=== PATIENT | male | born 1980 | race Caucasian/White ===

== ENCOUNTER 2019-03-18 12:25 | Emergency (ER) | payer MEDICAID ==
[~2019-03-18] VITALS: Ht 177.8 cm; Wt 95.5 kg
[~2019-03-18 12:25] MED LIST: ALBU8.5H8 IH; BENZ1TAB7 PO; CLON-371 PO; CLON-514 PO; FLUO20CA43 PO; GUAI120015 PO; HYDR-4383 PO; LISI-600 PO; OMEP40CA37 PO; ONDA8TAB9 PO; POLY17PO10 PO; PSEU-259 PO
[2019-03-18] MEDS ORDERED: LORazepam 2 mg/ml vial IM ONE (12:45)
--- NOTE | 2019-03-18 13:08 | NUR ---
PT IS ANXIOUS PACING BACK AND FORTH IN HIS ROOM, PT ALSO HAS TREMMORS IN HIS HANDS. ADMINSTERED 2MG IM ATIVAN, PT HAS BEEN COOPERATIVE WITH STAFF. PT DENIES ANY SI OR SELF HARM.
[2019-03-18 13:19] LABS: CLARITY,URINE CLEAR (Clear); COLOR,URINE STRAW (Yellow); GLUCOSE, URINE NEGATIVE (Neg); KETONES,URINE NEGATIVE (Neg); LEUKOCYTE ESTERASE ,URINE NEGATIVE (Neg); NITRITES, URINE NEGATIVE (Neg); OCCULT BLOOD,URINE NEGATIVE (Neg); PH,URINE 5.5 (4.8-8.0); PROTEIN,URINE NEGATIVE (Neg); UROBILINOGEN,URINE 0.2 E.U/dL (0.2-1.0)
[2019-03-18 13:23] LABS: UA COLLECTION TYPE CLN CATCH MIDSTREAM
[2019-03-18 13:24] LABS: URINE AMPHETAMINE SCREEN NEGATIVE (Neg); URINE BARBITUATE SCREEN NEGATIVE (Neg); URINE BENZODIAZEPINES SCREEN NEGATIVE (Neg); URINE CANNABINOID SCREEN NEGATIVE (Neg); URINE COCAINE SCREEN NEGATIVE (Neg); URINE METHADONE SCREEN NEGATIVE (Neg); URINE OPIATE SCREEN NEGATIVE (Neg); URINE PHENCYCLIDINE SCREEN NEGATIVE (Neg)
[2019-03-18 13:33] LABS: ALANINE AMINOTRANSFERASE 26 U/L (12-78); ALBUMIN 3.9 G/DL (3.4-5.0); ALBUMIN/GLOBULIN RATIO 1.3 (1.1-1.5); ALKALINE PHOSPHATASE 74 IU/L (46-116); ANION GAP 11 (8-16); ASPARTATE AMINO TRANSFERASE 21 U/L (10-37); BILIRUBIN,TOTAL 0.6 MG/DL (0.1-1.0); BLOOD UREA NITROGEN 8 MG/DL (7-18); BUN/CREATININE RATIO 9.5 (5.4-32.0); CALCIUM 8.8 MG/DL (8.5-10.1); CHLORIDE 93 MMOL/L (99-107); CREATININE 0.84 MG/DL (0.60-1.10); GLUCOSE 104 MG/DL (70-104); POTASSIUM 3.4 MMOL/L (3.5-5.1); SODIUM 125 MMOL/L (135-145); TOTAL CARBON DIOXIDE 20.6 MMOL/L (24-32); TOTAL PROTEIN 6.8 G/DL (6.4-8.2); eGFR > 90 ML/MIN
[2019-03-18 13:38] LABS: BASOPHILS % (AUTO) 0.1 % (0-1); EOSINOPHILS # (AUTO) 0.1 X10'3 (0-0.9); EOSINOPHILS % (AUTO) 0.6 % (0-6); HEMATOCRIT 34.8 % (42.0-52.0); HEMOGLOBIN 12.1 g/dl (14.0-17.9); LYMPHOCYTES # (AUTO) 1.3 X10'3 (1.1-4.8); LYMPHOCYTES % (AUTO) 11.4 % (21-51); MEAN CORPUSCULAR HEMOGLOBIN 31.9 PG (27.0-31.0); MEAN CORPUSCULAR HGB CONC 34.7 g/dL (33.0-36.5); MEAN PLATELET VOLUME 6.9 FL (7.4-10.4); MONOCYTES # (AUTO) 0.9 X10'3 (0-0.9); MONOCYTES % (AUTO) 7.6 % (2-12); NEUTROPHILS # (AUTO) 9.1 X10'3 (1.8-7.7); NEUTROPHILS % (AUTO) 80.3 % (42-75); PLATELET COUNT 301 X10'3 (140-440); RED BLOOD COUNT 3.78 X10'6 (4.70-6.10); WHITE BLOOD COUNT 11.3 X10'3 (4.5-11.0)
[2019-03-18 13:41] LABS: ETHANOL < 0.010 GM/DL (0.0-0.010)
[2019-03-18 13:42] LABS: ACETAMINOPHEN < 2.0 UG/ML (10-30)
[2019-03-18] MEDS ORDERED: sodium polystyrene sulfonate 15gm/60ml oral suspension PO ONE (15:30)
[2019-03-18] MEDS ORDERED: calcium gluconate inj. 1 GM in normal saline 100ml IV soln 100 ML IV ONE (15:30)
[2019-03-18] MEDS ORDERED: dextrose 50%-water 50ml dispensing syringe IV ONE (15:30)
[2019-03-18] MEDS ORDERED: insulin regular, human 10 units/0.1 ml syringe IV ONE (15:30)
[2019-03-18] MEDS ORDERED: furosemide 40mg/4ml inj IV ONE (15:30)
--- NOTE | 2019-03-18 19:35 | NUR ---
SPOKE WITH [facility], PT TO REMAIN ON 5150 HOLD IN ORDER TO SEEK PLACEMENT. PT IS RESTING COMFORTABLY IN BED 10, APPEARS IN NO DISTRESS.
--- NOTE | 2019-03-18 22:19 | NUR ---
The patient was moved to bed 21 in the ER overflow and he was very cooperative with the move and all nursing requests. Dr. Sutton was made aware of low NA of 125 and recommending giving the patient salty foods. He upper extremities had resting tremors. He stated that he has been staying at the [facility]. Earlier this date the [facility] Crisis staff were asked to evaluate the patient at [facility] at [facility] for psuedoseizures. He was at the [employer] [facility] [facility] [place] and appeared to be delusional and paranoid and presented as unable to care for himself in the community. The patient stated that he had been released from [facility] where he was there for court ordered treatment because he was not able to participate in legal procedings against him. He is on probation and recently had a probation violation and was in intermediate for the past 6 months. He stated that his anxiety was very high. When asked how his mood was he replied, "I'm in good spirits even though I'm dying" Stated he felt he was going to because of his anxiety. He stated that his appetite is good but he has had no food to eat. He denies A/V hallucinations. He denies thoughts to harm himself or others. He was able to correctly name the month, year, and city.
[2019-03-18] MEDS ORDERED: OLAN20TA3 PO (22:34)
[2019-03-18] MEDS ORDERED: HYDR-3686 PO (22:39)
[2019-03-18] MEDS ORDERED: BACDS PO (22:39)
--- NOTE | 2019-03-18 23:30 | NUR ---
The patient appears to be sleeping
[2019-03-19 01:29] LABS: ALBUMIN 3.4 G/DL (3.4-5.0); ANION GAP 9 (8-16); BLOOD UREA NITROGEN 9 MG/DL (7-18); BUN/CREATININE RATIO 10.6 (5.4-32.0); CALCIUM 8.8 MG/DL (8.5-10.1); CHLORIDE 107 MMOL/L (99-107); CREATININE 0.85 MG/DL (0.60-1.10); GLUCOSE 96 MG/DL (70-104); POTASSIUM 4.2 MMOL/L (3.5-5.1); SODIUM 141 MMOL/L (135-145); TOTAL CARBON DIOXIDE 24.8 MMOL/L (24-32); eGFR > 90 ML/MIN
[2019-03-19] MEDS ORDERED: hydrOXYzine 25 MG tablet PO PRN (01:55)
[2019-03-19] MEDS ORDERED: olanzapine 10mg tablet PO ONE (01:55)
--- NOTE | 2019-03-19 02:34 | NUR ---
RELIEVING PRIMARY RN FOR BREAK. PT ASLEEP, LYING ON HIS LEFT SIDE WITH BLANIKETS COVERING TO HIS SHOULDERS. RR 14 AND UNLABORED. SITTER AND RN WITHIN VIEW OF PT AAT.
--- NOTE | 2019-03-19 04:43 | NUR ---
The patient appears to be asleep
--- NOTE | 2019-03-19 06:56 | NUR ---
Recieved pt in bed sleeping w/o distress and with normal respirations.
[2019-03-19] MEDS ORDERED: pantoprazole 40mg Tablet.DR PO SCH (08:00)
[2019-03-19] MEDS: sulfamethoxazole/trimethoprim DS (800/160mg) tablet PO SCH ×2 (08:01→20:07)
--- NOTE | 2019-03-19 10:00 | NUR ---
Pt c/o anxiety and shaking. Appears to have intermitent hand shaking and states " I have alzheimers". Psychiatry will come and see client. Explained to Pt he will talk to a prescriber soon and encouraged him to walk with me when he felt anxious, which we did x2. Currently in bed resting.
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
[2019-03-19] MEDS ORDERED: LORazepam 1 MG tablet PO PRN (13:10)
--- NOTE | 2019-03-19 16:00 | NUR ---
Pt appears more relaxed after receiving ativan 1mg prn. Resting in bed.
[2019-03-19 18:08] VITALS: BP 128/86
--- NOTE | 2019-03-19 18:48 | NUR ---
Received report. Patient ate dinner and used bathroom. States that he has diarrhea. Patient requests imodium. Now laying in bed with no complaints.
[2019-03-19] MEDS ORDERED: lactobacillus rhamnosus 10,000 MMU CELLS/CAPSULE PO SCH (20:00)
--- NOTE | 2019-03-19 20:12 | NUR ---
Patient given night meds. States that he is comfortable in the bed. No further c/o diarrhea. Patient is on abx. May cause some loose stool.
[2019-03-19] MEDS ORDERED: olanzapine 10mg tablet PO SCH (21:00)
--- NOTE | 2019-03-19 21:50 | NUR ---
Patient sleeping. Awaiting DC to [place] [facility].
== END 2019-03-19 22:06 ==
LOC: ER 12:26
DX: F41.9 Anxiety disorder, unspecified (principal); F29 Unspecified psychosis not due to a substance or known physiological condition; F31.9 Bipolar disorder, unspecified; I10 Essential (primary) hypertension; J45.909 Unspecified asthma, uncomplicated; K21.9 Gastro-esophageal reflux disease without esophagitis; G89.29 Other chronic pain; Z86.14 Personal history of Methicillin resistant Staphylococcus aureus infection; Z98.890 Other specified postprocedural states; Z56.0 Unemployment, unspecified; Z59.0 Homelessness; Z60.2 Problems related to living alone; Z88.8 Allergy status to other drugs, medicaments and biological substances; Z79.899 Other long term (current) drug therapy
CPT/HCPCS: 36415; 71045; 80048; 80053; 80305; 80320; 80329; 81003; 84443; 84484; 85025; 93005; 96372; 99285; J2060; Q0177; J0610; J3490; J7030

== ENCOUNTER 2019-03-19 20:45 | Inpatient (IN) | payer MEDICAID ==
[~2019-03-19] VITALS: Ht 177.8 cm; Wt 94.6 kg
[~2019-03-19 20:45] MED LIST changes: -ALBU8.5H8 IH; +BACDS PO; -BENZ1TAB7 PO; -CLON-371 PO; -CLON-514 PO; -FLUO20CA43 PO; -GUAI120015 PO; +HYDR-3686 PO; -HYDR-4383 PO; -LISI-600 PO; +OLAN20TA3 PO; -ONDA8TAB9 PO; -POLY17PO10 PO; -PSEU-259 PO
[2019-03-19] MEDS ORDERED: olanzapine 10mg tablet PO SCH (21:00)
[2019-03-19] MEDS ORDERED: magnesium hydroxide 30ml (MOM) UD suspension PO PRN (21:35)
[2019-03-19] MEDS ORDERED: mag hydrox/Alum hydrox/simeth 30ml oral suspension PO PRN (21:35)
[2019-03-19] MEDS ORDERED: loperamide 2mg capsule PO PRN (21:35)
[2019-03-19 22:00] VITALS: BP 129/88
--- NOTE | 2019-03-19 22:00 | NUR ---
Admit Note: Pt. admitted from ER Overflow at 2200, able to ambulate to the unit accompanied by Sky, Press and [employer]. He was paced on a 5150 for grave disability r/t psychosis. Pt. is A&O X4, and presents as cooperative, fatigued, and anxious. He reports a mental health hx of severe anxiety with panic attacks, depression, Bipolar D/O, PTSD, and paranoid schizophrenia. He denies any S/I, H/I, or A/V/LOCKHART at this time, however does report on-going paranoid delusions that the [employer] has been trying to kill him because his family is part of the [facility]. Pt. reports severe anxiety attacks and bilateral upper extremity tremors r/t these delusions. He states, "My anxiety and tremors started when I left [facility] at the end of February (he had been there for 6-7 months), ever since I have been in [place]." Pt. has been staying at the [email or web address] [place], and was brought to the ER by [facility] for evaluation. His toxicology screen was negative, however he has a history of alcohol use. Pt. reports medical issues of htn, past head traumas, memory loss, asthma, MRSA, cellulitis, and GERD. He also reports chronic pain in bilateral upper arms and chest muscles r/t anxiety-related tremors. Recent electrocardiogram, chest x-ray, and troponin levels performed in the ER were WNL, and pt. reports pain is reduced with PRN Ativan. He also had a pseudoseizure/panic attack while in the ER, and it was found that his initial serum sodium level was 125. A basic metabolic panel was rechecked and sodium level was found to be 141. Per evaluation of Dr. Baird, polydipsia is likely the cause of the patient's hyponatremia, will endorse to AM shift and continue to monitor. Skin check completed by Sage Posada RN and Jose Alvarez RN. Pt. found to have a reddened/warm area on rt upper arm, and is currently being treated with ABTs. No open areas noted and V/S WNL. He also has several boil-like areas on left neck area, and blisters present on bilateral feet. Areas are not open and no drainage noted, will endorse to AM shift and continue to monitor. HS snack provided along with PRN Imodium per reports of recent diarrhea. Pt. resting comfortably at this time.
[2019-03-19] MEDS ORDERED: hydrOXYzine 25 MG tablet PO PRN (22:05)
[2019-03-19] MEDS: LORazepam 1 MG tablet PO PRN (22:17)
[2019-03-19] MEDS: traZODone 50mg tablet PO PRN (22:18)
[2019-03-19] MEDS: acetaminophen 325mg tablet PO PRN (23:25)
--- NOTE | 2019-03-20 00:49 | NUR ---
PT. HAS AN ALLERGY TO ALL NUTS
[2019-03-20] MEDS ORDERED: clonazePAM 0.5mg tablet PO ONE (07:15)
[2019-03-20] MEDS: sulfamethoxazole/trimethoprim DS (800/160mg) tablet PO SCH ×2 (07:39→20:12)
[2019-03-20] MEDS: lactobacillus rhamnosus 10,000 MMU CELLS/CAPSULE PO SCH ×2 (07:39→20:12)
[2019-03-20] MEDS: pantoprazole 40mg Tablet.DR PO SCH (07:39)
[2019-03-20 08:19] VITALS: BP 123/84
[2019-03-20 08:44] LABS: CHOL/HDL RATIO 2.1 (0.00-4.99); CHOLESTEROL 147 MG/DL (0-200); HDL CHOLESTEROL 71 MG/DL (35-60); LDL CHOLESTEROL 46 MG/DL (50-100); TRIGLYCERIDES 153 MG/DL (20-135)
[2019-03-20 08:49] LABS: HEMOGLOBIN A1C 4.9 % (4.5-6.2)
[2019-03-20] MEDS ORDERED: tuberculin, purif. prot. deriv. 5 units/0.1ml ID ONE (10:00)
[2019-03-20] MEDS: LORazepam 1 MG tablet PO PRN ×2 (14:11→21:50)
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
[2019-03-20] MEDS ORDERED: chlorproMAZINE 25mg tablet PO ONE (17:30)
[2019-03-20 20:00] VITALS: BP 144/90
[2019-03-20] MEDS: clonazePAM 0.5mg tablet PO SCH (20:12)
[2019-03-20] MEDS: chlorproMAZINE 25mg tablet PO SCH (20:13)
[2019-03-20] MEDS: acetaminophen 325mg tablet PO PRN (20:17)
[2019-03-20 21:50] VITALS: BP 120/60
[2019-03-20] MEDS: traZODone 50mg tablet PO PRN (21:50)
--- NOTE | 2019-03-21 03:40 | NUR ---
Nursing Progress Note: Legal hold: 5150 Client on involuntary status for GD Report received from nurse with use of SBAR: LENNOX Laws Why are they here: Pt. brought to ER by [facility] Crisis Unit for evaluation after decompensating at [facility] [employer] [facility] [place]. He reports a mental health hx of severe anxiety with panic attacks, depression, Bipolar D/O, PTSD, and paranoid schizophrenia. Pt. reports on-going paranoid delusions that the [employer] has been trying to kill him because his family is part of the [facility]. He also reports severe anxiety attacks r/t this. Pt. recently was in [facility], afterwards spent time in detention, and is currently homeless. He is currently being treated for possible cellulitis on rt. upper arm, and also reports chronic pain in bilateral upper arms and chest r/t anxiety-related bilateral upper extremity tremors. Recent electrocardiogram, chest x-ray, and troponin levels performed in the ER were WNL. Pt. also had a pseudoseizure/panic attack while in the ER, and it was found that his initial serum sodium level was 125, however when rechecked was WNL. Assessment What has happened this shift: Pt. up in Group Room at the beginning of the shift interacting appropriately with others. He presents as pleasant, cooperative, and is smiling and joking with this freelance copywriter; however he continues to report restlessness, anxiety, and exhibits on-going bilateral upper extremity tremors. Pt. cooperative with all medications, states, "The Chlorpromazine makes my brain work better so I can talk better. They wouldn't give it to me at [facility]. They gave me Depakote and I couldn't talk right." Pt. reports ongoing anxiety, however reports the Clonazepam and Ativan are helping. He also reports ongoing delusions regarding the [employer], states, "I have a love/hate relationship with the [employer]. They hate me." However, pt. reports that he does feel safe here on the unit. Pt. requests PRN Ativan at HS r/t chronic anxiety which causes him intermittent chest tightness/pain. He denies any radiation of pain to other areas, n/v, or diaphoresis, and V/S are WNL. Pt. is laying in bed smiling and joking with this freelance copywriter and does not appear to be in any distress, PRN Ativan administered and pt. reports effectiveness. Pt. resting comfortably, will continue to monitor. S/I, H/I: Denies A/VH: Denies Sleep: Reports he has been sleeping well, PRN Trazodone and Ativan requested at HS with effectiveness ADL's: Independent, requires occasional re-direction from staff Group attendance: Reports he attended groups today and enjoyed them Were meds taken: No Any med S/E: Pt. continues to have bilateral upper extremity tremors, psychomotor restlessness, and chronic anxiety Mental Status Exam Appearance: Neat, hair pulled back in a pony tail, and dressed appropriately in hospital attire. Eye contact: Good Behavior: Pleasant, cooperative, and is smiling and joking with this freelance copywriter; however he continues to report restlessness, anxiety, and exhibits on-going bilateral upper extremity tremors. Speech: WNL, slightly tremulous at times Mood: Pleasant Affect: Animated Thought process: Perseverative on paranoid delusions Thought Content: Ongoing paranoid delusions Cognition: A&O X4 Insight: Fair Judgment: Poor to fair Interventions PRN's used: Ativan, Trazodone, and Tylenol Therapeutic interventions: Provided active listening, maintained a safe and therapeutic environment, provided medication education, provided clear and simple instructions, attempted to reorient to reality, monitored for change in behavior and bilateral upper extremity tremors and need for intervention, and maintained Q 15 min safety checks. Restraints/seclusion/emergency medication: N/A Justification of Continued Inpatient Treatment: Pt. requires interruption of current crisis, a safe and supportive environment, and medication adjustments.
[2019-03-21] MEDS: clonazePAM 0.5mg tablet PO SCH ×2 (07:18→19:39)
[2019-03-21] MEDS: pantoprazole 40mg Tablet.DR PO SCH (07:18)
[2019-03-21 08:13] VITALS: BP 128/89
[2019-03-21] MEDS: sulfamethoxazole/trimethoprim DS (800/160mg) tablet PO SCH ×2 (08:26→19:40)
[2019-03-21] MEDS: chlorproMAZINE 25mg tablet PO SCH ×3 (08:26→20:16)
[2019-03-21] MEDS: lactobacillus rhamnosus 10,000 MMU CELLS/CAPSULE PO SCH ×2 (08:26→19:40)
[2019-03-21] MEDS: LORazepam 1 MG tablet PO PRN ×2 (08:41→17:13)
[2019-03-21] MEDS: acetaminophen 325mg tablet PO PRN (11:53)
--- NOTE | 2019-03-21 12:20 | NUR ---
Nursing Progress Note: Legal hold: 5150 Client on involuntary status for GD Report received from nurse with use of SBAR: LENNOX Laws Why are they here: Pt. brought to ER by [facility] for evaluation after decompensating at [facility] [employer] [facility] [place]. He reports a mental health hx of severe anxiety with panic attacks, depression, Bipolar D/O, PTSD, and paranoid schizophrenia. Pt. reports on-going paranoid delusions that the [employer] has been trying to kill him because his family is part of the [facility]. He also reports severe anxiety attacks r/t this. Pt. recently was in [facility], afterwards spent time in half-way, and is currently homeless. He is currently being treated for possible cellulitis on rt. upper arm, and also reports chronic pain in bilateral upper arms and chest r/t anxiety-related bilateral upper extremity tremors. Recent electrocardiogram, chest x-ray, and troponin levels performed in the ER were WNL. Pt. also had a pseudoseizure/panic attack while in the ER, and it was found that his initial serum sodium level was 125, however when rechecked was WNL. Assessment What has happened this shift: Patient was up at change of shift in the group room. Before breakfast patient started with feeling very anxious. RN gave patient his Klonopin that was due at 0800 which was a little early but still within the window. RN checked on patient a little later and patient was anxious and his hands were trembling. RN gave patient an Ativan. Patient seemed to calm down soon after. Patient states he has " staring him in the face". Patient still believes the [employer] Gang is trying to kill him. Patient came to see RN again and asked for Tylenol for a LOCKHART. Patient sits in the Community Room and is social with other people or watches [employer]. S/I, H/I: Denies A/VH: Denies Sleep: ADL's: Independent Group attendance: Yes Were meds taken: No Any med S/E: Pt. continues to have bilateral upper extremity tremors, psychomotor restlessness, and chronic anxiety Mental Status Exam Appearance: Neat, hair pulled back in a pony tail, and dressed appropriately in hospital attire. Eye contact: Good Behavior: Pleasant, cooperative, and is smiling and joking with this teletypewriter operator; however he continues to report restlessness, anxiety, and exhibits on-going bilateral upper extremity tremors. Speech: Normal Mood: Pleasant Affect: Animated Thought process: Perseverative on paranoid delusions Thought Content: Ongoing paranoid delusions Cognition: A&O X4 Insight: Poor Judgment: Poor Interventions PRN's used: Ativan, Tylenol Therapeutic interventions: Provided active listening, maintained a safe and therapeutic environment, provided medication education, provided clear and simple instructions, attempted to reorient to reality, monitored for change in behavior and bilateral upper extremity tremors and need for intervention, and maintained Q 15 min safety checks. Restraints/seclusion/emergency medication: N/A Justification of Continued Inpatient Treatment: Pt. requires interruption of current crisis, a safe and supportive environment, and medication adjustments.
[2019-03-21] MEDS: OLANZapine 2.5MG tablet PO PRN ×2 (13:11→20:16)
[2019-03-21 19:00] VITALS: BP 126/85
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
[2019-03-22] MEDS: LORazepam 1 MG tablet PO PRN ×3 (07:03→19:14)
[2019-03-22] MEDS: chlorproMAZINE 25mg tablet PO SCH ×3 (07:46→20:12)
[2019-03-22] MEDS: sulfamethoxazole/trimethoprim DS (800/160mg) tablet PO SCH ×2 (07:46→19:56)
[2019-03-22] MEDS: lactobacillus rhamnosus 10,000 MMU CELLS/CAPSULE PO SCH ×2 (07:46→19:56)
[2019-03-22] MEDS: clonazePAM 0.5mg tablet PO SCH ×2 (07:46→19:56)
[2019-03-22] MEDS: pantoprazole 40mg Tablet.DR PO SCH (07:46)
[2019-03-22 08:32] VITALS: BP 116/66
[2019-03-22] MEDS: OLANZapine 2.5MG tablet PO PRN (13:34)
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
[2019-03-22 19:00] VITALS: BP 135/87
[2019-03-22] MEDS: traZODone 50mg tablet PO PRN (20:12)
--- NOTE | 2019-03-23 02:57 | NUR ---
Nursing Progress Note: Legal hold: 5250 Client on involuntary status for GD Report received from nurse with use of SBAR: LENNOX Hogan Why are they here: Pt. brought to ER by [facility] for evaluation after decompensating at [facility]. He reports a mental health hx of severe anxiety with panic attacks, depression, Bipolar D/O, PTSD, and paranoid schizophrenia. Pt. reports on-going paranoid delusions that the [employer]ai has been trying to kill him because his family is part of the [facility]. He also reports severe anxiety attacks r/t this. Pt. recently was in [facility], afterwards spent time in long term, and is currently homeless.He is currently being treated for possible cellulitis on rt. upper arm, and also reports chronic pain in bilateral upper arms and chest r/t anxiety-related bilateral upper extremity tremors. Recent electrocardiogram, chest x-ray, and troponin levels performed in the ER were WNL. Pt. also had a pseudoseizure/panic attack while in the ER, and it was found that his initial serum sodium level was 125, however when rechecked was WNL. Assessment What has happened this shift: First contact with patient was in the community room. the patient had visible tremors in his upper extremities, When asked he claim he had an xiety level of 6/10. When asked if he felt safe he said that he did. Then he went on to comment about the insurance policy and how the [employer] desai wanted to kill him to claim the policy. He was anxious to get his nighttime medication including his trazodone. He hovered around the med room door until he meds were ready to be administered. He spent the remainder of the night in the community room and then went to bed soon after. when asked he said his anxiety was a 3/10. Pt denies S/I and H/I S/I, H/I: Denies A/VH: Denies Sleep: 8.25 hours ADL's: Independent, requires occasional re-direction from staff Group attendance: Attended group with Fabrice, he reports learning to focus on now, letting go of the past, and not worrying about the future. Were meds taken: Yes Any med S/E: bilateral upper extremity tremors, psychomotor restlessness Mental Status Exam Appearance: Neat, hair pulled back in a pony tail, and dressed appropriately in hospital attire. Eye contact: Good Behavior: Pleasant, cooperative; however he continues to report anxiety, and exhibits on-going bilateral upper extremity tremors. Speech: WNL, slightly tremulous and pressured when describing on-going delusions Mood: Pleasant Affect: congruent with mood Thought process: Perseverative on paranoid delusions Thought Content: Ongoing paranoid delusions and phobias Cognition: A&O X4 Insight: poor to fair Judgment: Poor to fair Interventions PRN's used: Trazodone. Therapeutic interventions: Provided active listening, maintained a safe and therapeutic environment, provided clear and simple instructions, attempted to reorient to reality, monitored for change in behavior and bilateral upper extremity tremors and need for intervention, and maintained Q 15 min safety checks. Restraints/seclusion/emergency medication: N/A Justification of Continued Inpatient Treatment: Pt. continues to have psychotic s/s and anxiety and requires a safe and supportive environment, and medication adjustments.
[2019-03-23] MEDS: LORazepam 1 MG tablet PO PRN ×3 (07:05→22:58)
[2019-03-23] MEDS: pantoprazole 40mg Tablet.DR PO SCH (07:05)
[2019-03-23] MEDS: chlorproMAZINE 25mg tablet PO SCH ×3 (07:06→20:42)
[2019-03-23] MEDS: clonazePAM 0.5mg tablet PO SCH ×2 (07:57→19:18)
[2019-03-23] MEDS: lactobacillus rhamnosus 10,000 MMU CELLS/CAPSULE PO SCH ×2 (07:57→20:42)
[2019-03-23] MEDS: sulfamethoxazole/trimethoprim DS (800/160mg) tablet PO SCH ×2 (07:57→20:44)
[2019-03-23 08:00] VITALS: BP 115/81
[2019-03-23] MEDS: acetaminophen 325mg tablet PO PRN (08:40)
--- NOTE | 2019-03-23 17:23 | NUR ---
Nursing Progress Note Legal hold: 5150 Client on involuntary status for GD Report received from nurse Samira HIGH, with use of SBAR Why are they here: He reports a MH hx of severe anxiety with panic attacks, depression, Bipolar D/O, PTSD, and paranoid schizophrenia. Pt. reports on-going paranoid delusions that the [employer] has been trying to kill him because his family is part of the [facility]. He also reports severe anxiety attacks r/t this. Pt. recently was in [place], afterwards spent time in care home, and is currently homeless.He is currently being treated for possible cellulitis on rt. upper arm, and also reports chronic pain in bilateral upper arms and chest r/t anxiety-related bilateral upper extremity tremors. Assessment What has happened this shift: At start of shift pt requested Ativan stating his chest and feet hurt. Pain 3/10 due to his anxiety. He has been up all shift interacting w/others and watching TV in the main dayroom. S/I, H/I: Denies A/VH: Denies Sleep: None this shift ADL's: Independent, requires occasional re-direction from staff Group attendance: Attended both groups Were meds taken: Yes Any med S/E: N/A Mental Status Exam Appearance: Neat, hair pulled back in a pony tail, and dressed appropriately in hospital attire. Eye contact: Good Behavior: Pleasant, cooperative; continues to report anxiety, bilateral upper extremity tremors. Speech: pressured Mood: Calm Affect: congruent with mood Thought process: Perseverated on current cx of health or "pain" Thought Content: Ongoing paranoid delusions and phobias Cognition: A&O X4 Insight: poor to fair Judgment: Poor to fair Interventions PRN's used: Ativan X 2 Therapeutic interventions: Provided therapeutic communication and active listening, maintained a safe and therapeutic environment, medication education, monitoring and administration, monitored for change in behavior and bilateral upper extremity tremors and need for intervention, and maintained Q 15 min safety checks. Restraints/seclusion/emergency medication: N/A Justification of Continued Inpatient Treatment: Pt. continues to have psychotic s/s and anxiety and requires a safe and supportive environment, and medication adjustments.
[2019-03-23 19:21] VITALS: BP 128/91
[2019-03-23] MEDS: traZODone 50mg tablet PO PRN (20:42)
--- NOTE | 2019-03-23 23:27 | NUR ---
Nursing Progress Note: Legal hold: 5250 Client on involuntary status for GD Report received from nurse with use of SBAR: LENNOX Laws Why are they here: Pt. brought to ER by [facility] for evaluation after decompensating at [facility] [place]. He reports a mental health hx of severe anxiety with panic attacks, depression, Bipolar D/O, PTSD, and paranoid schizophrenia. Pt. reports on-going paranoid delusions that the [employer] has been trying to kill him because his family is part of the [facility]. He also reports severe anxiety attacks r/t this. Pt. recently was in [facility], afterwards spent time in snf, and is currently homeless.He is currently being treated for possible cellulitis on rt. upper arm, and also reports chronic pain in bilateral upper arms and chest r/t anxiety-related bilateral upper extremity tremors. Recent electrocardiogram, chest x-ray, and troponin levels performed in the ER were WNL. Pt. also had a pseudoseizure/panic attack while in the ER, and it was found that his initial serum sodium level was 125, however when rechecked was WNL. Assessment What has happened this shift: Pt watched TV in group room majority of shift. During 1:1, pt stated "the meds are helping" and that he is "feeling better but still anxious." Pt stated his feet do not hurt, and RN evaluated all sores that were documented at time of admission to be healing well. Pt did not mention any delusions that have been ongoing during previous shifts. Pt having trouble falling asleep and did not turn in until after 2300. S/I, H/I: Denies A/VH: Denies Sleep: See Sleep Hour Charting ADL's: Independent, requires occasional re-direction from staff Group attendance: Y - HS Snack Were meds taken: Y Any med S/E: Pt. continues to have some bilateral upper extremity tremors, psychomotor restlessness, and chronic anxiety. Mental Status Exam Appearance: Neat, hair pulled back in a pony tail, and dressed appropriately in hospital green scrubs and nonskid socks Eye contact: Direct Behavior: Cooperative, watching TV in group room Speech: WNL Mood: "I feel okay" Affect: Constricted Thought process: Linear, no mention of delusions even with probing Thought Content: what meds he is taking this evening, ongoing anxiety Cognition: A&O X4 Insight: Poor Judgment: Poor to Fair Interventions PRN's used: Ativan, Trazodone Therapeutic interventions: Provided active listening, maintained a safe and therapeutic environment, provided clear and simple instructions, monitored for change in behavior and bilateral upper extremity tremors and need for intervention, and maintained Q15 min safety checks. Restraints/seclusion/emergency medication: N/A Justification of Continued Inpatient Treatment: Pt. continues to have psychotic s/s and anxiety and requires a safe and supportive environment, and medication adjustments.
[2019-03-24] MEDS: pantoprazole 40mg Tablet.DR PO SCH (07:06)
[2019-03-24] MEDS: chlorproMAZINE 25mg tablet PO SCH ×3 (07:07→20:38)
[2019-03-24 07:57] VITALS: BP 125/89
[2019-03-24] MEDS: sulfamethoxazole/trimethoprim DS (800/160mg) tablet PO SCH ×2 (08:40→20:36)
[2019-03-24] MEDS: lactobacillus rhamnosus 10,000 MMU CELLS/CAPSULE PO SCH ×2 (08:40→20:36)
[2019-03-24] MEDS: clonazePAM 0.5mg tablet PO SCH ×2 (08:40→20:36)
[2019-03-24] MEDS: LORazepam 1 MG tablet PO PRN (12:48)
--- NOTE | 2019-03-24 13:48 | NUR ---
100% PO Intake, eating well. Documented having moderate liquid stools, is taking immodium and lactobacillus. No nutrition problem at this time. Recommend: 1. Continue regular diet 2. Continue anti diarrheal as needed 3. Weekly wts Addendum: 03/24/19 at [address] Amended: Links added.
--- NOTE | 2019-03-24 16:26 | NUR ---
Nursing Progress Note Legal hold: 5250 hearing for 14 days Client on involuntary status for GD Report received from nurse, Vanessa HIGH, with use of SBAR Why are they here: He reports a MH hx of severe anxiety with panic attacks, depression, Bipolar D/O, PTSD, and paranoid schizophrenia. Pt. reports on-going paranoid delusions that the [employer] has been trying to kill him because his family is part of the [facility]. He also reports severe anxiety attacks r/t this. Pt. recently was in [place], [place] [facility], and is currently homeless.He is currently being treated for possible cellulitis on rt. upper arm, and also reports chronic pain in bilateral upper arms and chest r/t anxiety-related bilateral upper extremity tremors. Assessment What has happened this shift: Pt up in the main community room at start of shift. Pt had his 5250 hearing today he agreed to stay so did not contest the hearing. Pt went to groups and engaged w/peers. Pt later seen watching TV in the community room with his peers and occasionally laughing. Pt continues to hear voices telling him he is going to be killed by the "[employer] gang." Pt presents in the afternoon w/oral dystonia. S/I, H/I: Denies A/VH: Reports hearing voices Sleep: None this shift ADL's: Independent, requires occasional re-direction from staff Group attendance: Yes, both groups Were Meds taken: Yes Any med S/E: N/A Mental Status Exam Appearance: Neat, hair pulled back in a pony tail, and dressed appropriately in hospital attire. Eye contact: Good Behavior: Pleasant, cooperative; continues to report anxiety, oral dystonia, bilateral upper extremity tremors. Speech: pressured Mood: Calm Affect: congruent with mood Thought process: Perseverated on current cx of health or "pain" Thought Content: Ongoing paranoid delusions and phobias Cognition: A&O X4 Insight: poor to fair Judgment: Poor to fair Interventions PRN's used: Ativan X 2 Therapeutic interventions: Provided therapeutic communication and active listening, maintained a safe and therapeutic environment, medication education, monitoring and administration, monitored for change in behavior and bilateral upper extremity tremors and need for intervention, and maintained Q 15 min safety checks. Restraints/seclusion/emergency medication: N/A Justification of Continued Inpatient Treatment: Pt. continues to have psychotic s/s and anxiety and requires a safe and supportive environment, and medication adjustments.
[2019-03-24] MEDS: OLANZapine 2.5MG tablet PO PRN (18:50)
[2019-03-24 20:15] VITALS: BP 134/89
[2019-03-24] MEDS: traZODone 50mg tablet PO PRN (21:52)
--- NOTE | 2019-03-25 02:23 | NUR ---
Nursing Progress Note: Legal hold: 5250 Client on involuntary status for GD Report received from nurse with use of SBAR: LENNOX Laws Why are they here: Pt. brought to ER by [facility] for evaluation after decompensating at [facility] [place]. He reports a mental health hx of severe anxiety with panic attacks, depression, Bipolar D/O, PTSD, and paranoid schizophrenia. Pt. reports on-going paranoid delusions that the [employer] has been trying to kill him because his family is part of the [facility]. He also reports severe anxiety attacks r/t this. Pt. recently was in [place] [facility], afterwards spent time in [facility], and is currently homeless.He is currently being treated for possible cellulitis on rt. upper arm, and also reports chronic pain in bilateral upper arms and chest r/t anxiety-related bilateral upper extremity tremors. Recent electrocardiogram, chest x-ray, and troponin levels performed in the ER were WNL. Pt. also had a pseudoseizure/panic attack while in the ER, and it was found that his initial serum sodium level was 125, however when rechecked was WNL. Assessment What has happened this shift: Pt watched TV in group room majority of shift. During 1:1, pt stated "he is doing okay, feeling better". He continued, "I agreed with everything they said in court." Pt seems grateful for the help he is receiving, stating the "the medications help me." Pt did not mention any delusions that have been ongoing during previous shifts. S/I, H/I: Denies A/VH: Denies Sleep: See Sleep Hour Charting ADL's: Independent, requires occasional re-direction from staff Group attendance: Y - HS Snack Were meds taken: Y Any med S/E: Pt. continues to have some bilateral upper extremity tremors, psychomotor restlessness, and chronic anxiety. Mental Status Exam Appearance: Neat, hair pulled back in a pony tail, and dressed appropriately in hospital green scrubs and nonskid socks Eye contact: Direct Behavior: Cooperative, watching TV in group room Speech: WNL Mood: "I feel better" Affect: Blunted Thought process: Linear, no mention of delusions even with probing Thought Content: hoping to get better sleep Cognition: A&O X4 Insight: Poor Judgment: Poor to Fair Interventions PRN's used: Trazodone Therapeutic interventions: Provided active listening, maintained a safe and therapeutic environment, provided clear and simple instructions, monitored for change in behavior and bilateral upper extremity tremors and need for intervention, and maintained Q15 min safety checks. Restraints/seclusion/emergency medication: N/A Justification of Continued Inpatient Treatment: Pt. continues to have anxiety and requires a safe and supportive environment, and medication adjustments.
[2019-03-25 07:30] VITALS: BP 122/91
[2019-03-25] MEDS: lactobacillus rhamnosus 10,000 MMU CELLS/CAPSULE PO SCH ×2 (08:02→20:33)
[2019-03-25] MEDS: sulfamethoxazole/trimethoprim DS (800/160mg) tablet PO SCH ×2 (08:02→20:33)
[2019-03-25] MEDS: clonazePAM 0.5mg tablet PO SCH ×2 (08:02→20:33)
[2019-03-25] MEDS: chlorproMAZINE 25mg tablet PO SCH ×3 (08:02→20:34)
[2019-03-25] MEDS: pantoprazole 40mg Tablet.DR PO SCH (08:02)
[2019-03-25] MEDS: LORazepam 1 MG tablet PO PRN ×2 (10:50→18:02)
--- NOTE | 2019-03-25 15:47 | NUR ---
1:1 DISCHARGE PLANNING Pt met with [facility] staff, Rogers, who interviewed pt and agreed to allow pt to enter [facility]. Pt will receive case management services to assist him in gaining SSI, his identification and other items to assist him recovering successfully. Rogers has requested pt be referred to [facility] in addition to [facility]. This will assist pt in finding housing and gaining successful recovery. Roxanna Ruiz, DAGMAR
[2019-03-25] MEDS: OLANZapine 2.5MG tablet PO PRN (16:48)
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
[2019-03-25] MEDS: acetaminophen 325mg tablet PO PRN (19:02)
[2019-03-25 20:27] VITALS: BP 125/85
[2019-03-25] MEDS: traZODone 50mg tablet PO PRN (20:34)
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
[2019-03-26 07:42] VITALS: BP 94/58
[2019-03-26] MEDS: clonazePAM 0.5mg tablet PO SCH ×2 (08:01→20:50)
[2019-03-26] MEDS: sulfamethoxazole/trimethoprim DS (800/160mg) tablet PO SCH ×2 (08:01→20:50)
[2019-03-26] MEDS: lactobacillus rhamnosus 10,000 MMU CELLS/CAPSULE PO SCH ×2 (08:01→20:50)
[2019-03-26] MEDS: pantoprazole 40mg Tablet.DR PO SCH (08:01)
[2019-03-26] MEDS: chlorproMAZINE 25mg tablet PO SCH ×3 (08:02→20:51)
[2019-03-26] MEDS: LORazepam 1 MG tablet PO PRN ×2 (09:09→17:06)
[2019-03-26] MEDS: acetaminophen 325mg tablet PO PRN (09:12)
[2019-03-26 10:28] VITALS: BP 100/73
--- NOTE | 2019-03-26 17:46 | NUR ---
Nursing Progress Note: Legal hold: 5250 Client on involuntary status for GD Report received from nurse with use of SBAR: LENNOX Cabral Why are they here: Pt. brought to ER by [facility] for evaluation after decompensating at [facility] [place]. He reports a mental health hx of severe anxiety with panic attacks, depression, Bipolar D/O, PTSD, and paranoid schizophrenia. Pt. reports on-going paranoid delusions that the [employer] has been trying to kill him because his family is part of the [facility]. He also reports severe anxiety attacks r/t this. Pt. recently was in [facility], afterwards spent time in long-term, and is currently homeless.He is currently being treated for possible cellulitis on rt. upper arm, and also reports chronic pain in bilateral upper arms and chest r/t anxiety-related bilateral upper extremity tremors. Recent electrocardiogram, chest x-ray, and troponin levels performed in the ER were WNL. Pt. also had a pseudoseizure/panic attack while in the ER, and it was found that his initial serum sodium level was 125, however when rechecked was WNL. Assessment What has happened this shift: Pt. asleep at change of shift. Pt. ate meals in day room and took medications. Pt. requested ativan in AM for increased anxiety over fears of [employer] gang retaliation as well as future unknowns. Pt. cooperative. Pt. continues to have mouth tremors but minimal tremors in hands. Pt. to start on Cogentin this evening. Pt. given second dose of ativan 1mg this afternoon for resurging anxiety. Pt. showered and shaved and participated in groups. S/I, H/I: Denies A/VH: Denies Sleep: Reports good sleep. ADL's: Independent Group attendance: Yes Were meds taken: Yes Any med S/E: Pt. continues to have minimal bilateral upper extremity tremors and some psychomotor restlessness. Pt. to start cogentin tonight. Mental Status Exam Appearance: Neat, and dressed appropriately in hospital attire. Eye contact: Good Behavior: Pleasant and cooperative, however he continues to report some anxiety, and exhibits minimal on-going bilateral upper extremity tremors. Speech: WNL Mood: Pleasant, however guarded Affect: Blunted Thought process: Perseverative on paranoid delusions Thought Content: Ongoing paranoid delusions leading to anxiety and phobias Cognition: A&O X4 Insight: Fair Judgment: Fair Interventions PRN's used: Trazodone and Tylenol Therapeutic interventions: Provided active listening, maintained a safe and therapeutic environment, provided medication education, provided clear and simple instructions, attempted to reorient to reality, monitored for change in behavior and bilateral upper extremity tremors and need for intervention, and maintained Q 15 min safety checks. Restraints/seclusion/emergency medication: N/A Justification of Continued Inpatient Treatment: Pt. continues to require a safe and supportive environment and would be at high risk if discharged r/t on-going anxiety and delusions.
--- NOTE | 2019-03-26 17:48 | NUR ---
DISCHARGE PLANNING: Meet w/ pt to explain and have pt sign [facility] paper work. Then faxed [facility] paperwork. BRENDA AlmonteW
[2019-03-26] MEDS: OLANZapine 2.5MG tablet PO PRN (18:53)
[2019-03-26 20:48] VITALS: BP 131/91
[2019-03-26] MEDS: benztropine 1mg tablet PO SCH (20:50)
[2019-03-26] MEDS: traZODone 50mg tablet PO PRN (20:51)
--- NOTE | 2019-03-27 00:30 | NUR ---
Nursing Progress Note: Legal hold: 5250 Client on involuntary status for GD Report received from nurse with use of SBAR: Jae RN Why are they here: Pt. brought to ER by [facility] for evaluation after decompensating at [facility] [place]. He reports a mental health hx of severe anxiety with panic attacks, depression, Bipolar D/O, PTSD, and paranoid schizophrenia. Pt. reports on-going paranoid delusions that the [employer] has been trying to kill him because his family is part of the [facility]. He also reports severe anxiety attacks r/t this. Pt. recently was in [facility], afterwards spent time in half-way, and is currently homeless.He is currently being treated for possible cellulitis on rt. upper arm, and also reports chronic pain in bilateral upper arms and chest r/t anxiety-related bilateral upper extremity tremors. Recent electrocardiogram, chest x-ray, and troponin levels performed in the ER were WNL. Pt. also had a pseudoseizure/panic attack while in the ER, and it was found that his initial serum sodium level was 125, however when rechecked was WNL. Assessment What has happened this shift: Pt. up in the Group Room at the beginning of the shift, watching TV and interacting appropriately with others. He requests PRN Zyprexa for ongoing anxiety and some agitation, states, "I feel it in the pit of my stomach," administered with effectiveness. Pt. continues to present as pleasant, cooperative, slightly anxious, and guarded . 1:1 completed, and he continues to deny S/I or depression, however reports on-going anxiety r/t delusions. Pt. admits he experienced a nightmare last night about the [employer] gang, and awoke with increased Anxiety requiring an Ativan. This grant writer encouraged pt. to notify staff if he experiences subsequent nightmares tonight, he voiced understanding, will monitor. Pt's bilateral upper extremity tremors and jaw tremors continue to improve, however continue to exaggerate when he is actively discussing his on-going delusions. PRN Trazodone requested at HS, administered with effectiveness. S/I, H/I: Denies A/VH: Denies Sleep: Reports he has been sleeping well, and requests PRN Trazodone. However, pt. did admit that he experienced a nightmare last night about the [employer] gang, and awoke with increased Anxiety needing an Ativan. Will monitor tonight. ADL's: Independent Group attendance: Reports he continues to attend all groups, and reported that group today was about substance abuse. Pt. 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 continues to have minimal bilateral upper extremity tremors and jaw tremors. Mental Status Exam Appearance: Neat, and dressed appropriately in hospital attire. Eye contact: Good Behavior: Pleasant and cooperative, however he continues to report some anxiety, and exhibits minimal on-going bilateral upper extremity and jaw tremors. Speech: WNL Mood: Pleasant, however remains guarded Affect: Animated Thought process: Perseverative on paranoid delusions and intrusive thoughts causing episodic anxiety Thought Content: Ongoing paranoid delusions leading to anxiety and phobias Cognition: A&O X4 Insight: Fair Judgment: Fair Interventions PRN's used: Trazodone and Zyprexa Therapeutic interventions: Provided active listening, maintained a safe and therapeutic environment, provided medication education, provided clear and simple instructions, attempted to reorient to reality, monitored for change in behavior and bilateral upper extremity tremors and need for intervention, and maintained Q 15 min safety checks. Restraints/seclusion/emergency medication: N/A Justification of Continued Inpatient Treatment: Pt. continues to require a safe and supportive environment and medication adjustments. He would be at high risk if discharged r/t continued intrusive thoughts and episodic anxiety per Dr. Brumfield' note.
[2019-03-27 08:00] VITALS: BP 108/52
[2019-03-27] MEDS: chlorproMAZINE 25mg tablet PO SCH ×3 (08:02→20:39)
[2019-03-27] MEDS: clonazePAM 0.5mg tablet PO SCH ×2 (08:02→19:33)
[2019-03-27] MEDS: benztropine 1mg tablet PO SCH ×2 (08:03→19:34)
[2019-03-27] MEDS: lactobacillus rhamnosus 10,000 MMU CELLS/CAPSULE PO SCH ×2 (08:03→19:33)
[2019-03-27] MEDS: sulfamethoxazole/trimethoprim DS (800/160mg) tablet PO SCH (08:03)
[2019-03-27] MEDS: pantoprazole 40mg Tablet.DR PO SCH (08:03)
[2019-03-27] MEDS: LORazepam 1 MG tablet PO PRN ×3 (08:55→22:13)
[2019-03-27] MEDS: acetaminophen 325mg tablet PO PRN (08:55)
--- NOTE | 2019-03-27 15:59 | NUR ---
Nursing Progress Note: Legal hold: 5250 Client on involuntary status for GD Report received from nurse with use of SBAR: LENNOX Cabral Why are they here: Pt. brought to ER by [facility] for evaluation after decompensating at [facility] [place]. He reports a mental health hx of severe anxiety with panic attacks, depression, Bipolar D/O, PTSD, and paranoid schizophrenia. Pt. reports on-going paranoid delusions that the [employer] has been trying to kill him because his family is part of the [facility]. He also reports severe anxiety attacks r/t this. Pt. recently was in [facility], afterwards spent time in custodial, and is currently homeless.He is currently being treated for possible cellulitis on rt. upper arm, and also reports chronic pain in bilateral upper arms and chest r/t anxiety-related bilateral upper extremity tremors. Recent electrocardiogram, chest x-ray, and troponin levels performed in the ER were WNL. Pt. also had a pseudoseizure/panic attack while in the ER, and it was found that his initial serum sodium level was 125, however when rechecked was WNL. Assessment What has happened this shift: Pt. sleeping at the beginning of the shift, was up for breakfast and immediately returned to his room and was found lying in bed. 1:1 completed which reveled anxiety rated 7/10 and pain of 3/10. Medicated with Ativan and tylenol with adequate relief. He did not speak of the [employer] bike gain, just stated he was anxious. During Flash meeting, it was stated that he had written a note saying if he didnt speak about his delusions, he would get more help. Pt. continues to present as pleasant, cooperative, slightly anxious, and guarded . This chart writer encouraged pt. to notify staff if he experiences ongoing anxiety, he voiced understanding, will monitor. Pt's bilateral upper extremity tremors and jaw tremors continue to improve. Attended group. Interacting with other clients in the community room, animated and laughing. In afternoon, patient presented with tremors and asking for ativan, states anxiety is r/t continuing thoughts of the [employer] gang. S/I, H/I: Denies A/VH: Denies Sleep: 6.75 ADL's: Independent Group attendance: Reports he continues to attend all groups Were meds taken: yes Any med S/E: Pt. continues to have minimal bilateral upper extremity tremors and jaw tremors. Mental Status Exam Appearance: Neat, and dressed appropriately in hospital attire. Eye contact: Good Behavior: Pleasant and cooperative, however he continues to report some anxiety, and exhibits minimal on-going bilateral upper extremity and jaw tremors. Speech: WNL Mood: Pleasant, however remains guarded Affect: Animated Thought process: Perseverative on paranoid delusions and intrusive thoughts causing episodic anxiety Thought Content: Ongoing paranoid delusions leading to anxiety and phobias Cognition: A&O X4 Insight: Fair Judgment: Fair Interventions PRN's used: Ativan Therapeutic interventions: Provided active listening, maintained a safe and therapeutic environment, provided medication education, provided clear and simple instructions, attempted to reorient to reality, monitored for change in behavior and bilateral upper extremity tremors and need for intervention, and maintained Q 15 min safety checks. Restraints/seclusion/emergency medication: N/A Justification of Continued Inpatient Treatment: Pt. continues to require a safe and supportive environment and medication adjustments. He would be at high risk if discharged r/t continued intrusive thoughts and episodic anxiety per Dr. Brumfield' note.
[2019-03-27 19:00] VITALS: BP 128/75
[2019-03-27] MEDS: ibuprofen tablet 400 MG TABLET PO PRN (19:33)
[2019-03-27] MEDS: propranolol 10mg tablet PO SCH (20:38)
[2019-03-27] MEDS: traZODone 50mg tablet PO PRN (20:39)
[2019-03-27] MEDS: OLANZapine 2.5MG tablet PO PRN (20:41)
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
[2019-03-28] MEDS: ibuprofen tablet 400 MG TABLET PO PRN (04:52)
[2019-03-28] MEDS: chlorproMAZINE 25mg tablet PO SCH ×3 (07:40→20:08)
[2019-03-28] MEDS: lactobacillus rhamnosus 10,000 MMU CELLS/CAPSULE PO SCH ×2 (07:40→20:06)
[2019-03-28] MEDS: clonazePAM 0.5mg tablet PO SCH (07:40)
[2019-03-28] MEDS: pantoprazole 40mg Tablet.DR PO SCH (07:40)
[2019-03-28] MEDS: benztropine 1mg tablet PO SCH ×2 (07:40→20:06)
[2019-03-28] MEDS: propranolol 10mg tablet PO SCH ×3 (07:41→20:06)
[2019-03-28 08:00] VITALS: BP 116/80
[2019-03-28 12:29] VITALS: BP 116/77
[2019-03-28] MEDS: LORazepam 1 MG tablet PO PRN ×2 (12:51→20:13)
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
[2019-03-28 19:00] VITALS: BP 130/76
[2019-03-28] MEDS: traZODone 50mg tablet PO PRN (20:09)
[2019-03-29] MEDS: ibuprofen tablet 400 MG TABLET PO PRN (02:20)
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
[2019-03-29 07:37] VITALS: BP 112/83
[2019-03-29] MEDS: benztropine 1mg tablet PO SCH ×2 (08:07→20:46)
[2019-03-29] MEDS: propranolol 10mg tablet PO SCH ×3 (08:07→20:46)
[2019-03-29] MEDS: lactobacillus rhamnosus 10,000 MMU CELLS/CAPSULE PO SCH ×2 (08:07→20:45)
[2019-03-29] MEDS: chlorproMAZINE 25mg tablet PO SCH ×3 (08:07→20:46)
[2019-03-29] MEDS: pantoprazole 40mg Tablet.DR PO SCH (08:07)
[2019-03-29] MEDS: LORazepam 1 MG tablet PO PRN ×3 (08:22→20:52)
[2019-03-29 12:22] VITALS: BP 102/80
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
[2019-03-29 19:00] VITALS: BP 121/76
[2019-03-29] MEDS: traZODone 50mg tablet PO PRN (20:46)
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
[2019-03-30] MEDS: ibuprofen tablet 400 MG TABLET PO PRN (04:23)
[2019-03-30 07:49] VITALS: BP 123/82
[2019-03-30 07:50] VITALS: BP 123/82
[2019-03-30] MEDS: lactobacillus rhamnosus 10,000 MMU CELLS/CAPSULE PO SCH ×2 (08:04→20:21)
[2019-03-30] MEDS: chlorproMAZINE 25mg tablet PO SCH ×3 (08:05→20:20)
[2019-03-30] MEDS: propranolol 10mg tablet PO SCH ×3 (08:05→20:21)
[2019-03-30] MEDS: pantoprazole 40mg Tablet.DR PO SCH (08:05)
[2019-03-30] MEDS: benztropine 1mg tablet PO SCH ×2 (08:05→20:21)
[2019-03-30] MEDS: LORazepam 1 MG tablet PO PRN ×3 (08:18→22:23)
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
[2019-03-30 12:50] VITALS: BP 108/73
[2019-03-30 19:16] VITALS: BP 128/78
[2019-03-30] MEDS: traZODone 50mg tablet PO PRN (20:21)
--- NOTE | 2019-03-31 01:47 | NUR ---
Nursing Progress Note: Legal hold: 5250 Client on involuntary status for GD Report received from nurse with use of SBAR: GAYATRI Zheng Why are they here: Pt. brought to ER by [facility] Crisis Unit for evaluation after decompensating at [facility] [place]. He reports a mental health hx of severe anxiety with panic attacks, depression, Bipolar D/O, PTSD, and paranoid schizophrenia. Pt. reports on-going paranoid delusions that the [employer] has been trying to kill him because his family is part of the [facility]. He also reports severe anxiety attacks r/t this. Pt. recently was in [facility], afterwards spent time in chcf, and is currently homeless.He is currently being treated for possible cellulitis on rt. upper arm, and also reports chronic pain in bilateral upper arms and chest r/t anxiety-related bilateral upper extremity tremors. Recent electrocardiogram, chest x-ray, and troponin levels performed in the ER were WNL. Pt. also had a pseudoseizure/panic attack while in the ER, and it was found that his initial serum sodium level was 125, however when rechecked was WNL. Assessment What has happened this shift: The patient was in the group room at shift change. He agreed to 1:1 at bedside. He reports that he had a pretty good day, "I didn't bring up the Mario today at all. Not that I'm not still believing it, but it's less intrusive." The patient reports that anxiety is his biggest problem now. He spent the evening in the group room watching TV. He made no delusional statements tonight. He said his stomach didn't feel good today, but has resolved. When asked what his triggers are, he replied that he knows marijuana is his trigger. He vows to stay away from it. The patient has slight resting tremors that are observed while he watches TV. He stayed up until 2230, so he could have Ativan before going to bed. S/I, H/I: Denies. A/VH: Denies. Sleep: Reports good sleep last night. ADL's: Independent Group attendance: Yes Were meds taken: yes Any med S/E: None reported or observed. Mental Status Exam Appearance: Neat, clean, dressed in green scrubs. Eye contact: Good Behavior: Pleasant, cooperative. Speech: Clear. Mood: Anxious Affect: Restricted. Thought process: Linear. Thought Content: Preoccupied with his aching Downs tooth. Cognition: A&O X4 Insight: Poor Judgment: Fair Interventions PRN's used: Ativan given with HS meds, Anbesol for tooth pain Therapeutic interventions: 1:1 assessment, active listening, establishment of rapport, symptom identification and management, medication administration/monitoring/education, encouragement to attend groups, Q 15 min safety checks. Restraints/seclusion/emergency medication: N/A Justification of Continued Inpatient Treatment: Pt requires further medication adjustment for intrusive thoughts and episodes of severe anxiety. He is homeless. He would be at high risk for readmission if discharged at this time.
[2019-03-31 08:00] VITALS: BP 119/80
[2019-03-31] MEDS: benztropine 1mg tablet PO SCH ×2 (08:09→20:18)
[2019-03-31] MEDS: propranolol 10mg tablet PO SCH ×3 (08:09→20:18)
[2019-03-31] MEDS: lactobacillus rhamnosus 10,000 MMU CELLS/CAPSULE PO SCH ×2 (08:09→20:18)
[2019-03-31] MEDS: LORazepam 1 MG tablet PO PRN ×3 (08:09→23:03)
[2019-03-31] MEDS: chlorproMAZINE 25mg tablet PO SCH ×3 (08:10→20:18)
[2019-03-31] MEDS: pantoprazole 40mg Tablet.DR PO SCH (08:10)
--- NOTE | 2019-03-31 12:18 | NUR ---
100% PO Intake, eating well. [facility] 03/30, No nutrition problem at this time. Recommend: 1. Continue regular diet 2. Weekly wts Addendum: 03/31/19 at [address] Amended: Links added.
[2019-03-31 13:00] VITALS: BP 122/85
[2019-03-31] MEDS: OLANZapine 2.5MG tablet PO PRN (13:24)
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
[2019-03-31 20:00] VITALS: BP 114/78
[2019-03-31] MEDS: traZODone 50mg tablet PO PRN (20:19)
[2019-03-31] MEDS: ibuprofen tablet 400 MG TABLET PO PRN (23:03)
--- NOTE | 2019-04-01 00:23 | NUR ---
Nursing Progress Note: Legal hold: 5250 Client on involuntary status for GD Report received from nurse with use of SBAR: GAYATRI Zheng Why are they here: Pt. brought to ER by [facility] Unit for evaluation after decompensating at [facility]. He reports a mental health hx of severe anxiety with panic attacks, depression, Bipolar D/O, PTSD, and paranoid schizophrenia. Pt. reports on-going paranoid delusions that the [employer] has been trying to kill him because his family is part of the [facility]. He also reports severe anxiety attacks r/t this. Pt. recently was in [facility], afterwards spent time in detention, and is currently homeless.He is currently being treated for possible cellulitis on rt. upper arm, and also reports chronic pain in bilateral upper arms and chest r/t anxiety-related bilateral upper extremity tremors. Recent electrocardiogram, chest x-ray, and troponin levels performed in the ER were WNL. Pt. also had a pseudoseizure/panic attack while in the ER, and it was found that his initial serum sodium level was 125, however when rechecked was WNL. Assessment What has happened this shift: The patient was seen in his room at bedside for 1:1. He reports decent sleep last night, then he went to groups. The patient thought he was doing a good thing by sharing his story, but he was too graphic for some people that left them upset and triggered. The patient spent the evening in his room laying on his bed awake or sleeping. He came out for snacks, then went back to bed. He was having anxiety, so stayed up late to be able to receive Ativan. He also requested Motrin for his body pain. The patient stayed up until around 2300, then went to sleep. S/I, H/I: Denies. A/VH: Denies. Sleep: Reports good sleep last night. ADL's: Independent Group attendance: Yes Were meds taken: yes Any med S/E: None reported or observed. Mental Status Exam Appearance: Neat, clean, dressed in green scrubs. Eye contact: Good Behavior: Pleasant, cooperative. Speech: Clear. Mood: "Anxious" Affect: Restricted. Thought process: Linear. Thought Content: Preoccupied with thinking the Mario an have a contract out for his .. Cognition: A&O X4 Insight: Poor Judgment: Fair Interventions PRN's used: Ativan, Motrin. Therapeutic interventions: 1:1 assessment, active listening, establishment of rapport, symptom identification and management, medication administration/monitoring/education, encouragement to attend groups, Q 15 min safety checks. Restraints/seclusion/emergency medication: N/A Justification of Continued Inpatient Treatment: Pt requires further medication adjustment for intrusive thoughts and episodes of severe anxiety. He is homeless. He would be at high risk for readmission if discharged at this time.
[2019-04-01 07:28] VITALS: BP 124/83
[2019-04-01] MEDS: lactobacillus rhamnosus 10,000 MMU CELLS/CAPSULE PO SCH ×2 (09:07→20:31)
[2019-04-01] MEDS: chlorproMAZINE 25mg tablet PO SCH ×3 (09:07→20:31)
[2019-04-01] MEDS: pantoprazole 40mg Tablet.DR PO SCH (09:07)
[2019-04-01] MEDS: benztropine 1mg tablet PO SCH ×2 (09:07→20:31)
[2019-04-01] MEDS: propranolol 10mg tablet PO SCH ×3 (09:08→20:31)
[2019-04-01] MEDS: LORazepam 1 MG tablet PO PRN ×2 (09:08→18:41)
[2019-04-01] MEDS: ibuprofen tablet 400 MG TABLET PO PRN ×2 (14:09→20:30)
--- NOTE | 2019-04-01 16:50 | NUR ---
Nursing Progress Note: Legal hold: 5250 Client on involuntary status for GD Report received from Marianna HIGH with use of SBAR Why are they here: Pt. brought to ER by [facility] Crisis Unit for evaluation after decompensating at [facility] [place]. He reports a mental health hx of severe anxiety with panic attacks, depression, Bipolar D/O, PTSD, and paranoid schizophrenia. Pt. reports on-going paranoid delusions that the [employer] has been trying to kill him because his family is part of the [facility]. He also reports severe anxiety attacks r/t this. Pt. recently was in [place], afterwards spent time in [facility], and is currently homeless. Pt also had a pseudoseizure/panic attack while in the ER, and it was found that his initial serum sodium level was 125, however when rechecked was WNL. Assessment What has happened this shift: Received pt in bed sleeping w/o distress after shift report. Pt denied depression, SI/HI/AH/VH this morning, rated anxiety at 6/10 and requested prn Ativan 1 mg with AM meds with good effect. Is pleasant and cooperative in conversation. Appears anxious with pressured speech at times and restricted affect. Asked about a discharge plan and he stated he needs to stay and needs help. Pt attended the afternoon group, but rested in bed during AM group. Able to be around and engage with others at meals. Pt continues to endorse his experiences with the [employer] and gets sick to my stomach whenever he talks about the traumas related to these experiences. Pt requested prn Motrin for back ache and feet pain. Dr Brumfield increased pt's Thorazine at HS. S/I, H/I: Pt denies A/VH: Pt denies Sleep: Slept 6.75 hours per noc shift report ADL's: Independent Group attendance: Yes Were meds taken: yes Any med S/E: None reported or observed. Mental Status Exam Appearance: Clean, appropriate, wears hair pulled back in ponytail Eye contact: Good Behavior: Pleasant, cooperative Speech: clear, loud Mood: Anxious Affect: blunted Thought process: linear, perseverative Thought Content: ruminating on past traumatic experiences vs fixed delusions Cognition: A&O X4 Insight: Fair Judgment: Fair Interventions PRN's used: Ativan 1 mg at 0909, Motrin 400 mg at 1409 Therapeutic interventions: 1:1 assessment, active listening, symptom identification and management, medication administration/monitoring/education, encouragement to attend groups, Q 15 min safety checks. Restraints/seclusion/emergency medication: N/A Justification of Continued Inpatient Treatment: Pt requires further medication adjustment for intrusive thoughts of past traumas vs fixed delusions and episodes of severe anxiety. He is homeless. He would be at high risk for readmission if discharged at this time.
[2019-04-01 20:18] VITALS: BP 123/78
[2019-04-01] MEDS: traZODone 50mg tablet PO PRN (20:32)
--- NOTE | 2019-04-01 22:54 | NUR ---
Nursing Progress Note: Legal hold: 5250 Client on involuntary status for GD Report received from Marce HIGH with use of SBAR Why are they here: Pt. brought to ER by [facility] for evaluation after decompensating at [facility] [place]. He reports a mental health hx of severe anxiety with panic attacks, depression, Bipolar D/O, PTSD, and paranoid schizophrenia. Pt. reports on-going paranoid delusions that the [employer] has been trying to kill him because his family is part of the [facility]. He also reports severe anxiety attacks r/t this. Pt. recently was in [facility], afterwards spent time in long-term, and is currently homeless. Pt also had a pseudoseizure/panic attack while in the ER, and it was found that his initial serum sodium level was 125, however when rechecked was WNL. Assessment What has happened this shift: Pt was in his room talking w/his roommate at change of shift. 1:1 assessment completed at bedtime. Pt was reporting anxiety at change of shift. Prn given w/good effect. Pt denies s/i, denies h/i. pt states he is having a lot of anxiety because "I dont have a place to live and I need to get social security back." Pt states he is hopeful to go to the [facility] because he knows the area well and can get a lot taken care of at [facility] [employer] [facility]. However he is feeling very anxious about a possible move to the [facility] pt c/o of 3/10 back and foot pain. PRN motrin provided. pt reports sleep and appetite are good. S/I, H/I: Pt denies A/VH: Pt denies Sleep: Sleeps well ADL's: Independent Group attendance: Yes Were meds taken: yes Any med S/E: None reported or observed. Mental Status Exam Appearance: adequately groomed and dressed Eye contact: Good Behavior: Pleasant, cooperative Speech: clear, loud Mood: Anxious Affect: blunted Thought process: linear, perseverative Thought Content: pt is talking about his stay at [place]. Cognition: A&O X4 Insight: Fair Judgment: Fair Interventions PRN's used: Ativan Motrin Therapeutic interventions: 1:1 assessment, active listening, symptom identification and management, medication administration/monitoring/education, encouragement to attend groups, Q 15 min safety checks. Restraints/seclusion/emergency medication: N/A Justification of Continued Inpatient Treatment: Pt requires further medication adjustment for intrusive thoughts of past traumas vs fixed delusions and episodes of severe anxiety. He is homeless. He would be at high risk for readmission if discharged at this time.
[2019-04-02 06:59] VITALS: BP 109/74
[2019-04-02] MEDS: pantoprazole 40mg Tablet.DR PO SCH (07:46)
[2019-04-02] MEDS: lactobacillus rhamnosus 10,000 MMU CELLS/CAPSULE PO SCH ×2 (07:46→20:05)
[2019-04-02] MEDS: propranolol 10mg tablet PO SCH ×3 (07:46→20:05)
[2019-04-02] MEDS: chlorproMAZINE 25mg tablet PO SCH ×3 (07:47→20:06)
[2019-04-02] MEDS: LORazepam 1 MG tablet PO PRN ×2 (07:47→20:22)
[2019-04-02] MEDS: benztropine 1mg tablet PO SCH ×2 (07:47→20:05)
--- NOTE | 2019-04-02 15:32 | NUR ---
Nursing Progress Note: Legal hold: 5250 Client on involuntary status for GD Report received from Marianna HIGH with use of SBAR Why are they here: Pt. brought to ER by [facility] Crisis Unit for evaluation after decompensating at [facility] [place]. He reports a mental health hx of severe anxiety with panic attacks, depression, Bipolar D/O, PTSD, and paranoid schizophrenia. Pt. reports on-going paranoid delusions that the [employer] has been trying to kill him because his family is part of the [facility]. He also reports severe anxiety attacks r/t this. Pt. recently was in [place], afterwards [place], and is currently homeless. Pt also had a pseudoseizure/panic attack while in the ER, and it was found that his initial serum sodium level was 125, however when rechecked was WNL. Assessment What has happened this shift: Pt was sleeping at change of shift. 1:1 assessment completed at bedside. Patient stated anxiety at 3/10 and requested Ativan in addition to Clonazepam. From previous experience with patient, anxiety escalates quickly, so PRN was given. Pt denies SI, denies HI. Pt states he is having a lot of anxiety r/t his discharge. "I am afraid it won't work out and I will be homeless again". When asked why he feels it might not work out, he states "what if they don't accept me?". Assured that he will not be discharged without accepted placement. Also, reported increased anxiety following group. Pt. states he wrote a letter to his mom () which should have made him happy, but instead made him feel sad because she at age 43. Pt reports good appetite and is sleeping well. S/I, H/I: Pt denies A/VH: Pt denies Sleep: 6.75 ADL's: Independent Group attendance: Yes Were meds taken: yes Any med S/E: None reported or observed. Mental Status Exam Appearance: adequately groomed and dressed Eye contact: Good Behavior: Pleasant, cooperative Speech: clear, soft Mood: Anxious Affect: blunted Thought process: linear, perseverative Thought Content: discharge and remaining safe Cognition: A&O X4 Insight: Fair Judgment: Fair Interventions PRN's used: Ativan Therapeutic interventions: 1:1 assessment, active listening, symptom identification and management, medication administration/monitoring/education, encouragement to attend groups, Q 15 min safety checks. Restraints/seclusion/emergency medication: N/A Justification of Continued Inpatient Treatment: Pt requires further medication adjustment for intrusive thoughts of past traumas vs fixed delusions and episodes of severe anxiety. He is homeless. He would be at high risk for readmission if discharged at this time.
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
[2019-04-02 20:15] VITALS: BP 138/85
[2019-04-02] MEDS: traZODone 50mg tablet PO PRN (20:22)
--- NOTE | 2019-04-02 21:44 | NUR ---
Nursing Progress Note: Legal hold: 5250 Client on involuntary status for GD Report received from Jae HIGH with use of SBAR Why are they here: Pt. brought to ER by [facility] Crisis Unit for evaluation after decompensating at [facility] [place]. He reports a mental health hx of severe anxiety with panic attacks, depression, Bipolar D/O, PTSD, and paranoid schizophrenia. Pt. reports on-going paranoid delusions that the [employer] has been trying to kill him because his family is part of the [facility]. He also reports severe anxiety attacks r/t this. Pt. recently was in [place], afterwards spent time in [place], and is currently homeless. Pt also had a pseudoseizure/panic attack while in the ER, and it was found that his initial serum sodium level was 125, however when rechecked was WNL. Assessment What has happened this shift: Pt was in his room at change of shift. 1:1 assessment completed at bedside. Pt reports a good day, denies s/i, denies h/i. Reports that he continues to have anxiety over where he will be accepted for placement, "but Im trying not to worry." Pt requested prn ativan for anxiety w/evening meds. Pt states he is in a "good mood" otherwise. Pt reports sleeping well and appetite is good. Pt states "I always go to groups." Pt continues to have resting tremors in his jaw. S/I, H/I: Pt denies A/VH: Pt denies Sleep: pt reports sleeping good ADL's: Independent Group attendance: Yes Were meds taken: yes Any med S/E: None reported or observed. Mental Status Exam Appearance: adequately groomed and dressed Eye contact: Good Behavior: Pleasant, cooperative Speech: clear, soft Mood: Anxious Affect: blunted Thought process: linear, perseverative Thought Content: discharge and remaining safe Cognition: A&O X4 Insight: Fair Judgment: Fair Interventions PRN's used: Ativan Therapeutic interventions: 1:1 assessment, active listening, symptom identification and management, medication administration/monitoring/education, encouragement to attend groups, Q 15 min safety checks. Restraints/seclusion/emergency medication: N/A Justification of Continued Inpatient Treatment: Pt requires further medication adjustment for intrusive thoughts of past traumas vs fixed delusions and episodes of severe anxiety. He is homeless. He would be at high risk for readmission if discharged at this time. Addendum: 04/02/19 at 2237 by Vidhya Burns RN Pt reporting difficulty sleeping, agitation, and having pain, pt given prn zyprexa and motrin.
[2019-04-02] MEDS: OLANZapine 2.5MG tablet PO PRN (22:34)
[2019-04-02] MEDS: ibuprofen tablet 400 MG TABLET PO PRN (22:35)
[2019-04-03] MEDS: chlorproMAZINE 25mg tablet PO SCH ×3 (07:35→20:06)
[2019-04-03] MEDS: propranolol 10mg tablet PO SCH ×3 (07:35→20:06)
[2019-04-03] MEDS: benztropine 1mg tablet PO SCH ×2 (07:36→20:06)
[2019-04-03] MEDS: lactobacillus rhamnosus 10,000 MMU CELLS/CAPSULE PO SCH ×2 (07:36→20:06)
[2019-04-03] MEDS: pantoprazole 40mg Tablet.DR PO SCH (07:36)
[2019-04-03] MEDS: LORazepam 1 MG tablet PO PRN ×2 (07:39→20:06)
[2019-04-03 08:06] VITALS: BP 139/100
--- NOTE | 2019-04-03 17:30 | NUR ---
Nursing Progress Note: Legal hold: 5250 Client on involuntary status for GD Report received from Marianna HIGH with use of SBAR Why are they here: Pt. brought to ER by [facility] Unit for evaluation after decompensating at [facility] [place]. He reports a mental health hx of severe anxiety with panic attacks, depression, Bipolar D/O, PTSD, and paranoid schizophrenia. Pt. reports on-going paranoid delusions that the [employer] has been trying to kill him because his family is part of the [facility]. He also reports severe anxiety attacks r/t this. Pt. recently was in [place], afterwards spent time in skilled nursing, and is currently homeless. Pt also had a pseudoseizure/panic attack while in the ER, and it was found that his initial serum sodium level was 125, however when rechecked was WNL. Assessment What has happened this shift: Pt. sleeping at begnining of shift. Pt. reports feeling lethargic today, pt. ate breakfast and took medications but then returned to bed to sleep and did not go to morning group. Pt. did go to afternoon group. Pt. reports he did not sleep well last night. Pt. requested PRN anxyiolitc this AM. RN asked pt. why he was feeling anxious and pt. replied, "I need it for my baseline". Pt. given Ativan 1mg po. Pt asked for PRN anxyiolitic in afternoon, RN gave pt. schedule propanolol instead with good effect. Pt. continues to report that morning are when he feels sick with anxiety and afternoon and evenin ghe becomes much more relaxed. S/I, H/I: Pt denies A/VH: Pt denies Sleep: pt reports that he did not sleep well last night. ADL's: Independent Group attendance: Yes Were meds taken: yes Any med S/E: None reported or observed. Mental Status Exam Appearance: adequately groomed and dressed Eye contact: Good Behavior: Pleasant, cooperative Speech: clear, soft Mood: Anxious in AM, more relaxed in afternoon. Affect: blunted Thought process: linear, perseverative Thought Content: discharge and remaining safe Cognition: A&O X4 Insight: Fair Judgment: Fair Interventions PRN's used: Ativan Therapeutic interventions: 1:1 assessment, active listening, symptom identification and management, medication administration/monitoring/education, encouragement to attend groups, Q 15 min safety checks. Restraints/seclusion/emergency medication: N/A Justification of Continued Inpatient Treatment: Pt requires further medication adjustment for intrusive thoughts of past traumas vs fixed delusions and episodes of severe anxiety. He is homeless. He would be at high risk for readmission if discharged at this time.
[2019-04-03 20:00] VITALS: BP 126/81
[2019-04-03] MEDS: OLANZapine 2.5MG tablet PO PRN (20:05)
[2019-04-03] MEDS: traZODone 50mg tablet PO PRN (20:06)
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
[2019-04-04] MEDS: lactobacillus rhamnosus 10,000 MMU CELLS/CAPSULE PO SCH ×2 (07:35→21:05)
[2019-04-04] MEDS: propranolol 10mg tablet PO SCH ×3 (07:35→21:05)
[2019-04-04] MEDS: benztropine 1mg tablet PO SCH ×2 (07:36→21:06)
[2019-04-04] MEDS: pantoprazole 40mg Tablet.DR PO SCH (07:36)
[2019-04-04] MEDS: chlorproMAZINE 25mg tablet PO SCH ×3 (07:36→21:06)
[2019-04-04 07:47] VITALS: BP 110/76
[2019-04-04] MEDS: LORazepam 1 MG tablet PO PRN (07:50)
[2019-04-04] MEDS: ibuprofen tablet 400 MG TABLET PO PRN (11:05)
[2019-04-04] MEDS: OLANZapine 2.5MG tablet PO PRN (11:05)
--- NOTE | 2019-04-04 17:30 | NUR ---
Nursing Progress Note: Legal hold: 5250 Client on involuntary status for GD Report received from Catrachita HIGH with use of SBAR Why are they here: Pt. brought to ER by [facility] Crisis Unit for evaluation after decompensating at [facility] [facility] [place]. He reports a mental health hx of severe anxiety with panic attacks, depression, Bipolar D/O, PTSD, and paranoid schizophrenia. Pt. reports on-going paranoid delusions that the [employer] has been trying to kill him because his family is part of the [facility]. He also reports severe anxiety attacks r/t this. Pt. recently was in [facility], afterwards spent time in senior care, and is currently homeless. Pt also had a pseudoseizure/panic attack while in the ER, and it was found that his initial serum sodium level was 125, however when rechecked was WNL. Assessment What has happened this shift: Pt. requested Ativan this AM stating that it helps him manage being "sick with anxiety". Pt. in bed most of the morning and did not attend group. Pt. appears more lethargic. Pt. informed he was being discharged to the [place] today and pt. reported extreme anxiety, becoming hyperverbal stating, "If I'm discharged I will end up on the street and then the [employer] will find me and kill me". Pt. then became relaxed. Pt. did not attend any groups today. S/I, H/I: Pt denies A/VH: Pt denies Sleep: pt reports he slept well ADL's: Independent Group attendance: Yes Were meds taken: yes Any med S/E: None reported or observed. Mental Status Exam Appearance: adequately groomed and dressed Eye contact: Good Behavior: withdrawn Speech: clear, soft Mood: Anxious and agitated Affect: blunted Thought process: linear, perseverative Thought Content: discharge and remaining safe Cognition: A&O X4 Insight: Fair Judgment: Fair Interventions PRN's used: Ativan, Zyprexa, and Motrin Therapeutic interventions: 1:1 assessment, active listening, symptom identification and management, medication administration/monitoring/education, encouragement to attend groups, Q 15 min safety checks. Restraints/seclusion/emergency medication: N/A Justification of Continued Inpatient Treatment: Pt requires further medication adjustment for intrusive thoughts of past traumas vs fixed delusions and episodes of severe anxiety. He is homeless. He would be at high risk for readmission if discharged at this time.
[2019-04-04 19:00] VITALS: BP 122/87
[2019-04-04] MEDS: LORazepam 0.5 MG tablet PO PRN (21:07)
[2019-04-04] MEDS: traZODone 50mg tablet PO PRN (21:07)
--- NOTE | 2019-04-05 03:39 | NUR ---
Nursing Progress Note: Legal hold: 5250 Client on involuntary status for GD Report received from Veto HIGH with use of SBAR Why are they here: Pt. brought to ER by [facility] Crisis Unit for evaluation after decompensating at [facility] [employer] [facility] [place]. He reports a mental health hx of severe anxiety with panic attacks, depression, Bipolar D/O, PTSD, and paranoid schizophrenia. Pt. reports on-going paranoid delusions that the [employer] has been trying to kill him because his family is part of the [facility]. He also reports severe anxiety attacks r/t this. Pt. recently was in [place], afterwards spent time in prison, and is currently homeless. Pt also had a pseudoseizure/panic attack while in the ER, and it was found that his initial serum sodium level was 125, however when rechecked was WNL. Assessment What has happened this shift: Pt stays in community room until bed watching TV. Pt makes good eye contact and is cooperative with assessment. He states "they tried to kick me out today and I got so stressed out, but I think I might be able to stay until Sunday." Pt is medication compliant and requests prn Ativan and trazodone for bedtime. When asked if he is feeling suicidal he responds, "I have never been suicidal, and I have never hallucinated before." S/I, H/I: Pt denies A/VH: Pt denies Sleep: pt reports that he did not sleep well last night. 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 Were meds taken: yes Any med S/E: none reported, none observed Mental Status Exam Appearance: adequately groomed and dressed Eye contact: Good Behavior: Pleasant, cooperative Speech: clear, soft Mood: Anxious Affect: constricted Thought process: linear, perseverative Thought Content: pt does not want to discharge Cognition: A&O X4 Insight: Fair Judgment: Fair Interventions PRN's used: Ativan, trazodone Therapeutic interventions: 1:1 assessment, active listening, symptom identification and management, medication administration/monitoring/education, encouragement to attend groups, Q 15 min safety checks. Restraints/seclusion/emergency medication: N/A Justification of Continued Inpatient Treatment: Pt requires further medication adjustment for intrusive thoughts of past traumas vs fixed delusions and episodes of severe anxiety. He is homeless. He would be at high risk for readmission if discharged at this time.
[2019-04-05] MEDS: benztropine 1mg tablet PO SCH ×2 (07:44→20:02)
[2019-04-05] MEDS: propranolol 10mg tablet PO SCH ×3 (07:44→20:02)
[2019-04-05] MEDS: chlorproMAZINE 25mg tablet PO SCH ×3 (07:44→20:02)
[2019-04-05] MEDS: pantoprazole 40mg Tablet.DR PO SCH (07:45)
[2019-04-05] MEDS: lactobacillus rhamnosus 10,000 MMU CELLS/CAPSULE PO SCH ×2 (07:45→20:02)
[2019-04-05 07:46] VITALS: BP 112/85
[2019-04-05] MEDS: LORazepam 0.5 MG tablet PO PRN ×2 (08:41→19:33)
--- NOTE | 2019-04-05 17:34 | NUR ---
Nursing Progress Note: Legal hold: Voluntary Client on involuntary status for GD Report received from Catrachita HIGH with use of SBAR Why are they here: Pt. brought to ER by [facility] for evaluation after decompensating at [facility] [place]. He reports a mental health hx of severe anxiety with panic attacks, depression, Bipolar D/O, PTSD, and paranoid schizophrenia. Pt. reports on-going paranoid delusions that the [employer] has been trying to kill him because his family is part of the [facility]. He also reports severe anxiety attacks r/t this. Pt. recently was in [place], afterwards spent time in snf, and is currently homeless. Pt also had a pseudoseizure/panic attack while in the ER, and it was found that his initial serum sodium level was 125, however when rechecked was WNL. Assessment What has happened this shift: Pt. asleep at start of shift. Pt. signed in voluntary. Pt. reports feeling anxious this AM and requests ativan, pt. understands that Ativan decreased from 1mg to 0.5 mg po. Pt. denies SI/HI, A/V H. Pt. reports continuing anxiety regarding discharge and fear of being homeless on the street without any money. Pt. is social with peers. Pt. took medications and ate meals in the community room. S/I, H/I: Pt denies A/VH: Pt denies Sleep: pt reports that he did not sleep well last night. ADL's: Independent Group attendance: Morning group only. Were meds taken: yes Any med S/E: none reported, none observed Mental Status Exam Appearance: adequately groomed and dressed Eye contact: Good Behavior: Cooperative, pt. seen socializing with peers. Speech: clear, soft Mood: Anxious Affect: constricted Thought process: linear, perseverates on being discharged homeless. Thought Content: pt does not want to be discharged Cognition: A&O X4 Insight: Fair Judgment: Fair Interventions PRN's used: Ativan Therapeutic interventions: 1:1 assessment, active listening, symptom identification and management, medication administration/monitoring/education, encouragement to attend groups, Q 15 min safety checks. Restraints/seclusion/emergency medication: N/A Justification of Continued Inpatient Treatment: Pt requires further medication adjustment for intrusive thoughts of past traumas vs fixed delusions and episodes of severe anxiety. He is homeless. He would be at high risk for readmission if discharged at this time.
[2019-04-05 19:00] VITALS: BP 131/83
[2019-04-05] MEDS: traZODone 50mg tablet PO PRN (20:03)
--- NOTE | 2019-04-05 21:13 | NUR ---
DISCHARGE PLANNING: Yesterday this senior underwriter confirmed w/ [facility] staff that a bed will not be available for pt until Sunday04/09/19. Checked pt status w/ [facility] to D/C pt there. Spoke w/ Moises and pt is not able to D/C to the mission. Informed Director-Kristin and she said pt can remain until next Sun. and bed's available at [facility]. Pt is participating in all aspects of Tx and continues to benefit and improve. Update NICKY Hawkins, he requested I phone pt's community service patrol officer. Phoned and confirmed probation does not have resources to help w/ housing for pt. Updated NICKY Mendiola and pt. (late entry) Keila Grant, ACSW
[2019-04-05] MEDS: ibuprofen tablet 400 MG TABLET PO PRN (21:17)
[2019-04-06] MEDS: pantoprazole 40mg Tablet.DR PO SCH (07:56)
[2019-04-06] MEDS: chlorproMAZINE 25mg tablet PO SCH ×3 (07:56→21:35)
[2019-04-06] MEDS: propranolol 10mg tablet PO SCH ×3 (07:56→21:30)
[2019-04-06] MEDS: benztropine 1mg tablet PO SCH ×2 (07:56→21:30)
[2019-04-06] MEDS: lactobacillus rhamnosus 10,000 MMU CELLS/CAPSULE PO SCH ×2 (07:56→21:29)
[2019-04-06 08:00] VITALS: BP 105/79
[2019-04-06] MEDS: LORazepam 0.5 MG tablet PO PRN ×2 (08:03→16:35)
[2019-04-06] MEDS: busPIRone 5mg tablet PO SCH ×2 (12:23→21:30)
[2019-04-06] MEDS: ibuprofen tablet 400 MG TABLET PO PRN (12:33)
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
[2019-04-06 19:00] VITALS: BP 124/83
[2019-04-06] MEDS: traZODone 50mg tablet PO PRN (22:08)
--- NOTE | 2019-04-07 04:06 | NUR ---
Nursing Progress Note: Legal hold: 5250 Client on involuntary status for GD Report received from LENNOX Laws with use of SBAR Why are they here: Pt. brought to ER by [facility] for evaluation after decompensating at [facility] [place]. He reports a mental health hx of severe anxiety with panic attacks, depression, Bipolar D/O, PTSD, and paranoid schizophrenia. Pt. reports on-going paranoid delusions that the [employer] has been trying to kill him because his family is part of the [facility]. He also reports severe anxiety attacks r/t this. Pt. recently was in [place], afterwards spent time in long-term, and is currently homeless. Pt also had a pseudoseizure/panic attack while in the ER, and it was found that his initial serum sodium level was 125, however when rechecked was WNL. Assessment What happened this shift. Pt in group room watching TV until med pass. 1:1 in room pt denied SI. Pt said he has a lot of anxiety. When asked why he is anxious he said he has had a lot of trauma. He became agitated and said he does not like to talk about it because then it is in his mind and makes him anxious. Reassured he does not have to talk about it. Pt said the Risperdal is working for him and made his stomach ache go away. Pt cooperative with care took all meds. S/I, H/I: Pt denies A/VH: Pt denies Sleep: sleeping at this time ADL's: Independent Group attendance: NA Were meds taken: yes Any med S/E: none reported, none observed Mental Status Exam Appearance: adequately groomed and dressed Eye contact: Good Behavior: Pleasant, cooperative Speech: clear, soft Mood: Anxious Affect: constricted Thought process: linear, perseverative Thought Content: Pt talked about Discharge to [facility] as a good thing. Cognition: A&O X4 Insight: Fair Judgment: Fair Interventions PRN's used: Therapeutic interventions: 1:1 assessment, active listening, symptom identification and management, medication administration/monitoring/education, Q 15 min safety checks. Restraints/seclusion/emergency medication: N/A Justification of Continued Inpatient Treatment: Pt requires further medication adjustment for intrusive thoughts of past traumas vs fixed delusions and episodes of severe anxiety. He is homeless. He would be at high risk for readmission if discharged at this time.
[2019-04-07 07:30] VITALS: BP 108/75
[2019-04-07] MEDS: propranolol 10mg tablet PO SCH ×3 (08:04→20:49)
[2019-04-07] MEDS: pantoprazole 40mg Tablet.DR PO SCH (08:04)
[2019-04-07] MEDS: LORazepam 0.5 MG tablet PO PRN ×3 (08:04→20:58)
[2019-04-07] MEDS: busPIRone 5mg tablet PO SCH ×3 (08:05→20:51)
[2019-04-07] MEDS: lactobacillus rhamnosus 10,000 MMU CELLS/CAPSULE PO SCH ×2 (08:05→20:51)
[2019-04-07] MEDS: benztropine 1mg tablet PO SCH ×2 (08:05→20:51)
[2019-04-07] MEDS: chlorproMAZINE 25mg tablet PO SCH ×3 (08:05→20:57)
--- NOTE | 2019-04-07 11:13 | NUR ---
100% PO Intake, eating well. [facility] 04/05. No nutrition problem at this time. Recommend: 1. Continue regular diet 2. Weekly wts Addendum: 04/07/19 at [address] Amended: Links added.
[2019-04-07] MEDS: ibuprofen tablet 400 MG TABLET PO PRN (16:18)
--- NOTE | 2019-04-07 18:28 | NUR ---
Legal hold: Voluntary. Client on involuntary status for GD Report received from Kalie Joseph RN with use of SBAR Why are they here: Pt. brought to ER by [facility] Crisis Unit for evaluation after decompensating at [facility] [facility] [place]. He reports a mental health hx of severe anxiety with panic attacks, depression, Bipolar D/O, PTSD, and paranoid schizophrenia. Pt. reports on-going paranoid delusions that the [employer] has been trying to kill him because his family is part of the [facility]. He also reports severe anxiety attacks r/t this. Pt. recently was in [place], afterwards spent time in shelter, and is currently homeless. Pt also had a pseudoseizure/panic attack while in the ER, and it was found that his initial serum sodium level was 125, however when rechecked was WNL. Assessment What happened this shift. Pt. sleeping at start of shift. Pt. took medications and breakfast in day room, pt. requested ativan with AM meds for increased anxiety. 1:1 done at bedside. Pt. reports he continues to be anxious about the [employer] gang and discharge. Pt. denies SI/HI, A/V H. Pt. went to groups. Pt. given 2nd Ativan in afternoon. Pt. social with peers. S/I, H/I: Pt denies A/VH: Pt denies Sleep: 7.75 hours ADL's: Independent Group attendance: Y Were meds taken: Y Any med S/E: none reported, none observed Mental Status Exam Appearance: adequately groomed and dressed Eye contact: Good Behavior: cooperative, social Speech: clear, soft Mood: Anxious Affect: constricted Thought process: linear, perseverative Thought Content: Transferring to [facility]. Cognition: A&O X4 Insight: Fair Judgment: Fair Interventions PRN's used: Ativan, Motrin Therapeutic interventions: 1:1 assessment, active listening, symptom identification and management, medication administration/monitoring/education, Q 15 min safety checks. Restraints/seclusion/emergency medication: N/A Justification of Continued Inpatient Treatment: Pt requires further medication adjustment for intrusive thoughts of past traumas vs fixed delusions and episodes of severe anxiety. He is homeless. He would be at high risk for readmission if discharged at this time.
[2019-04-07] MEDS: traZODone 50mg tablet PO PRN (20:52)
[2019-04-07 20:59] VITALS: BP 128/81
--- NOTE | 2019-04-08 02:25 | NUR ---
Nursing Progress Note: Legal hold: 5250 Client on involuntary status for GD Report received from LENNOX Laws with use of SBAR Why are they here: Pt. brought to ER by [facility] Crisis Unit for evaluation after decompensating at [facility] [employer] [facility] [place]. He reports a mental health hx of severe anxiety with panic attacks, depression, Bipolar D/O, PTSD, and paranoid schizophrenia. Pt. reports on-going paranoid delusions that the [employer] has been trying to kill him because his family is part of the [facility]. He also reports severe anxiety attacks r/t this. Pt. recently was in [facility], afterwards spent time in long-term, and is currently homeless. Pt also had a pseudoseizure/panic attack while in the ER, and it was found that his initial serum sodium level was 125, however when rechecked was WNL. Assessment What happened this shift. Pt in Rec room watching TV with a group of male pts, actively engaged in talking about content of program. Pt verbalized that Buspar is working well for him. " The groups her are helping with anxiety in my head Buspar is helping the anxiety in my stomach. Discussed with pt that Dose is increased to start in am. Pt was aware Dr. Brumfield planned to increase dose. Pt cooperative with care took all meds. S/I, H/I: Pt denies A/VH: Pt denies Sleep: sleeping at this time ADL's: Independent Group attendance: NA Were meds taken: yes Any med S/E: none reported, none observed Mental Status Exam Appearance: adequately groomed and dressed Eye contact: Good Behavior: Pleasant, cooperative Speech: clear, soft Mood: Calm Affect: constricted Thought process: linear, perseverative Thought Content: Medication adjustment Cognition: A&O X4 Insight: Fair Judgment: Fair Interventions PRN's used: Trazodone, Ativan Therapeutic interventions: 1:1 assessment, active listening, symptom identification and management, medication administration/monitoring/education, Q 15 min safety checks. Restraints/seclusion/emergency medication: N/A Justification of Continued Inpatient Treatment: Pt requires further medication adjustment for intrusive thoughts of past traumas vs fixed delusions and episodes of severe anxiety. He is homeless. He would be at high risk for readmission if discharged at this time.
[2019-04-08 07:52] VITALS: BP 115/78
[2019-04-08] MEDS: lactobacillus rhamnosus 10,000 MMU CELLS/CAPSULE PO SCH ×2 (07:54→20:30)
[2019-04-08] MEDS: chlorproMAZINE 25mg tablet PO SCH ×3 (07:54→20:28)
[2019-04-08] MEDS: benztropine 1mg tablet PO SCH ×2 (07:55→20:29)
[2019-04-08] MEDS: pantoprazole 40mg Tablet.DR PO SCH (07:55)
[2019-04-08] MEDS: propranolol 10mg tablet PO SCH ×3 (07:56→20:29)
[2019-04-08] MEDS: busPIRone 5mg tablet PO SCH ×3 (08:01→20:29)
[2019-04-08] MEDS: LORazepam 0.5 MG tablet PO PRN ×2 (08:01→18:40)
--- NOTE | 2019-04-08 14:28 | NUR ---
Art Therapy Group (Continued) Patient was able to fully participate in the group, completing both his drawing and writing. He was responsive to the exercise and able to focus on some constructive and alternative ways of thinking. He characterized his Stress as "emotional overload, depressed, anxiety and sadness. He was 'triggered at one point by another pt. who was intrusive and talking at him.... he became upset and tense, yet, with prompting was able to self-regulate and return to focus on the activity. He ID his alternative and balanced thought as "Content, which would be happy, good feelings, knowledge, emeli and being a steadfast believer." He noted that "Living was the mcintyre to balance... live in the now, the present and the future". Patient was responsive and interactive with his peers in session. Nikki Johnson MA, EXPLOSIVE OPERATOR [employer]NADE #[id number] [facility] Art Therapist Addendum: 04/08/19 at 1432 by Nikki Johnson SS Amended: Links added.
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
--- NOTE | 2019-04-08 18:41 | NUR ---
Pt was in his room at change of shift, alerted by [employer] that pts bp is elevated. Pt reports feeling anxious, pts nurse is unavailable, prn ativan given.
[2019-04-08] MEDS: ibuprofen tablet 400 MG TABLET PO PRN (19:51)
[2019-04-08 20:22] VITALS: BP 124/97
[2019-04-08] MEDS: traZODone 50mg tablet PO PRN (20:28)
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
[2019-04-09 07:11] VITALS: BP 116/77
[2019-04-09] MEDS: benztropine 1mg tablet PO SCH (07:47)
[2019-04-09] MEDS: chlorproMAZINE 25mg tablet PO SCH ×2 (07:47→12:41)
[2019-04-09] MEDS: pantoprazole 40mg Tablet.DR PO SCH (07:48)
[2019-04-09] MEDS: lactobacillus rhamnosus 10,000 MMU CELLS/CAPSULE PO SCH (07:48)
[2019-04-09] MEDS: busPIRone 5mg tablet PO SCH ×2 (07:48→12:41)
[2019-04-09] MEDS: propranolol 10mg tablet PO SCH ×2 (07:48→12:42)
[2019-04-09] MEDS: LORazepam 0.5 MG tablet PO PRN ×2 (08:34→15:15)
[2019-04-09] MEDS ORDERED: BENZ1TAB7 PO (12:13)
[2019-04-09] MEDS ORDERED: CHLO25TA22 PO (12:13)
[2019-04-09] MEDS ORDERED: PANT40TA4 PO (12:13)
[2019-04-09] MEDS ORDERED: HYDR-3686 PO (12:13)
[2019-04-09] MEDS ORDERED: TRAZ-219 PO (12:13)
[2019-04-09] MEDS ORDERED: BUSP10TA10 PO (12:13)
[2019-04-09] MEDS ORDERED: CHLO50TA24 PO (12:13)
[2019-04-09] MEDS ORDERED: PROP10TA10 PO (12:13)
[2019-04-09] MEDS ORDERED: ATI0.5T PO (12:13)
--- NOTE | 2019-04-09 16:05 | NUR ---
Pt. discharged to [facility] via [facility] transport car with valuables. Pt. presents as cooperative but anxious with a flat affect. Pt. denies SI/HI, A/V H. Pt. is in no acute distress. Pt. discharged with all belongings.
== END 2019-04-09 16:05 | disposition short-term general hospital (02) | DRG 750 ==
LOC: ADULT MH 20:45
PROVIDERS: ADMIT Psychiatry & Neurology Psychiatry; ATTEND Psychiatry & Neurology Psychiatry
DX: F25.1 Schizoaffective disorder, depressive type (principal); Z59.0 Homelessness; F12.10 Cannabis abuse, uncomplicated; F15.11 Other stimulant abuse, in remission; G25.0 Essential tremor; F17.210 Nicotine dependence, cigarettes, uncomplicated; F32.9 Major depressive disorder, single episode, unspecified; F41.0 Panic disorder [episodic paroxysmal anxiety]; M54.9 Dorsalgia, unspecified; M79.671 Pain in right foot; M79.672 Pain in left foot; F41.1 Generalized anxiety disorder; K21.9 Gastro-esophageal reflux disease without esophagitis; L03.113 Cellulitis of right upper limb; M19.079 Primary osteoarthritis, unspecified ankle and foot; Z72.89 Other problems related to lifestyle; Z80.0 Family history of malignant neoplasm of digestive organs; Z91.19 Patient's noncompliance with other medical treatment and regimen; Z83.3 Family history of diabetes mellitus; Z88.8 Allergy status to other drugs, medicaments and biological substances; Z71.6 Tobacco abuse counseling
CPT/HCPCS: 36415; 80061; 83036; 87070; Q0161; Q0177

== ENCOUNTER 2019-05-18 09:45 | Emergency (ER) | payer MEDICAID ==
[~2019-05-18] VITALS: Ht 177.8 cm; Wt 99.0 kg
[~2019-05-18 09:45] MED LIST changes: +ATI0.5T PO; -BACDS PO; +BENZ1TAB7 PO; +BUSP10TA10 PO; +CHLO25TA22 PO; +CHLO50TA24 PO; -OLAN20TA3 PO; -OMEP40CA37 PO; +PANT40TA4 PO; +PROP10TA10 PO; +TRAZ-219 PO
--- NOTE | 2019-05-18 10:05 | NUR ---
AMBULATORY TO ER #5 WITH C/O GENERALIZED BODY ACHES, PAIN IN RIGHT LEG, AND FEELING DEHYDRATED. PATIENT WAS HERE IN THE ER YESTERDAY FOR SIMILAR SYMPTOMS. HX METH AND ETOH ABUSE. STATES HE "THINKS HE HAD A STROKE AND WANTS A CAT SCAN". PROVIDER AT THE BEDSIDE, ASSESSING PATIENT FOR NEUROLOGICAL DEFICITS. ALL EXTREMS MOVE WELL.
[2019-05-18 10:44] LABS: BASOPHILS # (AUTO) 0.1 X10'3 (0-0.2); BASOPHILS % (AUTO) 0.5 % (0-1); EOSINOPHILS # (AUTO) 0.1 X10'3 (0-0.9); EOSINOPHILS % (AUTO) 0.8 % (0-6); HEMATOCRIT 44.5 % (42.0-52.0); HEMOGLOBIN 15.2 g/dl (14.0-17.9); LYMPHOCYTES # (AUTO) 2.2 X10'3 (1.1-4.8); LYMPHOCYTES % (AUTO) 14.1 % (21-51); MEAN CORPUSCULAR HEMOGLOBIN 30.7 PG (27.0-31.0); MEAN CORPUSCULAR HGB CONC 34.1 g/dL (33.0-36.5); MEAN CORPUSCULAR VOLUME 90.1 FL (78-98); MEAN PLATELET VOLUME 7.1 FL (7.4-10.4); MONOCYTES # (AUTO) 1.4 X10'3 (0-0.9); MONOCYTES % (AUTO) 8.9 % (2-12); NEUTROPHILS # (AUTO) 11.6 X10'3 (1.8-7.7); NEUTROPHILS % (AUTO) 75.7 % (42-75); PLATELET COUNT 369 X10'3 (140-440); RED BLOOD COUNT 4.95 X10'6 (4.70-6.10); RED CELL DISTRIBUTION WIDTH 13.1 % (11.5-14.5); WHITE BLOOD COUNT 15.3 X10'3 (4.5-11.0)
[2019-05-18 10:45] LABS: URINE AMPHETAMINE SCREEN POSITIVE (Neg); URINE BARBITUATE SCREEN NEGATIVE (Neg); URINE BENZODIAZEPINES SCREEN NEGATIVE (Neg); URINE CANNABINOID SCREEN POSITIVE (Neg); URINE COCAINE SCREEN NEGATIVE (Neg); URINE METHADONE SCREEN NEGATIVE (Neg); URINE OPIATE SCREEN NEGATIVE (Neg); URINE PHENCYCLIDINE SCREEN NEGATIVE (Neg)
[2019-05-18 10:54] LABS: ALANINE AMINOTRANSFERASE 38 U/L (12-78); ALBUMIN 4.2 G/DL (3.4-5.0); ALBUMIN/GLOBULIN RATIO 1.1 (1.1-1.5); ALKALINE PHOSPHATASE 102 IU/L (46-116); ANION GAP 16 (8-16); ASPARTATE AMINO TRANSFERASE 17 U/L (10-37); BILIRUBIN,TOTAL 0.6 MG/DL (0.1-1.0); BLOOD UREA NITROGEN 12 MG/DL (7-18); CALCIUM 8.8 MG/DL (8.5-10.1); CHLORIDE 100 MMOL/L (99-107); GLUCOSE 110 MG/DL (70-104); POTASSIUM 3.7 MMOL/L (3.5-5.1); SODIUM 136 MMOL/L (135-145); TOTAL CARBON DIOXIDE 20.3 MMOL/L (24-32); eGFR > 90 ML/MIN
[2019-05-18] MEDS ORDERED: normal saline 1000ML IV soln IVB ONE (11:10)
[2019-05-18 11:32] LABS: CLARITY,URINE CLEAR (Clear); COLOR,URINE YELLOW (Yellow); GLUCOSE, URINE NEGATIVE (Neg); KETONES,URINE 15 mg/dl (Neg); LEUKOCYTE ESTERASE ,URINE NEGATIVE (Neg); NITRITES, URINE NEGATIVE (Neg); OCCULT BLOOD,URINE NEGATIVE (Neg); PH,URINE 5.5 (4.8-8.0); PROTEIN,URINE NEGATIVE (Neg); UROBILINOGEN,URINE 0.2 E.U/dL (0.2-1.0)
[2019-05-18 11:33] LABS: UA COLLECTION TYPE URINAL
[2019-05-18 12:02] VITALS: BP 147/87
== END 2019-05-18 12:10 | disposition home or self-care (01) ==
LOC: ER 09:46
DX: F31.89 Other bipolar disorder (principal); R53.1 Weakness; F41.9 Anxiety disorder, unspecified; F15.20 Other stimulant dependence, uncomplicated; F11.20 Opioid dependence, uncomplicated; F12.20 Cannabis dependence, uncomplicated; I10 Essential (primary) hypertension; J45.909 Unspecified asthma, uncomplicated; K21.9 Gastro-esophageal reflux disease without esophagitis; G89.29 Other chronic pain; Z86.14 Personal history of Methicillin resistant Staphylococcus aureus infection; Z98.890 Other specified postprocedural states; Z88.6 Allergy status to analgesic agent; Z88.8 Allergy status to other drugs, medicaments and biological substances; Z79.899 Other long term (current) drug therapy; Z56.0 Unemployment, unspecified; Z59.0 Homelessness; Z60.2 Problems related to living alone; Z71.51 Drug abuse counseling and surveillance of drug abuser; N28.9 Disorder of kidney and ureter, unspecified
CPT/HCPCS: 36415; 71046; 80053; 80305; 81003; 85025; 99284; J7030

== ENCOUNTER 2019-05-19 15:46 | Emergency (ER) | payer MEDICAID ==
[~2019-05-19] VITALS: Ht 177.8 cm; Wt 99.0 kg
[2019-05-19 16:12] VITALS: BP 128/85
[2019-05-19] MEDS ORDERED: LORazepam 1 MG tablet PO ONE (17:05)
== END 2019-05-19 17:58 | disposition home or self-care (01) ==
LOC: ER 15:47
DX: F41.9 Anxiety disorder, unspecified (principal); F15.10 Other stimulant abuse, uncomplicated; F31.9 Bipolar disorder, unspecified; I10 Essential (primary) hypertension; J45.909 Unspecified asthma, uncomplicated; K21.9 Gastro-esophageal reflux disease without esophagitis; G89.29 Other chronic pain; Z86.14 Personal history of Methicillin resistant Staphylococcus aureus infection; F12.90 Cannabis use, unspecified, uncomplicated; F11.90 Opioid use, unspecified, uncomplicated; Z98.890 Other specified postprocedural states; Z88.6 Allergy status to analgesic agent; Z88.8 Allergy status to other drugs, medicaments and biological substances; Z79.899 Other long term (current) drug therapy; Z56.0 Unemployment, unspecified; Z59.0 Homelessness; Z60.2 Problems related to living alone
CPT/HCPCS: 93005; 99284

== ENCOUNTER 2019-05-21 12:40 | Emergency (ER) | payer MEDICAID ==
[~2019-05-21] VITALS: Ht 177.8 cm; Wt 100.0 kg
[2019-05-21 13:11] VITALS: BP 141/102
[2019-05-21] MEDS ORDERED: normal saline 1000ML IV soln IVB ONE (14:35)
[2019-05-21 15:05] LABS: ALBUMIN 3.8 G/DL (3.4-5.0); ANION GAP 9 (8-16); BILIRUBIN,TOTAL 0.8 MG/DL (0.1-1.0); BLOOD UREA NITROGEN 5 MG/DL (7-18); BUN/CREATININE RATIO 6.8 (5.4-32.0); CALCIUM 8.8 MG/DL (8.5-10.1); CHLORIDE 97 MMOL/L (99-107); CREATININE 0.74 MG/DL (0.60-1.10); GLUCOSE 105 MG/DL (70-104); POTASSIUM 3.2 MMOL/L (3.5-5.1); SODIUM 131 MMOL/L (135-145); TOTAL CARBON DIOXIDE 25.5 MMOL/L (24-32); TOTAL PROTEIN 7.2 G/DL (6.4-8.2); eGFR > 90 ML/MIN
[2019-05-21 15:06] LABS: ALANINE AMINOTRANSFERASE 53 U/L (12-78); ALBUMIN/GLOBULIN RATIO 1.1 (1.1-1.5); ALKALINE PHOSPHATASE 97 IU/L (46-116); ASPARTATE AMINO TRANSFERASE 28 U/L (10-37); BASOPHILS % (AUTO) 0.2 % (0-1); EOSINOPHILS # (AUTO) 0.1 X10'3 (0-0.9); EOSINOPHILS % (AUTO) 0.6 % (0-6); HEMATOCRIT 39.7 % (42.0-52.0); HEMOGLOBIN 13.5 g/dl (14.0-17.9); LYMPHOCYTES # (AUTO) 1.7 X10'3 (1.1-4.8); LYMPHOCYTES % (AUTO) 16.1 % (21-51); MEAN CORPUSCULAR HEMOGLOBIN 30.9 PG (27.0-31.0); MEAN CORPUSCULAR HGB CONC 33.9 g/dL (33.0-36.5); MEAN CORPUSCULAR VOLUME 91.1 FL (78-98); MEAN PLATELET VOLUME 7.1 FL (7.4-10.4); MONOCYTES # (AUTO) 0.8 X10'3 (0-0.9); MONOCYTES % (AUTO) 7.3 % (2-12); NEUTROPHILS % (AUTO) 75.8 % (42-75); PLATELET COUNT 287 X10'3 (140-440); RED BLOOD COUNT 4.36 X10'6 (4.70-6.10); RED CELL DISTRIBUTION WIDTH 13.2 % (11.5-14.5); WHITE BLOOD COUNT 10.6 X10'3 (4.5-11.0)
[2019-05-21 15:41] LABS: CLARITY,URINE CLEAR (Clear); COLOR,URINE STRAW (Yellow); GLUCOSE, URINE NEGATIVE (Neg); KETONES,URINE NEGATIVE (Neg); LEUKOCYTE ESTERASE ,URINE NEGATIVE (Neg); NITRITES, URINE NEGATIVE (Neg); OCCULT BLOOD,URINE NEGATIVE (Neg); PH,URINE 5.5 (4.8-8.0); PROTEIN,URINE NEGATIVE (Neg); UROBILINOGEN,URINE 0.2 E.U/dL (0.2-1.0)
[2019-05-21 15:53] LABS: UA COLLECTION TYPE NON-SPECIFIED
== END 2019-05-21 15:57 | disposition home or self-care (01) ==
LOC: ER 12:40
DX: E86.0 Dehydration (principal); F15.10 Other stimulant abuse, uncomplicated; I10 Essential (primary) hypertension; J45.909 Unspecified asthma, uncomplicated; K21.9 Gastro-esophageal reflux disease without esophagitis; G89.29 Other chronic pain; F17.210 Nicotine dependence, cigarettes, uncomplicated; F12.90 Cannabis use, unspecified, uncomplicated; F11.90 Opioid use, unspecified, uncomplicated; Z59.0 Homelessness; Z56.0 Unemployment, unspecified; Z88.6 Allergy status to analgesic agent; Z88.8 Allergy status to other drugs, medicaments and biological substances
CPT/HCPCS: 36415; 80053; 81003; 84145; 85025; 99283; J7030

== ENCOUNTER 2019-05-22 19:57 | Emergency (ER) | payer MEDICAID ==
[~2019-05-22] VITALS: Ht 177.8 cm; Wt 80.3 kg
[2019-05-22 20:07] VITALS: BP 142/82
== END 2019-05-22 22:18 | disposition home or self-care (01) ==
LOC: ER 19:57
DX: F10.920 Alcohol use, unspecified with intoxication, uncomplicated (principal); I10 Essential (primary) hypertension; J45.909 Unspecified asthma, uncomplicated; K21.9 Gastro-esophageal reflux disease without esophagitis; G89.29 Other chronic pain; F41.9 Anxiety disorder, unspecified; F31.9 Bipolar disorder, unspecified; F12.90 Cannabis use, unspecified, uncomplicated; F15.90 Other stimulant use, unspecified, uncomplicated; F11.90 Opioid use, unspecified, uncomplicated; Z60.2 Problems related to living alone; Z98.890 Other specified postprocedural states; Z88.8 Allergy status to other drugs, medicaments and biological substances; Z88.6 Allergy status to analgesic agent; Z79.899 Other long term (current) drug therapy; Z86.14 Personal history of Methicillin resistant Staphylococcus aureus infection; Z59.0 Homelessness; Z56.0 Unemployment, unspecified; Y90.9 Presence of alcohol in blood, level not specified
CPT/HCPCS: 82948; 99283

== ENCOUNTER 2019-05-22 23:37 | Emergency (ER) | payer MEDICAID ==
[~2019-05-22] VITALS: Ht 182.9 cm; Wt 100.0 kg
== END 2019-05-23 00:49 | disposition left against medical advice (07) ==
LOC: ER 23:38
DX: N23 Unspecified renal colic (principal); Z53.21 Procedure and treatment not carried out due to patient leaving prior to being seen by health care provider; Z79.899 Other long term (current) drug therapy

== ENCOUNTER 2019-09-26 12:02 | Emergency (ER) | payer MEDICAID ==
[~2019-09-26] VITALS: Ht 177.8 cm; Wt 100.0 kg
[2019-09-26] MEDS ORDERED: normal saline 1000ML IV soln IVB ONE (12:10)
[2019-09-26] MEDS ORDERED: LORazepam 2 mg/ml vial IV ONE (12:10)
[2019-09-26 12:20] LABS: BASOPHILS # (AUTO) 0.1 X10'3 (0-0.2); BASOPHILS % (AUTO) 0.4 % (0-1); EOSINOPHILS % (AUTO) 0.3 % (0-6); HEMATOCRIT 38.7 % (42.0-52.0); HEMOGLOBIN 13.5 g/dl (14.0-17.9); LYMPHOCYTES # (AUTO) 2.1 X10'3 (1.1-4.8); LYMPHOCYTES % (AUTO) 13.4 % (21-51); MEAN CORPUSCULAR HEMOGLOBIN 30.7 PG (27.0-31.0); MEAN CORPUSCULAR HGB CONC 34.9 g/dL (33.0-36.5); MEAN CORPUSCULAR VOLUME 87.9 FL (78-98); MEAN PLATELET VOLUME 6.9 FL (7.4-10.4); MONOCYTES # (AUTO) 1.5 X10'3 (0-0.9); MONOCYTES % (AUTO) 9.4 % (2-12); NEUTROPHILS # (AUTO) 11.8 X10'3 (1.8-7.7); NEUTROPHILS % (AUTO) 76.5 % (42-75); PLATELET COUNT 363 X10'3 (140-440); RED CELL DISTRIBUTION WIDTH 13.3 % (11.5-14.5); WHITE BLOOD COUNT 15.5 X10'3 (4.5-11.0)
[2019-09-26 12:31] LABS: CLARITY,URINE CLEAR (Clear); COLOR,URINE STRAW (Yellow); GLUCOSE, URINE NEGATIVE (Neg); KETONES,URINE NEGATIVE (Neg); LEUKOCYTE ESTERASE ,URINE NEGATIVE (Neg); NITRITES, URINE NEGATIVE (Neg); OCCULT BLOOD,URINE NEGATIVE (Neg); PROTEIN,URINE NEGATIVE (Neg); UROBILINOGEN,URINE 0.2 E.U/dL (0.2-1.0)
[2019-09-26 12:36] LABS: UA COLLECTION TYPE URINAL
[2019-09-26 12:48] LABS: URINE AMPHETAMINE SCREEN NEGATIVE (Neg); URINE BARBITUATE SCREEN NEGATIVE (Neg); URINE BENZODIAZEPINES SCREEN NEGATIVE (Neg); URINE CANNABINOID SCREEN POSITIVE (Neg); URINE COCAINE SCREEN NEGATIVE (Neg); URINE METHADONE SCREEN NEGATIVE (Neg); URINE OPIATE SCREEN NEGATIVE (Neg); URINE PHENCYCLIDINE SCREEN NEGATIVE (Neg)
[2019-09-26 12:49] LABS: ALANINE AMINOTRANSFERASE 77 U/L (12-78); ALBUMIN 3.7 G/DL (3.4-5.0); ALKALINE PHOSPHATASE 159 IU/L (46-116); ANION GAP 18 (8-16); ASPARTATE AMINO TRANSFERASE 39 U/L (10-37); BILIRUBIN,TOTAL 0.8 MG/DL (0.1-1.0); BLOOD UREA NITROGEN 6 MG/DL (7-18); BUN/CREATININE RATIO 7.1 (5.4-32.0); CALCIUM 8.4 MG/DL (8.5-10.1); CHLORIDE 95 MMOL/L (99-107); CKMB RELATIVE INDEX 1.4 RATIO (0-2.5); CREATINE KINASE 157 U/L (39-308); CREATININE 0.84 MG/DL (0.60-1.10); ETHANOL 0.076 GM/DL (0.0-0.010); GLUCOSE 115 MG/DL (70-104); LIPASE 243 U/L (73-393); SODIUM 132 MMOL/L (135-145); TOTAL PROTEIN 7.5 G/DL (6.4-8.2); eGFR > 90 ML/MIN
[2019-09-26 12:56] LABS: POTASSIUM 2.9 MMOL/L (3.5-5.1)
[2019-09-26] MEDS ORDERED: potassium Cl 20 mEq SR tablet PO ONE (13:10)
[2019-09-26] MEDS: magnesium 2GM in 50ml NS 50 ML IV SCH ×2 (13:32→14:29)
[2019-09-26] MEDS: potassium CL 10mEq/100ml bag 100 ML IV SCH ×2 (13:34→14:35)
[2019-09-26] MEDS ORDERED: phenobarbital inj 260 MG in normal saline 100ml IV soln 99 ML IV ONE (13:35)
[2019-09-26] MEDS ORDERED: thiamine 100mg tablet PO ONE (13:35)
--- NOTE | 2019-09-26 14:15 | NUR ---
PER PHARMACIST. RATE OF PHENOBARBITAL IS 1200ML/HR
[2019-09-26] MEDS ORDERED: POTA20TA19 PO (14:22)
--- NOTE | 2019-09-26 14:40 | NUR ---
PHARMACIST IN ROOM DOING MEDICATION RECONCILIATION
[2019-09-26] MEDS ORDERED: BUSP10TA4 PO (14:48)
[2019-09-26] MEDS ORDERED: DOCU-267 PO (14:48)
[2019-09-26] MEDS ORDERED: SUCR1TAB PO (14:48)
[2019-09-26] MEDS ORDERED: OMEP-50 PO (14:48)
[2019-09-26] MEDS ORDERED: LORA-268 PO (14:48)
[2019-09-26] MEDS ORDERED: MAGN500T2 PO (14:48)
[2019-09-26] MEDS ORDERED: GABA-530 PO (14:48)
[2019-09-26] MEDS ORDERED: CHLO25TA22 PO ×2 (14:50→14:55)
[2019-09-26] MEDS ORDERED: BENZ1TAB7 PO (14:50)
[2019-09-26] MEDS ORDERED: PROP10TA10 PO (14:55)
[2019-09-26] MEDS ORDERED: HYDR-3686 PO (14:55)
[2019-09-26] MEDS ORDERED: phenobarbital inj 130 MG in normal saline 100ml IV soln 99 ML IV PRN (14:55)
[2019-09-26] MEDS ORDERED: PANT-47 PO (14:55)
[2019-09-26] MEDS ORDERED: TRAZ-219 PO (14:55)
--- NOTE | 2019-09-26 15:43 | NUR ---
CALLED PHARMACY SO THEY WILL MAKE UP ANOTHER 130 MG OF IV PHENOBARBITAL. CHECKED WITH DR ARIAS AND WANTS PATIENT TO HAVE ANOTHER DOSE OF PHENOBARBITAL
--- NOTE | 2019-09-26 16:28 | NUR ---
ASKE CHIKIS TABOR TO CALL THE [facility] TO SEE IF PATIENT CAN GO BACK
--- NOTE | 2019-09-26 16:29 | NUR ---
DR Gonzalez WANTS THE PATIENT TO RECEIVE 2 DOSES OF PHENOBARB IV
--- NOTE | 2019-09-26 16:33 | NUR ---
Spoke to Ryan at [facility] [place], who states that pt is able to come back to their facility.
[2019-09-26 17:02] VITALS: BP 160/98
== END 2019-09-26 17:05 | disposition home or self-care (01) ==
LOC: ER 12:02
DX: F10.230 Alcohol dependence with withdrawal, uncomplicated (principal); F12.90 Cannabis use, unspecified, uncomplicated; F25.9 Schizoaffective disorder, unspecified; I10 Essential (primary) hypertension; E87.6 Hypokalemia; F41.0 Panic disorder [episodic paroxysmal anxiety]; J45.909 Unspecified asthma, uncomplicated; K21.9 Gastro-esophageal reflux disease without esophagitis; G89.29 Other chronic pain; F31.9 Bipolar disorder, unspecified; F15.90 Other stimulant use, unspecified, uncomplicated; F11.90 Opioid use, unspecified, uncomplicated; Z56.0 Unemployment, unspecified; Z59.0 Homelessness; Z98.890 Other specified postprocedural states; Z88.6 Allergy status to analgesic agent; Z88.8 Allergy status to other drugs, medicaments and biological substances; Z79.899 Other long term (current) drug therapy; Y90.9 Presence of alcohol in blood, level not specified
CPT/HCPCS: 36415; 80053; 80305; 80320; 81003; 82550; 82553; 83690; 84443; 84484; 85025; 93005; 96365; 96366; 96367; 96368; 96375; 96376; 99284; J2060; J2560; J3475; J3480; J7030

== ENCOUNTER 2019-11-03 11:55 | Emergency (ER) | payer MEDICAID ==
[~2019-11-03] VITALS: Ht 177.8 cm; Wt 99.0 kg
[~2019-11-03 11:55] MED LIST changes: -ATI0.5T PO; -BUSP10TA10 PO; +BUSP10TA4 PO; -CHLO50TA24 PO; +DOCU-267 PO; +GABA-530 PO; +LORA-268 PO; +MAGN500T2 PO; +OMEP-50 PO; +PANT-47 PO; -PANT40TA4 PO; +SUCR1TAB PO
[2019-11-03] MEDS ORDERED: hydrOXYzine 25 MG tablet PO ONE (14:20)
[2019-11-03 14:46] LABS: HEMOGLOBIN 14.1 g/dl (14.0-17.9); MEAN CORPUSCULAR VOLUME 91.1 FL (78-98); MEAN PLATELET VOLUME 6.9 FL (7.4-10.4)
[2019-11-03 14:48] LABS: HEMATOCRIT 41.6 % (42.0-52.0); MEAN CORPUSCULAR HEMOGLOBIN 30.9 PG (27.0-31.0); MEAN CORPUSCULAR HGB CONC 33.9 g/dL (33.0-36.5); PLATELET COUNT 429 X10'3 (140-440); RED BLOOD COUNT 4.57 X10'6 (4.70-6.10); RED CELL DISTRIBUTION WIDTH 14.1 % (11.5-14.5); WHITE BLOOD COUNT 11.2 X10'3 (4.5-11.0)
[2019-11-03 14:49] LABS: CLARITY,URINE CLEAR (Clear); COLOR,URINE STRAW (Yellow); GLUCOSE, URINE NEGATIVE (Neg); KETONES,URINE NEGATIVE (Neg); LEUKOCYTE ESTERASE ,URINE NEGATIVE (Neg); NITRITES, URINE NEGATIVE (Neg); OCCULT BLOOD,URINE NEGATIVE (Neg); PH,URINE 5.5 (4.8-8.0); PROTEIN,URINE NEGATIVE (Neg); UA COLLECTION TYPE CLN CATCH MIDSTREAM; UROBILINOGEN,URINE 0.2 E.U/dL (0.2-1.0)
[2019-11-03 14:55] LABS: ALANINE AMINOTRANSFERASE 52 U/L (12-78); ALBUMIN 4.1 G/DL (3.4-5.0); ALKALINE PHOSPHATASE 135 IU/L (46-116); ANION GAP 14 (8-16); ASPARTATE AMINO TRANSFERASE 38 U/L (10-37); BILIRUBIN,TOTAL 0.2 MG/DL (0.1-1.0); BLOOD UREA NITROGEN 11 MG/DL (7-18); BUN/CREATININE RATIO 11.6 (5.4-32.0); CHLORIDE 100 MMOL/L (99-107); CREATININE 0.95 MG/DL (0.60-1.10); GLUCOSE 152 MG/DL (70-104); POTASSIUM 3.2 MMOL/L (3.5-5.1); SODIUM 137 MMOL/L (135-145); TOTAL CARBON DIOXIDE 23.3 MMOL/L (24-32); TOTAL PROTEIN 8.1 G/DL (6.4-8.2); eGFR 89 ML/MIN
[2019-11-03 15:03] LABS: URINE AMPHETAMINE SCREEN NEGATIVE (Neg); URINE BARBITUATE SCREEN NEGATIVE (Neg); URINE BENZODIAZEPINES SCREEN NEGATIVE (Neg); URINE CANNABINOID SCREEN POSITIVE (Neg); URINE COCAINE SCREEN NEGATIVE (Neg); URINE METHADONE SCREEN NEGATIVE (Neg); URINE OPIATE SCREEN NEGATIVE (Neg); URINE PHENCYCLIDINE SCREEN NEGATIVE (Neg)
[2019-11-03 15:05] LABS: ETHANOL 0.255 GM/DL (0.0-0.010)
[2019-11-03 15:31] LABS: EOSINOPHILS % (MANUAL) 0 % (0-6); TOTAL CELLS COUNTED 100
[2019-11-03 15:33] LABS: MONOCYTES % (MANUAL) 7 % (2-12)
[2019-11-03 15:35] LABS: PLATELET ESTIMATE NORMAL
--- NOTE | 2019-11-03 15:45 | NUR ---
FAXED PACKET [facility]
--- NOTE | 2019-11-03 16:30 | NUR ---
Pt is resting on the gurney. Pt is awaiting evaluation from [facility].
[2019-11-03] MEDS ORDERED: docusate sod 100mg capsule PO PRN (18:20)
[2019-11-03] MEDS: chlorproMAZINE 25mg tablet PO SCH (20:54)
[2019-11-03] MEDS: traZODone 50mg tablet PO SCH (20:54)
[2019-11-03] MEDS: propranolol 10mg tablet PO SCH (20:54)
[2019-11-03] MEDS: benztropine 1mg tablet PO SCH (20:54)
[2019-11-03] MEDS: gabapentin 100mg capsule PO SCH (20:54)
[2019-11-03] MEDS: busPIRone 5mg tablet PO SCH (20:55)
--- NOTE | 2019-11-03 21:07 | NUR ---
Pt's evening meds given, awaiting carafate dose from pharmacy.
[2019-11-03] MEDS: sucralfate 1 gm tablet PO SCH (21:23)
--- NOTE | 2019-11-03 21:31 | NUR ---
Pt's water pitcher refreshed. Pt is calm and cooperative. Pt's bedtime medications have all been taken and pt is resting comfortably on the bed.
--- NOTE | 2019-11-03 23:36 | NUR ---
The patient is sleeping on his left side. RR even and unlabored. No s/s of distress.
--- NOTE | 2019-11-04 02:13 | NUR ---
The patient is sleeping on his left side. RR even and unlabored. No s/s of distress.
--- NOTE | 2019-11-04 04:57 | NUR ---
The patient continues to sleep.
--- NOTE | 2019-11-04 07:00 | NUR ---
Received report from night RN. Received Pt in bed sleeping w/o distress.
--- NOTE | 2019-11-04 07:23 | NUR ---
patient is laying on left side sleeping. Does not appear to be in distress.
[2019-11-04] MEDS: pantoprazole 40mg Tablet.DR PO SCH (08:15)
[2019-11-04] MEDS: propranolol 10mg tablet PO SCH ×3 (08:15→20:00)
[2019-11-04] MEDS: busPIRone 5mg tablet PO SCH ×2 (08:15→20:00)
[2019-11-04] MEDS: gabapentin 100mg capsule PO SCH ×3 (08:15→20:01)
[2019-11-04] MEDS: chlorproMAZINE 25mg tablet PO SCH ×2 (08:15→20:01)
[2019-11-04] MEDS: benztropine 1mg tablet PO SCH ×2 (08:15→20:01)
[2019-11-04] MEDS: hydrOXYzine 25 MG tablet PO SCH ×3 (08:15→16:28)
[2019-11-04] MEDS: magnesium oxide 400mg tablet PO SCH (08:16)
[2019-11-04] MEDS: sucralfate 1 gm tablet PO SCH ×4 (08:35→20:01)
--- NOTE | 2019-11-04 10:22 | NUR ---
Pt awoke and ate breakfast well. Pt took AM meds w/o issue and was cooperative and talkative with this RN. He continues to endorse SI and returned to resting. [facility] clinician met with him and placed him on a 6460 hold for DTS.
--- NOTE | 2019-11-04 13:48 | NUR ---
PT MEDICATED WITH GABAPENTIN AND PROPRANALOL PER ORDERS, PT STATES HE USUALLY HAS ONLY TAKES SUCRALFATE IN THE MORNING AND OCCASSIONALLY AT DINNER PT STATES HE MICHEL NOT NEED SUCRALFATE AT THIS TIME.
--- NOTE | 2019-11-04 13:54 | NUR ---
PT IS RESTING ON LEFT SIDE, RESPIRATIONS SPONTANEOUS, EVEN AND UNLABORED, NO S/S OF DISTRESS, DISCOMFORT OR AGITATION. PT IN LINE OF SITE OF THE NURSES STATION.
--- NOTE | 2019-11-04 18:57 | NUR ---
One to one with the patient to assess severity of depressive symptoms and self harm risk. THe patient was cooperative with the assessment. He ate 100% of his evening meal. He is reporting high anxiety and continued suicidal thinking. He was seen by [facility] and placed on a 5150 and is awaiting placement.
[2019-11-04] MEDS: traZODone 50mg tablet PO SCH (20:01)
--- NOTE | 2019-11-04 20:06 | NUR ---
The patient took his evening medications. He is sitting up and having a snack.
--- NOTE | 2019-11-04 20:07 | NUR ---
[facility] is considering accepting the patient when a bed is available
--- NOTE | 2019-11-04 21:31 | NUR ---
Pt. currently sleeping on R side in ED room 7 rhanover. No needs at this time.
--- NOTE | 2019-11-04 22:31 | NUR ---
Pt is sleeping comfortably on his left side with visibly respirations with rise and fall of chest. Pt does not show signs of pain or distress or this time. Pt is in line of sight of nursing station and has aide posted at entrance to room.
--- NOTE | 2019-11-05 01:07 | NUR ---
Pt is sleeping soundly on his right side. His up and down respirations are visible. Pt does not show signs of pain or discomfort at this time. Pt is in line of sight of the nursing station and an aide is posted at the entrance to his room.
[2019-11-05 04:50] VITALS: BP 118/79
--- NOTE | 2019-11-05 06:34 | NUR ---
Assumed care of pt. Pt resting in no apparent distress. Respirations are even and unlabored. Aide is posted at door for line of sight.
[2019-11-05] MEDS: hydrOXYzine 25 MG tablet PO SCH ×2 (07:42)
[2019-11-05] MEDS: magnesium oxide 400mg tablet PO SCH (07:42)
[2019-11-05] MEDS: gabapentin 100mg capsule PO SCH (07:42)
[2019-11-05] MEDS: sucralfate 1 gm tablet PO SCH (07:42)
[2019-11-05] MEDS: pantoprazole 40mg Tablet.DR PO SCH (07:42)
[2019-11-05] MEDS: chlorproMAZINE 25mg tablet PO SCH (07:43)
[2019-11-05] MEDS: propranolol 10mg tablet PO SCH (07:44)
[2019-11-05] MEDS: busPIRone 5mg tablet PO SCH (07:44)
[2019-11-05] MEDS: benztropine 1mg tablet PO SCH (07:44)
--- NOTE | 2019-11-05 07:47 | NUR ---
primary nurse is on break. pt. received morning meds and took them all and was in no distress. pt. is using the bathroom, escorted by tech.
--- NOTE | 2019-11-05 08:29 | NUR ---
Pt is complaining of congestion and yellow-green sputum. Consulted Dr Zapata and a chest xray was ordered.
--- NOTE | 2019-11-05 09:54 | NUR ---
blacktop spreader from [facility] here to admit pt upstairs
[2019-11-08] MEDS ORDERED: AMO250C PO (10:00)
== END 2019-11-05 10:19 | disposition home or self-care (01) ==
LOC: ER 11:55
DX: F31.9 Bipolar disorder, unspecified (principal); F10.920 Alcohol use, unspecified with intoxication, uncomplicated; I10 Essential (primary) hypertension; J45.909 Unspecified asthma, uncomplicated; K21.9 Gastro-esophageal reflux disease without esophagitis; G89.29 Other chronic pain; F41.9 Anxiety disorder, unspecified; F12.90 Cannabis use, unspecified, uncomplicated; F15.90 Other stimulant use, unspecified, uncomplicated; F11.90 Opioid use, unspecified, uncomplicated; Z86.14 Personal history of Methicillin resistant Staphylococcus aureus infection; Z98.890 Other specified postprocedural states; Z60.2 Problems related to living alone; Z59.0 Homelessness; Z56.0 Unemployment, unspecified; Z88.8 Allergy status to other drugs, medicaments and biological substances; Z88.6 Allergy status to analgesic agent; Z79.899 Other long term (current) drug therapy; Y90.0 Blood alcohol level of less than 20 mg/100 ml
CPT/HCPCS: 71045; 80053; 80305; 80320; 81003; 84443; 85025; 99285; Z7610; Q0161

== ENCOUNTER 2020-04-01 23:55 | Emergency (ER) | payer MEDICAID, OTHER ==
[~2020-04-01] VITALS: Ht 177.8 cm; Wt 85.0 kg
[~2020-04-01 23:55] MED LIST changes: +AMO250C PO; -LORA-268 PO; -TRAZ-219 PO; +TRAZ-256 PO
[2020-04-02] MEDS ORDERED: phenobarbital inj 260 MG in normal saline 100ml IV soln 100 ML IV ONE (00:10)
[2020-04-02] MEDS ORDERED: magnesium 2GM in 50ml NS 50 ML IV ONE (00:10)
[2020-04-02] MEDS ORDERED: normal saline 1000ML IV soln IVB ONE (00:10)
[2020-04-02] MEDS ORDERED: thiamine inj. 100 MG in normal saline 100ml IV soln 99 ML IV ONE (00:10)
[2020-04-02 00:43] LABS: BASOPHILS % (AUTO) 0.5 % (0-1); EOSINOPHILS # (AUTO) 0.1 X10'3 (0-0.9); EOSINOPHILS % (AUTO) 1.3 % (0-6); HEMOGLOBIN 13.8 g/dl (14.0-17.9); LYMPHOCYTES % (AUTO) 42.2 % (21-51); MEAN CORPUSCULAR HEMOGLOBIN 30.8 PG (27.0-31.0); MEAN CORPUSCULAR HGB CONC 34.6 g/dL (33.0-36.5); MEAN CORPUSCULAR VOLUME 89.2 FL (78-98); MEAN PLATELET VOLUME 6.8 FL (7.4-10.4); MONOCYTES # (AUTO) 0.8 X10'3 (0-0.9); MONOCYTES % (AUTO) 11.6 % (2-12); NEUTROPHILS # (AUTO) 3.1 X10'3 (1.8-7.7); NEUTROPHILS % (AUTO) 44.4 % (42-75); PLATELET COUNT 334 X10'3 (140-440); RED BLOOD COUNT 4.48 X10'6 (4.70-6.10); RED CELL DISTRIBUTION WIDTH 12.9 % (11.5-14.5); WHITE BLOOD COUNT 7.1 X10'3 (4.5-11.0)
[2020-04-02 00:59] LABS: ALANINE AMINOTRANSFERASE 43 U/L (12-78); ALBUMIN 3.5 G/DL (3.4-5.0); ALBUMIN/GLOBULIN RATIO 1.1 (1.1-1.5); ALKALINE PHOSPHATASE 130 IU/L (46-116); ANION GAP 6 (8-16); ASPARTATE AMINO TRANSFERASE 27 U/L (10-37); BILIRUBIN,TOTAL 0.2 MG/DL (0.1-1.0); BLOOD UREA NITROGEN 6 MG/DL (7-18); BUN/CREATININE RATIO 6.8 (5.4-32.0); CALCIUM 7.8 MG/DL (8.5-10.1); CHLORIDE 110 MMOL/L (99-107); CREATININE 0.88 MG/DL (0.60-1.10); GLUCOSE 99 MG/DL (70-104); MAGNESIUM 2.4 MG/DL (1.5-2.4); SODIUM 147 MMOL/L (135-145); TOTAL CARBON DIOXIDE 30.7 MMOL/L (24-32); TOTAL PROTEIN 6.7 G/DL (6.4-8.2); eGFR > 90 ML/MIN
[2020-04-02 10:31] VITALS: BP 143/97
== END 2020-04-02 10:36 | disposition home or self-care (01) ==
LOC: ER 23:55
DX: F10.129 Alcohol abuse with intoxication, unspecified (principal); I10 Essential (primary) hypertension; J45.909 Unspecified asthma, uncomplicated; K21.9 Gastro-esophageal reflux disease without esophagitis; G89.29 Other chronic pain; F41.9 Anxiety disorder, unspecified; F31.9 Bipolar disorder, unspecified; F12.90 Cannabis use, unspecified, uncomplicated; F15.90 Other stimulant use, unspecified, uncomplicated; F11.90 Opioid use, unspecified, uncomplicated; Z86.14 Personal history of Methicillin resistant Staphylococcus aureus infection; Z98.890 Other specified postprocedural states; Z60.2 Problems related to living alone; Z59.0 Homelessness; Z56.0 Unemployment, unspecified; Z88.8 Allergy status to other drugs, medicaments and biological substances; Z88.6 Allergy status to analgesic agent; Z79.899 Other long term (current) drug therapy; Y90.9 Presence of alcohol in blood, level not specified
CPT/HCPCS: 36415; 70450; 80053; 80320; 83735; 85025; 93005; 96365; 96366; 96368; 99285; J2560; J3411; J3475; J7030

== ENCOUNTER 2020-04-02 15:10 | Emergency (ER) | payer SELFPAY ==
[~2020-04-02] VITALS: Ht 172.7 cm; Wt 85.0 kg
--- NOTE | 2020-04-02 17:20 | NUR ---
Pt had episode of urinary incontinence. Linen changed and Pt care provided. Pt still extremely intoxicated. Respirations even and non labored, no obvious s/sx of distress.
--- NOTE | 2020-04-02 17:42 | NUR ---
Pt beginning to become more awake AEB Pt lifting head off gurney and attempting to sit up. Will continue to monitor Pt.
--- NOTE | 2020-04-02 18:17 | NUR ---
Pt is awake and alert, sitting up in bed. Aware he is in the hospital and requesting something to eat. Pt could not provide details of the events prior to arriving at the hospital. Will provide food and continue to monitor.
[2020-04-02] MEDS ORDERED: normal saline 1000ML IV soln IVB ONE (20:35)
[2020-04-02] MEDS ORDERED: ondansetron/PF 4mg/2ml inj IV ONE (20:35)
[2020-04-02 21:14] LABS: BASOPHILS % (AUTO) 0.4 % (0-1); EOSINOPHILS # (AUTO) 0.1 X10'3 (0-0.9); EOSINOPHILS % (AUTO) 0.6 % (0-6); HEMATOCRIT 44.1 % (42.0-52.0); LYMPHOCYTES # (AUTO) 3.6 X10'3 (1.1-4.8); LYMPHOCYTES % (AUTO) 39.2 % (21-51); MEAN CORPUSCULAR HEMOGLOBIN 30.3 PG (27.0-31.0); MEAN CORPUSCULAR HGB CONC 33.9 g/dL (33.0-36.5); MEAN CORPUSCULAR VOLUME 89.2 FL (78-98); MEAN PLATELET VOLUME 6.6 FL (7.4-10.4); MONOCYTES # (AUTO) 0.7 X10'3 (0-0.9); MONOCYTES % (AUTO) 7.1 % (2-12); NEUTROPHILS # (AUTO) 4.9 X10'3 (1.8-7.7); NEUTROPHILS % (AUTO) 52.7 % (42-75); PLATELET COUNT 420 X10'3 (140-440); RED BLOOD COUNT 4.94 X10'6 (4.70-6.10); RED CELL DISTRIBUTION WIDTH 12.9 % (11.5-14.5); WHITE BLOOD COUNT 9.3 X10'3 (4.5-11.0)
[2020-04-02 21:25] LABS: ALANINE AMINOTRANSFERASE 44 U/L (12-78); ALBUMIN 3.7 G/DL (3.4-5.0); ALKALINE PHOSPHATASE 133 IU/L (46-116); ANION GAP 7 (8-16); ASPARTATE AMINO TRANSFERASE 31 U/L (10-37); BILIRUBIN,TOTAL 0.2 MG/DL (0.1-1.0); BLOOD UREA NITROGEN 6 MG/DL (7-18); BUN/CREATININE RATIO 6.2 (5.4-32.0); CALCIUM 8.1 MG/DL (8.5-10.1); CHLORIDE 111 MMOL/L (99-107); CREATININE 0.97 MG/DL (0.60-1.10); GLUCOSE 109 MG/DL (70-104); LIPASE 419 U/L (73-393); POTASSIUM 3.6 MMOL/L (3.5-5.1); SODIUM 150 MMOL/L (135-145); TOTAL CARBON DIOXIDE 32.2 MMOL/L (24-32); TOTAL PROTEIN 7.3 G/DL (6.4-8.2); eGFR 86 ML/MIN
[2020-04-02 23:50] VITALS: BP 120/81
== END 2020-04-02 23:52 | disposition home or self-care (01) ==
LOC: ER 15:11
DX: F10.129 Alcohol abuse with intoxication, unspecified (principal); R11.2 Nausea with vomiting, unspecified; R41.82 Altered mental status, unspecified; I10 Essential (primary) hypertension; J45.909 Unspecified asthma, uncomplicated; K21.9 Gastro-esophageal reflux disease without esophagitis; G89.29 Other chronic pain; F41.9 Anxiety disorder, unspecified; F31.9 Bipolar disorder, unspecified; F12.90 Cannabis use, unspecified, uncomplicated; F15.90 Other stimulant use, unspecified, uncomplicated; F11.90 Opioid use, unspecified, uncomplicated; Z86.14 Personal history of Methicillin resistant Staphylococcus aureus infection; Z98.890 Other specified postprocedural states; Z59.0 Homelessness; Z56.0 Unemployment, unspecified; Z88.8 Allergy status to other drugs, medicaments and biological substances; Z88.6 Allergy status to analgesic agent; Z79.899 Other long term (current) drug therapy; Y90.0 Blood alcohol level of less than 20 mg/100 ml
CPT/HCPCS: 36415; 80053; 80320; 83690; 85025; 93005; 96361; 96374; 99285; J2405; J7030

== ENCOUNTER 2020-04-09 10:26 | Emergency (ER) | payer MEDICAID, OTHER ==
[~2020-04-09] VITALS: Ht 177.8 cm; Wt 95.5 kg
[2020-04-09 10:59] LABS: CLARITY,URINE CLEAR (Clear); COLOR,URINE STRAW (Yellow); GLUCOSE, URINE NEGATIVE (Neg); KETONES,URINE NEGATIVE (Neg); LEUKOCYTE ESTERASE ,URINE NEGATIVE (Neg); NITRITES, URINE NEGATIVE (Neg); OCCULT BLOOD,URINE TRACE-INTACT (Neg); PROTEIN,URINE NEGATIVE (Neg); UROBILINOGEN,URINE 0.2 E.U/dL (0.2-1.0)
[2020-04-09 11:03] LABS: UA COLLECTION TYPE VOIDED
[2020-04-09 11:07] LABS: BACTERIA,URINE NONE SEEN /HPF (Neg); MUCUS STRANDS NONE SEEN /LPF (Neg); RBC,URINE 0-2 /HPF (0-2); SQUAMOUS EPITHELIAL CELL,UR NONE SEEN /LPF (FEW); WBC,URINE NONE SEEN /HPF (0-4)
[2020-04-09 11:10] LABS: URINE AMPHETAMINE SCREEN POSITIVE (Neg); URINE BARBITUATE SCREEN NEGATIVE (Neg); URINE BENZODIAZEPINES SCREEN POSITIVE (Neg); URINE CANNABINOID SCREEN NEGATIVE (Neg); URINE COCAINE SCREEN NEGATIVE (Neg); URINE METHADONE SCREEN NEGATIVE (Neg); URINE OPIATE SCREEN NEGATIVE (Neg); URINE PHENCYCLIDINE SCREEN NEGATIVE (Neg)
[2020-04-09 12:10] LABS: BASOPHILS % (AUTO) 0.2 % (0-1); EOSINOPHILS # (AUTO) 0.1 X10'3 (0-0.9); HEMATOCRIT 39.6 % (42.0-52.0); HEMOGLOBIN 13.3 g/dl (14.0-17.9); LYMPHOCYTES # (AUTO) 1.9 X10'3 (1.1-4.8); LYMPHOCYTES % (AUTO) 16.7 % (21-51); MEAN CORPUSCULAR HEMOGLOBIN 30.5 PG (27.0-31.0); MEAN CORPUSCULAR HGB CONC 33.7 g/dL (33.0-36.5); MEAN CORPUSCULAR VOLUME 90.7 FL (78-98); MEAN PLATELET VOLUME 6.6 FL (7.4-10.4); MONOCYTES # (AUTO) 0.9 X10'3 (0-0.9); MONOCYTES % (AUTO) 8.2 % (2-12); NEUTROPHILS # (AUTO) 8.3 X10'3 (1.8-7.7); NEUTROPHILS % (AUTO) 73.9 % (42-75); PLATELET COUNT 294 X10'3 (140-440); RED BLOOD COUNT 4.37 X10'6 (4.70-6.10); RED CELL DISTRIBUTION WIDTH 13.4 % (11.5-14.5); WHITE BLOOD COUNT 11.2 X10'3 (4.5-11.0)
[2020-04-09 12:18] LABS: ALANINE AMINOTRANSFERASE 110 U/L (12-78); ALBUMIN 3.9 G/DL (3.4-5.0); ALKALINE PHOSPHATASE 151 IU/L (46-116); ANION GAP 11 (8-16); ASPARTATE AMINO TRANSFERASE 91 U/L (10-37); BILIRUBIN,TOTAL 0.5 MG/DL (0.1-1.0); BLOOD UREA NITROGEN 12 MG/DL (7-18); BUN/CREATININE RATIO 14.1 (5.4-32.0); CALCIUM 9.1 MG/DL (8.5-10.1); CHLORIDE 101 MMOL/L (99-107); CREATININE 0.85 MG/DL (0.60-1.10); GLUCOSE 86 MG/DL (70-104); POTASSIUM 3.7 MMOL/L (3.5-5.1); SODIUM 135 MMOL/L (135-145); TOTAL CARBON DIOXIDE 22.8 MMOL/L (24-32); eGFR > 90 ML/MIN
[2020-04-09] MEDS ORDERED: chlordiazePOXIDE 25mg capsule PO ONE (12:50)
[2020-04-09] MEDS ORDERED: gabapentin 300mg capsule PO ONE (12:50)
[2020-04-09] MEDS ORDERED: GABA300C PO (12:53)
[2020-04-09 13:30] VITALS: BP 160/97
--- NOTE | 2020-04-09 13:34 | NUR ---
PT DID NOT WANT TO BE DISCHARGED, BUT DOES NOT WANT THE HELP THAT WE ARE PROVIDING TO PT. PT WAS EVALUATED BY MD AND WAS MEDICALLY CLEARED TO BE DISCHARGED
[2020-04-09] MEDS ORDERED: BUSP10TA3 PO (20:38)
[2020-04-09] MEDS ORDERED: CEPH500C5 PO (20:38)
== END 2020-04-09 13:45 | disposition home or self-care (01) ==
LOC: ER 10:27
DX: F15.10 Other stimulant abuse, uncomplicated (principal); F10.10 Alcohol abuse, uncomplicated; F25.9 Schizoaffective disorder, unspecified; J45.909 Unspecified asthma, uncomplicated; K21.9 Gastro-esophageal reflux disease without esophagitis; I12.9 Hypertensive chronic kidney disease with stage 1 through stage 4 chronic kidney disease, or unspecified chronic kidney disease; N18.9 Chronic kidney disease, unspecified; G89.29 Other chronic pain; F41.9 Anxiety disorder, unspecified; F31.9 Bipolar disorder, unspecified; F29 Unspecified psychosis not due to a substance or known physiological condition; F12.90 Cannabis use, unspecified, uncomplicated; F15.90 Other stimulant use, unspecified, uncomplicated; F11.90 Opioid use, unspecified, uncomplicated; F19.90 Other psychoactive substance use, unspecified, uncomplicated; Z98.890 Other specified postprocedural states; Z60.2 Problems related to living alone; Z59.0 Homelessness; Z56.0 Unemployment, unspecified; Z88.8 Allergy status to other drugs, medicaments and biological substances; Z79.2 Long term (current) use of antibiotics; Z79.899 Other long term (current) drug therapy; Y90.0 Blood alcohol level of less than 20 mg/100 ml
CPT/HCPCS: 36415; 80053; 80305; 80320; 81001; 85025; 99283

== ENCOUNTER 2020-04-09 18:50 | Emergency (ER) | payer MEDICAID, OTHER ==
[~2020-04-09] VITALS: Ht 177.8 cm; Wt 95.0 kg
[~2020-04-09 18:50] MED LIST changes: +GABA300C PO
--- NOTE | 2020-04-09 19:01 | NUR ---
CALLED TO FRONT TO SPEAK WITH [facility] CRISIS STAFF REGARDING PT. HC STAFF STATES PT DOESN'T MEET CRITERIA FOR A HOLD BUT THEY ARE CONCERNED ABOUT HIS FEET. STAFF STATES THEY ARE INFECTED AND SWOLLEN. I DID NOT VISULAIZE PTS FEET AT THIS TIME. ADVISED THEM TO REGISTER THE PATIENT AND WE WOULD TRIAGE AND SEE HIM. PT DOES HAVE PSYCH HISTORY AND THEY ARE TRYING TO GET HIM PLACED IN IN RESIDENTIAL CRISIS UNIT BUT HAVE TO WAIT UNTIL SUNDAY.
[2020-04-09] MEDS ORDERED: LORazepam 1 MG tablet PO ONE (19:35)
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
[2020-04-09] MEDS ORDERED: bacitracin 15gm ointment TP ONE (19:55)
[2020-04-09] MEDS ORDERED: busPIRone 5mg tablet PO STA (19:57)
[2020-04-09] MEDS ORDERED: hydrOXYzine 10 MG tablet PO STA (19:57)
[2020-04-09] MEDS ORDERED: cephalexin 250mg capsule PO ONE (20:00)
[2020-04-09] MEDS ORDERED: CEPH500C5 PO (20:38)
[2020-04-09] MEDS ORDERED: BUSP10TA3 PO (20:38)
--- NOTE | 2020-04-09 21:41 | NUR ---
pt dc'd. NICKY Heredia dc'd pt. pt is not suicidal and was cleared by mental health earlier today. he does not qualify for 5150. pt given a sandwhich and he states he will go to the pharmacy.
[2020-04-09 21:42] VITALS: BP 137/93
== END 2020-04-09 21:44 | disposition home or self-care (01) ==
LOC: ER 18:51
DX: T25.422A Corrosion of unspecified degree of left foot, initial encounter (principal); T25.421A Corrosion of unspecified degree of right foot, initial encounter; F15.90 Other stimulant use, unspecified, uncomplicated; J45.909 Unspecified asthma, uncomplicated; K21.9 Gastro-esophageal reflux disease without esophagitis; I12.9 Hypertensive chronic kidney disease with stage 1 through stage 4 chronic kidney disease, or unspecified chronic kidney disease; N18.9 Chronic kidney disease, unspecified; G89.29 Other chronic pain; F41.9 Anxiety disorder, unspecified; F31.9 Bipolar disorder, unspecified; F20.9 Schizophrenia, unspecified; F29 Unspecified psychosis not due to a substance or known physiological condition; F12.90 Cannabis use, unspecified, uncomplicated; F11.90 Opioid use, unspecified, uncomplicated; F19.90 Other psychoactive substance use, unspecified, uncomplicated; Z98.890 Other specified postprocedural states; Z60.2 Problems related to living alone; Z59.0 Homelessness; Z56.0 Unemployment, unspecified; Z88.5 Allergy status to narcotic agent; Z88.8 Allergy status to other drugs, medicaments and biological substances; Z79.2 Long term (current) use of antibiotics; Z79.899 Other long term (current) drug therapy; T65.91XA Toxic effect of unspecified substance, accidental (unintentional), initial encounter; Y93.89 Activity, other specified; Y92.89 Other specified places as the place of occurrence of the external cause; Y99.0 Civilian activity done for income or pay
CPT/HCPCS: 16020; 93005; 99284

== ENCOUNTER 2021-01-21 08:56 | Emergency (ER) | payer MEDICAID, OTHER ==
[~2021-01-21] VITALS: Ht 172.7 cm; Wt 84.1 kg
[~2021-01-21 08:56] MED LIST changes: +BUSP10TA3 PO
[2021-01-21] MEDS ORDERED: hydrOXYzine 25 MG tablet PO ONE (09:25)
[2021-01-21 10:24] VITALS: BP 151/103
== END 2021-01-21 10:25 | disposition home or self-care (01) ==
LOC: ER 08:56
DX: F41.9 Anxiety disorder, unspecified (principal); M79.671 Pain in right foot; R07.89 Other chest pain; E86.0 Dehydration; I10 Essential (primary) hypertension; J45.909 Unspecified asthma, uncomplicated; K21.9 Gastro-esophageal reflux disease without esophagitis; G89.29 Other chronic pain; F31.9 Bipolar disorder, unspecified; F20.9 Schizophrenia, unspecified; F12.90 Cannabis use, unspecified, uncomplicated; F15.90 Other stimulant use, unspecified, uncomplicated; F11.90 Opioid use, unspecified, uncomplicated; F19.90 Other psychoactive substance use, unspecified, uncomplicated; Z86.14 Personal history of Methicillin resistant Staphylococcus aureus infection; Z98.890 Other specified postprocedural states; Z72.89 Other problems related to lifestyle; Z60.2 Problems related to living alone; Z59.0 Homelessness; Z56.0 Unemployment, unspecified; Z88.6 Allergy status to analgesic agent; Z88.8 Allergy status to other drugs, medicaments and biological substances; Z79.2 Long term (current) use of antibiotics; Z79.899 Other long term (current) drug therapy
CPT/HCPCS: 73630; 93005; 99283; Q0177

== ENCOUNTER 2021-02-13 05:49 | Emergency (ER) | payer MEDICAID ==
[~2021-02-13] VITALS: Ht 180.3 cm; Wt 81.0 kg
[2021-02-13] MEDS ORDERED: normal saline 1000ml 1,000 ML IV ONE ×2 (05:55→07:25)
[2021-02-13] MEDS ORDERED: ondansetron/PF 4mg/2ml inj IV ONE (06:25)
[2021-02-13 06:38] LABS: BASOPHILS % (AUTO) 0.3 % (0-1); EOSINOPHILS % (AUTO) 0.3 % (0-6); HEMATOCRIT 32.6 % (42.0-52.0); HEMOGLOBIN 10.3 g/dl (14.0-17.9); LYMPHOCYTES # (AUTO) 1.7 X10'3 (1.1-4.8); LYMPHOCYTES % (AUTO) 32.7 % (21-51); MEAN CORPUSCULAR HEMOGLOBIN 31.6 PG (27.0-31.0); MEAN CORPUSCULAR HGB CONC 31.5 g/dL (33.0-36.5); MEAN CORPUSCULAR VOLUME 100.4 FL (78-98); MEAN PLATELET VOLUME 7.3 FL (7.4-10.4); MONOCYTES # (AUTO) 0.5 X10'3 (0-0.9); MONOCYTES % (AUTO) 10.1 % (2-12); NEUTROPHILS # (AUTO) 2.9 X10'3 (1.8-7.7); NEUTROPHILS % (AUTO) 56.6 % (42-75); PLATELET COUNT 228 X10'3 (140-440); RED BLOOD COUNT 3.24 X10'6 (4.70-6.10); RED CELL DISTRIBUTION WIDTH 14.4 % (11.5-14.5); WHITE BLOOD COUNT 5.2 X10'3 (4.5-11.0)
[2021-02-13 06:49] LABS: ALANINE AMINOTRANSFERASE 16 U/L (12-78); ALBUMIN 2.3 G/DL (3.4-5.0); ALKALINE PHOSPHATASE 70 IU/L (46-116); ASPARTATE AMINO TRANSFERASE 14 U/L (10-37); BILIRUBIN,TOTAL 0.1 MG/DL (0.1-1.0); BLOOD UREA NITROGEN 5 MG/DL (7-18); BUN/CREATININE RATIO 12.8 (5.4-32.0); CHLORIDE 120 MMOL/L (99-107); CREATININE 0.39 MG/DL (0.60-1.10); ETHANOL 0.263 GM/DL (0.0-0.010); GLUCOSE 69 MG/DL (70-104); TOTAL CARBON DIOXIDE 19.8 MMOL/L (24-32); TOTAL PROTEIN 4.5 G/DL (6.4-8.2); eGFR > 90 ML/MIN
[2021-02-13 07:00] LABS: ANION GAP 15 (8-16)
[2021-02-13 07:12] LABS: SODIUM 155 MMOL/L (135-145)
[2021-02-13 07:13] LABS: CALCIUM 5.7 MG/DL (8.5-10.1); POTASSIUM 2.7 MMOL/L (3.5-5.1)
[2021-02-13] MEDS ORDERED: potassium Cl 10 mEq/100mL bag IV ONE ×2 (07:20→08:25)
[2021-02-13] MEDS ORDERED: potassium Cl 20 mEq SR tablet PO STA (07:21)
--- NOTE | 2021-02-13 08:00 | NUR ---
TO CT VIA WHEELCHAIR ACCOMPANIED BY RITU TOMAS AND OIL SPECULATOR
--- NOTE | 2021-02-13 10:30 | NUR ---
pt has voided 950cc
[2021-02-13] MEDS ORDERED: gabapentin 300mg capsule PO ONE (10:35)
[2021-02-13 10:40] VITALS: BP 138/95
[2021-02-13 10:52] LABS: ALANINE AMINOTRANSFERASE 25 U/L (12-78); ALBUMIN 3.8 G/DL (3.4-5.0); ALBUMIN/GLOBULIN RATIO 1.2 (1.1-1.5); ALKALINE PHOSPHATASE 118 IU/L (46-116); ANION GAP 14 (8-16); ASPARTATE AMINO TRANSFERASE 23 U/L (10-37); BILIRUBIN,TOTAL 0.3 MG/DL (0.1-1.0); BLOOD UREA NITROGEN 7 MG/DL (7-18); CALCIUM 8.1 MG/DL (8.5-10.1); CHLORIDE 109 MMOL/L (99-107); CREATININE 0.78 MG/DL (0.60-1.10); GLUCOSE 98 MG/DL (70-104); POTASSIUM 4.1 MMOL/L (3.5-5.1); SODIUM 150 MMOL/L (135-145); TOTAL CARBON DIOXIDE 27.4 MMOL/L (24-32); eGFR > 90 ML/MIN
== END 2021-02-13 17:33 | disposition home or self-care (01) ==
LOC: ER 05:49
DX: F10.129 Alcohol abuse with intoxication, unspecified (principal); R41.82 Altered mental status, unspecified; E87.0 Hyperosmolality and hypernatremia; E87.6 Hypokalemia; I10 Essential (primary) hypertension; J45.909 Unspecified asthma, uncomplicated; K21.9 Gastro-esophageal reflux disease without esophagitis; N19 Unspecified kidney failure; G89.29 Other chronic pain; F12.90 Cannabis use, unspecified, uncomplicated; F15.90 Other stimulant use, unspecified, uncomplicated; Z86.14 Personal history of Methicillin resistant Staphylococcus aureus infection; Z98.890 Other specified postprocedural states; Z56.0 Unemployment, unspecified; Z59.0 Homelessness; Z88.6 Allergy status to analgesic agent; Z88.8 Allergy status to other drugs, medicaments and biological substances; Z91.010 Allergy to peanuts; Z79.2 Long term (current) use of antibiotics; Z79.899 Other long term (current) drug therapy; Y90.8 Blood alcohol level of 240 mg/100 ml or more
CPT/HCPCS: 36415; 70450; 80053; 80320; 85025; 93005; 96361; 96365; 96375; 96376; 99285; J2405; J3480; J7030; 96374

== ENCOUNTER 2021-02-14 06:50 | Emergency (ER) | payer MEDICAID ==
[~2021-02-14] VITALS: Ht 175.3 cm; Wt 81.0 kg
[2021-02-14] MEDS ORDERED: LORazepam 1 MG tablet PO ONE ×2 (07:00→07:50)
[2021-02-14 07:09] VITALS: BP 131/93
[2021-02-14 07:40] LABS: BASOPHILS # (AUTO) 0.1 X10'3 (0-0.2); BASOPHILS % (AUTO) 0.5 % (0-1); EOSINOPHILS % (AUTO) 0.1 % (0-6); HEMATOCRIT 46.1 % (42.0-52.0); HEMOGLOBIN 15.3 g/dl (14.0-17.9); LYMPHOCYTES # (AUTO) 1.8 X10'3 (1.1-4.8); LYMPHOCYTES % (AUTO) 17.5 % (21-51); MEAN CORPUSCULAR HEMOGLOBIN 31.1 PG (27.0-31.0); MEAN CORPUSCULAR HGB CONC 33.3 g/dL (33.0-36.5); MEAN CORPUSCULAR VOLUME 93.5 FL (78-98); MEAN PLATELET VOLUME 7.2 FL (7.4-10.4); MONOCYTES # (AUTO) 0.8 X10'3 (0-0.9); MONOCYTES % (AUTO) 7.7 % (2-12); NEUTROPHILS # (AUTO) 7.6 X10'3 (1.8-7.7); NEUTROPHILS % (AUTO) 74.2 % (42-75); PLATELET COUNT 398 X10'3 (140-440); RED BLOOD COUNT 4.93 X10'6 (4.70-6.10); RED CELL DISTRIBUTION WIDTH 13.7 % (11.5-14.5); WHITE BLOOD COUNT 10.3 X10'3 (4.5-11.0)
--- NOTE | 2021-02-14 07:51 | NUR ---
Contacted Pharmacy regarding Ativan order, [facility]. Carmelo stated that he would place order again so that we could pull it.
[2021-02-14 07:54] LABS: ALANINE AMINOTRANSFERASE 31 U/L (12-78); ALBUMIN 4.3 G/DL (3.4-5.0); ALBUMIN/GLOBULIN RATIO 1.2 (1.1-1.5); ALKALINE PHOSPHATASE 135 IU/L (46-116); ANION GAP 14 (8-16); ASPARTATE AMINO TRANSFERASE 26 U/L (10-37); BILIRUBIN,TOTAL 0.5 MG/DL (0.1-1.0); BLOOD UREA NITROGEN 7 MG/DL (7-18); BUN/CREATININE RATIO 7.6 (5.4-32.0); CALCIUM 9.1 MG/DL (8.5-10.1); CHLORIDE 106 MMOL/L (99-107); CREATININE 0.92 MG/DL (0.60-1.10); ETHANOL 0.219 GM/DL (0.0-0.010); GLUCOSE 105 MG/DL (70-104); POTASSIUM 4.1 MMOL/L (3.5-5.1); SODIUM 148 MMOL/L (135-145); TOTAL PROTEIN 7.8 G/DL (6.4-8.2); eGFR > 90 ML/MIN
--- NOTE | 2021-02-14 08:15 | NUR ---
pt given a sandwich and milk. eating well.
== END 2021-02-14 09:23 | disposition home or self-care (01) ==
LOC: ER 06:50
DX: F10.129 Alcohol abuse with intoxication, unspecified (principal); I10 Essential (primary) hypertension; J45.909 Unspecified asthma, uncomplicated; K21.9 Gastro-esophageal reflux disease without esophagitis; N19 Unspecified kidney failure; G89.29 Other chronic pain; F17.200 Nicotine dependence, unspecified, uncomplicated; F12.90 Cannabis use, unspecified, uncomplicated; F15.90 Other stimulant use, unspecified, uncomplicated; F11.90 Opioid use, unspecified, uncomplicated; Z86.14 Personal history of Methicillin resistant Staphylococcus aureus infection; Z98.890 Other specified postprocedural states; Z86.73 Personal history of transient ischemic attack (TIA), and cerebral infarction without residual deficits; Z87.81 Personal history of (healed) traumatic fracture; Z56.0 Unemployment, unspecified; Z59.0 Homelessness; Z88.6 Allergy status to analgesic agent; Z88.8 Allergy status to other drugs, medicaments and biological substances; Z79.2 Long term (current) use of antibiotics; Z79.899 Other long term (current) drug therapy; Y90.7 Blood alcohol level of 200-239 mg/100 ml
CPT/HCPCS: 36415; 80053; 80320; 85025; 99284

== ENCOUNTER 2021-02-15 12:54 | Emergency (ER) | payer MEDICAID ==
[~2021-02-15] VITALS: Ht 177.8 cm; Wt 81.8 kg
[2021-02-15 14:02] VITALS: BP 115/71
== END 2021-02-15 14:12 | disposition home or self-care (01) ==
LOC: ER 12:54
DX: R42 Dizziness and giddiness (principal); F10.129 Alcohol abuse with intoxication, unspecified; I10 Essential (primary) hypertension; J45.909 Unspecified asthma, uncomplicated; K21.9 Gastro-esophageal reflux disease without esophagitis; G89.29 Other chronic pain; E11.9 Type 2 diabetes mellitus without complications; N19 Unspecified kidney failure; Z79.2 Long term (current) use of antibiotics; Z79.899 Other long term (current) drug therapy; Z88.6 Allergy status to analgesic agent; Z88.8 Allergy status to other drugs, medicaments and biological substances; Z59.0 Homelessness; Z76.5 Malingerer [conscious simulation]; Z91.010 Allergy to peanuts; Z56.0 Unemployment, unspecified; Z87.81 Personal history of (healed) traumatic fracture; Z86.14 Personal history of Methicillin resistant Staphylococcus aureus infection; Z86.73 Personal history of transient ischemic attack (TIA), and cerebral infarction without residual deficits; Y90.9 Presence of alcohol in blood, level not specified
CPT/HCPCS: 99283

== ENCOUNTER 2021-03-09 03:45 | Emergency (ER) | payer MEDICAID ==
[~2021-03-09] VITALS: Ht 177.8 cm; Wt 180.0 kg
--- NOTE | 2021-03-09 05:03 | NUR ---
PT PRESENTS D/T ACUTE ALCOHOL INTOXICATION AND RIGHT SIDED BODY PAIN. PT NOTES DRINKING [employer].
[2021-03-09 05:52] VITALS: BP 141/96
== END 2021-03-09 05:55 | disposition home or self-care (01) ==
LOC: ER 03:46
DX: F10.129 Alcohol abuse with intoxication, unspecified (principal); I10 Essential (primary) hypertension; J45.909 Unspecified asthma, uncomplicated; K21.9 Gastro-esophageal reflux disease without esophagitis; G89.29 Other chronic pain; F41.9 Anxiety disorder, unspecified; F31.9 Bipolar disorder, unspecified; F20.9 Schizophrenia, unspecified; F12.90 Cannabis use, unspecified, uncomplicated; F15.90 Other stimulant use, unspecified, uncomplicated; F11.90 Opioid use, unspecified, uncomplicated; Z86.73 Personal history of transient ischemic attack (TIA), and cerebral infarction without residual deficits; Z98.890 Other specified postprocedural states; Z60.2 Problems related to living alone; Z59.0 Homelessness; Z56.0 Unemployment, unspecified; Z88.8 Allergy status to other drugs, medicaments and biological substances; Z79.899 Other long term (current) drug therapy; Y90.9 Presence of alcohol in blood, level not specified
CPT/HCPCS: 99281

== ENCOUNTER 2021-03-10 17:28 | Emergency (ER) | payer MEDICAID | END 2021-03-10 17:59 | disposition left against medical advice (07) | LOC: ER 17:29 | DX: Z00.8 Encounter for other general examination (principal); Z53.21 Procedure and treatment not carried out due to patient leaving prior to being seen by health care provider ==

== ENCOUNTER 2021-03-11 01:37 | Emergency (ER) | payer MEDICAID ==
[~2021-03-11] VITALS: Ht 177.8 cm; Wt 81.8 kg
[2021-03-11 02:20] VITALS: BP 140/68
== END 2021-03-11 04:06 | disposition left against medical advice (07) ==
LOC: ER 01:37
DX: Z00.8 Encounter for other general examination (principal); Z53.21 Procedure and treatment not carried out due to patient leaving prior to being seen by health care provider

== ENCOUNTER 2021-03-14 08:13 | Emergency (ER) | payer MEDICAID ==
[~2021-03-14] VITALS: Ht 177.8 cm; Wt 81.8 kg
[2021-03-14 08:22] VITALS: BP 131/101
== END 2021-03-14 09:09 | disposition left against medical advice (07) ==
LOC: ER 08:13
DX: M79.673 Pain in unspecified foot (principal); Z53.21 Procedure and treatment not carried out due to patient leaving prior to being seen by health care provider

== ENCOUNTER 2021-03-18 09:43 | Emergency (ER) | payer MEDICAID ==
[~2021-03-18] VITALS: Ht 177.8 cm; Wt 81.8 kg
[2021-03-18] MEDS ORDERED: ibuprofen tablet 400 MG TABLET PO ONE (12:30)
[2021-03-18] MEDS ORDERED: sulfamethoxazole/trimethoprim DS (800/160mg) tablet PO ONE (12:30)
[2021-03-18] MEDS ORDERED: IBUP-1984 PO (12:34)
[2021-03-18] MEDS ORDERED: SULF1TAB45 PO (12:34)
[2021-03-18 13:25] VITALS: BP 148/94
== END 2021-03-18 13:20 | disposition home or self-care (01) ==
LOC: ER 09:43
DX: L03.119 Cellulitis of unspecified part of limb (principal); I10 Essential (primary) hypertension; J45.909 Unspecified asthma, uncomplicated; K21.9 Gastro-esophageal reflux disease without esophagitis; G89.29 Other chronic pain; F41.9 Anxiety disorder, unspecified; F31.9 Bipolar disorder, unspecified; F32.9 Major depressive disorder, single episode, unspecified; F20.9 Schizophrenia, unspecified; F12.90 Cannabis use, unspecified, uncomplicated; F15.90 Other stimulant use, unspecified, uncomplicated; F11.90 Opioid use, unspecified, uncomplicated; F19.90 Other psychoactive substance use, unspecified, uncomplicated; Z86.73 Personal history of transient ischemic attack (TIA), and cerebral infarction without residual deficits; Z86.14 Personal history of Methicillin resistant Staphylococcus aureus infection; Z98.890 Other specified postprocedural states; Z72.89 Other problems related to lifestyle; Z60.2 Problems related to living alone; Z56.0 Unemployment, unspecified; Z59.0 Homelessness; Z88.6 Allergy status to analgesic agent; Z88.8 Allergy status to other drugs, medicaments and biological substances; Z79.2 Long term (current) use of antibiotics; Z79.899 Other long term (current) drug therapy
CPT/HCPCS: 99283

== ENCOUNTER 2021-03-22 03:32 | Emergency (ER) | payer MEDICAID ==
[~2021-03-22] VITALS: Ht 177.8 cm; Wt 81.8 kg
[~2021-03-22 03:32] MED LIST changes: +IBUP-1984 PO; +SULF1TAB45 PO
[2021-03-22 03:47] VITALS: BP 130/86
== END 2021-03-22 04:26 | disposition home or self-care (01) ==
LOC: ER 03:33
DX: F41.9 Anxiety disorder, unspecified (principal); F10.129 Alcohol abuse with intoxication, unspecified; I10 Essential (primary) hypertension; J45.909 Unspecified asthma, uncomplicated; K21.9 Gastro-esophageal reflux disease without esophagitis; F31.9 Bipolar disorder, unspecified; G89.29 Other chronic pain; F17.200 Nicotine dependence, unspecified, uncomplicated; F20.9 Schizophrenia, unspecified; F15.90 Other stimulant use, unspecified, uncomplicated; Z86.14 Personal history of Methicillin resistant Staphylococcus aureus infection; Z98.890 Other specified postprocedural states; Z86.73 Personal history of transient ischemic attack (TIA), and cerebral infarction without residual deficits; Z60.2 Problems related to living alone; Z59.0 Homelessness; Z56.0 Unemployment, unspecified; Z88.8 Allergy status to other drugs, medicaments and biological substances; Z88.6 Allergy status to analgesic agent; Z79.899 Other long term (current) drug therapy; Y90.9 Presence of alcohol in blood, level not specified
CPT/HCPCS: 99281

== ENCOUNTER 2021-06-27 19:28 | Emergency (ER) | payer MEDICAID ==
[~2021-06-27 19:28] MED LIST changes: +DOCU-262 PO; -DOCU-267 PO; -IBUP-1984 PO; -SULF1TAB45 PO
== END 2021-06-27 21:17 | disposition left against medical advice (07) ==
LOC: ER 19:29
DX: F41.9 Anxiety disorder, unspecified (principal); Z53.21 Procedure and treatment not carried out due to patient leaving prior to being seen by health care provider

== ENCOUNTER 2021-07-10 13:10 | Emergency (ER) | payer MEDICAID, OTHER ==
[~2021-07-10] VITALS: Ht 177.8 cm; Wt 86.0 kg
[2021-07-10 14:48] VITALS: BP 154/94
== END 2021-07-10 14:59 | disposition home or self-care (01) ==
LOC: ER 13:11
DX: T40.411A Poisoning by fentanyl or fentanyl analogs, accidental (unintentional), initial encounter (principal); I10 Essential (primary) hypertension; J45.909 Unspecified asthma, uncomplicated; K21.9 Gastro-esophageal reflux disease without esophagitis; G89.29 Other chronic pain; F15.90 Other stimulant use, unspecified, uncomplicated; Z87.81 Personal history of (healed) traumatic fracture; Z86.14 Personal history of Methicillin resistant Staphylococcus aureus infection; Z86.73 Personal history of transient ischemic attack (TIA), and cerebral infarction without residual deficits; Z56.0 Unemployment, unspecified; Z59.0 Homelessness; Z72.89 Other problems related to lifestyle; Z88.8 Allergy status to other drugs, medicaments and biological substances; Z88.6 Allergy status to analgesic agent; Y92.89 Other specified places as the place of occurrence of the external cause
CPT/HCPCS: 99283

== ENCOUNTER 2021-07-14 14:19 | Emergency (ER) | payer MEDICAID, OTHER ==
[~2021-07-14] VITALS: Ht 177.8 cm; Wt 81.8 kg
[2021-07-14 16:44] LABS: BASOPHILS % (AUTO) 0.5 % (0-1); EOSINOPHILS # (AUTO) 0.1 X10'3 (0-0.9); EOSINOPHILS % (AUTO) 1.6 % (0-6); HEMATOCRIT 42.5 % (42.0-52.0); HEMOGLOBIN 14.3 g/dl (14.0-17.9); LYMPHOCYTES # (AUTO) 1.4 X10'3 (1.1-4.8); LYMPHOCYTES % (AUTO) 25.8 % (21-51); MEAN CORPUSCULAR HEMOGLOBIN 31.5 PG (27.0-31.0); MEAN CORPUSCULAR HGB CONC 33.6 g/dL (33.0-36.5); MEAN CORPUSCULAR VOLUME 93.5 FL (78-98); MEAN PLATELET VOLUME 6.2 FL (7.4-10.4); MONOCYTES # (AUTO) 0.5 X10'3 (0-0.9); MONOCYTES % (AUTO) 8.7 % (2-12); NEUTROPHILS # (AUTO) 3.5 X10'3 (1.8-7.7); NEUTROPHILS % (AUTO) 63.4 % (42-75); PLATELET COUNT 325 X10'3 (140-440); RED BLOOD COUNT 4.55 X10'6 (4.70-6.10); RED CELL DISTRIBUTION WIDTH 15.3 % (11.5-14.5); WHITE BLOOD COUNT 5.5 X10'3 (4.5-11.0)
[2021-07-14 16:46] LABS: CLARITY,URINE CLEAR (Clear); COLOR,URINE YELLOW (Yellow); GLUCOSE, URINE NEGATIVE (Neg); KETONES,URINE NEGATIVE (Neg); LEUKOCYTE ESTERASE ,URINE NEGATIVE (Neg); NITRITES, URINE NEGATIVE (Neg); OCCULT BLOOD,URINE NEGATIVE (Neg); PROTEIN,URINE NEGATIVE (Neg)
[2021-07-14 16:49] LABS: UA COLLECTION TYPE URINAL
[2021-07-14 16:56] LABS: URINE AMPHETAMINE SCREEN NEGATIVE (Neg); URINE BARBITUATE SCREEN NEGATIVE (Neg); URINE BENZODIAZEPINES SCREEN POSITIVE (Neg); URINE CANNABINOID SCREEN POSITIVE (Neg); URINE COCAINE SCREEN NEGATIVE (Neg); URINE METHADONE SCREEN NEGATIVE (Neg); URINE OPIATE SCREEN NEGATIVE (Neg); URINE PHENCYCLIDINE SCREEN NEGATIVE (Neg)
[2021-07-14 16:59] LABS: ALANINE AMINOTRANSFERASE 87 U/L (12-78); ALBUMIN 3.4 G/DL (3.4-5.0); ALBUMIN/GLOBULIN RATIO 0.9 (1.1-1.5); ALKALINE PHOSPHATASE 189 IU/L (46-116); ANION GAP 9 (8-16); ASPARTATE AMINO TRANSFERASE 108 U/L (10-37); BILIRUBIN,TOTAL 0.2 MG/DL (0.1-1.0); BLOOD UREA NITROGEN 7 MG/DL (7-18); BUN/CREATININE RATIO 9.3 (5.4-32.0); CALCIUM 8.2 MG/DL (8.5-10.1); CHLORIDE 107 MMOL/L (99-107); CREATININE 0.75 MG/DL (0.60-1.10); GLUCOSE 98 MG/DL (70-104); SODIUM 143 MMOL/L (135-145); TOTAL CARBON DIOXIDE 26.9 MMOL/L (24-32); TOTAL PROTEIN 7.2 G/DL (6.4-8.2); eGFR > 90 ML/MIN
[2021-07-14 17:02] LABS: ETHANOL 0.028 GM/DL (0.0-0.010)
--- NOTE | 2021-07-14 18:30 | NUR ---
ASSUMED CARE OF PT/ PT RESTING W/EYES CLOSED. APPEARS TO SHOW NO S/S OF ACUTE DISTRESS. BED LOCKED AND LOW. PT IN LINE OF SIGHT.
--- NOTE | 2021-07-14 19:30 | NUR ---
PT RESTING W/ BLANKET OVER HEAD. HAS NO COMPLAINTS AT THIS TIME.
--- NOTE | 2021-07-14 20:30 | NUR ---
PT IN LINE OF SIGHT, PT RESTING W/O COMPLAINTS
--- NOTE | 2021-07-14 21:30 | NUR ---
PT IN BED, SUPINE W/ BLANKET OVER FACE. PT SHOWS NO S/S OF DISTRESS.
--- NOTE | 2021-07-14 22:30 | NUR ---
PT RESTING. NO S/S OF DISTRESS
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
--- NOTE | 2021-07-15 00:30 | NUR ---
LIGHTS OFF, PT RESTING W/O COMPLAINTS.
--- NOTE | 2021-07-15 03:06 | NUR ---
pt resting in bed w/ blanket. res even and unlabored
--- NOTE | 2021-07-15 04:22 | NUR ---
PT SHOWS NO S/S OF DISTRESS, RESTING W/O COMPLAINT
--- NOTE | 2021-07-15 05:56 | NUR ---
PT RESTING W/O COMPLAINTS. RESPIRATIONS EVEN AND UNLABORED
--- NOTE | 2021-07-15 06:54 | NUR ---
patient moved to bed 20.
--- NOTE | 2021-07-15 07:45 | NUR ---
called pharmacy regarding med rec,patient last taken rx meds was a year ago per pharmacy, will notify .
--- NOTE | 2021-07-15 08:19 | NUR ---
Per PTW, Psychiatrist will be in the hospital around 1200 today.
--- NOTE | 2021-07-15 08:19 | NUR ---
Dr. Garcia aware med rec not done,called PTW to request a psychiatry consult for med rec.
--- NOTE | 2021-07-15 08:23 | NUR ---
Dr. Garcia aware med rec not done,called PTW to request a psychiatry consult for med rec.
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
--- NOTE | 2021-07-15 11:00 | NUR ---
patient up in the bathroom with steady gait.
--- NOTE | 2021-07-15 11:28 | NUR ---
patient on supine,awake.
--- NOTE | 2021-07-15 11:49 | NUR ---
JOSEPH from [facility] at bedside.
--- NOTE | 2021-07-15 12:47 | NUR ---
patient eating lunch.
[2021-07-15 12:55] VITALS: BP 154/97
--- NOTE | 2021-07-15 14:47 | NUR ---
patient moved to bed 12.
--- NOTE | 2021-07-15 15:14 | NUR ---
Called behavioral health again to remind them about med shira Wahl RN said she will remind the doc about it.
[2021-07-15] MEDS ORDERED: OLAN10TA3 PO (16:05)
[2021-07-15] MEDS ORDERED: LOPE2CAP PO (16:28)
== END 2021-07-15 16:36 | disposition home or self-care (01) ==
LOC: ER 14:20
DX: R44.8 Other symptoms and signs involving general sensations and perceptions (principal); Z20.822 Contact with and (suspected) exposure to COVID-19; R46.0 Very low level of personal hygiene; I10 Essential (primary) hypertension; J45.909 Unspecified asthma, uncomplicated; K21.9 Gastro-esophageal reflux disease without esophagitis; G89.29 Other chronic pain; F15.90 Other stimulant use, unspecified, uncomplicated; F41.9 Anxiety disorder, unspecified; F31.9 Bipolar disorder, unspecified; Z87.81 Personal history of (healed) traumatic fracture; Z86.14 Personal history of Methicillin resistant Staphylococcus aureus infection; Z72.89 Other problems related to lifestyle; Z56.0 Unemployment, unspecified; Z59.0 Homelessness; Z86.73 Personal history of transient ischemic attack (TIA), and cerebral infarction without residual deficits
CPT/HCPCS: 36415; 80053; 80305; 80320; 81003; 84443; 85025; 87635; 99284; C9803; 99283

== ENCOUNTER 2021-07-21 15:32 | Emergency (ER) | payer SELFPAY ==
[~2021-07-21] VITALS: Ht 177.8 cm; Wt 81.8 kg
[~2021-07-21 15:32] MED LIST changes: +LOPE2CAP PO; +OLAN10TA3 PO
[2021-07-21 15:33] VITALS: BP 137/99
[2021-07-21] MEDS ORDERED: ondansetron 4mg rapidly disintigrating tab PO ONE (16:10)
[2021-07-21] MEDS ORDERED: olanzapine 10mg tablet PO SCH (16:45)
[2021-07-21] MEDS ORDERED: loperamide 2mg capsule PO ONE (16:50)
== END 2021-07-21 17:10 | disposition home or self-care (01) ==
LOC: ER 15:32
DX: Z02.89 Encounter for other administrative examinations (principal); R19.7 Diarrhea, unspecified; R11.0 Nausea; I10 Essential (primary) hypertension; J45.909 Unspecified asthma, uncomplicated; K21.9 Gastro-esophageal reflux disease without esophagitis; G89.29 Other chronic pain; F41.9 Anxiety disorder, unspecified; F31.9 Bipolar disorder, unspecified; F20.9 Schizophrenia, unspecified; F17.200 Nicotine dependence, unspecified, uncomplicated; F15.90 Other stimulant use, unspecified, uncomplicated; Z72.89 Other problems related to lifestyle; Z86.73 Personal history of transient ischemic attack (TIA), and cerebral infarction without residual deficits; Z86.14 Personal history of Methicillin resistant Staphylococcus aureus infection; Z98.890 Other specified postprocedural states; Z60.2 Problems related to living alone; Z56.0 Unemployment, unspecified; Z59.0 Homelessness; Z88.6 Allergy status to analgesic agent; Z88.8 Allergy status to other drugs, medicaments and biological substances; Z79.2 Long term (current) use of antibiotics; Z79.899 Other long term (current) drug therapy
CPT/HCPCS: 99284

== ENCOUNTER 2021-07-25 13:28 | Emergency (ER) | payer MEDICAID ==
[~2021-07-25] VITALS: Ht 177.8 cm; Wt 85.4 kg
[2021-07-25 14:15] VITALS: BP 120/85
[2021-07-25 15:03] LABS: BASOPHILS % (AUTO) 0.5 % (0-1); EOSINOPHILS # (AUTO) 0.1 X10'3 (0-0.9); EOSINOPHILS % (AUTO) 1.3 % (0-6); HEMATOCRIT 41.8 % (42.0-52.0); HEMOGLOBIN 14.2 g/dl (14.0-17.9); LYMPHOCYTES # (AUTO) 1.9 X10'3 (1.1-4.8); MEAN CORPUSCULAR HEMOGLOBIN 31.5 PG (27.0-31.0); MEAN CORPUSCULAR VOLUME 92.8 FL (78-98); MEAN PLATELET VOLUME 6.1 FL (7.4-10.4); MONOCYTES # (AUTO) 0.5 X10'3 (0-0.9); MONOCYTES % (AUTO) 7.7 % (2-12); NEUTROPHILS # (AUTO) 3.5 X10'3 (1.8-7.7); NEUTROPHILS % (AUTO) 58.5 % (42-75); PLATELET COUNT 280 X10'3 (140-440); RED BLOOD COUNT 4.51 X10'6 (4.70-6.10); WHITE BLOOD COUNT 5.9 X10'3 (4.5-11.0)
[2021-07-25 15:12] LABS: URINE AMPHETAMINE SCREEN POSITIVE (Neg); URINE BARBITUATE SCREEN NEGATIVE (Neg); URINE BENZODIAZEPINES SCREEN POSITIVE (Neg); URINE CANNABINOID SCREEN POSITIVE (Neg); URINE COCAINE SCREEN NEGATIVE (Neg); URINE METHADONE SCREEN NEGATIVE (Neg); URINE OPIATE SCREEN NEGATIVE (Neg); URINE PHENCYCLIDINE SCREEN NEGATIVE (Neg)
[2021-07-25 15:12] LABS: ALANINE AMINOTRANSFERASE 67 U/L (12-78); ALBUMIN 3.6 G/DL (3.4-5.0); ALKALINE PHOSPHATASE 155 IU/L (46-116); ANION GAP 13 (8-16); ASPARTATE AMINO TRANSFERASE 58 U/L (10-37); BILIRUBIN,TOTAL 0.3 MG/DL (0.1-1.0); BLOOD UREA NITROGEN 8 MG/DL (7-18); BUN/CREATININE RATIO 10.8 (5.4-32.0); CALCIUM 8.2 MG/DL (8.5-10.1); CHLORIDE 104 MMOL/L (99-107); CREATININE 0.74 MG/DL (0.60-1.10); ETHANOL 0.182 GM/DL (0.0-0.010); GLUCOSE 96 MG/DL (70-104); POTASSIUM 3.2 MMOL/L (3.5-5.1); SODIUM 142 MMOL/L (135-145); TOTAL CARBON DIOXIDE 24.8 MMOL/L (24-32); TOTAL PROTEIN 7.3 G/DL (6.4-8.2); eGFR > 90 ML/MIN
== END 2021-07-25 20:18 | disposition home or self-care (01) ==
LOC: ER 13:29
DX: F19.10 Other psychoactive substance abuse, uncomplicated (principal); F25.9 Schizoaffective disorder, unspecified; F31.9 Bipolar disorder, unspecified; F41.9 Anxiety disorder, unspecified; I10 Essential (primary) hypertension; J45.909 Unspecified asthma, uncomplicated; K21.9 Gastro-esophageal reflux disease without esophagitis; G89.29 Other chronic pain; F12.90 Cannabis use, unspecified, uncomplicated; F15.90 Other stimulant use, unspecified, uncomplicated; N19 Unspecified kidney failure; F29 Unspecified psychosis not due to a substance or known physiological condition; Z56.0 Unemployment, unspecified; Z87.81 Personal history of (healed) traumatic fracture; Z86.73 Personal history of transient ischemic attack (TIA), and cerebral infarction without residual deficits; Z86.14 Personal history of Methicillin resistant Staphylococcus aureus infection; Z59.0 Homelessness; Z72.89 Other problems related to lifestyle; Z88.8 Allergy status to other drugs, medicaments and biological substances; Z88.6 Allergy status to analgesic agent; Z79.2 Long term (current) use of antibiotics
CPT/HCPCS: 36415; 80053; 80305; 80320; 85025; 99283; 99284

== ENCOUNTER 2021-07-27 22:45 | Emergency (ER) | payer MEDICAID ==
[~2021-07-27] VITALS: Ht 177.8 cm; Wt 90.0 kg
[2021-07-27 23:02] VITALS: BP 135/91
--- NOTE | 2021-07-27 23:55 | NUR ---
PT REFUSING D/C, UNWILLING TO PUT SHOES AND SOCKS BACK ON, SECURITY CALLED TO BEDSIDE, RE-ASSURES PT HE IS MEDICALLY CLEARED AND NEEDS SLEEP. PT REPORTS HE WOULD LIKE TO SLEEP AT HOSPITAL, ESCORTED OUT BY SECURITY, INFORMED HE WILL NEED TO FOLLOW UP WITH [facility].
== END 2021-07-27 23:59 | disposition home or self-care (01) ==
LOC: ER 22:46
DX: Z02.89 Encounter for other administrative examinations (principal); F15.90 Other stimulant use, unspecified, uncomplicated; R07.89 Other chest pain; I10 Essential (primary) hypertension; K21.9 Gastro-esophageal reflux disease without esophagitis; G89.29 Other chronic pain; F41.9 Anxiety disorder, unspecified; F31.9 Bipolar disorder, unspecified; F20.9 Schizophrenia, unspecified; F12.90 Cannabis use, unspecified, uncomplicated; Z86.73 Personal history of transient ischemic attack (TIA), and cerebral infarction without residual deficits; Z86.14 Personal history of Methicillin resistant Staphylococcus aureus infection; Z98.890 Other specified postprocedural states; Z72.89 Other problems related to lifestyle; Z60.2 Problems related to living alone; Z56.0 Unemployment, unspecified; Z59.0 Homelessness; Z88.8 Allergy status to other drugs, medicaments and biological substances; Z88.6 Allergy status to analgesic agent; Z79.2 Long term (current) use of antibiotics; Z79.899 Other long term (current) drug therapy
CPT/HCPCS: 93005; 99284

== ENCOUNTER 2021-07-28 10:08 | Emergency (ER) | payer MEDICAID ==
[~2021-07-28] VITALS: Ht 177.8 cm; Wt 85.1 kg
[2021-07-28 10:14] VITALS: BP 160/120
== END 2021-07-28 10:58 | disposition home or self-care (01) ==
LOC: ER 10:09
DX: F25.9 Schizoaffective disorder, unspecified (principal); R50.9 Fever, unspecified; F29 Unspecified psychosis not due to a substance or known physiological condition; R07.2 Precordial pain; R00.0 Tachycardia, unspecified; F10.10 Alcohol abuse, uncomplicated; I10 Essential (primary) hypertension; J45.909 Unspecified asthma, uncomplicated; K21.9 Gastro-esophageal reflux disease without esophagitis; G89.29 Other chronic pain; F41.9 Anxiety disorder, unspecified; F31.9 Bipolar disorder, unspecified; F12.90 Cannabis use, unspecified, uncomplicated; F15.90 Other stimulant use, unspecified, uncomplicated; Z86.73 Personal history of transient ischemic attack (TIA), and cerebral infarction without residual deficits; Z86.14 Personal history of Methicillin resistant Staphylococcus aureus infection; Z98.890 Other specified postprocedural states; Z72.89 Other problems related to lifestyle; Z60.2 Problems related to living alone; Z56.0 Unemployment, unspecified; Z59.0 Homelessness; Z88.6 Allergy status to analgesic agent; Z88.8 Allergy status to other drugs, medicaments and biological substances; Z79.2 Long term (current) use of antibiotics; Z79.899 Other long term (current) drug therapy; Y90.9 Presence of alcohol in blood, level not specified
CPT/HCPCS: 93005; 99283

== ENCOUNTER 2021-07-31 06:22 | Emergency (ER) | payer MEDICAID ==
[~2021-07-31] VITALS: Ht 177.8 cm; Wt 84.3 kg
[2021-07-31 06:53] VITALS: BP 138/99
[2021-07-31] MEDS ORDERED: ALBU6.7H9 INH (13:28)
== END 2021-07-31 08:23 | disposition left against medical advice (07) ==
LOC: ER 06:23
DX: R19.7 Diarrhea, unspecified (principal); Z53.21 Procedure and treatment not carried out due to patient leaving prior to being seen by health care provider

== ENCOUNTER 2021-07-31 12:27 | Emergency (ER) | payer MEDICAID ==
[~2021-07-31] VITALS: Ht 177.8 cm; Wt 81.8 kg
[2021-07-31 13:10] VITALS: BP 144/102
[2021-07-31] MEDS ORDERED: ALBU6.7H9 INH (13:28)
== END 2021-07-31 15:15 | disposition home or self-care (01) ==
LOC: ER 12:28
DX: F25.0 Schizoaffective disorder, bipolar type (principal); R05 Cough; K92.0 Hematemesis; M79.673 Pain in unspecified foot; I10 Essential (primary) hypertension; J45.909 Unspecified asthma, uncomplicated; J21.9 Acute bronchiolitis, unspecified; G89.29 Other chronic pain; N19 Unspecified kidney failure; F12.90 Cannabis use, unspecified, uncomplicated; F15.90 Other stimulant use, unspecified, uncomplicated; Z87.81 Personal history of (healed) traumatic fracture; Z86.14 Personal history of Methicillin resistant Staphylococcus aureus infection; Z56.0 Unemployment, unspecified; Z59.0 Homelessness; Z88.6 Allergy status to analgesic agent; Z88.8 Allergy status to other drugs, medicaments and biological substances; Z79.2 Long term (current) use of antibiotics; Z79.899 Other long term (current) drug therapy
CPT/HCPCS: 71045; 99283

== ENCOUNTER 2021-08-04 15:32 | Emergency (ER) | payer MEDICAID ==
[~2021-08-04] VITALS: Ht 177.8 cm; Wt 78.0 kg
[~2021-08-04 15:32] MED LIST changes: +ALBU6.7H9 INH
[2021-08-04 15:42] VITALS: BP 132/93
== END 2021-08-04 16:35 | disposition left against medical advice (07) ==
LOC: ER 15:32
DX: R05 Cough (principal); Z53.21 Procedure and treatment not carried out due to patient leaving prior to being seen by health care provider

== ENCOUNTER 2021-08-10 05:57 | Emergency (ER) | payer MEDICAID, OTHER ==
[~2021-08-10] VITALS: Ht 177.8 cm; Wt 87.7 kg
[2021-08-10 07:10] LABS: UA COLLECTION TYPE CLN CATCH MIDSTREAM
[2021-08-10 07:11] LABS: CLARITY,URINE Clear (Clear); COLOR,URINE Yellow (Yellow); PH,URINE 6.5 (4.8-8.0); PROTEIN,URINE Negative (Neg)
[2021-08-10 07:12] LABS: GLUCOSE, URINE Negative (Neg); KETONES,URINE Negative (Neg); LEUKOCYTE ESTERASE ,URINE Negative (Neg); NITRITES, URINE Negative (Neg); OCCULT BLOOD,URINE Negative (Neg); UROBILINOGEN,URINE 0.2 E.U/dL (0.2-1.0)
[2021-08-10 07:56] LABS: ALANINE AMINOTRANSFERASE 51 U/L (12-78); ALBUMIN 3.5 G/DL (3.4-5.0); ALBUMIN/GLOBULIN RATIO 0.9 (1.1-1.5); ALKALINE PHOSPHATASE 143 IU/L (46-116); ANION GAP 9 (8-16); ASPARTATE AMINO TRANSFERASE 45 U/L (10-37); BILIRUBIN,TOTAL 0.4 MG/DL (0.1-1.0); BLOOD UREA NITROGEN 5 MG/DL (7-18); BUN/CREATININE RATIO 6.5 (5.4-32.0); CALCIUM 8.4 MG/DL (8.5-10.1); CHLORIDE 103 MMOL/L (99-107); CREATININE 0.77 MG/DL (0.60-1.10); GLUCOSE 95 MG/DL (70-104); POTASSIUM 4.2 MMOL/L (3.5-5.1); SODIUM 140 MMOL/L (135-145); TOTAL CARBON DIOXIDE 28.4 MMOL/L (24-32); TOTAL PROTEIN 7.4 G/DL (6.4-8.2); eGFR > 90 ML/MIN
[2021-08-10 08:16] LABS: BASOPHILS % (AUTO) 0.4 % (0-1); EOSINOPHILS # (AUTO) 0.1 X10'3 (0-0.9); EOSINOPHILS % (AUTO) 1.6 % (0-6); HEMATOCRIT 44.6 % (42.0-52.0); HEMOGLOBIN 15.6 g/dl (14.0-17.9); LYMPHOCYTES # (AUTO) 1.6 X10'3 (1.1-4.8); MEAN CORPUSCULAR HEMOGLOBIN 33.2 PG (27.0-31.0); MEAN CORPUSCULAR VOLUME 94.9 FL (78-98); MEAN PLATELET VOLUME 6.5 FL (7.4-10.4); MONOCYTES # (AUTO) 0.6 X10'3 (0-0.9); MONOCYTES % (AUTO) 10.4 % (2-12); NEUTROPHILS # (AUTO) 3.5 X10'3 (1.8-7.7); NEUTROPHILS % (AUTO) 59.6 % (42-75); PLATELET COUNT 404 X10'3 (140-440); RED CELL DISTRIBUTION WIDTH 16.5 % (11.5-14.5); WHITE BLOOD COUNT 5.8 X10'3 (4.5-11.0)
[2021-08-10 09:44] VITALS: BP 159/101
== END 2021-08-10 10:03 | disposition home or self-care (01) ==
LOC: ER 05:58
DX: F15.10 Other stimulant abuse, uncomplicated (principal); R10.84 Generalized abdominal pain; R05 Cough; I10 Essential (primary) hypertension; J45.909 Unspecified asthma, uncomplicated; K21.9 Gastro-esophageal reflux disease without esophagitis; G89.29 Other chronic pain; F41.9 Anxiety disorder, unspecified; F31.9 Bipolar disorder, unspecified; F20.9 Schizophrenia, unspecified; Z86.14 Personal history of Methicillin resistant Staphylococcus aureus infection; Z86.73 Personal history of transient ischemic attack (TIA), and cerebral infarction without residual deficits; Z72.89 Other problems related to lifestyle; Z98.890 Other specified postprocedural states; Z60.2 Problems related to living alone; Z56.0 Unemployment, unspecified; Z59.0 Homelessness; Z88.8 Allergy status to other drugs, medicaments and biological substances; Z88.6 Allergy status to analgesic agent; Z79.2 Long term (current) use of antibiotics; Z79.899 Other long term (current) drug therapy
CPT/HCPCS: 36415; 71045; 80053; 81003; 85025; 99284

== ENCOUNTER 2021-08-21 00:38 | Emergency (ER) | payer SELFPAY ==
[~2021-08-21] VITALS: Ht 177.8 cm; Wt 81.0 kg
[2021-08-21 01:43] LABS: ALANINE AMINOTRANSFERASE 64 U/L (12-78); ALBUMIN/GLOBULIN RATIO 0.9 (1.1-1.5); ALKALINE PHOSPHATASE 155 IU/L (46-116); ANION GAP 12 (8-16); ASPARTATE AMINO TRANSFERASE 59 U/L (10-37); BILIRUBIN,TOTAL 0.6 MG/DL (0.1-1.0); BLOOD UREA NITROGEN 6 MG/DL (7-18); BUN/CREATININE RATIO 6.9 (5.4-32.0); CALCIUM 8.8 MG/DL (8.5-10.1); CHLORIDE 99 MMOL/L (99-107); CREATININE 0.87 MG/DL (0.60-1.10); GLUCOSE 95 MG/DL (70-104); SODIUM 137 MMOL/L (135-145); TOTAL CARBON DIOXIDE 25.9 MMOL/L (24-32); TOTAL PROTEIN 8.7 G/DL (6.4-8.2); eGFR > 90 ML/MIN
[2021-08-21 02:14] LABS: BASOPHILS % (AUTO) 0.2 % (0-1); EOSINOPHILS # (AUTO) 0.1 X10'3 (0-0.9); EOSINOPHILS % (AUTO) 1.3 % (0-6); HEMATOCRIT 51.4 % (42.0-52.0); HEMOGLOBIN 17.9 g/dl (14.0-17.9); LYMPHOCYTES # (AUTO) 1.7 X10'3 (1.1-4.8); LYMPHOCYTES % (AUTO) 24.9 % (21-51); MEAN CORPUSCULAR HEMOGLOBIN 32.8 PG (27.0-31.0); MEAN CORPUSCULAR HGB CONC 34.8 g/dL (33.0-36.5); MEAN CORPUSCULAR VOLUME 94.2 FL (78-98); MEAN PLATELET VOLUME 6.7 FL (7.4-10.4); MONOCYTES # (AUTO) 0.9 X10'3 (0-0.9); MONOCYTES % (AUTO) 12.7 % (2-12); NEUTROPHILS # (AUTO) 4.1 X10'3 (1.8-7.7); NEUTROPHILS % (AUTO) 60.9 % (42-75); PLATELET COUNT 343 X10'3 (140-440); RED BLOOD COUNT 5.46 X10'6 (4.70-6.10); RED CELL DISTRIBUTION WIDTH 15.8 % (11.5-14.5); WHITE BLOOD COUNT 6.8 X10'3 (4.5-11.0)
[2021-08-21] MEDS ORDERED: ketorolac tromethamine 15mg/ml inj. IV ONE (02:25)
[2021-08-21 02:34] VITALS: BP 160/109
[2021-08-22] MEDS ORDERED: LORA-269 PO (16:55)
[2021-08-22] MEDS ORDERED: GABA300C PO (16:55)
[2021-08-22] MEDS ORDERED: MULT-1085 PO (16:55)
== END 2021-08-21 02:23 | disposition home or self-care (01) ==
LOC: ER 00:38
DX: R07.9 Chest pain, unspecified (principal); F15.10 Other stimulant abuse, uncomplicated; J45.909 Unspecified asthma, uncomplicated; I11.9 Hypertensive heart disease without heart failure; F31.9 Bipolar disorder, unspecified; F20.9 Schizophrenia, unspecified; Z87.448 Personal history of other diseases of urinary system; F12.10 Cannabis abuse, uncomplicated; Z88.5 Allergy status to narcotic agent; Z88.8 Allergy status to other drugs, medicaments and biological substances; Z79.899 Other long term (current) drug therapy
CPT/HCPCS: 36415; 71045; 80053; 83880; 84484; 85025; 93005; 96374; 99285; J1885

== ENCOUNTER 2021-08-22 15:58 | Emergency (ER) | payer OTHER ==
[~2021-08-22] VITALS: Ht 177.8 cm; Wt 86.8 kg
[2021-08-22 16:11] VITALS: BP 180/152
[2021-08-22] MEDS ORDERED: MULT-1085 PO (16:55)
[2021-08-22] MEDS ORDERED: LORazepam 1 MG tablet PO ONE (16:55)
[2021-08-22] MEDS ORDERED: GABA300C PO (16:55)
[2021-08-22] MEDS ORDERED: LORA-269 PO (16:55)
== END 2021-08-22 17:29 | disposition home or self-care (01) ==
LOC: ER 15:58
DX: F10.239 Alcohol dependence with withdrawal, unspecified (principal); F31.9 Bipolar disorder, unspecified; F20.9 Schizophrenia, unspecified; I11.9 Hypertensive heart disease without heart failure; J45.909 Unspecified asthma, uncomplicated; K21.9 Gastro-esophageal reflux disease without esophagitis; Z87.448 Personal history of other diseases of urinary system; F12.10 Cannabis abuse, uncomplicated; F15.10 Other stimulant abuse, uncomplicated; Z88.5 Allergy status to narcotic agent; Z88.8 Allergy status to other drugs, medicaments and biological substances
CPT/HCPCS: 99283

== ENCOUNTER 2021-08-23 10:09 | Emergency (ER) | payer MEDICAID, OTHER ==
[~2021-08-23] VITALS: Ht 177.8 cm; Wt 85.8 kg
[~2021-08-23 10:09] MED LIST changes: +LORA-269 PO; +MULT-1085 PO
[2021-08-23 10:25] VITALS: BP 144/106
== END 2021-08-23 10:33 | disposition home or self-care (01) ==
LOC: ER 10:09
DX: F10.20 Alcohol dependence, uncomplicated (principal); F15.90 Other stimulant use, unspecified, uncomplicated; F25.9 Schizoaffective disorder, unspecified; F20.9 Schizophrenia, unspecified; I10 Essential (primary) hypertension; J45.909 Unspecified asthma, uncomplicated; K21.9 Gastro-esophageal reflux disease without esophagitis; G89.29 Other chronic pain; F12.90 Cannabis use, unspecified, uncomplicated; Z56.0 Unemployment, unspecified; Z87.81 Personal history of (healed) traumatic fracture; Z86.73 Personal history of transient ischemic attack (TIA), and cerebral infarction without residual deficits; Z59.00 Homelessness unspecified; Z72.89 Other problems related to lifestyle; Z88.8 Allergy status to other drugs, medicaments and biological substances; Z88.6 Allergy status to analgesic agent; Z91.010 Allergy to peanuts; Z79.2 Long term (current) use of antibiotics; Z79.899 Other long term (current) drug therapy; Y90.9 Presence of alcohol in blood, level not specified
CPT/HCPCS: 99281

== ENCOUNTER 2021-08-25 20:17 | Emergency (ER) | payer MEDICAID ==
[~2021-08-25] VITALS: Ht 177.8 cm; Wt 81.8 kg
--- NOTE | 2021-08-25 20:37 | NUR ---
PT LOWERED SELF ONTO GROUND OF AMBULANCE BAY FROM CHAIR, DID NOT HIT HEAD. PT ASSISTED INTO WHEELCHAIR.
[2021-08-25] MEDS ORDERED: normal saline 1000ml 1,000 ML IV ONE (21:10)
[2021-08-26 02:25] VITALS: BP 130/85
== END 2021-08-26 02:40 | disposition home or self-care (01) ==
LOC: ER 20:18
DX: F10.129 Alcohol abuse with intoxication, unspecified (principal); Z20.822 Contact with and (suspected) exposure to COVID-19; J02.9 Acute pharyngitis, unspecified; I10 Essential (primary) hypertension; K21.9 Gastro-esophageal reflux disease without esophagitis; G89.29 Other chronic pain; F41.9 Anxiety disorder, unspecified; F31.9 Bipolar disorder, unspecified; F20.9 Schizophrenia, unspecified; J45.909 Unspecified asthma, uncomplicated; F12.90 Cannabis use, unspecified, uncomplicated; F15.90 Other stimulant use, unspecified, uncomplicated; Z86.73 Personal history of transient ischemic attack (TIA), and cerebral infarction without residual deficits; Z86.14 Personal history of Methicillin resistant Staphylococcus aureus infection; Z98.890 Other specified postprocedural states; Z72.89 Other problems related to lifestyle; Z60.2 Problems related to living alone; Z56.0 Unemployment, unspecified; Z59.00 Homelessness unspecified; Z88.8 Allergy status to other drugs, medicaments and biological substances; Z88.6 Allergy status to analgesic agent; Z79.2 Long term (current) use of antibiotics; Z79.899 Other long term (current) drug therapy; Y90.9 Presence of alcohol in blood, level not specified
CPT/HCPCS: 87635; 96360; 99283; C9803; J7030

== ENCOUNTER 2021-09-05 18:51 | Emergency (ER) | payer MEDICAID ==
[~2021-09-05] VITALS: Ht 177.8 cm; Wt 81.8 kg
[2021-09-05 21:45] VITALS: BP 134/90
[2021-09-05] MEDS ORDERED: ondansetron 4mg rapidly disintigrating tab PO ONE (21:50)
[2021-09-05] MEDS ORDERED: ONDA4TAB6 PO (21:51)
== END 2021-09-05 22:21 | disposition home or self-care (01) ==
LOC: ER 18:52
DX: B34.9 Viral infection, unspecified (principal); Z20.822 Contact with and (suspected) exposure to COVID-19; F15.90 Other stimulant use, unspecified, uncomplicated; I10 Essential (primary) hypertension; J45.909 Unspecified asthma, uncomplicated; K21.9 Gastro-esophageal reflux disease without esophagitis; G89.29 Other chronic pain; F12.90 Cannabis use, unspecified, uncomplicated; Z87.81 Personal history of (healed) traumatic fracture; Z86.73 Personal history of transient ischemic attack (TIA), and cerebral infarction without residual deficits; Z86.16 Personal history of COVID-19; Z56.0 Unemployment, unspecified; Z59.00 Homelessness unspecified; Z72.89 Other problems related to lifestyle; Z98.890 Other specified postprocedural states; Z88.5 Allergy status to narcotic agent; Z88.8 Allergy status to other drugs, medicaments and biological substances; Z79.899 Other long term (current) drug therapy
CPT/HCPCS: 36415; 99283; U0003; U0005

== ENCOUNTER 2021-09-05 23:24 | Emergency (ER) | payer MEDICAID ==
[~2021-09-05] VITALS: Ht 177.8 cm; Wt 81.8 kg
[~2021-09-05 23:24] MED LIST changes: +ONDA4TAB6 PO
[2021-09-05 23:31] VITALS: BP 132/88
[2021-09-05] MEDS ORDERED: LORazepam 1 MG tablet PO ONE (23:35)
[2021-09-05] MEDS ORDERED: ketorolac tromethamine 15mg/ml inj. IM ONE (23:35)
== END 2021-09-05 23:52 | disposition home or self-care (01) ==
LOC: ER 23:25
DX: F41.9 Anxiety disorder, unspecified (principal); R11.2 Nausea with vomiting, unspecified; M79.606 Pain in leg, unspecified; F12.90 Cannabis use, unspecified, uncomplicated; F15.90 Other stimulant use, unspecified, uncomplicated; I10 Essential (primary) hypertension; J45.909 Unspecified asthma, uncomplicated; G89.29 Other chronic pain; K21.9 Gastro-esophageal reflux disease without esophagitis; Z56.0 Unemployment, unspecified; Z59.00 Homelessness unspecified; Z86.14 Personal history of Methicillin resistant Staphylococcus aureus infection; Z98.890 Other specified postprocedural states; Z88.5 Allergy status to narcotic agent; Z88.8 Allergy status to other drugs, medicaments and biological substances; Z79.899 Other long term (current) drug therapy; Z79.2 Long term (current) use of antibiotics
CPT/HCPCS: 96372; 99283; J1885

== ENCOUNTER → 2021-09-08 | Emergency (ER) | payer MEDICAID ==
[~2021-09-08] VITALS: Ht 177.8 cm; Wt 81.8 kg
[2021-09-08 02:57] VITALS: BP 144/100
== END | disposition left against medical advice (07) ==
LOC: ER 02:52
DX: R12 Heartburn (principal); Z53.21 Procedure and treatment not carried out due to patient leaving prior to being seen by health care provider

== ENCOUNTER 2021-09-09 14:00 | Emergency (ER) | payer MEDICAID ==
[~2021-09-09] VITALS: Ht 177.8 cm; Wt 84.1 kg
[2021-09-09 14:24] VITALS: BP 166/111
== END 2021-09-09 14:30 | disposition home or self-care (01) ==
LOC: ER 14:01
DX: M79.672 Pain in left foot (principal); M79.671 Pain in right foot; I10 Essential (primary) hypertension; J45.909 Unspecified asthma, uncomplicated; K21.9 Gastro-esophageal reflux disease without esophagitis; G89.29 Other chronic pain; F41.9 Anxiety disorder, unspecified; F31.9 Bipolar disorder, unspecified; F20.9 Schizophrenia, unspecified; F12.90 Cannabis use, unspecified, uncomplicated; F15.90 Other stimulant use, unspecified, uncomplicated; Z86.14 Personal history of Methicillin resistant Staphylococcus aureus infection; Z86.73 Personal history of transient ischemic attack (TIA), and cerebral infarction without residual deficits; Z98.890 Other specified postprocedural states; Z72.89 Other problems related to lifestyle; Z60.2 Problems related to living alone; Z59.00 Homelessness unspecified; Z56.0 Unemployment, unspecified; Z88.8 Allergy status to other drugs, medicaments and biological substances; Z88.6 Allergy status to analgesic agent; Z79.2 Long term (current) use of antibiotics; Z79.899 Other long term (current) drug therapy
CPT/HCPCS: 99281

== ENCOUNTER 2021-09-11 18:34 | Emergency (ER) | payer MEDICAID ==
[~2021-09-11] VITALS: Ht 177.8 cm; Wt 82.0 kg
[2021-09-11 19:50] VITALS: BP 155/100
[2021-09-11] MEDS ORDERED: LORazepam 1 MG tablet PO ONE (20:35)
[2021-09-11 21:18] LABS: BASOPHILS # (AUTO) 0.2 X10'3 (0-0.2); EOSINOPHILS # (AUTO) 0.1 X10'3 (0-0.9); EOSINOPHILS % (AUTO) 1.1 % (0-6); HEMATOCRIT 43.4 % (42.0-52.0); HEMOGLOBIN 15.4 g/dl (14.0-17.9); LYMPHOCYTES # (AUTO) 1.2 X10'3 (1.1-4.8); LYMPHOCYTES % (AUTO) 12.8 % (21-51); MEAN CORPUSCULAR HEMOGLOBIN 33.9 PG (27.0-31.0); MEAN CORPUSCULAR HGB CONC 35.5 g/dL (33.0-36.5); MEAN CORPUSCULAR VOLUME 95.6 FL (78-98); MEAN PLATELET VOLUME 6.8 FL (7.4-10.4); MONOCYTES # (AUTO) 0.9 X10'3 (0-0.9); MONOCYTES % (AUTO) 9.8 % (2-12); NEUTROPHILS # (AUTO) 6.7 X10'3 (1.8-7.7); NEUTROPHILS % (AUTO) 74.3 % (42-75); PLATELET COUNT 351 X10'3 (140-440); RED BLOOD COUNT 4.54 X10'6 (4.70-6.10); RED CELL DISTRIBUTION WIDTH 14.1 % (11.5-14.5)
[2021-09-11 21:28] LABS: ALBUMIN 3.5 G/DL (3.4-5.0); ANION GAP 8 (8-16); BLOOD UREA NITROGEN 9 MG/DL (7-18); BUN/CREATININE RATIO 9.3 (5.4-32.0); CALCIUM 8.6 MG/DL (8.5-10.1); CHLORIDE 102 MMOL/L (99-107); CREATININE 0.97 MG/DL (0.60-1.10); GLUCOSE 109 MG/DL (70-104); POTASSIUM 3.5 MMOL/L (3.5-5.1); SODIUM 141 MMOL/L (135-145); TROPONIN I < 0.04 NG/ML (0.0-0.05); eGFR 86 ML/MIN
[2021-09-11] MEDS ORDERED: SUCR1TAB PO (21:35)
[2021-09-11] MEDS ORDERED: sucralfate 1 gm tablet PO ONE (22:15)
== END 2021-09-11 22:32 | disposition home or self-care (01) ==
LOC: ER 18:36
DX: K21.9 Gastro-esophageal reflux disease without esophagitis (principal); J45.909 Unspecified asthma, uncomplicated; F31.9 Bipolar disorder, unspecified; F20.9 Schizophrenia, unspecified; I11.9 Hypertensive heart disease without heart failure; Z88.5 Allergy status to narcotic agent; Z79.899 Other long term (current) drug therapy; Z88.8 Allergy status to other drugs, medicaments and biological substances
CPT/HCPCS: 36415; 71045; 80048; 84484; 85025; 93005; 99285

== ENCOUNTER 2021-10-28 13:46 | Emergency (ER) | payer MEDICAID ==
[~2021-10-28] VITALS: Ht 177.8 cm; Wt 91.0 kg
[2021-10-28] MEDS ORDERED: normal saline 1000ML IV soln IV ONE (14:05)
[2021-10-28 14:39] LABS: BASOPHILS # (AUTO) 0.1 X10'3 (0-0.2); BASOPHILS % (AUTO) 0.5 % (0-1); EOSINOPHILS # (AUTO) 0.1 X10'3 (0-0.9); EOSINOPHILS % (AUTO) 0.8 % (0-6); HEMOGLOBIN 15.5 g/dl (14.0-17.9); LYMPHOCYTES # (AUTO) 3.2 X10'3 (1.1-4.8); LYMPHOCYTES % (AUTO) 25.1 % (21-51); MEAN CORPUSCULAR HEMOGLOBIN 32.8 PG (27.0-31.0); MEAN CORPUSCULAR HGB CONC 34.4 g/dL (33.0-36.5); MEAN CORPUSCULAR VOLUME 95.5 FL (78-98); MONOCYTES % (AUTO) 7.9 % (2-12); NEUTROPHILS # (AUTO) 8.3 X10'3 (1.8-7.7); NEUTROPHILS % (AUTO) 65.7 % (42-75); PLATELET COUNT 418 X10'3 (140-440); RED BLOOD COUNT 4.71 X10'6 (4.70-6.10); RED CELL DISTRIBUTION WIDTH 12.8 % (11.5-14.5); WHITE BLOOD COUNT 12.6 X10'3 (4.5-11.0)
[2021-10-28 14:53] LABS: ALANINE AMINOTRANSFERASE 51 U/L (12-78); ALBUMIN 3.8 G/DL (3.4-5.0); ALKALINE PHOSPHATASE 112 IU/L (46-116); ANION GAP 15 (8-16); ASPARTATE AMINO TRANSFERASE 40 U/L (10-37); BLOOD UREA NITROGEN 15 MG/DL (7-18); CALCIUM 8.2 MG/DL (8.5-10.1); CHLORIDE 105 MMOL/L (99-107); GLUCOSE 77 MG/DL (70-104); POTASSIUM 3.3 MMOL/L (3.5-5.1); SODIUM 146 MMOL/L (135-145); TOTAL CARBON DIOXIDE 26.2 MMOL/L (24-32); TOTAL PROTEIN 7.7 G/DL (6.4-8.2); eGFR 83 ML/MIN
[2021-10-28 14:55] LABS: BILIRUBIN,TOTAL 0.3 MG/DL (0.1-1.0); ETHANOL 0.365 GM/DL (0.0-0.010)
--- NOTE | 2021-10-28 16:45 | NUR ---
Pt given a meal.
--- NOTE | 2021-10-28 17:45 | NUR ---
Given a pitcher of water and encouraged to eat and drink.
[2021-10-28 19:30] VITALS: BP 139/99
[2021-10-28 19:59] LABS: URINE AMPHETAMINE SCREEN NEGATIVE (Neg); URINE BARBITUATE SCREEN NEGATIVE (Neg); URINE BENZODIAZEPINES SCREEN NEGATIVE (Neg); URINE CANNABINOID SCREEN POSITIVE (Neg); URINE COCAINE SCREEN NEGATIVE (Neg); URINE METHADONE SCREEN NEGATIVE (Neg); URINE OPIATE SCREEN NEGATIVE (Neg); URINE PHENCYCLIDINE SCREEN NEGATIVE (Neg)
--- NOTE | 2021-10-28 20:15 | NUR ---
Pt drank 3L of water and ate a sandwich.
--- NOTE | 2021-10-28 20:45 | NUR ---
Pt given and understands d/c instructions. Called a taxi to transport pt to the [facility].
== END 2021-10-28 20:45 | disposition home or self-care (01) ==
LOC: ER 13:46
DX: F10.129 Alcohol abuse with intoxication, unspecified (principal); Z20.822 Contact with and (suspected) exposure to COVID-19; I10 Essential (primary) hypertension; J45.909 Unspecified asthma, uncomplicated; K21.9 Gastro-esophageal reflux disease without esophagitis; G89.29 Other chronic pain; F41.9 Anxiety disorder, unspecified; F31.9 Bipolar disorder, unspecified; F20.9 Schizophrenia, unspecified; F12.90 Cannabis use, unspecified, uncomplicated; F15.90 Other stimulant use, unspecified, uncomplicated; Z86.73 Personal history of transient ischemic attack (TIA), and cerebral infarction without residual deficits; Z86.14 Personal history of Methicillin resistant Staphylococcus aureus infection; Z98.890 Other specified postprocedural states; Z60.2 Problems related to living alone; Z56.0 Unemployment, unspecified; Z59.00 Homelessness unspecified; Z88.8 Allergy status to other drugs, medicaments and biological substances; Z88.6 Allergy status to analgesic agent; Z79.2 Long term (current) use of antibiotics; Z79.899 Other long term (current) drug therapy; Y90.0 Blood alcohol level of less than 20 mg/100 ml
CPT/HCPCS: 36415; 71045; 80053; 80305; 80320; 82948; 85025; 87502; 87503; 87635; 96360; 96361; 99284; C9803; J7030

== ENCOUNTER 2021-10-29 02:28 | Emergency (ER) | payer MEDICAID ==
[~2021-10-29] VITALS: Ht 175.3 cm; Wt 81.8 kg
[2021-10-29 02:42] VITALS: BP 140/95
[2021-10-29] MEDS ORDERED: ondansetron 4mg rapidly disintigrating tab PO ONE (03:00)
== END 2021-10-29 06:17 | disposition home or self-care (01) ==
LOC: ER 02:28
DX: F10.920 Alcohol use, unspecified with intoxication, uncomplicated (principal); I11.9 Hypertensive heart disease without heart failure; J45.909 Unspecified asthma, uncomplicated; K21.9 Gastro-esophageal reflux disease without esophagitis; F31.9 Bipolar disorder, unspecified; F20.9 Schizophrenia, unspecified; Z88.5 Allergy status to narcotic agent; Z88.8 Allergy status to other drugs, medicaments and biological substances; Z88.6 Allergy status to analgesic agent; Z91.010 Allergy to peanuts
CPT/HCPCS: 82948; 99284

== ENCOUNTER 2021-10-30 10:21 | Emergency (ER) | payer MEDICAID ==
[~2021-10-30] VITALS: Ht 182.9 cm; Wt 90.0 kg
[2021-10-30 11:40] LABS: ALBUMIN 3.9 G/DL (3.4-5.0); ANION GAP 14 (8-16); BLOOD UREA NITROGEN 6 MG/DL (7-18); BUN/CREATININE RATIO 8.1 (5.4-32.0); CALCIUM 8.9 MG/DL (8.5-10.1); CHLORIDE 104 MMOL/L (99-107); CREATININE 0.74 MG/DL (0.60-1.10); GLUCOSE 127 MG/DL (70-104); POTASSIUM 3.1 MMOL/L (3.5-5.1); SODIUM 146 MMOL/L (135-145); eGFR > 90 ML/MIN
[2021-10-30 14:00] VITALS: BP 136/66
== END 2021-10-30 14:30 | disposition home or self-care (01) ==
LOC: ER 10:22
DX: F10.129 Alcohol abuse with intoxication, unspecified (principal); I13.11 Hypertensive heart and chronic kidney disease without heart failure, with stage 5 chronic kidney disease, or end stage renal disease; N18.6 End stage renal disease; Z59.00 Homelessness unspecified; Z88.8 Allergy status to other drugs, medicaments and biological substances; Z88.6 Allergy status to analgesic agent
CPT/HCPCS: 36415; 70450; 80048; 80320; 99284

== ENCOUNTER 2021-11-10 00:54 | Emergency (ER) | payer MEDICAID ==
[~2021-11-10] VITALS: Ht 177.8 cm; Wt 86.4 kg
--- NOTE | 2021-11-10 01:44 | NUR ---
CAME BACK FROM BREAK. PT ROOMED IN BED 8. ASSUMED CARE OF PT. PT IN CT.
[2021-11-10 03:10] VITALS: BP 109/76
== END 2021-11-10 03:16 | disposition home or self-care (01) ==
LOC: ER 00:55
DX: F10.129 Alcohol abuse with intoxication, unspecified (principal); R41.0 Disorientation, unspecified; I10 Essential (primary) hypertension; J45.909 Unspecified asthma, uncomplicated; K21.9 Gastro-esophageal reflux disease without esophagitis; G89.29 Other chronic pain; F41.9 Anxiety disorder, unspecified; F31.9 Bipolar disorder, unspecified; F20.9 Schizophrenia, unspecified; F12.90 Cannabis use, unspecified, uncomplicated; F15.90 Other stimulant use, unspecified, uncomplicated; Z86.73 Personal history of transient ischemic attack (TIA), and cerebral infarction without residual deficits; Z86.14 Personal history of Methicillin resistant Staphylococcus aureus infection; Z98.890 Other specified postprocedural states; Z72.89 Other problems related to lifestyle; Z60.2 Problems related to living alone; Z56.0 Unemployment, unspecified; Z59.00 Homelessness unspecified; Z88.6 Allergy status to analgesic agent; Z88.8 Allergy status to other drugs, medicaments and biological substances; Z79.2 Long term (current) use of antibiotics; Z79.899 Other long term (current) drug therapy; Y90.0 Blood alcohol level of less than 20 mg/100 ml
CPT/HCPCS: 36415; 70450; 80320; 99284

== ENCOUNTER 2021-11-18 02:27 | Emergency (ER) | payer MEDICAID ==
[~2021-11-18] VITALS: Ht 177.8 cm; Wt 81.0 kg
[2021-11-18] MEDS ORDERED: dexamethasone sod phosphate 10mg/ml inj PO STA (03:08)
[2021-11-18] MEDS ORDERED: azithromycin 250mg tablet PO ONE (03:10)
[2021-11-18 03:37] VITALS: BP 135/90
[2021-11-18] MEDS ORDERED: AZIT-83 PO (04:06)
== END 2021-11-18 06:14 | disposition home or self-care (01) ==
LOC: ER 02:28
DX: J40 Bronchitis, not specified as acute or chronic (principal); Z20.822 Contact with and (suspected) exposure to COVID-19; I10 Essential (primary) hypertension; K21.9 Gastro-esophageal reflux disease without esophagitis; G89.29 Other chronic pain; F12.90 Cannabis use, unspecified, uncomplicated; F15.90 Other stimulant use, unspecified, uncomplicated; F17.210 Nicotine dependence, cigarettes, uncomplicated; Z87.81 Personal history of (healed) traumatic fracture; Z86.14 Personal history of Methicillin resistant Staphylococcus aureus infection; Z86.73 Personal history of transient ischemic attack (TIA), and cerebral infarction without residual deficits; Z56.0 Unemployment, unspecified; Z59.00 Homelessness unspecified; Z72.89 Other problems related to lifestyle; Z88.8 Allergy status to other drugs, medicaments and biological substances; Z88.6 Allergy status to analgesic agent; Z79.2 Long term (current) use of antibiotics; Z79.899 Other long term (current) drug therapy
CPT/HCPCS: 71045; 87635; 99284; C9803; 99283

== ENCOUNTER 2021-11-21 04:20 | Emergency (ER) | payer MEDICAID ==
[~2021-11-21] VITALS: Ht 177.8 cm; Wt 180.0 kg
[~2021-11-21 04:20] MED LIST changes: +AZIT-83 PO
[2021-11-21 04:47] VITALS: BP 113/69
== END 2021-11-21 07:57 | disposition left against medical advice (07) ==
LOC: ER 04:21
DX: F10.129 Alcohol abuse with intoxication, unspecified (principal); I10 Essential (primary) hypertension; J45.909 Unspecified asthma, uncomplicated; K21.9 Gastro-esophageal reflux disease without esophagitis; G89.29 Other chronic pain; F12.90 Cannabis use, unspecified, uncomplicated; F15.90 Other stimulant use, unspecified, uncomplicated; Z56.0 Unemployment, unspecified; Z87.81 Personal history of (healed) traumatic fracture; Z72.89 Other problems related to lifestyle; Z59.00 Homelessness unspecified; Z86.73 Personal history of transient ischemic attack (TIA), and cerebral infarction without residual deficits; Z88.8 Allergy status to other drugs, medicaments and biological substances; Z79.2 Long term (current) use of antibiotics; Z79.899 Other long term (current) drug therapy; Y90.9 Presence of alcohol in blood, level not specified
CPT/HCPCS: 99281

== ENCOUNTER 2021-11-23 16:53 | Emergency (ER) | payer MEDICAID ==
[~2021-11-23] VITALS: Ht 177.8 cm; Wt 81.8 kg
[2021-11-23 17:48] VITALS: BP 142/96
[2021-11-23] MEDS ORDERED: azithromycin 250mg tablet PO ONE (19:05)
[2021-11-23] MEDS ORDERED: ALBU18HF2 INH (19:10)
[2021-11-23] MEDS ORDERED: AZIT250T PO (19:10)
== END 2021-11-23 19:45 | disposition home or self-care (01) ==
LOC: ER 16:55
DX: J44.1 Chronic obstructive pulmonary disease with (acute) exacerbation (principal); J02.9 Acute pharyngitis, unspecified; R05.9 Cough, unspecified; I10 Essential (primary) hypertension; J45.909 Unspecified asthma, uncomplicated; K21.9 Gastro-esophageal reflux disease without esophagitis; G89.29 Other chronic pain; F41.9 Anxiety disorder, unspecified; F31.9 Bipolar disorder, unspecified; F20.9 Schizophrenia, unspecified; F12.90 Cannabis use, unspecified, uncomplicated; F15.90 Other stimulant use, unspecified, uncomplicated; Z86.73 Personal history of transient ischemic attack (TIA), and cerebral infarction without residual deficits; Z86.14 Personal history of Methicillin resistant Staphylococcus aureus infection; Z98.890 Other specified postprocedural states; Z72.89 Other problems related to lifestyle; Z60.2 Problems related to living alone; Z56.0 Unemployment, unspecified; Z59.00 Homelessness unspecified; Z88.8 Allergy status to other drugs, medicaments and biological substances; Z88.6 Allergy status to analgesic agent; Z79.2 Long term (current) use of antibiotics; Z79.899 Other long term (current) drug therapy
CPT/HCPCS: 99283

== ENCOUNTER 2021-11-27 04:26 | Emergency (ER) | payer MEDICAID ==
[~2021-11-27] VITALS: Ht 172.7 cm; Wt 86.4 kg
[~2021-11-27 04:26] MED LIST changes: +ALBU18HF2 INH; +AZIT250T PO
[2021-11-27 06:23] VITALS: BP 120/87
== END 2021-11-27 07:58 | disposition left against medical advice (07) ==
LOC: ER 04:26
DX: F10.129 Alcohol abuse with intoxication, unspecified (principal); Z53.21 Procedure and treatment not carried out due to patient leaving prior to being seen by health care provider; Y90.0 Blood alcohol level of less than 20 mg/100 ml

== ENCOUNTER 2021-12-05 20:41 | Emergency (ER) | payer MEDICAID ==
[~2021-12-05 20:41] MED LIST changes: -AZIT250T PO
== END 2021-12-05 21:56 | disposition left against medical advice (07) ==
LOC: ER 20:43
DX: Z53.21 Procedure and treatment not carried out due to patient leaving prior to being seen by health care provider (principal)

== ENCOUNTER 2021-12-06 01:46 | Emergency (ER) | payer MEDICAID ==
[~2021-12-06] VITALS: Ht 177.8 cm; Wt 87.2 kg
[2021-12-06 01:51] VITALS: BP 137/99
== END 2021-12-06 03:11 | disposition home or self-care (01) ==
LOC: ER 01:46
DX: Z00.00 Encounter for general adult medical examination without abnormal findings (principal); J00 Acute nasopharyngitis [common cold]; R19.7 Diarrhea, unspecified; R68.83 Chills (without fever); I10 Essential (primary) hypertension; K21.9 Gastro-esophageal reflux disease without esophagitis; F12.90 Cannabis use, unspecified, uncomplicated; F15.90 Other stimulant use, unspecified, uncomplicated; Z86.73 Personal history of transient ischemic attack (TIA), and cerebral infarction without residual deficits; Z59.00 Homelessness unspecified; Z56.0 Unemployment, unspecified; Z98.890 Other specified postprocedural states; Z88.6 Allergy status to analgesic agent; Z88.8 Allergy status to other drugs, medicaments and biological substances; Z79.899 Other long term (current) drug therapy
CPT/HCPCS: 99281

== ENCOUNTER 2021-12-15 07:53 | Emergency (ER) | payer MEDICAID ==
[~2021-12-15] VITALS: Ht 177.8 cm; Wt 81.8 kg
[~2021-12-15 07:53] MED LIST changes: -AZIT-83 PO; -OMEP-50 PO; +OMEP20CA16 PO
[2021-12-15 07:58] VITALS: BP 164/105
[2021-12-15] MEDS ORDERED: ondansetron 4mg rapidly disintigrating tab PO ONE (08:40)
== END 2021-12-15 09:54 | disposition left against medical advice (07) ==
LOC: ER 07:53
DX: R11.10 Vomiting, unspecified (principal); Z53.21 Procedure and treatment not carried out due to patient leaving prior to being seen by health care provider

== ENCOUNTER 2021-12-25 03:03 | Emergency (ER) | payer MEDICAID ==
[~2021-12-25] VITALS: Ht 177.8 cm; Wt 80.1 kg
[2021-12-25 03:50] VITALS: BP 144/110
[2021-12-25] MEDS ORDERED: chlordiazePOXIDE 25mg capsule PO ONE (05:05)
[2021-12-25] MEDS ORDERED: CHLO25CA10 PO (05:25)
[2021-12-26] MEDS ORDERED: AMOX-117 PO (12:02)
[2021-12-26] MEDS ORDERED: CHLO25CA10 PO (12:02)
== END 2021-12-25 06:46 | disposition left against medical advice (07) ==
LOC: ER 03:04
DX: F10.10 Alcohol abuse, uncomplicated (principal); I10 Essential (primary) hypertension; J45.909 Unspecified asthma, uncomplicated; K21.9 Gastro-esophageal reflux disease without esophagitis; F31.9 Bipolar disorder, unspecified; F20.9 Schizophrenia, unspecified; Z88.8 Allergy status to other drugs, medicaments and biological substances; Z91.010 Allergy to peanuts
CPT/HCPCS: 99283

== ENCOUNTER 2021-12-26 11:13 | Emergency (ER) | payer MEDICAID ==
[~2021-12-26] VITALS: Ht 177.8 cm; Wt 86.9 kg
[~2021-12-26 11:13] MED LIST changes: +CHLO25CA10 PO
[2021-12-26 11:57] VITALS: BP 139/89
[2021-12-26] MEDS ORDERED: CHLO25CA10 PO (12:02)
[2021-12-26] MEDS ORDERED: AMOX-117 PO (12:02)
== END 2021-12-26 13:24 | disposition home or self-care (01) ==
LOC: ER 11:14
DX: F10.10 Alcohol abuse, uncomplicated (principal); Z56.0 Unemployment, unspecified; I10 Essential (primary) hypertension; J45.909 Unspecified asthma, uncomplicated; F31.9 Bipolar disorder, unspecified; I11.9 Hypertensive heart disease without heart failure; F12.10 Cannabis abuse, uncomplicated; F15.10 Other stimulant abuse, uncomplicated; Z88.8 Allergy status to other drugs, medicaments and biological substances; Z79.899 Other long term (current) drug therapy; Z88.6 Allergy status to analgesic agent; Z91.010 Allergy to peanuts
CPT/HCPCS: 99281

== ENCOUNTER 2021-12-30 05:16 | Emergency (ER) | payer MEDICAID ==
[~2021-12-30] VITALS: Ht 177.8 cm; Wt 86.4 kg
[~2021-12-30 05:16] MED LIST changes: +AMOX-117 PO
[2021-12-30 05:20] VITALS: BP 151/96
[2021-12-30] MEDS ORDERED: HYDR-3965 PO (06:15)
== END 2021-12-30 06:20 | disposition home or self-care (01) ==
LOC: ER 05:17
DX: S60.221A Contusion of right hand, initial encounter (principal); M79.641 Pain in right hand; R20.0 Anesthesia of skin; I10 Essential (primary) hypertension; K21.9 Gastro-esophageal reflux disease without esophagitis; F41.9 Anxiety disorder, unspecified; F32.A Depression, unspecified; F20.9 Schizophrenia, unspecified; F12.90 Cannabis use, unspecified, uncomplicated; F15.90 Other stimulant use, unspecified, uncomplicated; Z86.73 Personal history of transient ischemic attack (TIA), and cerebral infarction without residual deficits; Z86.14 Personal history of Methicillin resistant Staphylococcus aureus infection; Z98.890 Other specified postprocedural states; Z72.89 Other problems related to lifestyle; Z59.00 Homelessness unspecified; Z56.0 Unemployment, unspecified; Z88.8 Allergy status to other drugs, medicaments and biological substances; Z88.6 Allergy status to analgesic agent; Z79.82 Long term (current) use of aspirin; Z79.899 Other long term (current) drug therapy; X58.XXXA Exposure to other specified factors, initial encounter; Y93.89 Activity, other specified; Y92.89 Other specified places as the place of occurrence of the external cause; Y99.8 Other external cause status
CPT/HCPCS: 29125; 73130; 99283

== ENCOUNTER 2022-01-14 21:41 | Emergency (ER) | payer MEDICAID ==
[~2022-01-14] VITALS: Ht 177.8 cm; Wt 84.1 kg
[~2022-01-14 21:41] MED LIST changes: -AMOX-117 PO; +HYDR-3965 PO
[2022-01-14] MEDS ORDERED: LORazepam 1 MG tablet PO ONE (23:30)
[2022-01-14 23:42] VITALS: BP 99/80
[2022-01-15] MEDS ORDERED: LORA-268 PO (15:34)
== END 2022-01-15 00:34 | disposition left against medical advice (07) ==
LOC: ER 21:42
DX: F41.9 Anxiety disorder, unspecified (principal); F10.239 Alcohol dependence with withdrawal, unspecified; R45.1 Restlessness and agitation; I10 Essential (primary) hypertension; J45.909 Unspecified asthma, uncomplicated; K21.9 Gastro-esophageal reflux disease without esophagitis; G89.29 Other chronic pain; F31.9 Bipolar disorder, unspecified; F20.9 Schizophrenia, unspecified; F12.90 Cannabis use, unspecified, uncomplicated; F15.90 Other stimulant use, unspecified, uncomplicated; Z86.73 Personal history of transient ischemic attack (TIA), and cerebral infarction without residual deficits; Z86.14 Personal history of Methicillin resistant Staphylococcus aureus infection; Z98.890 Other specified postprocedural states; Z72.89 Other problems related to lifestyle; Z60.2 Problems related to living alone; Z56.0 Unemployment, unspecified; Z59.00 Homelessness unspecified; Z88.8 Allergy status to other drugs, medicaments and biological substances; Z88.6 Allergy status to analgesic agent; Z79.2 Long term (current) use of antibiotics; Z79.899 Other long term (current) drug therapy; Y90.9 Presence of alcohol in blood, level not specified
CPT/HCPCS: 99283

== ENCOUNTER 2022-01-15 14:59 | Emergency (ER) | payer MEDICAID ==
[~2022-01-15] VITALS: Ht 177.8 cm; Wt 80.0 kg
[2022-01-15 15:14] VITALS: BP 149/111
[2022-01-15] MEDS ORDERED: LORA-268 PO (15:34)
== END 2022-01-15 15:58 | disposition home or self-care (01) ==
LOC: ER 14:59
DX: F10.10 Alcohol abuse, uncomplicated (principal); Z11.3 Encounter for screening for infections with a predominantly sexual mode of transmission; I11.9 Hypertensive heart disease without heart failure; J45.909 Unspecified asthma, uncomplicated; K21.9 Gastro-esophageal reflux disease without esophagitis; F31.9 Bipolar disorder, unspecified; F20.9 Schizophrenia, unspecified; Z87.81 Personal history of (healed) traumatic fracture; G89.29 Other chronic pain; F12.10 Cannabis abuse, uncomplicated; F15.10 Other stimulant abuse, uncomplicated; Z59.00 Homelessness unspecified; Z56.0 Unemployment, unspecified; Z91.010 Allergy to peanuts; Z88.8 Allergy status to other drugs, medicaments and biological substances; Z88.5 Allergy status to narcotic agent; Z88.6 Allergy status to analgesic agent; Z79.899 Other long term (current) drug therapy
CPT/HCPCS: 99283

== ENCOUNTER 2022-01-17 18:48 | Emergency (ER) | payer MEDICAID ==
[~2022-01-17] VITALS: Ht 177.8 cm; Wt 81.3 kg
[~2022-01-17 18:48] MED LIST changes: +LORA-268 PO
[2022-01-17 20:10] LABS: BASOPHILS # (AUTO) 0.1 X10'3 (0-0.2); BASOPHILS % (AUTO) 0.6 % (0-1); EOSINOPHILS # (AUTO) 0.1 X10'3 (0-0.9); HEMATOCRIT 39.7 % (42.0-52.0); HEMOGLOBIN 13.6 g/dl (14.0-17.9); LYMPHOCYTES # (AUTO) 1.4 X10'3 (1.1-4.8); LYMPHOCYTES % (AUTO) 14.6 % (21-51); MEAN CORPUSCULAR HEMOGLOBIN 32.8 PG (27.0-31.0); MEAN CORPUSCULAR HGB CONC 34.3 g/dL (33.0-36.5); MEAN CORPUSCULAR VOLUME 95.7 FL (78-98); MEAN PLATELET VOLUME 6.5 FL (7.4-10.4); MONOCYTES # (AUTO) 1.2 X10'3 (0-0.9); MONOCYTES % (AUTO) 11.7 % (2-12); NEUTROPHILS # (AUTO) 7.1 X10'3 (1.8-7.7); NEUTROPHILS % (AUTO) 72.1 % (42-75); PLATELET COUNT 267 X10'3 (140-440); RED BLOOD COUNT 4.15 X10'6 (4.70-6.10); RED CELL DISTRIBUTION WIDTH 13.9 % (11.5-14.5); WHITE BLOOD COUNT 9.8 X10'3 (4.5-11.0)
[2022-01-17 20:16] VITALS: BP 154/106
[2022-01-17 20:24] LABS: ALANINE AMINOTRANSFERASE 48 U/L (12-78); ALBUMIN 3.3 G/DL (3.4-5.0); ALBUMIN/GLOBULIN RATIO 0.9 (1.1-1.5); ALKALINE PHOSPHATASE 108 IU/L (46-116); ANION GAP 10 (8-16); ASPARTATE AMINO TRANSFERASE 36 U/L (10-37); BILIRUBIN,TOTAL 0.5 MG/DL (0.1-1.0); BLOOD UREA NITROGEN 18 MG/DL (7-18); BUN/CREATININE RATIO 23.1 (5.4-32.0); CALCIUM 8.4 MG/DL (8.5-10.1); CHLORIDE 102 MMOL/L (99-107); CREATININE 0.78 MG/DL (0.60-1.10); GLUCOSE 99 MG/DL (70-104); LIPASE 294 U/L (73-393); POTASSIUM 3.7 MMOL/L (3.5-5.1); SODIUM 137 MMOL/L (135-145); TOTAL CARBON DIOXIDE 24.8 MMOL/L (24-32); TOTAL PROTEIN 6.8 G/DL (6.4-8.2); eGFR > 90 ML/MIN
[2022-01-17] MEDS ORDERED: HYDROcodone/acetaminophen 10/325mg tab PO ONE (21:30)
[2022-01-17] MEDS ORDERED: loperamide 2mg capsule PO ONE (21:30)
== END 2022-01-17 22:03 | disposition home or self-care (01) ==
LOC: ER 18:49
DX: R19.7 Diarrhea, unspecified (principal); R10.84 Generalized abdominal pain; I10 Essential (primary) hypertension; J45.909 Unspecified asthma, uncomplicated; K21.9 Gastro-esophageal reflux disease without esophagitis; G89.29 Other chronic pain; Z87.81 Personal history of (healed) traumatic fracture; Z86.14 Personal history of Methicillin resistant Staphylococcus aureus infection; F12.90 Cannabis use, unspecified, uncomplicated; F15.90 Other stimulant use, unspecified, uncomplicated; Z56.0 Unemployment, unspecified; Z59.00 Homelessness unspecified; Z72.89 Other problems related to lifestyle; Z88.8 Allergy status to other drugs, medicaments and biological substances; Z79.899 Other long term (current) drug therapy; Z86.19 Personal history of other infectious and parasitic diseases
CPT/HCPCS: 36415; 80053; 83690; 85025; 99283; 99284

== ENCOUNTER 2022-01-22 14:41 | Emergency (ER) | payer MEDICAID ==
[~2022-01-22] VITALS: Ht 177.8 cm; Wt 81.8 kg
--- NOTE | 2022-01-22 18:24 | NUR ---
Pt states he was on Lisinopril, but hasn't been taking pills since Covid hit. BP 156/107
--- NOTE | 2022-01-22 19:17 | NUR ---
Pt given meal tray. Pt having no difficulty manipulating cutlery and individual seal packets.
[2022-01-22 19:53] VITALS: BP 161/101
[2022-01-22] MEDS ORDERED: ibuprofen tablet 400 MG TABLET PO ONE (19:55)
== END 2022-01-22 20:06 | disposition home or self-care (01) ==
LOC: ER 14:42
DX: S62.002A Unspecified fracture of navicular [scaphoid] bone of left wrist, initial encounter for closed fracture (principal); S60.222A Contusion of left hand, initial encounter; I10 Essential (primary) hypertension; J45.909 Unspecified asthma, uncomplicated; K21.9 Gastro-esophageal reflux disease without esophagitis; G89.29 Other chronic pain; N19 Unspecified kidney failure; F12.90 Cannabis use, unspecified, uncomplicated; F15.90 Other stimulant use, unspecified, uncomplicated; Z60.2 Problems related to living alone; Z86.14 Personal history of Methicillin resistant Staphylococcus aureus infection; Z86.73 Personal history of transient ischemic attack (TIA), and cerebral infarction without residual deficits; Z56.0 Unemployment, unspecified; Z59.00 Homelessness unspecified; Z72.89 Other problems related to lifestyle; Z88.8 Allergy status to other drugs, medicaments and biological substances; Z79.899 Other long term (current) drug therapy; Z79.2 Long term (current) use of antibiotics; W22.8XXA Striking against or struck by other objects, initial encounter; Y93.89 Activity, other specified; Y92.89 Other specified places as the place of occurrence of the external cause; Y99.8 Other external cause status
CPT/HCPCS: 73110; 73130; 99284

== ENCOUNTER 2022-01-24 16:22 | Emergency (ER) | payer MEDICAID ==
[~2022-01-24] VITALS: Ht 177.8 cm; Wt 85.0 kg
[2022-01-24 16:28] VITALS: BP 179/102
[2022-01-24] MEDS ORDERED: LORA-269 PO (16:35)
== END 2022-01-24 17:05 | disposition home or self-care (01) ==
LOC: ER 16:23
DX: F10.10 Alcohol abuse, uncomplicated (principal); I10 Essential (primary) hypertension; J45.909 Unspecified asthma, uncomplicated; K21.9 Gastro-esophageal reflux disease without esophagitis; G89.29 Other chronic pain; Z86.14 Personal history of Methicillin resistant Staphylococcus aureus infection; F12.90 Cannabis use, unspecified, uncomplicated; F15.90 Other stimulant use, unspecified, uncomplicated; Z56.0 Unemployment, unspecified; Z59.00 Homelessness unspecified; Z60.2 Problems related to living alone; Z72.89 Other problems related to lifestyle; Z86.73 Personal history of transient ischemic attack (TIA), and cerebral infarction without residual deficits; Z88.8 Allergy status to other drugs, medicaments and biological substances; Z88.6 Allergy status to analgesic agent; Z79.2 Long term (current) use of antibiotics; Z79.899 Other long term (current) drug therapy
CPT/HCPCS: 99283

== ENCOUNTER 2022-01-27 10:42 | Emergency (ER) | payer MEDICAID ==
[~2022-01-27] VITALS: Ht 177.8 cm; Wt 81.0 kg
[2022-01-27 10:58] VITALS: BP 167/107
[2022-01-27] MEDS ORDERED: PERM60CR19 TOP (11:33)
== END 2022-01-27 11:38 | disposition home or self-care (01) ==
LOC: ER 10:44
DX: B86 Scabies (principal); I10 Essential (primary) hypertension; J45.909 Unspecified asthma, uncomplicated; K21.9 Gastro-esophageal reflux disease without esophagitis; G89.29 Other chronic pain; F12.90 Cannabis use, unspecified, uncomplicated; F15.90 Other stimulant use, unspecified, uncomplicated; N19 Unspecified kidney failure; Z87.81 Personal history of (healed) traumatic fracture; Z86.14 Personal history of Methicillin resistant Staphylococcus aureus infection; Z86.73 Personal history of transient ischemic attack (TIA), and cerebral infarction without residual deficits; Z56.0 Unemployment, unspecified; Z59.00 Homelessness unspecified; Z72.89 Other problems related to lifestyle; Z60.2 Problems related to living alone; Z88.6 Allergy status to analgesic agent; Z88.8 Allergy status to other drugs, medicaments and biological substances; Z79.2 Long term (current) use of antibiotics; Z79.899 Other long term (current) drug therapy
CPT/HCPCS: 99283

== ENCOUNTER 2022-01-29 08:02 | Emergency (ER) | payer MEDICAID ==
[~2022-01-29] VITALS: Ht 177.8 cm; Wt 84.1 kg
[~2022-01-29 08:02] MED LIST changes: +PERM60CR19 TOP
[2022-01-29 08:17] VITALS: BP 147/111
[2022-01-29] MEDS ORDERED: PERM60CR19 TOP (08:51)
--- NOTE | 2022-01-29 08:55 | NUR ---
Patient walked in through ambulance bay doors and attempted to come into the nurses station. Patient was yelling at the nurses station that he needs ativan because he drinks. Cupola Liner, Brandon, told patient to leave ER and wait for the nurse out in the ambulance bay. Patient continued to shout out about needs and security was called to assist with escorting patient out of ER. Patient did end up walking out through ambulance bay doors, security out with patient. Educated patient regarding not coming into the ER with out an escort. Patient will wait in ambulance bay for discharge paperwork and prescription.
== END 2022-01-29 09:15 | disposition home or self-care (01) ==
LOC: ER 08:02
DX: B86 Scabies (principal); I11.9 Hypertensive heart disease without heart failure; F41.9 Anxiety disorder, unspecified; F32.9 Major depressive disorder, single episode, unspecified; F20.9 Schizophrenia, unspecified; K21.9 Gastro-esophageal reflux disease without esophagitis; F12.10 Cannabis abuse, uncomplicated; F15.10 Other stimulant abuse, uncomplicated; Z59.00 Homelessness unspecified; Z56.0 Unemployment, unspecified; Z87.81 Personal history of (healed) traumatic fracture; Z91.010 Allergy to peanuts; Z88.5 Allergy status to narcotic agent; Z79.899 Other long term (current) drug therapy
CPT/HCPCS: 99283

== ENCOUNTER 2022-02-04 02:21 | Emergency (ER) | payer MEDICAID ==
[~2022-02-04 02:21] MED LIST changes: -HYDR-3965 PO
== END 2022-02-04 03:21 | disposition left against medical advice (07) ==
LOC: ER 02:22
DX: Z76.0 Encounter for issue of repeat prescription (principal); Z53.21 Procedure and treatment not carried out due to patient leaving prior to being seen by health care provider

== ENCOUNTER 2022-02-19 21:13 | Emergency (ER) | payer MEDICAID ==
[~2022-02-19] VITALS: Ht 182.9 cm; Wt 90.9 kg
[2022-02-19 22:10] LABS: BASOPHILS % (AUTO) 0.3 % (0-1); EOSINOPHILS # (AUTO) 0.2 X10'3 (0-0.9); EOSINOPHILS % (AUTO) 2.5 % (0-6); HEMATOCRIT 42.1 % (42.0-52.0); HEMOGLOBIN 14.2 g/dl (14.0-17.9); LYMPHOCYTES # (AUTO) 2.2 X10'3 (1.1-4.8); LYMPHOCYTES % (AUTO) 31.9 % (21-51); MEAN CORPUSCULAR HEMOGLOBIN 32.6 PG (27.0-31.0); MEAN CORPUSCULAR HGB CONC 33.7 g/dL (33.0-36.5); MEAN CORPUSCULAR VOLUME 96.8 FL (78-98); MEAN PLATELET VOLUME 6.7 FL (7.4-10.4); MONOCYTES # (AUTO) 0.7 X10'3 (0-0.9); MONOCYTES % (AUTO) 10.6 % (2-12); NEUTROPHILS # (AUTO) 3.7 X10'3 (1.8-7.7); NEUTROPHILS % (AUTO) 54.7 % (42-75); PLATELET COUNT 319 X10'3 (140-440); RED BLOOD COUNT 4.35 X10'6 (4.70-6.10); WHITE BLOOD COUNT 6.7 X10'3 (4.5-11.0)
[2022-02-19 22:23] LABS: ALANINE AMINOTRANSFERASE 27 U/L (12-78); ALBUMIN 3.3 G/DL (3.4-5.0); ALKALINE PHOSPHATASE 77 IU/L (46-116); ANION GAP 8 (8-16); ASPARTATE AMINO TRANSFERASE 22 U/L (10-37); BILIRUBIN,TOTAL 0.1 MG/DL (0.1-1.0); BLOOD UREA NITROGEN 9 MG/DL (7-18); BUN/CREATININE RATIO 11.5 (5.4-32.0); CALCIUM 8.2 MG/DL (8.5-10.1); CHLORIDE 110 MMOL/L (99-107); CREATININE 0.78 MG/DL (0.60-1.10); GLUCOSE 103 MG/DL (70-104); LIPASE 430 U/L (73-393); POTASSIUM 3.9 MMOL/L (3.5-5.1); SODIUM 141 MMOL/L (135-145); TOTAL CARBON DIOXIDE 22.8 MMOL/L (24-32); TOTAL PROTEIN 6.7 G/DL (6.4-8.2); eGFR > 90 ML/MIN
[2022-02-19 22:24] LABS: ETHANOL 0.345 GM/DL (0.0-0.010)
--- NOTE | 2022-02-19 23:08 | NUR ---
Patient is refusing blood pressures.
== END 2022-02-20 01:33 | disposition home or self-care (01) ==
LOC: ER 21:13
DX: F10.129 Alcohol abuse with intoxication, unspecified (principal); I10 Essential (primary) hypertension; J45.909 Unspecified asthma, uncomplicated; K21.9 Gastro-esophageal reflux disease without esophagitis; G89.29 Other chronic pain; F41.9 Anxiety disorder, unspecified; F31.9 Bipolar disorder, unspecified; F20.9 Schizophrenia, unspecified; F12.90 Cannabis use, unspecified, uncomplicated; F15.90 Other stimulant use, unspecified, uncomplicated; Z86.73 Personal history of transient ischemic attack (TIA), and cerebral infarction without residual deficits; Z86.14 Personal history of Methicillin resistant Staphylococcus aureus infection; Z98.890 Other specified postprocedural states; Z72.89 Other problems related to lifestyle; Z60.2 Problems related to living alone; Z56.0 Unemployment, unspecified; Z59.00 Homelessness unspecified; Z91.018 Allergy to other foods; Z88.8 Allergy status to other drugs, medicaments and biological substances; Z79.2 Long term (current) use of antibiotics; Z79.899 Other long term (current) drug therapy; Y90.0 Blood alcohol level of less than 20 mg/100 ml
CPT/HCPCS: 36415; 70450; 80053; 80320; 83690; 85025; 99284

== ENCOUNTER 2022-03-08 18:30 | Emergency (ER) | payer MEDICAID ==
[~2022-03-08] VITALS: Ht 177.8 cm; Wt 81.8 kg
[~2022-03-08 18:30] MED LIST changes: -PERM60CR19 TOP
--- NOTE | 2022-03-08 19:30 | NUR ---
Patient given food and water.
[2022-03-08 20:06] LABS: BASOPHILS % (AUTO) 0.4 % (0-1); EOSINOPHILS # (AUTO) 0.1 X10'3 (0-0.9); EOSINOPHILS % (AUTO) 1.6 % (0-6); HEMATOCRIT 40.5 % (42.0-52.0); HEMOGLOBIN 13.8 g/dl (14.0-17.9); LYMPHOCYTES % (AUTO) 32.6 % (21-51); MEAN CORPUSCULAR HEMOGLOBIN 32.5 PG (27.0-31.0); MEAN CORPUSCULAR VOLUME 95.8 FL (78-98); MEAN PLATELET VOLUME 6.3 FL (7.4-10.4); MONOCYTES # (AUTO) 0.8 X10'3 (0-0.9); MONOCYTES % (AUTO) 12.2 % (2-12); NEUTROPHILS # (AUTO) 3.3 X10'3 (1.8-7.7); NEUTROPHILS % (AUTO) 53.2 % (42-75); PLATELET COUNT 363 X10'3 (140-440); RED BLOOD COUNT 4.23 X10'6 (4.70-6.10); RED CELL DISTRIBUTION WIDTH 14.4 % (11.5-14.5); WHITE BLOOD COUNT 6.2 X10'3 (4.5-11.0)
[2022-03-08 20:18] LABS: ALANINE AMINOTRANSFERASE 35 U/L (12-78); ALBUMIN 3.3 G/DL (3.4-5.0); ALBUMIN/GLOBULIN RATIO 0.9 (1.1-1.5); ALKALINE PHOSPHATASE 117 IU/L (46-116); ANION GAP 16 (8-16); ASPARTATE AMINO TRANSFERASE 30 U/L (10-37); BILIRUBIN,TOTAL 0.3 MG/DL (0.1-1.0); BLOOD UREA NITROGEN 7 MG/DL (7-18); BUN/CREATININE RATIO 8.4 (5.4-32.0); CALCIUM 8.2 MG/DL (8.5-10.1); CHLORIDE 104 MMOL/L (99-107); CREATININE 0.83 MG/DL (0.60-1.10); ETHANOL 0.211 GM/DL (0.0-0.010); GLUCOSE 105 MG/DL (70-104); POTASSIUM 3.2 MMOL/L (3.5-5.1); SODIUM 143 MMOL/L (135-145); TOTAL PROTEIN 6.8 G/DL (6.4-8.2); eGFR > 90 ML/MIN
[2022-03-08 22:18] VITALS: BP 99/67
== END 2022-03-08 22:30 | disposition home or self-care (01) ==
LOC: ER 18:30
DX: F10.129 Alcohol abuse with intoxication, unspecified (principal); I10 Essential (primary) hypertension; J45.909 Unspecified asthma, uncomplicated; K21.9 Gastro-esophageal reflux disease without esophagitis; G89.29 Other chronic pain; F12.90 Cannabis use, unspecified, uncomplicated; F15.90 Other stimulant use, unspecified, uncomplicated; Z86.73 Personal history of transient ischemic attack (TIA), and cerebral infarction without residual deficits; Z86.14 Personal history of Methicillin resistant Staphylococcus aureus infection; Z56.0 Unemployment, unspecified; Z59.00 Homelessness unspecified; Z60.2 Problems related to living alone; Z72.89 Other problems related to lifestyle; Z79.2 Long term (current) use of antibiotics; Z79.899 Other long term (current) drug therapy; Z88.8 Allergy status to other drugs, medicaments and biological substances; Z91.010 Allergy to peanuts; Z88.6 Allergy status to analgesic agent; Y90.7 Blood alcohol level of 200-239 mg/100 ml
CPT/HCPCS: 36415; 80053; 80320; 83735; 85025; 99283

== ENCOUNTER 2022-03-18 13:28 | Emergency (ER) | payer MEDICAID ==
[~2022-03-18] VITALS: Ht 167.6 cm; Wt 81.8 kg
--- NOTE | 2022-03-18 14:10 | NUR ---
pt wheeled to er bed 8. pt continues to yell and is fidgeting all over bed and wheelchair. security guards present during transfer and prior.
[2022-03-18] MEDS ORDERED: LORazepam 2 mg/ml vial IM ONE ×2 (14:25→20:40)
[2022-03-18] MEDS ORDERED: LIDOcaine 1% W/epiNEPHrine 1:200,000 10ml vial IJ ONE (14:25)
--- NOTE | 2022-03-18 14:45 | NUR ---
pt placed on cardiac care nurse. pt then ripped all leads off. unable to obtain vital signs at this time d/t pt moving around on bed, kicking wall, and rolling side to side. provider aware. plan to sedate for lip lac.
[2022-03-18] MEDS ORDERED: ketamine 50 mg/ml 10ml vial IM ONE (15:05)
--- NOTE | 2022-03-18 16:00 | NUR ---
400mg IM ketamine given with dr. hutson present. will wait until pt is more asleep for lip repair. suture tray placed at bedside.
[2022-03-18] MEDS ORDERED: LIDOcaine 1% W/epiNEPHrine 1:100,000 20ml vial SQ ONE (16:05)
--- NOTE | 2022-03-18 16:20 | NUR ---
dr. hutson and antonio SAUNDERS at bedside for lip repair. RT at bedside, end tidal placed on pt. 18G EJ placed by dr. hutson for additional ketamine admin.
[2022-03-18] MEDS ORDERED: ketamine 10mg/ml 20ml inj vial IV ONE ×2 (16:30)
[2022-03-18] MEDS ORDERED: ketamine 50 mg/ml 10ml vial ONE (16:30)
--- NOTE | 2022-03-18 16:35 | NUR ---
procedure completed. pt remains 92% and above on RA. pt is restless in bed, protecting airway, able to deep breath and cough. will closely monitor until pt is back to baseline.
--- NOTE | 2022-03-18 16:50 | NUR ---
pt repeatedly repositioned in bed for comfort. pt continues to scoot down bed and squirm around bed.
[2022-03-18] MEDS ORDERED: CEPH-585 PO (18:54)
--- NOTE | 2022-03-18 19:18 | NUR ---
PT ON ARUN FLAILING ABOUT. AWAKE AND ALERT, CLEARLY PHYSICALLY INPAIRED RELATED TO INTOXICATION. AWAITING RE EVALUATION.
[2022-03-18] MEDS ORDERED: OLANZapine **IM** 10 mg inj. IM ONE (20:40)
--- NOTE | 2022-03-19 01:05 | NUR ---
PT RESTING QUIETLY , CHEST RISING AND FALLING. NO ACUTE DISTRESS
--- NOTE | 2022-03-19 01:16 | NUR ---
PT GIVEN ICE WATER
--- NOTE | 2022-03-19 05:12 | NUR ---
PT RESTING WITH EYES CLOSED. CHEST RISING AND FALLING. NO ACUTE DISTRESS
--- NOTE | 2022-03-19 05:51 | NUR ---
In bed resting comfy, no acute distress, Chest rising and falling.
[2022-03-19] MEDS ORDERED: diphenhydrAMINE 50 mg/ml inj ONE (05:56)
--- NOTE | 2022-03-19 06:25 | NUR ---
Pt resting, eyes closed.
[2022-03-19 06:50] VITALS: BP 153/117
[2022-03-19] MEDS ORDERED: CEPH250T PO (07:53)
== END 2022-03-19 08:10 | disposition home or self-care (01) ==
LOC: ER 13:28
DX: S01.511A Laceration without foreign body of lip, initial encounter (principal); F10.129 Alcohol abuse with intoxication, unspecified; I10 Essential (primary) hypertension; J45.909 Unspecified asthma, uncomplicated; K21.9 Gastro-esophageal reflux disease without esophagitis; G89.29 Other chronic pain; F41.9 Anxiety disorder, unspecified; F31.9 Bipolar disorder, unspecified; F32.A Depression, unspecified; F20.9 Schizophrenia, unspecified; F12.90 Cannabis use, unspecified, uncomplicated; F15.90 Other stimulant use, unspecified, uncomplicated; Z86.73 Personal history of transient ischemic attack (TIA), and cerebral infarction without residual deficits; Z86.14 Personal history of Methicillin resistant Staphylococcus aureus infection; Z98.890 Other specified postprocedural states; Z72.89 Other problems related to lifestyle; Z60.2 Problems related to living alone; Z56.0 Unemployment, unspecified; Z59.00 Homelessness unspecified; Z88.8 Allergy status to other drugs, medicaments and biological substances; Z88.6 Allergy status to analgesic agent; Z91.018 Allergy to other foods; Z79.2 Long term (current) use of antibiotics; Z79.899 Other long term (current) drug therapy; Y90.9 Presence of alcohol in blood, level not specified
CPT/HCPCS: 12011; 96372; 99285; J1200; J2060; J3490

== ENCOUNTER 2022-03-21 02:58 | Emergency (ER) | payer MEDICAID, OTHER ==
[~2022-03-21] VITALS: Ht 177.8 cm; Wt 81.8 kg
[~2022-03-21 02:58] MED LIST changes: +CEPH-585 PO; +CEPH250T PO
[2022-03-21 06:22] LABS: BASOPHILS % (AUTO) 0.4 % (0-1); EOSINOPHILS # (AUTO) 0.1 X10'3 (0-0.9); EOSINOPHILS % (AUTO) 1.9 % (0-6); HEMATOCRIT 40.9 % (42.0-52.0); HEMOGLOBIN 13.9 g/dl (14.0-17.9); LYMPHOCYTES # (AUTO) 1.4 X10'3 (1.1-4.8); LYMPHOCYTES % (AUTO) 18.4 % (21-51); MEAN CORPUSCULAR HEMOGLOBIN 32.8 PG (27.0-31.0); MEAN CORPUSCULAR VOLUME 96.3 FL (78-98); MEAN PLATELET VOLUME 6.9 FL (7.4-10.4); MONOCYTES # (AUTO) 0.8 X10'3 (0-0.9); MONOCYTES % (AUTO) 10.7 % (2-12); NEUTROPHILS # (AUTO) 5.3 X10'3 (1.8-7.7); NEUTROPHILS % (AUTO) 68.6 % (42-75); PLATELET COUNT 276 X10'3 (140-440); RED BLOOD COUNT 4.25 X10'6 (4.70-6.10); RED CELL DISTRIBUTION WIDTH 14.3 % (11.5-14.5); WHITE BLOOD COUNT 7.7 X10'3 (4.5-11.0)
[2022-03-21 06:36] LABS: ALANINE AMINOTRANSFERASE 35 U/L (12-78); ALBUMIN 3.3 G/DL (3.4-5.0); ALBUMIN/GLOBULIN RATIO 0.9 (1.1-1.5); ALKALINE PHOSPHATASE 116 IU/L (46-116); ANION GAP 10 (8-16); ASPARTATE AMINO TRANSFERASE 35 U/L (10-37); BILIRUBIN,TOTAL 0.2 MG/DL (0.1-1.0); BLOOD UREA NITROGEN 6 MG/DL (7-18); BUN/CREATININE RATIO 9.2 (5.4-32.0); CALCIUM 8.1 MG/DL (8.5-10.1); CHLORIDE 107 MMOL/L (99-107); CREATININE 0.65 MG/DL (0.60-1.10); GLUCOSE 88 MG/DL (70-104); POTASSIUM 3.5 MMOL/L (3.5-5.1); SODIUM 142 MMOL/L (135-145); TOTAL CARBON DIOXIDE 25.2 MMOL/L (24-32); eGFR > 90 ML/MIN
[2022-03-21 06:40] LABS: MAGNESIUM 1.8 MG/DL (1.5-2.4)
[2022-03-21 07:20] LABS: URINE AMPHETAMINE SCREEN NEGATIVE (Neg); URINE BARBITUATE SCREEN NEGATIVE (Neg); URINE BENZODIAZEPINES SCREEN NEGATIVE (Neg); URINE CANNABINOID SCREEN POSITIVE (Neg); URINE COCAINE SCREEN NEGATIVE (Neg); URINE METHADONE SCREEN NEGATIVE (Neg); URINE OPIATE SCREEN NEGATIVE (Neg); URINE PHENCYCLIDINE SCREEN NEGATIVE (Neg)
[2022-03-21] MEDS ORDERED: CLIN-97 PO (09:27)
[2022-03-21 09:42] VITALS: BP 164/106
== END 2022-03-21 09:47 | disposition home or self-care (01) ==
LOC: ER 06:28
DX: S01.511D Laceration without foreign body of lip, subsequent encounter (principal); I10 Essential (primary) hypertension; J45.909 Unspecified asthma, uncomplicated; K21.9 Gastro-esophageal reflux disease without esophagitis; G89.29 Other chronic pain; F41.9 Anxiety disorder, unspecified; F31.9 Bipolar disorder, unspecified; F17.200 Nicotine dependence, unspecified, uncomplicated; F12.90 Cannabis use, unspecified, uncomplicated; F20.9 Schizophrenia, unspecified; F15.90 Other stimulant use, unspecified, uncomplicated; Z86.73 Personal history of transient ischemic attack (TIA), and cerebral infarction without residual deficits; Z86.14 Personal history of Methicillin resistant Staphylococcus aureus infection; Z98.890 Other specified postprocedural states; Z60.2 Problems related to living alone; Z72.89 Other problems related to lifestyle; Z56.0 Unemployment, unspecified; Z59.00 Homelessness unspecified; Z91.018 Allergy to other foods; Z88.6 Allergy status to analgesic agent; Z88.8 Allergy status to other drugs, medicaments and biological substances; Z79.2 Long term (current) use of antibiotics; Z79.899 Other long term (current) drug therapy; X58.XXXD Exposure to other specified factors, subsequent encounter
CPT/HCPCS: 36415; 71045; 80053; 80305; 83735; 84484; 85025; 93005; 99285

== ENCOUNTER 2022-05-11 22:41 | Emergency (ER) | payer MEDICAID ==
[~2022-05-11] VITALS: Ht 172.7 cm; Wt 77.3 kg
[~2022-05-11 22:41] MED LIST changes: -CEPH250T PO; +CLIN-97 PO
[2022-05-11] MEDS ORDERED: normal saline 1000ML IV soln IVB ONE (22:50)
[2022-05-12] VITALS: BP 128/82
--- NOTE | 2022-05-12 00:37 | NUR ---
pt pulled iv out. pt states he wants to leave. md informed pt left [facility] @ [phone]
== END 2022-05-12 00:40 | disposition home or self-care (01) ==
LOC: ER 22:42
DX: F10.129 Alcohol abuse with intoxication, unspecified (principal); I10 Essential (primary) hypertension; J45.909 Unspecified asthma, uncomplicated; K21.9 Gastro-esophageal reflux disease without esophagitis; G89.29 Other chronic pain; F41.9 Anxiety disorder, unspecified; F31.9 Bipolar disorder, unspecified; F20.9 Schizophrenia, unspecified; F12.90 Cannabis use, unspecified, uncomplicated; F15.90 Other stimulant use, unspecified, uncomplicated; Z86.73 Personal history of transient ischemic attack (TIA), and cerebral infarction without residual deficits; Z86.14 Personal history of Methicillin resistant Staphylococcus aureus infection; Z98.890 Other specified postprocedural states; Z60.2 Problems related to living alone; Z56.0 Unemployment, unspecified; Z59.00 Homelessness unspecified; Z88.6 Allergy status to analgesic agent; Z88.8 Allergy status to other drugs, medicaments and biological substances; Z91.010 Allergy to peanuts; Z79.2 Long term (current) use of antibiotics; Z79.899 Other long term (current) drug therapy; Y90.9 Presence of alcohol in blood, level not specified
CPT/HCPCS: 70450; 96360; 96361; 99284; J7030

== ENCOUNTER 2022-05-12 07:31 | Emergency (ER) | payer MEDICAID ==
[~2022-05-12] VITALS: Ht 177.8 cm; Wt 81.8 kg
[2022-05-12] MEDS ORDERED: normal saline 1000ML IV soln IVB ONE (07:40)
[2022-05-12 09:05] LABS: CLARITY,URINE CLEAR (Clear); COLOR,URINE STRAW (Yellow); GLUCOSE, URINE NEGATIVE (Neg); KETONES,URINE NEGATIVE (Neg); LEUKOCYTE ESTERASE ,URINE NEGATIVE (Neg); NITRITES, URINE NEGATIVE (Neg); OCCULT BLOOD,URINE TRACE-INTACT (Neg); PH,URINE 5.5 (4.8-8.0); PROTEIN,URINE NEGATIVE (Neg); UA COLLECTION TYPE FOLEY CATH; UROBILINOGEN,URINE 0.2 E.U/dL (0.2-1.0)
[2022-05-12 09:13] LABS: BACTERIA,URINE NONE SEEN /HPF (Neg); MUCUS STRANDS NONE SEEN /LPF (Neg); RBC,URINE 0-2 /HPF (0-2); SQUAMOUS EPITHELIAL CELL,UR NONE SEEN /LPF (FEW); WBC,URINE NONE SEEN /HPF (0-4)
[2022-05-12 09:28] LABS: URINE AMPHETAMINE SCREEN NEGATIVE (Neg); URINE BARBITUATE SCREEN NEGATIVE (Neg); URINE BENZODIAZEPINES SCREEN NEGATIVE (Neg); URINE CANNABINOID SCREEN NEGATIVE (Neg); URINE COCAINE SCREEN NEGATIVE (Neg); URINE METHADONE SCREEN NEGATIVE (Neg); URINE OPIATE SCREEN NEGATIVE (Neg); URINE PHENCYCLIDINE SCREEN NEGATIVE (Neg)
[2022-05-12 09:37] LABS: BASOPHILS % (AUTO) 0.2 % (0-1); EOSINOPHILS % (AUTO) 0.1 % (0-6); HEMATOCRIT 39.6 % (42.0-52.0); HEMOGLOBIN 13.4 g/dl (14.0-17.9); LYMPHOCYTES # (AUTO) 1.5 X10'3 (1.1-4.8); MEAN CORPUSCULAR HEMOGLOBIN 31.6 PG (27.0-31.0); MEAN CORPUSCULAR HGB CONC 33.8 g/dL (33.0-36.5); MEAN CORPUSCULAR VOLUME 93.7 FL (78-98); MEAN PLATELET VOLUME 6.7 FL (7.4-10.4); MONOCYTES # (AUTO) 1.4 X10'3 (0-0.9); MONOCYTES % (AUTO) 7.7 % (2-12); NEUTROPHILS # (AUTO) 15.6 X10'3 (1.8-7.7); PLATELET COUNT 421 X10'3 (140-440); RED BLOOD COUNT 4.23 X10'6 (4.70-6.10); RED CELL DISTRIBUTION WIDTH 13.3 % (11.5-14.5); WHITE BLOOD COUNT 18.6 X10'3 (4.5-11.0)
[2022-05-12 09:49] LABS: ALANINE AMINOTRANSFERASE 63 U/L (12-78); ALBUMIN 3.7 G/DL (3.4-5.0); ALBUMIN/GLOBULIN RATIO 1.1 (1.1-1.5); ALKALINE PHOSPHATASE 120 IU/L (46-116); ANION GAP 19 (8-16); ASPARTATE AMINO TRANSFERASE 155 U/L (10-37); BILIRUBIN,TOTAL 0.7 MG/DL (0.1-1.0); BLOOD UREA NITROGEN 7 MG/DL (7-18); BUN/CREATININE RATIO 8.8 (5.4-32.0); CALCIUM 7.8 MG/DL (8.5-10.1); CHLORIDE 103 MMOL/L (99-107); ETHANOL 0.226 GM/DL (0.0-0.010); GLUCOSE 98 MG/DL (70-104); POTASSIUM 3.7 MMOL/L (3.5-5.1); SODIUM 140 MMOL/L (135-145); TOTAL CARBON DIOXIDE 17.9 MMOL/L (24-32); eGFR > 90 ML/MIN
[2022-05-12 10:37] VITALS: BP 139/85
[2022-05-12] MEDS ORDERED: haloperidol lactate 5mg/ml inj IM ONE (10:55)
--- NOTE | 2022-05-12 11:12 | NUR ---
asked pt about haldol allergy, pt denied and said he can have haldol and benadryl. After medication administration, pt is stating he is allergic to haldol but benadryl is okay. pt on cardiac monitor technician, and will cont to monitor pt vitals.
--- NOTE | 2022-05-12 11:25 | NUR ---
PT HAS STOPPED YELLING. CURRENTLY EATING A SANDWICH AND DRINKING WATER.
--- NOTE | 2022-05-12 12:06 | NUR ---
PT CAUGHT WALKING OUT OF ER. PT DEMANDING TO LEAVE. FOLY CATH REMOVED AND IV DC'D. PT ADVISED TO STAY BUT HE REFUSED. WENT TO NOTIFY MD AND PT LEFT THROUGH THE AMBULANCE BAY.
[2022-05-20] MEDS ORDERED: SULF1TAB49 PO (09:24)
== END 2022-05-12 12:30 | disposition left against medical advice (07) ==
LOC: ER 07:32
DX: F10.920 Alcohol use, unspecified with intoxication, uncomplicated (principal); I11.9 Hypertensive heart disease without heart failure; K21.9 Gastro-esophageal reflux disease without esophagitis; G89.29 Other chronic pain; J45.909 Unspecified asthma, uncomplicated; F31.9 Bipolar disorder, unspecified; Z87.81 Personal history of (healed) traumatic fracture; F20.9 Schizophrenia, unspecified; Z88.8 Allergy status to other drugs, medicaments and biological substances; Z88.6 Allergy status to analgesic agent; Z79.899 Other long term (current) drug therapy
CPT/HCPCS: 80053; 80305; 80320; 81001; 82948; 85025; 93005; 96372; 99284; J1630; J7030; 51702; 99285; A4314

== ENCOUNTER 2022-05-18 03:54 | Emergency (ER) | payer MEDICAID ==
[~2022-05-18] VITALS: Ht 177.8 cm; Wt 81.8 kg
[2022-05-18 04:00] VITALS: BP 122/79
[2022-05-18 04:54] LABS: BASOPHILS % (AUTO) 0.4 % (0-1); EOSINOPHILS # (AUTO) 0.1 X10'3 (0-0.9); HEMATOCRIT 36.9 % (42.0-52.0); HEMOGLOBIN 12.5 g/dl (14.0-17.9); LYMPHOCYTES # (AUTO) 1.3 X10'3 (1.1-4.8); MEAN CORPUSCULAR HEMOGLOBIN 31.1 PG (27.0-31.0); MEAN CORPUSCULAR HGB CONC 33.8 g/dL (33.0-36.5); MEAN PLATELET VOLUME 6.1 FL (7.4-10.4); MONOCYTES # (AUTO) 1.2 X10'3 (0-0.9); MONOCYTES % (AUTO) 9.9 % (2-12); NEUTROPHILS # (AUTO) 9.3 X10'3 (1.8-7.7); NEUTROPHILS % (AUTO) 77.7 % (42-75); PLATELET COUNT 358 X10'3 (140-440); RED BLOOD COUNT 4.01 X10'6 (4.70-6.10); RED CELL DISTRIBUTION WIDTH 13.4 % (11.5-14.5)
[2022-05-18 05:08] LABS: ALANINE AMINOTRANSFERASE 62 U/L (12-78); ALBUMIN 3.3 G/DL (3.4-5.0); ALBUMIN/GLOBULIN RATIO 0.8 (1.1-1.5); ALKALINE PHOSPHATASE 126 IU/L (46-116); ANION GAP 12 (8-16); ASPARTATE AMINO TRANSFERASE 39 U/L (10-37); BILIRUBIN,TOTAL 0.3 MG/DL (0.1-1.0); BLOOD UREA NITROGEN 5 MG/DL (7-18); BUN/CREATININE RATIO 6.1 (5.4-32.0); CALCIUM 8.5 MG/DL (8.5-10.1); CHLORIDE 102 MMOL/L (99-107); CREATININE 0.82 MG/DL (0.60-1.10); ETHANOL 0.152 GM/DL (0.0-0.010); GLUCOSE 109 MG/DL (70-104); POTASSIUM 3.7 MMOL/L (3.5-5.1); SODIUM 137 MMOL/L (135-145); TOTAL CARBON DIOXIDE 23.3 MMOL/L (24-32); TOTAL PROTEIN 7.4 G/DL (6.4-8.2); eGFR > 90 ML/MIN
[2022-05-18] MEDS: normal saline 1000ML IV soln IVB ONE (05:15)
[2022-05-20] MEDS ORDERED: SULF1TAB49 PO (09:24)
== END 2022-05-18 05:21 | disposition home or self-care (01) ==
LOC: ER 03:55
DX: F10.129 Alcohol abuse with intoxication, unspecified (principal); I10 Essential (primary) hypertension; J45.909 Unspecified asthma, uncomplicated; K21.9 Gastro-esophageal reflux disease without esophagitis; F31.9 Bipolar disorder, unspecified; E11.9 Type 2 diabetes mellitus without complications; F12.90 Cannabis use, unspecified, uncomplicated; F15.20 Other stimulant dependence, uncomplicated; Z88.5 Allergy status to narcotic agent; Z88.8 Allergy status to other drugs, medicaments and biological substances; Z91.018 Allergy to other foods; Z56.0 Unemployment, unspecified; Z59.00 Homelessness unspecified; Y90.0 Blood alcohol level of less than 20 mg/100 ml
CPT/HCPCS: 80053; 80320; 85025; 96360; 99284; J7030

== ENCOUNTER 2022-05-20 21:45 | Emergency (ER) | payer MEDICAID ==
[~2022-05-20] VITALS: Ht 177.8 cm; Wt 87.5 kg
[~2022-05-20 21:45] MED LIST changes: +SULF1TAB49 PO
[2022-05-20 22:46] VITALS: BP 133/93
== END 2022-05-21 05:45 | disposition left against medical advice (07) ==
LOC: ER 21:46
DX: Z48.00 Encounter for change or removal of nonsurgical wound dressing (principal); Z53.21 Procedure and treatment not carried out due to patient leaving prior to being seen by health care provider

== ENCOUNTER 2022-05-21 08:53 | Emergency (ER) | payer MEDICAID ==
[~2022-05-21] VITALS: Ht 175.3 cm; Wt 75.0 kg
[2022-05-21 08:55] VITALS: BP 136/82
== END 2022-05-21 09:05 ==
LOC: ER 08:53
DX: S80.212A Abrasion, left knee, initial encounter (principal); S80.211A Abrasion, right knee, initial encounter; H57.12 Ocular pain, left eye; Z02.89 Encounter for other administrative examinations; X58.XXXA Exposure to other specified factors, initial encounter; Y99.8 Other external cause status; Y93.89 Activity, other specified; Y92.89 Other specified places as the place of occurrence of the external cause
CPT/HCPCS: 99283

== ENCOUNTER 2022-05-22 17:56 | Emergency (ER) | payer MEDICAID ==
[~2022-05-22] VITALS: Ht 177.8 cm; Wt 81.0 kg
--- NOTE | 2022-05-22 20:29 | NUR ---
pt waiting on EMS gurney in [facility], brought to room 10
[2022-05-22] MEDS ORDERED: multivitamins, therapeutics tablet PO SCH (20:45)
[2022-05-22] MEDS ORDERED: multivitamins, therapeutics tablet PO ONE (20:45)
[2022-05-22] MEDS ORDERED: normal saline 1000ml 1,000 ML IV ONE (20:45)
--- NOTE | 2022-05-22 20:57 | NUR ---
ASSISTED PT WITH USING URINAL, 500ML OF DARK YELLOW URINE OUT
[2022-05-22 21:02] LABS: BASOPHILS % (AUTO) 0.3 % (0-1); EOSINOPHILS # (AUTO) 0.1 X10'3 (0-0.9); EOSINOPHILS % (AUTO) 1.1 % (0-6); HEMATOCRIT 34.8 % (42.0-52.0); HEMOGLOBIN 11.8 g/dl (14.0-17.9); LYMPHOCYTES # (AUTO) 1.5 X10'3 (1.1-4.8); LYMPHOCYTES % (AUTO) 20.2 % (21-51); MEAN CORPUSCULAR HEMOGLOBIN 31.3 PG (27.0-31.0); MEAN CORPUSCULAR VOLUME 92.1 FL (78-98); MONOCYTES # (AUTO) 0.7 X10'3 (0-0.9); MONOCYTES % (AUTO) 9.9 % (2-12); NEUTROPHILS # (AUTO) 5.1 X10'3 (1.8-7.7); NEUTROPHILS % (AUTO) 68.5 % (42-75); PLATELET COUNT 411 X10'3 (140-440); RED BLOOD COUNT 3.78 X10'6 (4.70-6.10); RED CELL DISTRIBUTION WIDTH 13.3 % (11.5-14.5); WHITE BLOOD COUNT 7.4 X10'3 (4.5-11.0)
[2022-05-22 21:12] LABS: ALANINE AMINOTRANSFERASE 48 U/L (12-78); ALBUMIN 2.6 G/DL (3.4-5.0); ALBUMIN/GLOBULIN RATIO 0.6 (1.1-1.5); ALKALINE PHOSPHATASE 142 IU/L (46-116); ANION GAP 11 (8-16); ASPARTATE AMINO TRANSFERASE 31 U/L (10-37); BILIRUBIN,TOTAL 0.2 MG/DL (0.1-1.0); BLOOD UREA NITROGEN 7 MG/DL (7-18); CALCIUM 7.8 MG/DL (8.5-10.1); CHLORIDE 106 MMOL/L (99-107); ETHANOL 0.257 GM/DL (0.0-0.010); GLUCOSE 111 MG/DL (70-104); POTASSIUM 3.6 MMOL/L (3.5-5.1); SODIUM 140 MMOL/L (135-145); TOTAL CARBON DIOXIDE 23.4 MMOL/L (24-32); TOTAL PROTEIN 6.9 G/DL (6.4-8.2); eGFR > 90 ML/MIN
[2022-05-22] MEDS ORDERED: bacitracin/polymyxin B 15 GM ointment TP SCH (22:39)
[2022-05-22 23:15] VITALS: BP 128/82
[2022-05-23] MEDS ORDERED: neomy sulf/bacitrac zn/polymixin b oint 14.2 gm tube TP SCH (08:00)
== END 2022-05-22 23:17 | disposition home or self-care (01) ==
LOC: ER 17:56
DX: S09.90XA Unspecified injury of head, initial encounter (principal); F10.129 Alcohol abuse with intoxication, unspecified; I10 Essential (primary) hypertension; K21.9 Gastro-esophageal reflux disease without esophagitis; F31.9 Bipolar disorder, unspecified; E11.9 Type 2 diabetes mellitus without complications; Z91.018 Allergy to other foods; Z88.5 Allergy status to narcotic agent; Z56.0 Unemployment, unspecified; Z59.00 Homelessness unspecified; Y90.9 Presence of alcohol in blood, level not specified; X58.XXXA Exposure to other specified factors, initial encounter; Y93.89 Activity, other specified; Y92.89 Other specified places as the place of occurrence of the external cause; Y99.8 Other external cause status
CPT/HCPCS: 70450; 80053; 80320; 85025; 96360; 99284; J7030

== ENCOUNTER 2022-05-24 01:55 | Emergency (ER) | payer MEDICAID ==
[2022-05-24 02:39] VITALS: BP 127/80
== END 2022-05-24 07:21 | disposition left against medical advice (07) ==
LOC: ER 01:56
DX: M79.643 Pain in unspecified hand (principal); Z53.21 Procedure and treatment not carried out due to patient leaving prior to being seen by health care provider

== ENCOUNTER 2022-05-27 06:50 | Emergency (ER) | payer MEDICAID ==
[~2022-05-27] VITALS: Ht 177.8 cm; Wt 81.8 kg
[2022-05-27 07:07] VITALS: BP 150/105
[2022-05-27] MEDS ORDERED: DOXY-1 PO (09:13)
== END 2022-05-27 09:29 | disposition home or self-care (01) ==
LOC: ER 06:50
DX: Z48.01 Encounter for change or removal of surgical wound dressing (principal); I10 Essential (primary) hypertension; K21.9 Gastro-esophageal reflux disease without esophagitis; J45.909 Unspecified asthma, uncomplicated; F31.9 Bipolar disorder, unspecified; E11.9 Type 2 diabetes mellitus without complications; F12.90 Cannabis use, unspecified, uncomplicated; F15.20 Other stimulant dependence, uncomplicated; Z88.8 Allergy status to other drugs, medicaments and biological substances; Z88.5 Allergy status to narcotic agent; Z91.018 Allergy to other foods; Z56.0 Unemployment, unspecified; Z59.00 Homelessness unspecified
CPT/HCPCS: 99283

== ENCOUNTER 2022-05-27 23:11 | Emergency (ER) | payer MEDICAID ==
[~2022-05-27] VITALS: Ht 177.8 cm; Wt 81.8 kg
[~2022-05-27 23:11] MED LIST changes: +DOXY-1 PO
[2022-05-27 23:58] VITALS: BP 120/90
== END 2022-05-28 01:31 | disposition left against medical advice (07) ==
LOC: ER 23:12
DX: K92.1 Melena (principal); Z53.21 Procedure and treatment not carried out due to patient leaving prior to being seen by health care provider

== ENCOUNTER 2022-05-28 14:26 | Emergency (ER) | payer MEDICAID ==
[~2022-05-28] VITALS: Ht 177.8 cm; Wt 79.0 kg
[2022-05-28 14:39] VITALS: BP 136/93
== END 2022-05-28 14:53 | disposition left against medical advice (07) ==
LOC: ER 14:26
DX: F10.239 Alcohol dependence with withdrawal, unspecified (principal); Y90.9 Presence of alcohol in blood, level not specified; Z53.21 Procedure and treatment not carried out due to patient leaving prior to being seen by health care provider

== ENCOUNTER 2022-05-29 02:38 | Emergency (ER) | payer MEDICAID ==
[~2022-05-29 02:38] MED LIST changes: -SULF1TAB49 PO
== END 2022-05-29 09:04 | disposition left against medical advice (07) ==
LOC: ER 02:39
DX: K92.1 Melena (principal); Z53.21 Procedure and treatment not carried out due to patient leaving prior to being seen by health care provider

== ENCOUNTER 2022-05-29 10:07 | Emergency (ER) | payer MEDICAID ==
[~2022-05-29] VITALS: Ht 172.7 cm; Wt 79.0 kg
[2022-05-29 10:09] VITALS: BP 127/88
== END 2022-05-29 10:22 | disposition left against medical advice (07) ==
LOC: ER 10:08
DX: Z00.8 Encounter for other general examination (principal); F10.129 Alcohol abuse with intoxication, unspecified; I10 Essential (primary) hypertension; J45.909 Unspecified asthma, uncomplicated; K21.9 Gastro-esophageal reflux disease without esophagitis; F31.9 Bipolar disorder, unspecified; E11.9 Type 2 diabetes mellitus without complications; F12.90 Cannabis use, unspecified, uncomplicated; F15.20 Other stimulant dependence, uncomplicated; Z88.8 Allergy status to other drugs, medicaments and biological substances; Z88.5 Allergy status to narcotic agent; Z91.018 Allergy to other foods; Z59.00 Homelessness unspecified; Z56.0 Unemployment, unspecified; Y90.9 Presence of alcohol in blood, level not specified
CPT/HCPCS: 99283

== ENCOUNTER 2022-05-29 11:22 | Emergency (ER) | payer MEDICAID | END 2022-05-29 12:48 | disposition left against medical advice (07) | LOC: ER 11:23 | DX: Z00.8 Encounter for other general examination (principal); I10 Essential (primary) hypertension; J45.909 Unspecified asthma, uncomplicated; K21.9 Gastro-esophageal reflux disease without esophagitis; F31.9 Bipolar disorder, unspecified; E11.9 Type 2 diabetes mellitus without complications; F12.90 Cannabis use, unspecified, uncomplicated; F15.20 Other stimulant dependence, uncomplicated; Z88.8 Allergy status to other drugs, medicaments and biological substances; Z88.5 Allergy status to narcotic agent; Z91.018 Allergy to other foods; Z59.00 Homelessness unspecified; Z56.0 Unemployment, unspecified | CPT/HCPCS: 99283 ==

== ENCOUNTER 2022-05-30 13:48 | Emergency (ER) | payer MEDICAID ==
[~2022-05-30] VITALS: Ht 177.8 cm; Wt 81.7 kg
[2022-05-30 14:01] VITALS: BP 137/96
[2022-05-30] MEDS ORDERED: acetaminophen 325mg tablet PO ONE (15:30)
[2022-05-30] MEDS ORDERED: bacitracin 15gm ointment TP ONE (15:30)
--- NOTE | 2022-05-30 15:38 | NUR ---
po med given topical applied dressing applied
== END 2022-05-30 16:01 | disposition home or self-care (01) ==
LOC: ER 13:48
DX: S60.512D Abrasion of left hand, subsequent encounter (principal); S60.511D Abrasion of right hand, subsequent encounter; Z48.00 Encounter for change or removal of nonsurgical wound dressing; I11.9 Hypertensive heart disease without heart failure; J45.909 Unspecified asthma, uncomplicated; G89.29 Other chronic pain; F31.9 Bipolar disorder, unspecified; F20.9 Schizophrenia, unspecified; K21.9 Gastro-esophageal reflux disease without esophagitis; M54.9 Dorsalgia, unspecified; F12.10 Cannabis abuse, uncomplicated; F15.10 Other stimulant abuse, uncomplicated; Z86.14 Personal history of Methicillin resistant Staphylococcus aureus infection; Z91.010 Allergy to peanuts; Z79.899 Other long term (current) drug therapy; X58.XXXD Exposure to other specified factors, subsequent encounter
CPT/HCPCS: 99283; A6258; A6449

== ENCOUNTER 2022-06-01 15:34 | Emergency (ER) | payer MEDICAID ==
[~2022-06-01] VITALS: Ht 177.8 cm; Wt 81.8 kg
[2022-06-01 15:59] VITALS: BP 101/66
== END 2022-06-01 17:48 | disposition home or self-care (01) ==
LOC: ER 15:35
DX: S80.212D Abrasion, left knee, subsequent encounter (principal); S80.211D Abrasion, right knee, subsequent encounter; S60.512D Abrasion of left hand, subsequent encounter; S60.511D Abrasion of right hand, subsequent encounter; F31.9 Bipolar disorder, unspecified; F20.9 Schizophrenia, unspecified; K21.9 Gastro-esophageal reflux disease without esophagitis; Z87.81 Personal history of (healed) traumatic fracture; F12.10 Cannabis abuse, uncomplicated; F15.10 Other stimulant abuse, uncomplicated; Z91.010 Allergy to peanuts; Z88.8 Allergy status to other drugs, medicaments and biological substances; Z79.899 Other long term (current) drug therapy; Z79.2 Long term (current) use of antibiotics; Z56.0 Unemployment, unspecified; Z59.00 Homelessness unspecified; X58.XXXD Exposure to other specified factors, subsequent encounter
CPT/HCPCS: 99284; A6222; A6223; A6446; A6449

== ENCOUNTER 2022-06-04 22:11 | Emergency (ER) | payer MEDICAID | END 2022-06-04 23:30 | disposition left against medical advice (07) | LOC: ER 22:12 | DX: Z00.8 Encounter for other general examination (principal); Z53.21 Procedure and treatment not carried out due to patient leaving prior to being seen by health care provider ==

== ENCOUNTER 2022-06-08 07:28 | Emergency (ER) | payer MEDICAID ==
[~2022-06-08] VITALS: Ht 177.8 cm; Wt 81.8 kg
[~2022-06-08 07:28] MED LIST changes: -DOXY-1 PO
[2022-06-08 07:44] VITALS: BP 139/87
== END 2022-06-08 09:33 | disposition home or self-care (01) ==
LOC: ER 07:29
DX: Z48.00 Encounter for change or removal of nonsurgical wound dressing (principal); I10 Essential (primary) hypertension; J45.909 Unspecified asthma, uncomplicated; K21.9 Gastro-esophageal reflux disease without esophagitis; F31.9 Bipolar disorder, unspecified; E11.9 Type 2 diabetes mellitus without complications; F12.90 Cannabis use, unspecified, uncomplicated; F15.20 Other stimulant dependence, uncomplicated; Z88.8 Allergy status to other drugs, medicaments and biological substances; Z88.5 Allergy status to narcotic agent; Z91.018 Allergy to other foods; Z59.00 Homelessness unspecified; Z56.0 Unemployment, unspecified
CPT/HCPCS: 99281

== ENCOUNTER 2022-06-10 04:23 | Emergency (ER) | payer MEDICAID ==
[~2022-06-10] VITALS: Ht 177.8 cm; Wt 81.8 kg
[2022-06-10 05:53] LABS: BASOPHILS % (AUTO) 0.6 % (0-1); EOSINOPHILS # (AUTO) 0.2 X10'3 (0-0.9); EOSINOPHILS % (AUTO) 3.3 % (0-6); HEMATOCRIT 37.1 % (42.0-52.0); HEMOGLOBIN 12.5 g/dl (14.0-17.9); LYMPHOCYTES # (AUTO) 1.9 X10'3 (1.1-4.8); LYMPHOCYTES % (AUTO) 26.4 % (21-51); MEAN CORPUSCULAR HEMOGLOBIN 32.5 PG (27.0-31.0); MEAN CORPUSCULAR HGB CONC 33.8 g/dL (33.0-36.5); MEAN CORPUSCULAR VOLUME 96.2 FL (78-98); MEAN PLATELET VOLUME 6.5 FL (7.4-10.4); MONOCYTES # (AUTO) 0.8 X10'3 (0-0.9); MONOCYTES % (AUTO) 10.8 % (2-12); NEUTROPHILS # (AUTO) 4.2 X10'3 (1.8-7.7); NEUTROPHILS % (AUTO) 58.9 % (42-75); PLATELET COUNT 371 X10'3 (140-440); RED BLOOD COUNT 3.86 X10'6 (4.70-6.10); RED CELL DISTRIBUTION WIDTH 14.8 % (11.5-14.5); WHITE BLOOD COUNT 7.1 X10'3 (4.5-11.0)
[2022-06-10 06:01] LABS: ALANINE AMINOTRANSFERASE 22 U/L (12-78); ALBUMIN/GLOBULIN RATIO 0.7 (1.1-1.5); ALKALINE PHOSPHATASE 120 IU/L (46-116); ANION GAP 3 (8-16); ASPARTATE AMINO TRANSFERASE 22 U/L (10-37); BILIRUBIN,TOTAL 0.2 MG/DL (0.1-1.0); BLOOD UREA NITROGEN 15 MG/DL (7-18); BUN/CREATININE RATIO 16.3 (5.4-32.0); CHLORIDE 106 MMOL/L (99-107); CREATININE 0.92 MG/DL (0.60-1.10); GLUCOSE 92 MG/DL (70-104); POTASSIUM 3.7 MMOL/L (3.5-5.1); SODIUM 137 MMOL/L (135-145); TOTAL CARBON DIOXIDE 27.6 MMOL/L (24-32); TOTAL PROTEIN 7.2 G/DL (6.4-8.2); eGFR > 90 ML/MIN
--- NOTE | 2022-06-10 06:35 | NUR ---
Recieved report from [facility]he[facility].
[2022-06-10] MEDS ORDERED: aspirin 81mg tab.chew PO ONE (07:20)
--- NOTE | 2022-06-10 09:34 | NUR ---
Pt resting, easily awaken, no acute distress noted,disposition pending.
[2022-06-10 10:23] VITALS: BP 122/88
== END 2022-06-10 10:26 | disposition home or self-care (01) ==
LOC: ER 04:24
DX: R07.89 Other chest pain (principal); R19.7 Diarrhea, unspecified; I10 Essential (primary) hypertension; J45.909 Unspecified asthma, uncomplicated; K21.9 Gastro-esophageal reflux disease without esophagitis; G89.29 Other chronic pain; F31.9 Bipolar disorder, unspecified; E11.9 Type 2 diabetes mellitus without complications; F12.90 Cannabis use, unspecified, uncomplicated; F15.20 Other stimulant dependence, uncomplicated; Z88.8 Allergy status to other drugs, medicaments and biological substances; Z88.5 Allergy status to narcotic agent; Z91.018 Allergy to other foods; Z59.00 Homelessness unspecified; Z56.0 Unemployment, unspecified
CPT/HCPCS: 36415; 71045; 80053; 83880; 84484; 85025; 93005; 99285

== ENCOUNTER 2022-06-16 00:50 | Emergency (ER) | payer MEDICAID ==
[~2022-06-16] VITALS: Ht 177.8 cm; Wt 82.0 kg
[2022-06-16 00:55] VITALS: BP 141/104
== END 2022-06-16 03:30 | disposition left against medical advice (07) ==
LOC: ER 00:51
DX: E87.79 Other fluid overload (principal); Z53.21 Procedure and treatment not carried out due to patient leaving prior to being seen by health care provider

== ENCOUNTER 2022-07-02 13:54 | Emergency (ER) | payer MEDICAID ==
[~2022-07-02] VITALS: Ht 177.8 cm; Wt 89.0 kg
[~2022-07-02 13:54] MED LIST changes: -CHLO25TA22 PO; +CHLO25TA68 PO
[2022-07-02 14:05] VITALS: BP 168/111
== END 2022-07-02 15:36 | disposition home or self-care (01) ==
LOC: ER 13:56
DX: S91.302A Unspecified open wound, left foot, initial encounter (principal); S91.301A Unspecified open wound, right foot, initial encounter; J45.909 Unspecified asthma, uncomplicated; K21.9 Gastro-esophageal reflux disease without esophagitis; I12.9 Hypertensive chronic kidney disease with stage 1 through stage 4 chronic kidney disease, or unspecified chronic kidney disease; E11.22 Type 2 diabetes mellitus with diabetic chronic kidney disease; N18.9 Chronic kidney disease, unspecified; F31.9 Bipolar disorder, unspecified; F12.90 Cannabis use, unspecified, uncomplicated; F15.20 Other stimulant dependence, uncomplicated; Z59.00 Homelessness unspecified; Z74.1 Need for assistance with personal care; Z91.010 Allergy to peanuts; Z88.5 Allergy status to narcotic agent; Z88.8 Allergy status to other drugs, medicaments and biological substances; Z88.6 Allergy status to analgesic agent; Z56.0 Unemployment, unspecified; X58.XXXA Exposure to other specified factors, initial encounter; Y93.89 Activity, other specified; Y92.89 Other specified places as the place of occurrence of the external cause; Y99.8 Other external cause status
CPT/HCPCS: 99281

== ENCOUNTER 2022-07-13 07:21 | Emergency (ER) | payer MEDICAID | END 2022-07-13 08:53 | disposition left against medical advice (07) | LOC: ER 07:21 | DX: R10.9 Unspecified abdominal pain (principal); R19.7 Diarrhea, unspecified; Z53.21 Procedure and treatment not carried out due to patient leaving prior to being seen by health care provider ==

== ENCOUNTER 2022-07-16 12:51 | Emergency (ER) | payer MEDICAID ==
[~2022-07-16] VITALS: Ht 177.8 cm; Wt 81.8 kg
[2022-07-16 12:55] VITALS: BP 97/64
== END 2022-07-16 14:27 | disposition left against medical advice (07) ==
LOC: ER 12:53
DX: M79.673 Pain in unspecified foot (principal); Z53.21 Procedure and treatment not carried out due to patient leaving prior to being seen by health care provider

== ENCOUNTER 2022-07-18 18:21 | Emergency (ER) | payer MEDICAID ==
[~2022-07-18] VITALS: Ht 177.8 cm; Wt 81.8 kg
[2022-07-18] MEDS ORDERED: normal saline 1000ML IV soln IVB ONE (21:45)
[2022-07-18 22:08] LABS: BASOPHILS # (AUTO) 0.1 X10'3 (0-0.2); BASOPHILS % (AUTO) 0.5 % (0-1); EOSINOPHILS # (AUTO) 0.2 X10'3 (0-0.9); EOSINOPHILS % (AUTO) 1.8 % (0-6); HEMATOCRIT 44.9 % (42.0-52.0); HEMOGLOBIN 15.5 g/dl (14.0-17.9); LYMPHOCYTES # (AUTO) 4.2 X10'3 (1.1-4.8); LYMPHOCYTES % (AUTO) 43.5 % (21-51); MEAN CORPUSCULAR HGB CONC 34.6 g/dL (33.0-36.5); MEAN CORPUSCULAR VOLUME 92.5 FL (78-98); MEAN PLATELET VOLUME 6.5 FL (7.4-10.4); MONOCYTES # (AUTO) 0.9 X10'3 (0-0.9); MONOCYTES % (AUTO) 9.8 % (2-12); NEUTROPHILS # (AUTO) 4.3 X10'3 (1.8-7.7); NEUTROPHILS % (AUTO) 44.4 % (42-75); PLATELET COUNT 413 X10'3 (140-440); RED BLOOD COUNT 4.85 X10'6 (4.70-6.10); RED CELL DISTRIBUTION WIDTH 14.1 % (11.5-14.5); WHITE BLOOD COUNT 9.6 X10'3 (4.5-11.0)
[2022-07-18 22:14] LABS: ALANINE AMINOTRANSFERASE 21 U/L (12-78); ALBUMIN 4.3 G/DL (3.4-5.0); ALKALINE PHOSPHATASE 99 IU/L (46-116); ANION GAP 15 (8-16); ASPARTATE AMINO TRANSFERASE 21 U/L (10-37); BILIRUBIN,TOTAL 0.2 MG/DL (0.1-1.0); BLOOD UREA NITROGEN 9 MG/DL (7-18); BUN/CREATININE RATIO 10.3 (5.4-32.0); CALCIUM 8.7 MG/DL (8.5-10.1); CHLORIDE 103 MMOL/L (99-107); CREATININE 0.87 MG/DL (0.60-1.10); ETHANOL 0.262 GM/DL (0.0-0.010); GLUCOSE 121 MG/DL (70-104); POTASSIUM 4.1 MMOL/L (3.5-5.1); SODIUM 141 MMOL/L (135-145); TOTAL CARBON DIOXIDE 23.5 MMOL/L (24-32); TOTAL PROTEIN 8.4 G/DL (6.4-8.2); eGFR > 90 ML/MIN
--- NOTE | 2022-07-18 22:25 | NUR ---
PT. STATED HE CAN NOT PEE AT THIS MOMENT.
[2022-07-19 04:12] VITALS: BP 130/80
== END 2022-07-19 04:16 | disposition home or self-care (01) ==
LOC: ER 18:22
DX: F10.920 Alcohol use, unspecified with intoxication, uncomplicated (principal); I11.9 Hypertensive heart disease without heart failure; J45.909 Unspecified asthma, uncomplicated; K21.9 Gastro-esophageal reflux disease without esophagitis; F31.9 Bipolar disorder, unspecified; F20.9 Schizophrenia, unspecified; Z87.81 Personal history of (healed) traumatic fracture; Z87.448 Personal history of other diseases of urinary system; Z86.14 Personal history of Methicillin resistant Staphylococcus aureus infection; F17.200 Nicotine dependence, unspecified, uncomplicated; F12.10 Cannabis abuse, uncomplicated; F15.10 Other stimulant abuse, uncomplicated; Z59.00 Homelessness unspecified; Z56.0 Unemployment, unspecified; Z91.010 Allergy to peanuts; Z88.8 Allergy status to other drugs, medicaments and biological substances; Z88.6 Allergy status to analgesic agent; Z79.899 Other long term (current) drug therapy; Z79.1 Long term (current) use of non-steroidal anti-inflammatories (NSAID); Z79.2 Long term (current) use of antibiotics
CPT/HCPCS: 36415; 80053; 80320; 85025; 96360; 99283; J7030; 96372

== ENCOUNTER 2023-03-28 00:02 | Emergency (ER) | payer MEDICAID ==
[~2023-03-28] VITALS: Ht 180.3 cm; Wt 102.3 kg
[~2023-03-28 00:02] MED LIST changes: +ALBU6.7H14 INH; -ALBU6.7H9 INH; -BENZ1TAB7 PO; +BENZ1TAB78 PO; -CEPH-585 PO
[2023-03-28] MEDS ORDERED: LORazepam 2 mg/ml vial IV ONE (01:15)
[2023-03-28] MEDS ORDERED: normal saline 1000ML IV soln IVB ONE ×2 (01:15→02:30)
[2023-03-28 01:51] LABS: BASOPHILS % (AUTO) 0.4 % (0-1); EOSINOPHILS # (AUTO) 0.1 X10'3 (0-0.9); EOSINOPHILS % (AUTO) 0.6 % (0-6); HEMATOCRIT 41.8 % (42.0-52.0); HEMOGLOBIN 14.4 g/dl (14.0-17.9); LYMPHOCYTES # (AUTO) 1.6 X10'3 (1.1-4.8); LYMPHOCYTES % (AUTO) 16.1 % (21-51); MEAN CORPUSCULAR HEMOGLOBIN 30.1 PG (27.0-31.0); MEAN CORPUSCULAR HGB CONC 34.4 g/dL (33.0-36.5); MEAN CORPUSCULAR VOLUME 87.6 FL (78-98); MEAN PLATELET VOLUME 6.4 FL (7.4-10.4); MONOCYTES # (AUTO) 0.9 X10'3 (0-0.9); MONOCYTES % (AUTO) 8.9 % (2-12); NEUTROPHILS # (AUTO) 7.3 X10'3 (1.8-7.7); PLATELET COUNT 357 X10'3 (140-440); RED BLOOD COUNT 4.78 X10'6 (4.70-6.10); RED CELL DISTRIBUTION WIDTH 13.9 % (11.5-14.5); WHITE BLOOD COUNT 9.8 X10'3 (4.5-11.0)
[2023-03-28 02:04] LABS: ALANINE AMINOTRANSFERASE 126 U/L (12-78); ALBUMIN 3.6 G/DL (3.4-5.0); ALBUMIN/GLOBULIN RATIO 1.1 (1.1-1.5); ALKALINE PHOSPHATASE 227 IU/L (46-116); ANION GAP 11 (8-16); ASPARTATE AMINO TRANSFERASE 118 U/L (10-37); BILIRUBIN,TOTAL 0.3 MG/DL (0.1-1.0); BLOOD UREA NITROGEN 5 MG/DL (7-18); BUN/CREATININE RATIO 5.9 (10.0-20.0); CHLORIDE 101 MMOL/L (99-107); CREATININE 0.85 MG/DL (0.60-1.10); ETHANOL 0.276 GM/DL (0.0-0.010); GLUCOSE 128 MG/DL (70-104); MAGNESIUM 2.4 MG/DL (1.5-2.4); POTASSIUM 3.2 MMOL/L (3.5-5.1); SODIUM 141 MMOL/L (135-145); TOTAL CARBON DIOXIDE 28.7 MMOL/L (24-32); eGFR > 90 ML/MIN
[2023-03-28 06:35] VITALS: BP 139/89
[2023-03-28 06:48] LABS: CLARITY,URINE CLEAR (Clear); COLOR,URINE YELLOW (Yellow); GLUCOSE, URINE NEGATIVE (Neg); KETONES,URINE NEGATIVE (Neg); LEUKOCYTE ESTERASE ,URINE NEGATIVE (Neg); NITRITES, URINE NEGATIVE (Neg); OCCULT BLOOD,URINE NEGATIVE (Neg); PROTEIN,URINE NEGATIVE (Neg); UROBILINOGEN,URINE 0.2 E.U/dL (0.2-1.0)
[2023-03-28 06:59] LABS: UA COLLECTION TYPE URINAL
[2023-03-28 07:01] LABS: URINE AMPHETAMINE SCREEN NEGATIVE (Neg); URINE BARBITUATE SCREEN NEGATIVE (Neg); URINE BENZODIAZEPINES SCREEN NEGATIVE (Neg); URINE CANNABINOID SCREEN POSITIVE (Neg); URINE COCAINE SCREEN NEGATIVE (Neg); URINE METHADONE SCREEN NEGATIVE (Neg); URINE OPIATE SCREEN NEGATIVE (Neg); URINE PHENCYCLIDINE SCREEN NEGATIVE (Neg)
== END 2023-03-28 06:36 | disposition home or self-care (01) ==
LOC: ER 00:03
DX: F10.129 Alcohol abuse with intoxication, unspecified (principal); I10 Essential (primary) hypertension; J45.909 Unspecified asthma, uncomplicated; K21.9 Gastro-esophageal reflux disease without esophagitis; G89.29 Other chronic pain; F41.9 Anxiety disorder, unspecified; F31.9 Bipolar disorder, unspecified; F12.90 Cannabis use, unspecified, uncomplicated; F15.90 Other stimulant use, unspecified, uncomplicated; Z60.2 Problems related to living alone; Z56.0 Unemployment, unspecified; Z59.00 Homelessness unspecified; Z98.890 Other specified postprocedural states; Z86.73 Personal history of transient ischemic attack (TIA), and cerebral infarction without residual deficits; Z91.018 Allergy to other foods; Z88.8 Allergy status to other drugs, medicaments and biological substances; Z79.899 Other long term (current) drug therapy; Y90.9 Presence of alcohol in blood, level not specified
CPT/HCPCS: 36415; 80053; 80305; 80320; 81003; 83735; 85025; 96360; 96361; 99284; J7030

== ENCOUNTER 2023-03-29 08:51 | Emergency (ER) | payer MEDICAID ==
[~2023-03-29] VITALS: Ht 177.8 cm; Wt 90.9 kg
[2023-03-29 09:37] VITALS: BP 136/99
== END 2023-03-29 10:06 | disposition home or self-care (01) ==
LOC: ER 08:51
DX: F41.9 Anxiety disorder, unspecified (principal); F10.10 Alcohol abuse, uncomplicated; F19.10 Other psychoactive substance abuse, uncomplicated; I10 Essential (primary) hypertension; J45.909 Unspecified asthma, uncomplicated; K21.9 Gastro-esophageal reflux disease without esophagitis; F31.9 Bipolar disorder, unspecified; E11.9 Type 2 diabetes mellitus without complications; F17.200 Nicotine dependence, unspecified, uncomplicated; F12.90 Cannabis use, unspecified, uncomplicated; F15.20 Other stimulant dependence, uncomplicated; Z88.5 Allergy status to narcotic agent; Z91.018 Allergy to other foods; Z88.8 Allergy status to other drugs, medicaments and biological substances; Z59.00 Homelessness unspecified; Z56.0 Unemployment, unspecified; Y90.9 Presence of alcohol in blood, level not specified
CPT/HCPCS: 99281

== ENCOUNTER 2023-03-31 14:40 | Emergency (ER) | payer MEDICAID ==
[~2023-03-31] VITALS: Ht 177.8 cm; Wt 90.0 kg
[2023-03-31 14:45] VITALS: BP 166/105
--- NOTE | 2023-03-31 15:12 | NUR ---
PT GIVEN SOCKS AND BODY WIPES PER REQUEST.
== END 2023-03-31 15:14 | disposition home or self-care (01) ==
LOC: ER 14:41
DX: S90.821A Blister (nonthermal), right foot, initial encounter (principal); S90.822A Blister (nonthermal), left foot, initial encounter; I10 Essential (primary) hypertension; J45.909 Unspecified asthma, uncomplicated; K21.9 Gastro-esophageal reflux disease without esophagitis; F31.9 Bipolar disorder, unspecified; E11.9 Type 2 diabetes mellitus without complications; F12.90 Cannabis use, unspecified, uncomplicated; F15.20 Other stimulant dependence, uncomplicated; Z91.010 Allergy to peanuts; Z88.8 Allergy status to other drugs, medicaments and biological substances; Z59.00 Homelessness unspecified; Z56.0 Unemployment, unspecified; X58.XXXA Exposure to other specified factors, initial encounter; Y93.89 Activity, other specified; Y92.89 Other specified places as the place of occurrence of the external cause; Y99.8 Other external cause status
CPT/HCPCS: 99281

== ENCOUNTER 2023-04-02 22:00 | Emergency (ER) | payer MEDICAID | END 2023-04-02 23:51 | disposition left against medical advice (07) | LOC: ER 22:01 | DX: F10.129 Alcohol abuse with intoxication, unspecified (principal); Z53.21 Procedure and treatment not carried out due to patient leaving prior to being seen by health care provider; Y90.9 Presence of alcohol in blood, level not specified ==

== ENCOUNTER 2023-04-13 09:39 | Emergency (ER) | payer MEDICAID ==
[~2023-04-13] VITALS: Ht 177.8 cm; Wt 95.0 kg
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
[2023-04-13 10:40] LABS: CLARITY,URINE SLIGHTLY CLOUDY (Clear); COLOR,URINE YELLOW (Yellow); GLUCOSE, URINE NEGATIVE (Neg); KETONES,URINE NEGATIVE (Neg); LEUKOCYTE ESTERASE ,URINE NEGATIVE (Neg); NITRITES, URINE NEGATIVE (Neg); OCCULT BLOOD,URINE NEGATIVE (Neg); PH,URINE 5.5 (4.8-8.0); PROTEIN,URINE NEGATIVE (Neg); UROBILINOGEN,URINE 0.2 E.U/dL (0.2-1.0)
[2023-04-13 10:44] VITALS: BP 130/78
[2023-04-13 10:45] LABS: UA COLLECTION TYPE CLN CATCH MIDSTREAM
[2023-04-13 10:50] LABS: HYALINE CASTS 0-3 /LPF (NEGATIVE); MUCUS STRANDS MANY /LPF (Neg); SQUAMOUS EPITHELIAL CELL,UR MODERATE /LPF (FEW)
[2023-04-13 10:53] LABS: BACTERIA,URINE FEW /HPF (Neg); RBC,URINE 0-2 /HPF (0-2); WBC,URINE 0-4 /HPF (0-4)
[2023-04-13 10:56] LABS: FINE GRANULAR CAST 0-3 /LPF (NEGATIVE)
[2023-04-13] MEDS ORDERED: diphenhydrAMINE 2%/zinc acetate cream TP SCH (10:56)
--- NOTE | 2023-04-13 12:58 | NUR ---
Pt states "Once you put that cream on my back my blood doesn't feel like it is on fire anymore."
== END 2023-04-13 12:59 | disposition home or self-care (01) ==
LOC: ER 09:40
DX: S20.462A Insect bite (nonvenomous) of left back wall of thorax, initial encounter (principal); I11.9 Hypertensive heart disease without heart failure; J45.909 Unspecified asthma, uncomplicated; K21.9 Gastro-esophageal reflux disease without esophagitis; F41.9 Anxiety disorder, unspecified; F20.9 Schizophrenia, unspecified; F15.10 Other stimulant abuse, uncomplicated; F12.10 Cannabis abuse, uncomplicated; Z59.00 Homelessness unspecified; Z56.0 Unemployment, unspecified; Z91.010 Allergy to peanuts; W57.XXXA Bitten or stung by nonvenomous insect and other nonvenomous arthropods, initial encounter; Y93.89 Activity, other specified; Y92.89 Other specified places as the place of occurrence of the external cause; Y99.8 Other external cause status
CPT/HCPCS: 81001; 99283

== ENCOUNTER 2023-04-25 18:43 | Emergency (ER) | payer MEDICAID ==
[~2023-04-25] VITALS: Ht 182.9 cm; Wt 100.0 kg
[2023-04-25 21:49] VITALS: BP 119/72
== END 2023-04-25 22:10 | disposition home or self-care (01) ==
LOC: ER 18:44
DX: F10.129 Alcohol abuse with intoxication, unspecified (principal); I11.9 Hypertensive heart disease without heart failure; G89.29 Other chronic pain; F31.9 Bipolar disorder, unspecified; F20.9 Schizophrenia, unspecified; F12.10 Cannabis abuse, uncomplicated; F15.10 Other stimulant abuse, uncomplicated; Z91.010 Allergy to peanuts; Z88.8 Allergy status to other drugs, medicaments and biological substances; Z79.899 Other long term (current) drug therapy; Z88.6 Allergy status to analgesic agent; Z79.1 Long term (current) use of non-steroidal anti-inflammatories (NSAID); Z79.2 Long term (current) use of antibiotics; Y90.9 Presence of alcohol in blood, level not specified
CPT/HCPCS: 99283

== ENCOUNTER 2023-04-27 18:56 | Emergency (ER) | payer MEDICAID | END 2023-04-27 19:56 | disposition left against medical advice (07) | LOC: ER 18:57 | DX: M54.9 Dorsalgia, unspecified (principal); Z53.21 Procedure and treatment not carried out due to patient leaving prior to being seen by health care provider ==

== ENCOUNTER 2023-04-29 10:02 | Emergency (ER) | payer MEDICAID ==
[~2023-04-29] VITALS: Ht 182.9 cm; Wt 220.0 kg
[2023-04-29] MEDS ORDERED: normal saline 1000ML IV soln IVB ONE (10:25)
[2023-04-29 12:54] VITALS: BP 129/104
== END 2023-04-29 13:38 | disposition home or self-care (01) ==
LOC: ER 10:03
DX: F10.129 Alcohol abuse with intoxication, unspecified (principal); Z91.010 Allergy to peanuts; Z88.8 Allergy status to other drugs, medicaments and biological substances; Y90.9 Presence of alcohol in blood, level not specified
CPT/HCPCS: 96360; 99284; J7030; 99283

== ENCOUNTER 2023-05-07 20:34 | Emergency (ER) | payer MEDICAID | END 2023-05-07 20:59 | disposition left against medical advice (07) | LOC: ER 20:34 | DX: K59.00 Constipation, unspecified (principal); Z53.21 Procedure and treatment not carried out due to patient leaving prior to being seen by health care provider ==

== ENCOUNTER 2023-05-11 12:08 | Emergency (ER) | payer MEDICAID ==
[~2023-05-11] VITALS: Ht 180.3 cm; Wt 93.0 kg
[2023-05-11 12:48] VITALS: BP 120/86
[2023-05-11] MEDS ORDERED: ketorolac trometh inj. 60 MG/2 ML VIAL IM ONE (12:55)
== END 2023-05-11 13:50 | disposition home or self-care (01) ==
LOC: ER 12:09
DX: G43.909 Migraine, unspecified, not intractable, without status migrainosus (principal); I10 Essential (primary) hypertension; J45.909 Unspecified asthma, uncomplicated; K21.9 Gastro-esophageal reflux disease without esophagitis; F31.9 Bipolar disorder, unspecified; E11.9 Type 2 diabetes mellitus without complications; F12.90 Cannabis use, unspecified, uncomplicated; F15.20 Other stimulant dependence, uncomplicated; Z91.018 Allergy to other foods; Z88.8 Allergy status to other drugs, medicaments and biological substances; Z59.00 Homelessness unspecified; Z56.0 Unemployment, unspecified
CPT/HCPCS: 96372; 99283; J1885

== ENCOUNTER 2023-05-22 05:13 | Emergency (ER) | payer MEDICAID ==
[~2023-05-22] VITALS: Ht 177.8 cm; Wt 93.2 kg
[2023-05-22 05:21] VITALS: BP 168/108
[2023-05-22] MEDS ORDERED: acetaminophen 325mg tablet PO ONE (06:55)
[2023-05-22] MEDS ORDERED: ketorolac trometh. 30mg/ml inj. IM ONE (06:55)
[2023-05-22] MEDS ORDERED: CEPH-585 PO (06:56)
== END 2023-05-22 07:33 | disposition home or self-care (01) ==
LOC: ER 05:14
DX: S90.822A Blister (nonthermal), left foot, initial encounter (principal); R51.9 Headache, unspecified; I11.0 Hypertensive heart disease with heart failure; J45.909 Unspecified asthma, uncomplicated; K21.9 Gastro-esophageal reflux disease without esophagitis; F31.9 Bipolar disorder, unspecified; F20.9 Schizophrenia, unspecified; F12.10 Cannabis abuse, uncomplicated; F15.10 Other stimulant abuse, uncomplicated; Z59.00 Homelessness unspecified; Z56.0 Unemployment, unspecified; F17.210 Nicotine dependence, cigarettes, uncomplicated; X58.XXXA Exposure to other specified factors, initial encounter; Y93.89 Activity, other specified; Y92.89 Other specified places as the place of occurrence of the external cause; Y99.8 Other external cause status
CPT/HCPCS: 96372; 99283; J1885

== ENCOUNTER 2023-05-29 10:44 | Emergency (ER) | payer MEDICAID ==
[~2023-05-29] VITALS: Ht 175.3 cm; Wt 91.9 kg
[~2023-05-29 10:44] MED LIST changes: +CEPH-585 PO
[2023-05-29 10:48] VITALS: BP 173/119
[2023-05-29] MEDS ORDERED: SULF1TAB49 PO (11:49)
[2023-05-29] MEDS ORDERED: sulfamethoxazole/trimethoprim DS (800/160mg) tablet PO ONE (11:55)
== END 2023-05-29 12:10 | disposition home or self-care (01) ==
LOC: ER 10:44
DX: L03.011 Cellulitis of right finger (principal); I10 Essential (primary) hypertension; J45.909 Unspecified asthma, uncomplicated; K21.9 Gastro-esophageal reflux disease without esophagitis; F31.9 Bipolar disorder, unspecified; E11.9 Type 2 diabetes mellitus without complications; F12.90 Cannabis use, unspecified, uncomplicated; F15.90 Other stimulant use, unspecified, uncomplicated; Z91.018 Allergy to other foods; Z88.5 Allergy status to narcotic agent; Z79.2 Long term (current) use of antibiotics; Z79.899 Other long term (current) drug therapy
CPT/HCPCS: 10060; 99283; A6449

== ENCOUNTER 2023-05-30 09:19 | Emergency (ER) | payer MEDICAID ==
[~2023-05-30] VITALS: Ht 177.8 cm; Wt 90.9 kg
[~2023-05-30 09:19] MED LIST changes: +SULF1TAB49 PO
[2023-05-30 09:25] VITALS: BP 117/83
== END 2023-05-30 11:27 | disposition left against medical advice (07) ==
LOC: ER 09:19
DX: F10.10 Alcohol abuse, uncomplicated (principal); Z53.21 Procedure and treatment not carried out due to patient leaving prior to being seen by health care provider
CPT/HCPCS: 99281

== ENCOUNTER 2023-06-05 22:05 | Emergency (ER) | payer MEDICAID ==
[~2023-06-05] VITALS: Ht 175.3 cm; Wt 88.6 kg
[2023-06-06 06:01] VITALS: BP 123/68; PULSE 76; RESP 16; TEMP 98.6; O2SAT 98
--- NOTE | 2023-06-06 06:05 | NUR ---
provided pt a sandwhich and snacks, drink prior to departure
== END 2023-06-06 06:06 | disposition home or self-care (01) ==
LOC: ER 22:05
DX: F10.129 Alcohol abuse with intoxication, unspecified (principal); R10.9 Unspecified abdominal pain; R47.81 Slurred speech; I10 Essential (primary) hypertension; J45.909 Unspecified asthma, uncomplicated; G89.29 Other chronic pain; F12.90 Cannabis use, unspecified, uncomplicated; F15.90 Other stimulant use, unspecified, uncomplicated; Z59.00 Homelessness unspecified; Z56.0 Unemployment, unspecified; Z72.89 Other problems related to lifestyle; Z87.81 Personal history of (healed) traumatic fracture; Z86.73 Personal history of transient ischemic attack (TIA), and cerebral infarction without residual deficits; Z79.2 Long term (current) use of antibiotics; Z79.899 Other long term (current) drug therapy; Z88.8 Allergy status to other drugs, medicaments and biological substances; Z91.018 Allergy to other foods; Y90.9 Presence of alcohol in blood, level not specified
CPT/HCPCS: 82948; 93005; 99285

== ENCOUNTER 2023-06-10 00:18 | Emergency (ER) | payer MEDICAID ==
[~2023-06-10 00:18] MED LIST changes: -SULF1TAB49 PO
== END 2023-06-10 00:49 | disposition left against medical advice (07) ==
LOC: ER 00:19
DX: T63.301A Toxic effect of unspecified spider venom, accidental (unintentional), initial encounter (principal); Z53.21 Procedure and treatment not carried out due to patient leaving prior to being seen by health care provider; X58.XXXA Exposure to other specified factors, initial encounter

== ENCOUNTER 2023-06-19 04:31 | Emergency (ER) | payer MEDICAID | END 2023-06-19 05:08 | disposition left against medical advice (07) | LOC: ER 04:32 | DX: R61 Generalized hyperhidrosis (principal); Z53.21 Procedure and treatment not carried out due to patient leaving prior to being seen by health care provider ==

== ENCOUNTER 2023-07-06 17:26 | Emergency (ER) | payer MEDICAID ==
--- NOTE | 2023-07-06 18:29 | NUR ---
per ems they brought patient to lobby for triage and patient immediately exited the building.
== END 2023-07-06 18:31 | disposition left against medical advice (07) ==
LOC: ER 17:26
DX: F10.129 Alcohol abuse with intoxication, unspecified (principal); Z53.21 Procedure and treatment not carried out due to patient leaving prior to being seen by health care provider

== ENCOUNTER 2023-07-07 20:35 | Emergency (ER) | payer MEDICAID ==
[~2023-07-07] VITALS: Ht 177.8 cm; Wt 90.9 kg
[2023-07-07 21:27] VITALS: BP 181/113; PULSE 80; RESP 18; TEMP 97; O2SAT 95
[2023-07-07 22:12] LABS: BILIRUBIN,URINE NEGATIVE (Neg); CLARITY,URINE SLIGHTLY CLOUDY (Clear); COLOR,URINE YELLOW (Yellow); GLUCOSE, URINE NEGATIVE (Neg); KETONES,URINE NEGATIVE (Neg); LEUKOCYTE ESTERASE ,URINE NEGATIVE (Neg); NITRITES, URINE NEGATIVE (Neg); OCCULT BLOOD,URINE NEGATIVE (Neg); PROTEIN,URINE 30 mg/dl (Neg)
[2023-07-07 22:22] LABS: UA COLLECTION TYPE CLN CATCH MIDSTREAM
[2023-07-07 22:24] LABS: BASOPHILS % (AUTO) 0.6 % (0-1); EOSINOPHILS # (AUTO) 0.1 X10'3 (0-0.9); EOSINOPHILS % (AUTO) 2.4 % (0-6); HEMATOCRIT 42.6 % (42.0-52.0); HEMOGLOBIN 14.7 g/dl (14.0-17.9); LYMPHOCYTES # (AUTO) 1.6 X10'3 (1.1-4.8); LYMPHOCYTES % (AUTO) 32.1 % (21-51); MEAN CORPUSCULAR HEMOGLOBIN 33.1 PG (27.0-31.0); MEAN CORPUSCULAR HGB CONC 34.5 g/dL (33.0-36.5); MEAN CORPUSCULAR VOLUME 95.9 FL (78-98); MEAN PLATELET VOLUME 6.5 FL (7.4-10.4); MONOCYTES # (AUTO) 0.6 X10'3 (0-0.9); NEUTROPHILS # (AUTO) 2.6 X10'3 (1.8-7.7); NEUTROPHILS % (AUTO) 51.9 % (42-75); PLATELET COUNT 316 X10'3 (140-440); RED BLOOD COUNT 4.44 X10'6 (4.70-6.10); RED CELL DISTRIBUTION WIDTH 13.7 % (11.5-14.5); WHITE BLOOD COUNT 4.9 X10'3 (4.5-11.0)
[2023-07-07 22:25] LABS: SQUAMOUS EPITHELIAL CELL,UR FEW /LPF (FEW)
[2023-07-07 22:29] LABS: RBC,URINE 0-2 /HPF (0-2); WBC,URINE 0-4 /HPF (0-4)
[2023-07-07 22:31] LABS: BACTERIA,URINE 1+ /HPF (Neg)
[2023-07-07 22:42] LABS: ALANINE AMINOTRANSFERASE 30 U/L (12-78); ALBUMIN 3.6 G/DL (3.4-5.0); ALKALINE PHOSPHATASE 101 IU/L (46-116); ANION GAP 10 (8-16); ASPARTATE AMINO TRANSFERASE 39 U/L (10-37); BILIRUBIN,TOTAL 0.3 MG/DL (0.1-1.0); BLOOD UREA NITROGEN 7 MG/DL (7-18); BUN/CREATININE RATIO 7.1 (10.0-20.0); CALCIUM 8.8 MG/DL (8.5-10.1); CHLORIDE 104 MMOL/L (99-107); CREATININE 0.99 MG/DL (0.60-1.10); GLUCOSE 109 MG/DL (70-104); LIPASE 227 U/L (73-393); POTASSIUM 3.6 MMOL/L (3.5-5.1); SODIUM 141 MMOL/L (135-145); TOTAL CARBON DIOXIDE 27.4 MMOL/L (24-32); TOTAL PROTEIN 7.3 G/DL (6.4-8.2); eCRCL 100 ML/MIN; eGFR 83 ML/MIN
== END 2023-07-08 02:44 | disposition left against medical advice (07) ==
LOC: ER 20:37
DX: R19.7 Diarrhea, unspecified (principal); Z53.21 Procedure and treatment not carried out due to patient leaving prior to being seen by health care provider
CPT/HCPCS: 36415; 80053; 81001; 83690; 85025; 99281

== ENCOUNTER 2023-07-08 14:13 | Emergency (ER) | payer MEDICAID ==
[~2023-07-08] VITALS: Ht 177.8 cm; Wt 90.2 kg
[2023-07-08 14:24] VITALS: TEMP 98.5
[2023-07-09] MEDS ORDERED: LIDOcaine Viscous 15ml cup MM ONE (00:35)
[2023-07-09] MEDS ORDERED: mag hydrox/Alum hydrox/simeth 30ml oral suspension PO ONE (00:35)
[2023-07-09 00:48] VITALS: BP 135/95; PULSE 95; RESP 18; O2SAT 98
== END 2023-07-09 00:50 | disposition home or self-care (01) ==
LOC: ER 14:14
DX: K29.00 Acute gastritis without bleeding (principal); I10 Essential (primary) hypertension; J45.909 Unspecified asthma, uncomplicated; K21.9 Gastro-esophageal reflux disease without esophagitis; G89.29 Other chronic pain; F12.90 Cannabis use, unspecified, uncomplicated; F15.90 Other stimulant use, unspecified, uncomplicated; F17.200 Nicotine dependence, unspecified, uncomplicated; Z56.0 Unemployment, unspecified; Z59.00 Homelessness unspecified; Z72.89 Other problems related to lifestyle; Z79.2 Long term (current) use of antibiotics; Z79.899 Other long term (current) drug therapy; Z91.018 Allergy to other foods; Z88.5 Allergy status to narcotic agent; Z88.8 Allergy status to other drugs, medicaments and biological substances
CPT/HCPCS: 99281; 99283

== ENCOUNTER 2023-07-17 16:02 | Emergency (ER) | payer MEDICAID ==
[~2023-07-17] VITALS: Ht 175.3 cm; Wt 86.0 kg
[2023-07-17 16:09] VITALS: BP 187/119; PULSE 121; RESP 18; TEMP 98.1; O2SAT 99
[2023-07-17] MEDS ORDERED: NAPR-56 PO (18:06)
== END 2023-07-17 18:13 | disposition home or self-care (01) ==
LOC: ER 16:03
DX: S93.402A Sprain of unspecified ligament of left ankle, initial encounter (principal); I10 Essential (primary) hypertension; J45.909 Unspecified asthma, uncomplicated; G89.29 Other chronic pain; F12.90 Cannabis use, unspecified, uncomplicated; F15.90 Other stimulant use, unspecified, uncomplicated; Z56.0 Unemployment, unspecified; Z59.00 Homelessness unspecified; Z72.89 Other problems related to lifestyle; Z86.73 Personal history of transient ischemic attack (TIA), and cerebral infarction without residual deficits; Z87.81 Personal history of (healed) traumatic fracture; Z91.018 Allergy to other foods; Z88.5 Allergy status to narcotic agent; Z88.8 Allergy status to other drugs, medicaments and biological substances; Z79.899 Other long term (current) drug therapy; Z79.2 Long term (current) use of antibiotics; X58.XXXA Exposure to other specified factors, initial encounter; Y93.89 Activity, other specified; Y92.89 Other specified places as the place of occurrence of the external cause; Y99.8 Other external cause status
CPT/HCPCS: 73610; 99283

== ENCOUNTER 2023-07-19 10:15 | Emergency (ER) | payer MEDICAID ==
[~2023-07-19] VITALS: Ht 177.8 cm; Wt 98.0 kg
[~2023-07-19 10:15] MED LIST changes: +NAPR-56 PO
[2023-07-19 11:07] VITALS: TEMP 97.7
[2023-07-19] MEDS ORDERED: normal saline 1000ML IV soln IVB ONE (12:10)
[2023-07-19 12:43] VITALS: BP 112/65; PULSE 79; RESP 18; O2SAT 98
== END 2023-07-19 14:41 | disposition home or self-care (01) ==
LOC: ER 10:15
DX: F10.10 Alcohol abuse, uncomplicated (principal); J45.909 Unspecified asthma, uncomplicated; K21.9 Gastro-esophageal reflux disease without esophagitis; I12.0 Hypertensive chronic kidney disease with stage 5 chronic kidney disease or end stage renal disease; N18.9 Chronic kidney disease, unspecified; F31.9 Bipolar disorder, unspecified; F15.90 Other stimulant use, unspecified, uncomplicated; F12.90 Cannabis use, unspecified, uncomplicated; Z91.018 Allergy to other foods; Z88.8 Allergy status to other drugs, medicaments and biological substances; Z79.899 Other long term (current) drug therapy; Z79.2 Long term (current) use of antibiotics; Y90.9 Presence of alcohol in blood, level not specified
CPT/HCPCS: 99284; J7030

== ENCOUNTER 2023-10-11 07:55 | Emergency (ER) | payer MEDICAID ==
[~2023-10-11] VITALS: Ht 177.8 cm; Wt 102.0 kg
[~2023-10-11 07:55] MED LIST changes: -NAPR-56 PO
[2023-10-11] MEDS ORDERED: SULF1TAB49 PO (09:24)
[2023-10-11] MEDS ORDERED: CEPH-585 PO (09:24)
[2023-10-11] MEDS ORDERED: ketorolac trometh inj. 60 MG/2 ML VIAL IM ONE (09:25)
[2023-10-11 09:35] VITALS: BP 122/78; PULSE 90; RESP 18; TEMP 98; O2SAT 99
== END 2023-10-11 09:37 | disposition home or self-care (01) ==
LOC: ER 07:56
DX: L02.414 Cutaneous abscess of left upper limb (principal); I10 Essential (primary) hypertension; J45.909 Unspecified asthma, uncomplicated; K21.9 Gastro-esophageal reflux disease without esophagitis; G89.29 Other chronic pain; F41.9 Anxiety disorder, unspecified; F31.9 Bipolar disorder, unspecified; F20.9 Schizophrenia, unspecified; F12.90 Cannabis use, unspecified, uncomplicated; F15.90 Other stimulant use, unspecified, uncomplicated; Z98.890 Other specified postprocedural states; Z72.89 Other problems related to lifestyle; Z60.2 Problems related to living alone; Z59.00 Homelessness unspecified; Z56.0 Unemployment, unspecified; Z86.73 Personal history of transient ischemic attack (TIA), and cerebral infarction without residual deficits; Z91.018 Allergy to other foods; Z88.8 Allergy status to other drugs, medicaments and biological substances; Z79.899 Other long term (current) drug therapy
CPT/HCPCS: 96372; 99283; J1885

== ENCOUNTER → 2023-12-18 | Emergency (ER) | payer MEDICAID ==
[~2023-12-18] VITALS: Ht 177.8 cm; Wt 100.0 kg
[2023-12-18 18:47] VITALS: TEMP 98.5
[2023-12-18 19:56] VITALS: BP 117/75; PULSE 93; RESP 15; O2SAT 94
[2023-12-18] MEDS: diazepam inj 5 MG/ML inj. IM ONE (20:32)
== END | disposition home or self-care (01) ==
LOC: ER 17:45
DX: F41.9 Anxiety disorder, unspecified (principal); R25.2 Cramp and spasm; J45.909 Unspecified asthma, uncomplicated; E11.9 Type 2 diabetes mellitus without complications; I10 Essential (primary) hypertension; K21.9 Gastro-esophageal reflux disease without esophagitis; F31.9 Bipolar disorder, unspecified; F12.90 Cannabis use, unspecified, uncomplicated; F15.90 Other stimulant use, unspecified, uncomplicated; Z91.018 Allergy to other foods; Z88.8 Allergy status to other drugs, medicaments and biological substances; Z79.2 Long term (current) use of antibiotics; Z79.899 Other long term (current) drug therapy
CPT/HCPCS: 96372; 99283; J3360

== ENCOUNTER 2024-01-05 20:46 | Emergency (ER) | payer MEDICAID ==
[~2024-01-05] VITALS: Ht 177.8 cm; Wt 100.0 kg
[2024-01-05 21:08] VITALS: TEMP 97.4
[2024-01-05] MEDS: normal saline 1000ML IV soln IVB STA (21:21)
[2024-01-05] MEDS: famotidine/PF 10 mg/ml inj IV ONE (21:21)
[2024-01-05] MEDS: methylPREDNISolone sod succ 125mg/2ml vial IV ONE (21:21)
[2024-01-05 21:36] LABS: BASOPHILS % (AUTO) 0.4 % (0-1); EOSINOPHILS # (AUTO) 0.2 X10'3 (0-0.9); EOSINOPHILS % (AUTO) 2.1 % (0-6); HEMATOCRIT 37.2 % (42.0-52.0); HEMOGLOBIN 12.4 g/dl (14.0-17.9); LYMPHOCYTES # (AUTO) 2.3 X10'3 (1.1-4.8); LYMPHOCYTES % (AUTO) 28.6 % (21-51); MEAN CORPUSCULAR HGB CONC 33.4 g/dL (33.0-36.5); MEAN PLATELET VOLUME 7.6 FL (7.4-10.4); MONOCYTES # (AUTO) 0.6 X10'3 (0-0.9); MONOCYTES % (AUTO) 7.2 % (2-12); NEUTROPHILS % (AUTO) 61.7 % (42-75); PLATELET COUNT 315 X10'3 (140-440); RED BLOOD COUNT 4.14 X10'6 (4.70-6.10); RED CELL DISTRIBUTION WIDTH 13.1 % (11.5-14.5); WHITE BLOOD COUNT 8.1 X10'3 (4.5-11.0)
[2024-01-05 21:50] LABS: ALBUMIN 3.7 G/DL (3.4-5.0); ANION GAP 12 (8-16); BLOOD UREA NITROGEN 11 MG/DL (7-18); BUN/CREATININE RATIO 11.7 (10.0-20.0); CALCIUM 7.7 MG/DL (8.5-10.1); CHLORIDE 111 MMOL/L (99-107); CREATININE 0.94 MG/DL (0.60-1.10); GLUCOSE 162 MG/DL (70-104); POTASSIUM 3.4 MMOL/L (3.5-5.1); SODIUM 146 MMOL/L (135-145); TOTAL CARBON DIOXIDE 23.1 MMOL/L (24-32); eCRCL 105 ML/MIN; eGFR 88 ML/MIN
[2024-01-06 03:35] LABS: BILIRUBIN,URINE NEGATIVE (Neg); CLARITY,URINE CLEAR (Clear); COLOR,URINE STRAW (Yellow); GLUCOSE, URINE NEGATIVE (Neg); KETONES,URINE NEGATIVE (Neg); LEUKOCYTE ESTERASE ,URINE NEGATIVE (Neg); NITRITES, URINE NEGATIVE (Neg); OCCULT BLOOD,URINE NEGATIVE (Neg); PROTEIN,URINE NEGATIVE (Neg); UROBILINOGEN,URINE 0.2 E.U/dL (0.2-1.0)
[2024-01-06 03:42] LABS: UA COLLECTION TYPE CLN CATCH MIDSTREAM
[2024-01-06 04:04] LABS: URINE AMPHETAMINE SCREEN NEGATIVE (Neg); URINE BARBITUATE SCREEN NEGATIVE (Neg); URINE BENZODIAZEPINES SCREEN NEGATIVE (Neg); URINE CANNABINOID SCREEN POSITIVE (Neg); URINE COCAINE SCREEN NEGATIVE (Neg); URINE METHADONE SCREEN NEGATIVE (Neg); URINE OPIATE SCREEN NEGATIVE (Neg); URINE PHENCYCLIDINE SCREEN NEGATIVE (Neg)
[2024-01-06 05:27] VITALS: BP 136/95; PULSE 100; RESP 20; O2SAT 100
== END 2024-01-06 05:29 | disposition home or self-care (01) ==
LOC: ER 20:47
DX: J45.909 Unspecified asthma, uncomplicated (principal); K21.9 Gastro-esophageal reflux disease without esophagitis; F31.9 Bipolar disorder, unspecified; F32.A Depression, unspecified; F20.9 Schizophrenia, unspecified; F12.10 Cannabis abuse, uncomplicated; F15.10 Other stimulant abuse, uncomplicated; Z91.010 Allergy to peanuts
CPT/HCPCS: 36415; 70450; 70490; 71045; 80048; 80305; 81003; 85025; 85651; 86140; 93005; 96361; 96374; 96375; 99285; J2930; J3490; J7030

== ENCOUNTER 2024-01-26 00:57 | Emergency (ER) | payer MEDICAID ==
[~2024-01-26] VITALS: Ht 177.8 cm; Wt 100.0 kg
[2024-01-26] MEDS: benzonatate 100mg capsule PO ONE (03:36)
[2024-01-26] MEDS ORDERED: BENZ-38 PO (03:58)
[2024-01-26 04:25] VITALS: BP 115/94; PULSE 89; RESP 16; TEMP 97.7; O2SAT 96
== END 2024-01-26 04:26 | disposition home or self-care (01) ==
LOC: ER 00:58
DX: J20.9 Acute bronchitis, unspecified (principal); Z20.822 Contact with and (suspected) exposure to COVID-19; F12.10 Cannabis abuse, uncomplicated; F15.10 Other stimulant abuse, uncomplicated; I11.0 Hypertensive heart disease with heart failure; J45.909 Unspecified asthma, uncomplicated; K21.9 Gastro-esophageal reflux disease without esophagitis; F31.9 Bipolar disorder, unspecified; Z87.81 Personal history of (healed) traumatic fracture; Z86.14 Personal history of Methicillin resistant Staphylococcus aureus infection; Z91.010 Allergy to peanuts; Z88.8 Allergy status to other drugs, medicaments and biological substances; Z79.899 Other long term (current) drug therapy
CPT/HCPCS: 36415; 71045; 87811; 99284

== ENCOUNTER 2024-01-28 19:51 | Emergency (ER) | payer MEDICAID ==
[~2024-01-28] VITALS: Ht 177.8 cm; Wt 100.0 kg
[~2024-01-28 19:51] MED LIST changes: +BENZ-38 PO
[2024-01-28 19:54] VITALS: BP 140/82; PULSE 80; RESP 18; TEMP 98.2; O2SAT 97
== END 2024-01-28 22:38 | disposition left against medical advice (07) ==
LOC: ER 19:52
DX: F41.9 Anxiety disorder, unspecified (principal); F41.0 Panic disorder [episodic paroxysmal anxiety]; Z53.21 Procedure and treatment not carried out due to patient leaving prior to being seen by health care provider
CPT/HCPCS: 99281

== ENCOUNTER 2024-02-04 18:02 | Emergency (ER) | payer MEDICAID | END 2024-02-04 18:08 | disposition left against medical advice (07) | LOC: ER 18:03 | DX: Z00.8 Encounter for other general examination (principal); Z53.21 Procedure and treatment not carried out due to patient leaving prior to being seen by health care provider | CPT/HCPCS: 99281 ==

== ENCOUNTER 2024-03-22 09:44 | Emergency (ER) | payer MEDICAID ==
[~2024-03-22] VITALS: Ht 177.8 cm; Wt 98.2 kg
[~2024-03-22 09:44] MED LIST changes: -BENZ-38 PO
[2024-03-22 09:59] VITALS: BP 156/100; PULSE 95; RESP 18; TEMP 98; O2SAT 92
== END 2024-03-22 10:55 | disposition left against medical advice (07) ==
LOC: ER 09:46
DX: M25.572 Pain in left ankle and joints of left foot (principal); Z53.21 Procedure and treatment not carried out due to patient leaving prior to being seen by health care provider

== ENCOUNTER 2024-03-24 13:37 | Inpatient (IN) | payer MEDICAID ==
[~2024-03-24] VITALS: Ht 177.8 cm; Wt 98.0 kg
[2024-03-24 14:13] LABS: BASOPHILS % (AUTO) 0.4 % (0-1); EOSINOPHILS % (AUTO) 0.4 % (0-6); HEMATOCRIT 46.6 % (42.0-52.0); HEMOGLOBIN 16.1 g/dl (14.0-17.9); LYMPHOCYTES % (AUTO) 28.4 % (21-51); MEAN CORPUSCULAR HEMOGLOBIN 31.8 PG (27.0-31.0); MEAN CORPUSCULAR HGB CONC 34.6 g/dL (33.0-36.5); MEAN CORPUSCULAR VOLUME 92.1 FL (78-98); MEAN PLATELET VOLUME 6.4 FL (7.4-10.4); MONOCYTES # (AUTO) 1.3 X10'3 (0-0.9); MONOCYTES % (AUTO) 12.1 % (2-12); NEUTROPHILS # (AUTO) 6.2 X10'3 (1.8-7.7); NEUTROPHILS % (AUTO) 58.7 % (42-75); PLATELET COUNT 349 X10'3 (140-440); RED BLOOD COUNT 5.06 X10'6 (4.70-6.10); RED CELL DISTRIBUTION WIDTH 15.7 % (11.5-14.5); WHITE BLOOD COUNT 10.6 X10'3 (4.5-11.0)
[2024-03-24 14:28] LABS: GLUCOSE 132 MG/DL (70-104); SODIUM 136 MMOL/L (135-145)
[2024-03-24 14:29] LABS: ALANINE AMINOTRANSFERASE 55 U/L (12-78); ALBUMIN 4.2 G/DL (3.4-5.0); ALBUMIN/GLOBULIN RATIO 1.1 (1.1-1.5); ALKALINE PHOSPHATASE 120 IU/L (46-116); ANION GAP 13 (8-16); ASPARTATE AMINO TRANSFERASE 90 U/L (10-37); BILIRUBIN,TOTAL 0.8 MG/DL (0.1-1.0); BLOOD UREA NITROGEN 6 MG/DL (7-18); CALCIUM 8.5 MG/DL (8.5-10.1); CHLORIDE 95 MMOL/L (99-107); CREATININE 0.86 MG/DL (0.60-1.10); POTASSIUM 3.2 MMOL/L (3.5-5.1); TOTAL CARBON DIOXIDE 27.8 MMOL/L (24-32); TOTAL PROTEIN 8.1 G/DL (6.4-8.2); eCRCL 114 ML/MIN; eGFR > 90 ML/MIN
[2024-03-24 14:42] LABS: LIPASE > 375 U/L (16-77)
[2024-03-24 17:29] LABS: ETHANOL 274 MG/DL (<10)
[2024-03-24 19:53] LABS: BILIRUBIN,URINE NEGATIVE (Neg); CLARITY,URINE CLEAR (Clear); COLOR,URINE YELLOW (Yellow); GLUCOSE, URINE NEGATIVE (Neg); KETONES,URINE NEGATIVE (Neg); LEUKOCYTE ESTERASE ,URINE NEGATIVE (Neg); NITRITES, URINE NEGATIVE (Neg); OCCULT BLOOD,URINE TRACE-INTACT (Neg); PROTEIN,URINE NEGATIVE (Neg)
[2024-03-24 20:12] LABS: URINE AMPHETAMINE SCREEN NEGATIVE (Neg); URINE BARBITUATE SCREEN NEGATIVE (Neg); URINE BENZODIAZEPINES SCREEN NEGATIVE (Neg); URINE CANNABINOID SCREEN POSITIVE (Neg); URINE COCAINE SCREEN NEGATIVE (Neg); URINE METHADONE SCREEN NEGATIVE (Neg); URINE OPIATE SCREEN NEGATIVE (Neg); URINE PHENCYCLIDINE SCREEN NEGATIVE (Neg)
[2024-03-24 20:25] LABS: UA COLLECTION TYPE CLN CATCH MIDSTREAM
[2024-03-24 20:27] LABS: BACTERIA,URINE NONE SEEN /HPF (Neg); MUCUS STRANDS NONE SEEN /LPF (Neg); RBC,URINE 0-2 /HPF (0-2); SQUAMOUS EPITHELIAL CELL,UR NONE SEEN /LPF (FEW); WBC,URINE 0-4 /HPF (0-4)
[2024-03-25] MEDS: normal saline 1000ml 1,000 ML IV ONE ×2 (00:09→02:52)
[2024-03-25] MEDS: dicyclomine 10 MG capsule PO ONE (00:15)
[2024-03-25] MEDS: ondansetron/PF 4mg/2ml inj IV ONE (00:15)
[2024-03-25] MEDS: thiamine 100mg/ml 2ml inj. IV ONE (00:53)
[2024-03-25] MEDS: metoclopramide 5 mg/ml inj IV ONE (00:53)
[2024-03-25] MEDS: morphine 4 MG/ML inj SYRINge IV ONE (00:54)
[2024-03-25] MEDS ORDERED: haloperidol lactate 5mg/ml inj IM PRN (01:00)
[2024-03-25] MEDS ORDERED: mag hydrox/Alum hydrox/simeth 30ml oral suspension PO PRN (01:00)
[2024-03-25] MEDS ORDERED: dextrose 50%-water 50ml dispensing syringe IV PRN (01:00)
[2024-03-25] MEDS ORDERED: magnesium 4gm in 100ml NS 100 ML IV PRN (01:00)
[2024-03-25] MEDS ORDERED: magnesium hydroxide 30ml (MOM) UD suspension PO PRN (01:00)
[2024-03-25] MEDS ORDERED: magnesium Cl slow-release 64mg tablet PO PRN (01:00)
[2024-03-25] MEDS: normal saline 1000ml 1,000 ML IV SCH (01:00)
[2024-03-25] MEDS ORDERED: LORazepam 2 mg/ml vial IV PRN ×2 (01:00)
[2024-03-25] MEDS ORDERED: potassium Cl 20 mEq SR tablet PO PRN (01:00)
[2024-03-25] MEDS ORDERED: magnesium 2GM in 50ml NS 50 ML IV PRN (01:00)
[2024-03-25] MEDS: potassium Cl 40MEQ/1/2NS 520ml 520 ML IV SCH (01:02)
[2024-03-25] MEDS: nicotine 14mg patch - 24hr TD ONE (01:30)
[2024-03-25] MEDS: lisinopril 10 MG tablet PO ONE (02:47)
[2024-03-25] MEDS: temazepam 15mg capsule PO PRN (04:44)
[2024-03-25] MEDS ORDERED: temazepam 15mg capsule PO PRN (05:05)
[2024-03-25 05:11] LABS: MAGNESIUM 2.1 MG/DL (1.5-2.4); PHOSPHORUS 4.4 MG/DL (2.3-4.5)
[2024-03-25] MEDS: ondansetron/PF 4mg/2ml inj IV PRN (07:13)
[2024-03-25] MEDS: pantoprazole 40mg Tablet.DR PO SCH (07:13)
[2024-03-25] MEDS: chlordiazePOXIDE 25mg capsule PO PRN (07:48)
[2024-03-25] MEDS: potassium Cl 40MEQ/1/2NS 520ml 520 ML IV PRN (07:49)
[2024-03-25] MEDS: K and/or MAG REPLACEMENT MC SCH (08:00)
[2024-03-25] MEDS: thiamine 100mg/ml 2ml inj. IV SCH (08:56)
[2024-03-25] MEDS: enoxaparin 40mg/0.4ml syringe SUBCUT SCH (08:56)
[2024-03-25] MEDS: folic acid 1mg/0.2ml inj IV SCH (09:48)
[2024-03-25 19:00] VITALS: BP 161/116; PULSE 103; RESP 20; TEMP 98.6; O2SAT 100
[2024-03-25 20:00] VITALS: RESP 18; O2SAT 98
[2024-03-25] MEDS: potassium Cl 20 mEq SR tablet PO PRN (20:20)
[2024-03-25] MEDS: LORazepam 1 MG tablet PO PRN (20:21)
[2024-03-25 22:00] VITALS: BP 150/102; PULSE 100; RESP 19; TEMP 97.7; O2SAT 99
[2024-03-25] MEDS ORDERED: LISI10TA27 PO (22:51)
[2024-03-25 23:48] LABS: OCCULT BLOOD STOOL NEGATIVE (Neg)
[2024-03-26] VITALS (7 sets, daily range): BP systolic 134–159; BP diastolic 89–119; PULSE 81–99; RESP 17–20; TEMP 98–98.9; O2SAT 98–100
[2024-03-26 06:53] LABS: BASOPHILS % (AUTO) 0.6 % (0-1); EOSINOPHILS # (AUTO) 0.2 X10'3 (0-0.9); EOSINOPHILS % (AUTO) 2.8 % (0-6); HEMATOCRIT 39.6 % (42.0-52.0); HEMOGLOBIN 13.3 g/dl (14.0-17.9); LYMPHOCYTES # (AUTO) 1.6 X10'3 (1.1-4.8); MEAN CORPUSCULAR HEMOGLOBIN 31.6 PG (27.0-31.0); MEAN CORPUSCULAR HGB CONC 33.7 g/dL (33.0-36.5); MEAN CORPUSCULAR VOLUME 93.7 FL (78-98); MEAN PLATELET VOLUME 6.8 FL (7.4-10.4); MONOCYTES # (AUTO) 0.6 X10'3 (0-0.9); MONOCYTES % (AUTO) 10.4 % (2-12); NEUTROPHILS # (AUTO) 3.2 X10'3 (1.8-7.7); NEUTROPHILS % (AUTO) 58.2 % (42-75); PLATELET COUNT 204 X10'3 (140-440); RED BLOOD COUNT 4.23 X10'6 (4.70-6.10); RED CELL DISTRIBUTION WIDTH 15.5 % (11.5-14.5); WHITE BLOOD COUNT 5.5 X10'3 (4.5-11.0)
[2024-03-26 07:10] LABS: ALBUMIN 2.9 G/DL (3.4-5.0); ANION GAP 8 (8-16); BLOOD UREA NITROGEN 8 MG/DL (7-18); BUN/CREATININE RATIO 12.1 (10.0-20.0); CALCIUM 8.2 MG/DL (8.5-10.1); CHLORIDE 106 MMOL/L (99-107); CHOLESTEROL 143 MG/DL (0-200); CREATININE 0.66 MG/DL (0.60-1.10); GLUCOSE 88 MG/DL (70-104); HDL CHOLESTEROL 73 MG/DL (35-60); LDL CHOLESTEROL 36 MG/DL (50-100); POTASSIUM 3.8 MMOL/L (3.5-5.1); SODIUM 136 MMOL/L (135-145); TOTAL CARBON DIOXIDE 21.8 MMOL/L (24-32); TRIGLYCERIDES 180 MG/DL (20-135); eCRCL 149 ML/MIN; eGFR > 90 ML/MIN
[2024-03-26 11:40] LABS: C DIFF ANTIGEN NEGATIVE (NEGATIVE); C DIFF SPECIMEN=DIARRHEA? ACCEPTABLE; C DIFFICILE TOXINS A&B NEGATIVE (Neg)
[2024-03-27] MEDS: morphine 2 MG/ML inj. syringe IV ONE (00:01)
[2024-03-27 02:30] VITALS: BP 149/103; PULSE 89; RESP 1; TEMP 98.7; O2SAT 97
[2024-03-27 07:02] VITALS: BP 122/95; PULSE 78; RESP 16; TEMP 97.7; O2SAT 96
[2024-03-27 07:16] LABS: BASOPHILS % (AUTO) 0.5 % (0-1); EOSINOPHILS # (AUTO) 0.2 X10'3 (0-0.9); EOSINOPHILS % (AUTO) 3.7 % (0-6); HEMATOCRIT 40.8 % (42.0-52.0); HEMOGLOBIN 13.5 g/dl (14.0-17.9); LYMPHOCYTES # (AUTO) 1.6 X10'3 (1.1-4.8); LYMPHOCYTES % (AUTO) 27.3 % (21-51); MEAN CORPUSCULAR HEMOGLOBIN 31.4 PG (27.0-31.0); MEAN CORPUSCULAR HGB CONC 33.2 g/dL (33.0-36.5); MEAN CORPUSCULAR VOLUME 94.6 FL (78-98); MEAN PLATELET VOLUME 6.8 FL (7.4-10.4); MONOCYTES # (AUTO) 0.6 X10'3 (0-0.9); MONOCYTES % (AUTO) 9.7 % (2-12); NEUTROPHILS # (AUTO) 3.5 X10'3 (1.8-7.7); NEUTROPHILS % (AUTO) 58.8 % (42-75); PLATELET COUNT 209 X10'3 (140-440); RED BLOOD COUNT 4.31 X10'6 (4.70-6.10); RED CELL DISTRIBUTION WIDTH 15.9 % (11.5-14.5); WHITE BLOOD COUNT 5.9 X10'3 (4.5-11.0)
[2024-03-27 07:43] LABS: ANION GAP 11 (8-16); BLOOD UREA NITROGEN 17 MG/DL (7-18); BUN/CREATININE RATIO 25.4 (10.0-20.0); CALCIUM 8.8 MG/DL (8.5-10.1); CHLORIDE 103 MMOL/L (99-107); CREATININE 0.67 MG/DL (0.60-1.10); GLUCOSE 95 MG/DL (70-104); POTASSIUM 3.9 MMOL/L (3.5-5.1); SODIUM 138 MMOL/L (135-145); TOTAL CARBON DIOXIDE 24.1 MMOL/L (24-32); eCRCL 147 ML/MIN; eGFR > 90 ML/MIN
[2024-03-27 14:41] VITALS: BP 120/82; PULSE 92; RESP 19; TEMP 98.4; O2SAT 98
[2024-03-27 18:00] VITALS: BP 150/110; PULSE 86; RESP 16; TEMP 97.7; O2SAT 98
[2024-03-27 22:00] VITALS: BP 137/85; PULSE 85; RESP 16; TEMP 97.4; O2SAT 97
[2024-03-28 03:21] VITALS: BP 149/106; PULSE 85; RESP 18; TEMP 97.4; O2SAT 100
[2024-03-28 05:19] LABS: HBSAG SCREEN Negative (Negative); HEP B CORE AB, IGM Negative (Negative); HEP B CORE AB, TOT Negative (Negative)
[2024-03-28 07:00] VITALS: BP 127/76; PULSE 80; RESP 18; TEMP 98.8; O2SAT 97
[2024-03-28 07:50] LABS: BASOPHILS % (AUTO) 0.2 % (0-1); EOSINOPHILS # (AUTO) 0.2 X10'3 (0-0.9); EOSINOPHILS % (AUTO) 2.4 % (0-6); HEMATOCRIT 40.9 % (42.0-52.0); HEMOGLOBIN 14.1 g/dl (14.0-17.9); LYMPHOCYTES # (AUTO) 1.5 X10'3 (1.1-4.8); LYMPHOCYTES % (AUTO) 22.6 % (21-51); MEAN CORPUSCULAR HEMOGLOBIN 32.4 PG (27.0-31.0); MEAN CORPUSCULAR HGB CONC 34.4 g/dL (33.0-36.5); MEAN CORPUSCULAR VOLUME 94.1 FL (78-98); MEAN PLATELET VOLUME 6.8 FL (7.4-10.4); MONOCYTES # (AUTO) 0.6 X10'3 (0-0.9); MONOCYTES % (AUTO) 8.2 % (2-12); NEUTROPHILS # (AUTO) 4.5 X10'3 (1.8-7.7); NEUTROPHILS % (AUTO) 66.6 % (42-75); PLATELET COUNT 209 X10'3 (140-440); RED BLOOD COUNT 4.35 X10'6 (4.70-6.10); RED CELL DISTRIBUTION WIDTH 15.6 % (11.5-14.5); WHITE BLOOD COUNT 6.8 X10'3 (4.5-11.0)
[2024-03-28 08:08] LABS: ALBUMIN 3.2 G/DL (3.4-5.0); ANION GAP 8 (8-16); BLOOD UREA NITROGEN 21 MG/DL (7-18); BUN/CREATININE RATIO 29.6 (10.0-20.0); CALCIUM 8.9 MG/DL (8.5-10.1); CHLORIDE 101 MMOL/L (99-107); CREATININE 0.71 MG/DL (0.60-1.10); GLUCOSE 96 MG/DL (70-104); POTASSIUM 3.9 MMOL/L (3.5-5.1); SODIUM 135 MMOL/L (135-145); TOTAL CARBON DIOXIDE 25.9 MMOL/L (24-32); eCRCL 139 ML/MIN; eGFR > 90 ML/MIN
[2024-03-28 08:15] VITALS: RESP 18; O2SAT 96
[2024-03-28 10:00] VITALS: BP 136/104; PULSE 103; RESP 17; TEMP 96.6; O2SAT 99
[2024-03-28] MEDS ORDERED: docusate sod 100mg capsule PO PRN (10:05)
[2024-03-28] MEDS ORDERED: gabapentin 300mg capsule PO SCH (16:00)
[2024-03-28] MEDS ORDERED: chlorproMAZINE 25mg tablet PO SCH (21:00)
[2024-03-29] MEDS ORDERED: lisinopril 10 MG tablet PO SCH (08:00)
[2024-03-29] MEDS ORDERED: thiamine 100mg tablet PO SCH (08:00)
[2024-03-29] MEDS ORDERED: folic acid 1mg tablet PO SCH (08:00)
[2024-03-29] MEDS ORDERED: non-formulary drug (Omeprazole 1 CAP) PO SCH (08:00)
[2024-03-29] MEDS ORDERED: multivitamins, therapeutics tablet PO SCH (08:00)
== END 2024-03-28 10:50 | disposition left against medical advice (07) | DRG 425 ==
LOC: ER 13:38 → ED HOLD 03-25 01:09 → EDBEDREQ 03-25 15:47 → PCU 3S 03-25 18:48 → ORTHO 4S 03-28 03:17
PROVIDERS: ADMIT Internal Medicine Sleep Medicine; ATTEND Internal Medicine
DX: E87.6 Hypokalemia (principal); F10.229 Alcohol dependence with intoxication, unspecified; F10.239 Alcohol dependence with withdrawal, unspecified; I10 Essential (primary) hypertension; J45.909 Unspecified asthma, uncomplicated; K21.9 Gastro-esophageal reflux disease without esophagitis; G89.29 Other chronic pain; F41.9 Anxiety disorder, unspecified; F20.9 Schizophrenia, unspecified; F43.10 Post-traumatic stress disorder, unspecified; F17.210 Nicotine dependence, cigarettes, uncomplicated; F31.9 Bipolar disorder, unspecified; F12.90 Cannabis use, unspecified, uncomplicated; Y90.9 Presence of alcohol in blood, level not specified; Z53.29 Procedure and treatment not carried out because of patient's decision for other reasons; Z88.8 Allergy status to other drugs, medicaments and biological substances; Z91.018 Allergy to other foods; Z86.73 Personal history of transient ischemic attack (TIA), and cerebral infarction without residual deficits; Z83.3 Family history of diabetes mellitus; Z80.0 Family history of malignant neoplasm of digestive organs; Z59.00 Homelessness unspecified; Z82.49 Family history of ischemic heart disease and other diseases of the circulatory system; Z71.6 Tobacco abuse counseling
CPT/HCPCS: 36415; 74176; 80048; 80053; 80061; 80305; 80320; 81001; 82272; 83036; 83690; 83735; 84100; 85025; 86704; 86705; 87081; 87324; 87340; 87449; 96374; 96375; 99285; A6258; G0378; J1650; J2270; J2405; J2765; J3411; J3480; J3490; J7030

== ENCOUNTER 2024-03-30 07:34 | Emergency (ER) | payer MEDICAID ==
[~2024-03-30] VITALS: Ht 177.8 cm; Wt 99.0 kg
[~2024-03-30 07:34] MED LIST changes: -ALBU18HF2 INH; -ALBU6.7H14 INH; -AMO250C PO; -BENZ1TAB78 PO; -BUSP10TA3 PO; -BUSP10TA4 PO; -CEPH-585 PO; -CHLO25CA10 PO; -CLIN-97 PO; -HYDR-3686 PO; +LISI10TA27 PO; -LOPE2CAP PO; -LORA-268 PO; -LORA-269 PO; -MAGN500T2 PO; -OLAN10TA3 PO; -ONDA4TAB6 PO; -PANT-47 PO; -PROP10TA10 PO; -TRAZ-256 PO
[2024-03-30 07:49] VITALS: BP 152/110; PULSE 86; RESP 16; TEMP 98; O2SAT 100
== END 2024-03-30 12:09 | disposition home or self-care (01) ==
LOC: ER 07:34
DX: M79.645 Pain in left finger(s) (principal); I10 Essential (primary) hypertension; J45.909 Unspecified asthma, uncomplicated; K21.9 Gastro-esophageal reflux disease without esophagitis; E11.9 Type 2 diabetes mellitus without complications; F12.90 Cannabis use, unspecified, uncomplicated; F15.90 Other stimulant use, unspecified, uncomplicated; Z91.018 Allergy to other foods; Z79.899 Other long term (current) drug therapy
CPT/HCPCS: 73140; 99283

== ENCOUNTER 2024-04-01 08:21 | Emergency (ER) | payer MEDICAID ==
[~2024-04-01] VITALS: Ht 177.8 cm; Wt 98.0 kg
[2024-04-01 08:39] VITALS: BP 133/86; PULSE 95; RESP 16; TEMP 98.9; O2SAT 97
== END 2024-04-01 13:59 | disposition left against medical advice (07) ==
LOC: ER 08:22
DX: J11.1 Influenza due to unidentified influenza virus with other respiratory manifestations (principal); Z53.21 Procedure and treatment not carried out due to patient leaving prior to being seen by health care provider

== ENCOUNTER 2024-04-10 18:17 | Emergency (ER) | payer MEDICAID ==
[~2024-04-10] VITALS: Ht 177.8 cm; Wt 97.0 kg
[2024-04-10 18:20] VITALS: TEMP 98.5
[2024-04-10 18:46] LABS: BASOPHILS # (AUTO) 0.1 X10'3 (0-0.2); BASOPHILS % (AUTO) 1.3 % (0-1); EOSINOPHILS # (AUTO) 0.2 X10'3 (0-0.9); EOSINOPHILS % (AUTO) 2.9 % (0-6); HEMATOCRIT 42.3 % (42.0-52.0); HEMOGLOBIN 14.4 g/dl (14.0-17.9); LYMPHOCYTES # (AUTO) 2.5 X10'3 (1.1-4.8); MEAN CORPUSCULAR HEMOGLOBIN 32.4 PG (27.0-31.0); MEAN CORPUSCULAR VOLUME 95.2 FL (78-98); MEAN PLATELET VOLUME 5.9 FL (7.4-10.4); MONOCYTES # (AUTO) 0.6 X10'3 (0-0.9); NEUTROPHILS % (AUTO) 46.8 % (42-75); PLATELET COUNT 474 X10'3 (140-440); RED BLOOD COUNT 4.44 X10'6 (4.70-6.10); RED CELL DISTRIBUTION WIDTH 15.9 % (11.5-14.5); WHITE BLOOD COUNT 6.5 X10'3 (4.5-11.0)
[2024-04-10 19:02] LABS: ALANINE AMINOTRANSFERASE 64 U/L (12-78); ALBUMIN 3.4 G/DL (3.4-5.0); ALBUMIN/GLOBULIN RATIO 0.9 (1.1-1.5); ALKALINE PHOSPHATASE 133 IU/L (46-116); ANION GAP 10 (8-16); ASPARTATE AMINO TRANSFERASE 43 U/L (10-37); BILIRUBIN,TOTAL 0.2 MG/DL (0.1-1.0); BLOOD UREA NITROGEN 5 MG/DL (7-18); BUN/CREATININE RATIO 5.8 (10.0-20.0); CALCIUM 8.3 MG/DL (8.5-10.1); CHLORIDE 102 MMOL/L (99-107); CREATININE 0.86 MG/DL (0.60-1.10); GLUCOSE 105 MG/DL (70-104); LIPASE 67 U/L (16-77); POTASSIUM 3.5 MMOL/L (3.5-5.1); SODIUM 138 MMOL/L (135-145); TOTAL CARBON DIOXIDE 26.4 MMOL/L (24-32); TOTAL PROTEIN 7.2 G/DL (6.4-8.2); eCRCL 114 ML/MIN; eGFR > 90 ML/MIN
[2024-04-11] MEDS: thiamine 100mg/ml 2ml inj. IV ONE (01:07)
[2024-04-11] MEDS: ondansetron/PF 4mg/2ml inj IV ONE (01:07)
[2024-04-11] MEDS: mag hydrox/Alum hydrox/simeth 30ml oral suspension PO ONE (01:08)
[2024-04-11] MEDS: LIDOcaine 2% Viscous 15ml cup MM ONE (01:08)
[2024-04-11] MEDS: normal saline 1000ml 1,000 ML IV ONE (01:08)
[2024-04-11 01:43] LABS: ETHANOL < 10 MG/DL (<10)
[2024-04-11 01:51] VITALS: BP 155/86; PULSE 88; O2SAT 99
[2024-04-11 01:54] VITALS: RESP 16
== END 2024-04-11 02:11 | disposition home or self-care (01) ==
LOC: ER 18:18
DX: R10.84 Generalized abdominal pain (principal); I10 Essential (primary) hypertension; K21.9 Gastro-esophageal reflux disease without esophagitis; F31.9 Bipolar disorder, unspecified; E11.9 Type 2 diabetes mellitus without complications; F12.90 Cannabis use, unspecified, uncomplicated; F15.90 Other stimulant use, unspecified, uncomplicated; Z91.010 Allergy to peanuts; Z88.8 Allergy status to other drugs, medicaments and biological substances; Z79.899 Other long term (current) drug therapy
CPT/HCPCS: 36415; 80053; 80320; 83690; 84484; 85025; 93005; 96361; 96374; 96375; 99284; J2405; J3411; J7030

== ENCOUNTER 2024-04-12 08:05 | Emergency (ER) | payer MEDICAID ==
[~2024-04-12] VITALS: Ht 177.8 cm; Wt 95.5 kg
[2024-04-12 08:12] VITALS: BP 147/108; PULSE 109; TEMP 98.4; O2SAT 98
[2024-04-12] MEDS ORDERED: ketorolac trometh. 30mg/ml inj. IM ONE (10:20)
[2024-04-12] MEDS: dicyclomine 10 MG capsule PO ONE (10:36)
[2024-04-12] MEDS: diphenoxylate/atropine tablet (Lomotil) PO ONE (10:36)
[2024-04-12 10:37] VITALS: RESP 14
[2024-04-12] MEDS: LIDOcaine 2% Viscous 15ml cup MM PRN (10:37)
[2024-04-12] MEDS: mag hydrox/Alum hydrox/simeth 30ml oral suspension PO ONE (10:37)
[2024-04-12] MEDS: ketorolac tromethamine 15mg/ml inj. IM ONE (10:37)
== END 2024-04-12 11:25 | disposition home or self-care (01) ==
LOC: ER 08:06
DX: F10.129 Alcohol abuse with intoxication, unspecified (principal); R10.84 Generalized abdominal pain; R19.7 Diarrhea, unspecified; Z88.8 Allergy status to other drugs, medicaments and biological substances; Z91.018 Allergy to other foods; Z86.73 Personal history of transient ischemic attack (TIA), and cerebral infarction without residual deficits; I10 Essential (primary) hypertension; J45.909 Unspecified asthma, uncomplicated; K21.9 Gastro-esophageal reflux disease without esophagitis; G89.29 Other chronic pain; F41.9 Anxiety disorder, unspecified; F31.9 Bipolar disorder, unspecified; F20.9 Schizophrenia, unspecified; E11.9 Type 2 diabetes mellitus without complications; F12.90 Cannabis use, unspecified, uncomplicated; F15.90 Other stimulant use, unspecified, uncomplicated; Z60.2 Problems related to living alone; Z59.00 Homelessness unspecified
CPT/HCPCS: 96372; 99284; J1885

== ENCOUNTER 2024-04-18 14:07 | Emergency (ER) | payer MEDICAID ==
[~2024-04-18] VITALS: Ht 177.8 cm; Wt 95.5 kg
[2024-04-18 14:25] LABS: BILIRUBIN,URINE NEGATIVE (Neg); CLARITY,URINE CLEAR (Clear); GLUCOSE, URINE NEGATIVE (Neg); KETONES,URINE NEGATIVE (Neg); LEUKOCYTE ESTERASE ,URINE NEGATIVE (Neg); NITRITES, URINE NEGATIVE (Neg); OCCULT BLOOD,URINE NEGATIVE (Neg); PROTEIN,URINE NEGATIVE (Neg); UROBILINOGEN,URINE 0.2 E.U/dL (0.2-1.0)
[2024-04-18 14:27] LABS: COLOR,URINE STRAW (Yellow); UA COLLECTION TYPE CLN CATCH MIDSTREAM
[2024-04-18 15:44] LABS: BASOPHILS % (AUTO) 0.5 % (0-1); EOSINOPHILS # (AUTO) 0.1 X10'3 (0-0.9); EOSINOPHILS % (AUTO) 1.1 % (0-6); HEMATOCRIT 45.7 % (42.0-52.0); HEMOGLOBIN 15.7 g/dl (14.0-17.9); LYMPHOCYTES # (AUTO) 2.7 X10'3 (1.1-4.8); LYMPHOCYTES % (AUTO) 31.5 % (21-51); MEAN CORPUSCULAR HEMOGLOBIN 32.1 PG (27.0-31.0); MEAN CORPUSCULAR HGB CONC 34.4 g/dL (33.0-36.5); MEAN CORPUSCULAR VOLUME 93.1 FL (78-98); MEAN PLATELET VOLUME 6.4 FL (7.4-10.4); MONOCYTES % (AUTO) 11.5 % (2-12); NEUTROPHILS # (AUTO) 4.8 X10'3 (1.8-7.7); NEUTROPHILS % (AUTO) 55.4 % (42-75); PLATELET COUNT 369 X10'3 (140-440); RED BLOOD COUNT 4.91 X10'6 (4.70-6.10); RED CELL DISTRIBUTION WIDTH 15.1 % (11.5-14.5); WHITE BLOOD COUNT 8.6 X10'3 (4.5-11.0)
[2024-04-18 15:54] LABS: ALANINE AMINOTRANSFERASE 63 U/L (12-78); ALBUMIN 3.7 G/DL (3.4-5.0); ALBUMIN/GLOBULIN RATIO 0.9 (1.1-1.5); ALKALINE PHOSPHATASE 119 IU/L (46-116); ANION GAP 9 (8-16); ASPARTATE AMINO TRANSFERASE 59 U/L (10-37); BILIRUBIN,TOTAL 0.4 MG/DL (0.1-1.0); BLOOD UREA NITROGEN 5 MG/DL (7-18); BUN/CREATININE RATIO 5.8 (10.0-20.0); CALCIUM 8.8 MG/DL (8.5-10.1); CHLORIDE 98 MMOL/L (99-107); CREATININE 0.86 MG/DL (0.60-1.10); GLUCOSE 125 MG/DL (70-104); LIPASE 88 U/L (16-77); POTASSIUM 3.4 MMOL/L (3.5-5.1); SODIUM 137 MMOL/L (135-145); TOTAL CARBON DIOXIDE 29.6 MMOL/L (24-32); TOTAL PROTEIN 7.8 G/DL (6.4-8.2); eCRCL 114 ML/MIN; eGFR > 90 ML/MIN
[2024-04-18] MEDS: normal saline 1000ml 1,000 ML IV ONE (16:13)
[2024-04-18] MEDS: LIDOcaine 2% Viscous 15ml cup MM ONE (17:35)
[2024-04-18] MEDS: mag hydrox/Alum hydrox/simeth 30ml oral suspension PO ONE (17:35)
[2024-04-18] MEDS: sucralfate 1 gm tablet PO ONE (17:35)
[2024-04-18] MEDS: acetaminophen 1,000mg/100ml IV 100 ML IV ONE (17:41)
[2024-04-18 18:21] VITALS: BP 142/77; PULSE 88; RESP 12; TEMP 98.9; O2SAT 100
== END 2024-04-18 18:22 | disposition home or self-care (01) ==
LOC: ER 14:08
DX: R10.84 Generalized abdominal pain (principal); R19.7 Diarrhea, unspecified; R11.10 Vomiting, unspecified; I10 Essential (primary) hypertension; J45.909 Unspecified asthma, uncomplicated; K21.9 Gastro-esophageal reflux disease without esophagitis; F41.9 Anxiety disorder, unspecified; F32.A Depression, unspecified; F20.9 Schizophrenia, unspecified; F17.210 Nicotine dependence, cigarettes, uncomplicated; F10.90 Alcohol use, unspecified, uncomplicated; F15.90 Other stimulant use, unspecified, uncomplicated; F12.90 Cannabis use, unspecified, uncomplicated; Z56.0 Unemployment, unspecified; Z59.00 Homelessness unspecified; Z86.73 Personal history of transient ischemic attack (TIA), and cerebral infarction without residual deficits; Z88.8 Allergy status to other drugs, medicaments and biological substances; Z91.018 Allergy to other foods; Z79.899 Other long term (current) drug therapy
CPT/HCPCS: 36415; 80053; 81003; 83690; 85025; 96361; 96374; 99283; J0131; J7030

== ENCOUNTER 2024-04-21 14:34 | Emergency (ER) | payer MEDICAID ==
[~2024-04-21] VITALS: Ht 177.8 cm; Wt 97.7 kg
[2024-04-21] MEDS ORDERED: LOPE-144 PO (15:00)
[2024-04-21] MEDS ORDERED: BISM262T46 PO (15:00)
[2024-04-21] MEDS ORDERED: CIPR750T14 PO (15:00)
[2024-04-21] MEDS ORDERED: DICY20TA17 PO (15:00)
[2024-04-21] MEDS ORDERED: ONDA4TAB12 PO (15:00)
[2024-04-21 15:07] VITALS: BP 153/117; PULSE 100; RESP 16; TEMP 98.6; O2SAT 94
[2024-04-22] MEDS ORDERED: MECO10005 PO (12:33)
[2024-04-22] MEDS ORDERED: THIA50TA10 PO (12:33)
[2024-04-22] MEDS ORDERED: FOLI1TAB27 PO (12:33)
[2024-04-22] MEDS ORDERED: CHLO25CA10 PO (12:33)
== END 2024-04-21 15:07 | disposition home or self-care (01) ==
LOC: ER 14:34
DX: R19.7 Diarrhea, unspecified (principal); F10.10 Alcohol abuse, uncomplicated; R10.9 Unspecified abdominal pain; I10 Essential (primary) hypertension; J45.909 Unspecified asthma, uncomplicated; K21.9 Gastro-esophageal reflux disease without esophagitis; E11.9 Type 2 diabetes mellitus without complications; F12.90 Cannabis use, unspecified, uncomplicated; F15.90 Other stimulant use, unspecified, uncomplicated; Z91.018 Allergy to other foods; Z88.8 Allergy status to other drugs, medicaments and biological substances; Z79.899 Other long term (current) drug therapy; Z79.1 Long term (current) use of non-steroidal anti-inflammatories (NSAID); Z79.2 Long term (current) use of antibiotics; Y90.9 Presence of alcohol in blood, level not specified
CPT/HCPCS: 99283

== ENCOUNTER 2024-04-22 09:29 | Emergency (ER) | payer MEDICAID ==
[~2024-04-22] VITALS: Ht 177.8 cm; Wt 97.7 kg
[~2024-04-22 09:29] MED LIST changes: +BISM262T46 PO; +CIPR750T14 PO; +DICY20TA17 PO; +LOPE-144 PO; +ONDA4TAB12 PO
[2024-04-22] MEDS: ondansetron/PF 4mg/2ml inj IV ONE (10:38)
[2024-04-22] MEDS: normal saline 1000ML IV soln IVB ONE (10:38)
[2024-04-22 10:47] LABS: BASOPHILS % (AUTO) 0.5 % (0-1); EOSINOPHILS % (AUTO) 0.7 % (0-6); HEMATOCRIT 45.6 % (42.0-52.0); HEMOGLOBIN 15.6 g/dl (14.0-17.9); LYMPHOCYTES # (AUTO) 1.6 X10'3 (1.1-4.8); LYMPHOCYTES % (AUTO) 23.4 % (21-51); MEAN CORPUSCULAR HEMOGLOBIN 31.9 PG (27.0-31.0); MEAN CORPUSCULAR HGB CONC 34.1 g/dL (33.0-36.5); MEAN CORPUSCULAR VOLUME 93.5 FL (78-98); MEAN PLATELET VOLUME 6.3 FL (7.4-10.4); MONOCYTES # (AUTO) 0.7 X10'3 (0-0.9); MONOCYTES % (AUTO) 10.7 % (2-12); NEUTROPHILS # (AUTO) 4.6 X10'3 (1.8-7.7); NEUTROPHILS % (AUTO) 64.7 % (42-75); PLATELET COUNT 296 X10'3 (140-440); RED BLOOD COUNT 4.88 X10'6 (4.70-6.10); RED CELL DISTRIBUTION WIDTH 15.1 % (11.5-14.5)
[2024-04-22 11:14] LABS: ALANINE AMINOTRANSFERASE 84 U/L (12-78); ALKALINE PHOSPHATASE 141 IU/L (46-116); ASPARTATE AMINO TRANSFERASE 136 U/L (10-37); BILIRUBIN,TOTAL 0.8 MG/DL (0.1-1.0); LIPASE 99 U/L (16-77); MAGNESIUM 2.3 MG/DL (1.5-2.4); TOTAL PROTEIN 7.3 G/DL (6.4-8.2)
[2024-04-22 11:31] LABS: ALBUMIN 3.6 G/DL (3.4-5.0); ANION GAP 10 (8-16); BLOOD UREA NITROGEN 9 MG/DL (7-18); BUN/CREATININE RATIO 11.8 (10.0-20.0); CALCIUM 8.2 MG/DL (8.5-10.1); CHLORIDE 100 MMOL/L (99-107); CREATININE 0.76 MG/DL (0.60-1.10); GLUCOSE 124 MG/DL (70-104); POTASSIUM 3.7 MMOL/L (3.5-5.1); SODIUM 136 MMOL/L (135-145); TOTAL CARBON DIOXIDE 25.7 MMOL/L (24-32); eCRCL 129 ML/MIN; eGFR > 90 ML/MIN
[2024-04-22 11:42] LABS: URINE AMPHETAMINE SCREEN NEGATIVE (Neg); URINE BARBITUATE SCREEN NEGATIVE (Neg); URINE BENZODIAZEPINES SCREEN NEGATIVE (Neg); URINE CANNABINOID SCREEN NEGATIVE (Neg); URINE COCAINE SCREEN NEGATIVE (Neg); URINE METHADONE SCREEN NEGATIVE (Neg); URINE OPIATE SCREEN NEGATIVE (Neg); URINE PHENCYCLIDINE SCREEN NEGATIVE (Neg)
[2024-04-22 11:42] LABS: BILIRUBIN,DIRECT 0.2 MG/DL (0-0.3); ETHANOL 269 MG/DL (<10)
[2024-04-22 12:00] VITALS: BP 152/97
[2024-04-22] MEDS: normal saline 1000ml 1,000 ML IV ONE (12:25)
[2024-04-22] MEDS ORDERED: FOLI1TAB27 PO (12:33)
[2024-04-22] MEDS ORDERED: CHLO25CA10 PO (12:33)
[2024-04-22] MEDS ORDERED: MECO10005 PO (12:33)
[2024-04-22] MEDS ORDERED: THIA50TA10 PO (12:33)
[2024-04-22 13:53] VITALS: PULSE 104; RESP 14; TEMP 98.6; O2SAT 96
== END 2024-04-22 13:58 | disposition home or self-care (01) ==
LOC: ER 09:31
DX: F10.10 Alcohol abuse, uncomplicated (principal); R11.2 Nausea with vomiting, unspecified; K86.1 Other chronic pancreatitis; I10 Essential (primary) hypertension; J45.909 Unspecified asthma, uncomplicated; G89.29 Other chronic pain; F12.90 Cannabis use, unspecified, uncomplicated; F15.90 Other stimulant use, unspecified, uncomplicated; Z56.0 Unemployment, unspecified; Z59.00 Homelessness unspecified; Z86.73 Personal history of transient ischemic attack (TIA), and cerebral infarction without residual deficits; Z79.2 Long term (current) use of antibiotics; Z79.899 Other long term (current) drug therapy; Z88.8 Allergy status to other drugs, medicaments and biological substances; Z91.010 Allergy to peanuts; Y90.8 Blood alcohol level of 240 mg/100 ml or more
CPT/HCPCS: 36415; 80048; 80076; 80305; 80320; 83690; 83735; 85025; 96361; 96374; 99284; J2405; J7030; 99283

== ENCOUNTER 2024-04-27 17:46 | Inpatient (IN) | payer MEDICAID ==
[~2024-04-27] VITALS: Ht 177.8 cm; Wt 67.5 kg
[~2024-04-27 17:46] MED LIST changes: +CHLO25CA10 PO; +FOLI1TAB27 PO; +MECO10005 PO; +THIA50TA10 PO
[2024-04-27] MEDS: ondansetron/PF 4mg/2ml inj IV ONE (18:30)
[2024-04-27] MEDS: normal saline 1000ml 1,000 ML IV ONE (18:30)
[2024-04-27 18:43] LABS: BASOPHILS % (AUTO) 0.5 % (0-1); EOSINOPHILS # (AUTO) 0.3 X10'3 (0-0.9); EOSINOPHILS % (AUTO) 3.5 % (0-6); HEMATOCRIT 37.2 % (42.0-52.0); HEMOGLOBIN 12.9 g/dl (14.0-17.9); LYMPHOCYTES # (AUTO) 2.5 X10'3 (1.1-4.8); LYMPHOCYTES % (AUTO) 32.3 % (21-51); MEAN CORPUSCULAR HEMOGLOBIN 33.1 PG (27.0-31.0); MEAN CORPUSCULAR HGB CONC 34.7 g/dL (33.0-36.5); MEAN CORPUSCULAR VOLUME 95.4 FL (78-98); MEAN PLATELET VOLUME 6.7 FL (7.4-10.4); MONOCYTES # (AUTO) 0.8 X10'3 (0-0.9); MONOCYTES % (AUTO) 10.1 % (2-12); NEUTROPHILS # (AUTO) 4.1 X10'3 (1.8-7.7); NEUTROPHILS % (AUTO) 53.6 % (42-75); PLATELET COUNT 231 X10'3 (140-440); RED CELL DISTRIBUTION WIDTH 14.8 % (11.5-14.5); WHITE BLOOD COUNT 7.6 X10'3 (4.5-11.0)
[2024-04-27 18:53] LABS: ALANINE AMINOTRANSFERASE 52 U/L (12-78); ALBUMIN 3.1 G/DL (3.4-5.0); ALBUMIN/GLOBULIN RATIO 0.9 (1.1-1.5); ALKALINE PHOSPHATASE 118 IU/L (46-116); ANION GAP 16 (8-16); ASPARTATE AMINO TRANSFERASE 36 U/L (10-37); BILIRUBIN,DIRECT 0.1 MG/DL (0-0.3); BILIRUBIN,TOTAL 0.2 MG/DL (0.1-1.0); BLOOD UREA NITROGEN 10 MG/DL (7-18); BUN/CREATININE RATIO 10.4 (10.0-20.0); CALCIUM 8.1 MG/DL (8.5-10.1); CHLORIDE 104 MMOL/L (99-107); CREATININE 0.96 MG/DL (0.60-1.10); GLUCOSE 156 MG/DL (70-104); LIPASE 275 U/L (16-77); SODIUM 143 MMOL/L (135-145); TOTAL CARBON DIOXIDE 22.6 MMOL/L (24-32); TOTAL PROTEIN 6.5 G/DL (6.4-8.2); eCRCL 96 ML/MIN; eGFR 85 ML/MIN
[2024-04-27 19:22] LABS: BILIRUBIN,URINE NEGATIVE (Neg); CLARITY,URINE CLEAR (Clear); COLOR,URINE STRAW (Yellow); GLUCOSE, URINE NEGATIVE (Neg); KETONES,URINE NEGATIVE (Neg); LEUKOCYTE ESTERASE ,URINE NEGATIVE (Neg); NITRITES, URINE NEGATIVE (Neg); OCCULT BLOOD,URINE NEGATIVE (Neg); PROTEIN,URINE NEGATIVE (Neg); UROBILINOGEN,URINE 0.2 E.U/dL (0.2-1.0)
[2024-04-27 19:28] LABS: UA COLLECTION TYPE CLN CATCH MIDSTREAM
[2024-04-27 19:45] LABS: URINE AMPHETAMINE SCREEN NEGATIVE (Neg); URINE BARBITUATE SCREEN NEGATIVE (Neg); URINE BENZODIAZEPINES SCREEN NEGATIVE (Neg); URINE CANNABINOID SCREEN POSITIVE (Neg); URINE COCAINE SCREEN NEGATIVE (Neg); URINE METHADONE SCREEN NEGATIVE (Neg); URINE OPIATE SCREEN NEGATIVE (Neg); URINE PHENCYCLIDINE SCREEN NEGATIVE (Neg)
[2024-04-27] MEDS: ringers solution, lacted 1,000 ML IV ONE (20:37)
[2024-04-27] MEDS ORDERED: magnesium 2GM in 50ml NS 50 ML IV PRN (20:45)
[2024-04-27] MEDS ORDERED: magnesium 4gm in 100ml NS 100 ML IV PRN (20:45)
[2024-04-27] MEDS ORDERED: ondansetron/PF 4mg/2ml inj IV PRN (20:45)
[2024-04-27] MEDS ORDERED: acetaminophen 325mg tablet PO PRN (20:45)
[2024-04-27] MEDS ORDERED: magnesium hydroxide 30ml (MOM) UD suspension PO PRN (20:45)
[2024-04-27] MEDS ORDERED: magnesium Cl slow-release 64mg tablet PO PRN (20:45)
[2024-04-27] MEDS ORDERED: potassium Cl 20 mEq SR tablet PO PRN (20:45)
[2024-04-27] MEDS ORDERED: potassium Cl 40MEQ/1/2NS 520ml 520 ML IV PRN (20:45)
[2024-04-27] MEDS: potassium CL 10mEq/100ml bag 100 ML IV SCH ×2 (20:54→22:03)
[2024-04-27] MEDS: magnesium 2GM in 50ml NS 50 ML IV ONE (20:54)
[2024-04-27] MEDS ORDERED: LORazepam 2 mg/ml vial IV PRN (20:55)
[2024-04-27] MEDS ORDERED: haloperidol 5mg tablet PO PRN (20:55)
[2024-04-27] MEDS: CALCIUM GLUC 1gm/50ml NACL,iso 100 ML IV ONE (20:56)
[2024-04-27 21:21] LABS: PHOSPHORUS 3.2 MG/DL (2.3-4.5)
[2024-04-27] MEDS: thiamine 100mg/ml 2ml inj. IV SCH (22:05)
[2024-04-27] MEDS: diazepam inj 5 MG/ML inj. IV ONE (22:07)
[2024-04-27 23:05] VITALS: RESP 21; O2SAT 100
[2024-04-27 23:15] VITALS: BP 142/101; PULSE 91; RESP 16; TEMP 97.4; O2SAT 100
[2024-04-28] MEDS: morphine 2 MG/ML inj. syringe IV PRN (00:12)
[2024-04-28] MEDS: normal saline 1000ml 1,000 ML IV SCH (00:12)
[2024-04-28 00:59] LABS: MAGNESIUM 2.2 MG/DL (1.5-2.4); POTASSIUM 3.7 MMOL/L (3.5-5.1)
[2024-04-28 06:00] VITALS: BP 119/65; PULSE 88; RESP 15; TEMP 98.2; O2SAT 97
[2024-04-28 06:30] VITALS: BP 119/65; PULSE 88; RESP 15; TEMP 98.2; O2SAT 97
[2024-04-28 07:25] LABS: BASOPHILS % (AUTO) 0.7 % (0-1); EOSINOPHILS # (AUTO) 0.2 X10'3 (0-0.9); EOSINOPHILS % (AUTO) 3.7 % (0-6); HEMATOCRIT 40.1 % (42.0-52.0); HEMOGLOBIN 13.5 g/dl (14.0-17.9); LYMPHOCYTES # (AUTO) 1.9 X10'3 (1.1-4.8); MEAN CORPUSCULAR HEMOGLOBIN 32.6 PG (27.0-31.0); MEAN CORPUSCULAR HGB CONC 33.7 g/dL (33.0-36.5); MEAN CORPUSCULAR VOLUME 96.8 FL (78-98); MEAN PLATELET VOLUME 6.6 FL (7.4-10.4); MONOCYTES # (AUTO) 0.6 X10'3 (0-0.9); MONOCYTES % (AUTO) 10.3 % (2-12); NEUTROPHILS % (AUTO) 52.3 % (42-75); PLATELET COUNT 215 X10'3 (140-440); RED BLOOD COUNT 4.14 X10'6 (4.70-6.10); RED CELL DISTRIBUTION WIDTH 14.7 % (11.5-14.5); WHITE BLOOD COUNT 5.7 X10'3 (4.5-11.0)
[2024-04-28 07:30] LABS: APTT 30 SECONDS (22-32); PROTHROMBIN TIME 10.9 SECONDS (9.0-12.0)
[2024-04-28] MEDS: heparin, porcine 5000 units/ml vial SQ SCH (07:52)
[2024-04-28] MEDS: multivitamins, therapeutics tablet PO SCH (07:52)
[2024-04-28] MEDS: folic acid 1mg/0.2ml inj IV SCH (07:53)
[2024-04-28] MEDS: nicotine 21mg patch - 24 hr TD SCH (07:53)
[2024-04-28 08:00] VITALS: RESP 18; O2SAT 100
[2024-04-28 08:00] LABS: ALANINE AMINOTRANSFERASE 48 U/L (12-78); ALBUMIN 2.8 G/DL (3.4-5.0); ALBUMIN/GLOBULIN RATIO 0.8 (1.1-1.5); ALKALINE PHOSPHATASE 103 IU/L (46-116); ANION GAP 10 (8-16); ASPARTATE AMINO TRANSFERASE 34 U/L (10-37); BILIRUBIN,TOTAL 0.2 MG/DL (0.1-1.0); BLOOD UREA NITROGEN 8 MG/DL (7-18); BUN/CREATININE RATIO 11.6 (10.0-20.0); CALCIUM 7.5 MG/DL (8.5-10.1); CHLORIDE 111 MMOL/L (99-107); CHOL/HDL RATIO 1.9 (0.00-4.99); CHOLESTEROL 147 MG/DL (0-200); CREATININE 0.69 MG/DL (0.60-1.10); GLUCOSE 97 MG/DL (70-104); HDL CHOLESTEROL 76 MG/DL (35-60); LDL CHOLESTEROL 35 MG/DL (50-100); LIPASE 120 U/L (16-77); MAGNESIUM 2.2 MG/DL (1.5-2.4); PHOSPHORUS 3.1 MG/DL (2.3-4.5); POTASSIUM 3.5 MMOL/L (3.5-5.1); SODIUM 147 MMOL/L (135-145); TOTAL CARBON DIOXIDE 25.8 MMOL/L (24-32); TOTAL PROTEIN 6.1 G/DL (6.4-8.2); TRIGLYCERIDES 306 MG/DL (20-135); eCRCL 132 ML/MIN; eGFR > 90 ML/MIN
[2024-04-28] MEDS: K and/or MAG REPLACEMENT MC SCH (08:00)
[2024-04-28] MEDS: docusate sod 100mg capsule PO SCH (08:00)
[2024-04-28] MEDS ORDERED: diazepam inj 5 MG/ML inj. IV PRN (08:40)
[2024-04-28] MEDS ORDERED: iohexol 300mg/ml 100ml inj. ONE (08:53)
[2024-04-28 10:00] VITALS: BP 147/112; PULSE 94; RESP 22; TEMP 98.7; O2SAT 99
[2024-04-28] MEDS: gabapentin 300mg capsule PO SCH (12:10)
[2024-04-28] MEDS: LORazepam 1 MG tablet PO PRN (12:11)
[2024-04-28] MEDS: mag hydrox/Alum hydrox/simeth 30ml oral suspension PO PRN (17:21)
[2024-04-28 20:00] VITALS: RESP 18
[2024-04-28 20:44] LABS: OCCULT BLOOD STOOL NEGATIVE (Neg)
[2024-04-28 22:00] VITALS: BP 165/123; PULSE 84; RESP 16; TEMP 97.1; O2SAT 98
[2024-04-28] MEDS: dronabinol 2.5mg capsule PO PRN (23:26)
[2024-04-29] VITALS (7 sets, daily range): BP systolic 143–169; BP diastolic 81–118; PULSE 80–96; RESP 13–18; TEMP 97.3–99; O2SAT 97–98
[2024-04-29 07:35] LABS: BASOPHILS % (AUTO) 0.5 % (0-1); EOSINOPHILS # (AUTO) 0.1 X10'3 (0-0.9); EOSINOPHILS % (AUTO) 2.4 % (0-6); HEMATOCRIT 38.5 % (42.0-52.0); HEMOGLOBIN 13.4 g/dl (14.0-17.9); LYMPHOCYTES # (AUTO) 1.3 X10'3 (1.1-4.8); LYMPHOCYTES % (AUTO) 23.4 % (21-51); MEAN CORPUSCULAR HEMOGLOBIN 33.2 PG (27.0-31.0); MEAN CORPUSCULAR HGB CONC 34.7 g/dL (33.0-36.5); MEAN CORPUSCULAR VOLUME 95.7 FL (78-98); MEAN PLATELET VOLUME 6.4 FL (7.4-10.4); MONOCYTES # (AUTO) 0.7 X10'3 (0-0.9); MONOCYTES % (AUTO) 11.4 % (2-12); NEUTROPHILS # (AUTO) 3.6 X10'3 (1.8-7.7); NEUTROPHILS % (AUTO) 62.3 % (42-75); PLATELET COUNT 227 X10'3 (140-440); RED BLOOD COUNT 4.02 X10'6 (4.70-6.10); RED CELL DISTRIBUTION WIDTH 14.9 % (11.5-14.5); WHITE BLOOD COUNT 5.7 X10'3 (4.5-11.0)
[2024-04-29 07:47] LABS: APTT 32 SECONDS (22-32); PROTHROMBIN TIME 10.8 SECONDS (9.0-12.0)
[2024-04-29 08:05] LABS: ALANINE AMINOTRANSFERASE 44 U/L (12-78); ALBUMIN/GLOBULIN RATIO 0.9 (1.1-1.5); ALKALINE PHOSPHATASE 106 IU/L (46-116); ANION GAP 10 (8-16); ASPARTATE AMINO TRANSFERASE 30 U/L (10-37); BILIRUBIN,TOTAL 0.4 MG/DL (0.1-1.0); BLOOD UREA NITROGEN 5 MG/DL (7-18); BUN/CREATININE RATIO 6.1 (10.0-20.0); CALCIUM 8.3 MG/DL (8.5-10.1); CHLORIDE 104 MMOL/L (99-107); CREATININE 0.82 MG/DL (0.60-1.10); GLUCOSE 109 MG/DL (70-104); LIPASE 49 U/L (16-77); MAGNESIUM 2.2 MG/DL (1.5-2.4); PHOSPHORUS 3.8 MG/DL (2.3-4.5); POTASSIUM 3.2 MMOL/L (3.5-5.1); SODIUM 140 MMOL/L (135-145); TOTAL CARBON DIOXIDE 26.2 MMOL/L (24-32); TOTAL PROTEIN 6.3 G/DL (6.4-8.2); eCRCL 111 ML/MIN; eGFR > 90 ML/MIN
[2024-04-29] MEDS: pantoprazole 40MG/NS 100ML BAG 100 ML IV SCH (08:16)
[2024-04-29] MEDS: fenofibrate 145mg tablet PO SCH (08:16)
[2024-04-29] MEDS: potassium Cl 20 mEq SR tablet PO PRN (08:36)
[2024-04-29 16:03] LABS: HBSAG SCREEN Negative (Negative); HEP B CORE AB, IGM Negative (Negative); HEP B CORE AB, TOT Negative (Negative)
[2024-04-29] MEDS: calcium carbonate 500mg chew tablet PO SCH (17:30)
[2024-04-30 06:00] VITALS: BP 161/90; PULSE 16; RESP 16; TEMP 97.2; O2SAT 96
[2024-04-30 06:43] VITALS: RESP 16
[2024-04-30 07:47] LABS: BASOPHILS % (AUTO) 0.4 % (0-1); EOSINOPHILS # (AUTO) 0.1 X10'3 (0-0.9); EOSINOPHILS % (AUTO) 2.8 % (0-6); LYMPHOCYTES # (AUTO) 1.2 X10'3 (1.1-4.8); MEAN CORPUSCULAR HGB CONC 34.3 g/dL (33.0-36.5); MEAN CORPUSCULAR VOLUME 96.2 FL (78-98); MEAN PLATELET VOLUME 6.9 FL (7.4-10.4); MONOCYTES # (AUTO) 0.7 X10'3 (0-0.9); MONOCYTES % (AUTO) 15.8 % (2-12); NEUTROPHILS # (AUTO) 2.5 X10'3 (1.8-7.7); PLATELET COUNT 245 X10'3 (140-440); RED BLOOD COUNT 3.95 X10'6 (4.70-6.10); RED CELL DISTRIBUTION WIDTH 14.7 % (11.5-14.5); WHITE BLOOD COUNT 4.6 X10'3 (4.5-11.0)
[2024-04-30 07:49] LABS: APTT 33 SECONDS (22-32); PROTHROMBIN TIME 10.3 SECONDS (9.0-12.0)
[2024-04-30 07:58] LABS: ALANINE AMINOTRANSFERASE 37 U/L (12-78); ALBUMIN/GLOBULIN RATIO 0.9 (1.1-1.5); ALKALINE PHOSPHATASE 89 IU/L (46-116); ANION GAP 7 (8-16); ASPARTATE AMINO TRANSFERASE 21 U/L (10-37); BILIRUBIN,TOTAL 0.2 MG/DL (0.1-1.0); BLOOD UREA NITROGEN 8 MG/DL (7-18); BUN/CREATININE RATIO 11.3 (10.0-20.0); CALCIUM 8.5 MG/DL (8.5-10.1); CHLORIDE 105 MMOL/L (99-107); CREATININE 0.71 MG/DL (0.60-1.10); GLUCOSE 106 MG/DL (70-104); LIPASE 65 U/L (16-77); MAGNESIUM 2.3 MG/DL (1.5-2.4); PHOSPHORUS 4.3 MG/DL (2.3-4.5); POTASSIUM 4.1 MMOL/L (3.5-5.1); SODIUM 139 MMOL/L (135-145); TOTAL CARBON DIOXIDE 26.6 MMOL/L (24-32); TOTAL PROTEIN 6.3 G/DL (6.4-8.2); eCRCL 128 ML/MIN; eGFR > 90 ML/MIN
[2024-04-30 08:18] LABS: TOTAL CELLS COUNTED 100
[2024-04-30 08:19] LABS: PLATELET ESTIMATE NORMAL
[2024-04-30] MEDS ORDERED: FENO145T25 PO (12:07)
[2024-04-30] MEDS ORDERED: ONDA4TAB12 PO (12:07)
[2024-04-30] MEDS ORDERED: PANT-47 PO (12:07)
[2024-04-30] MEDS ORDERED: ACAM333T8 PO (12:07)
[2024-04-30] MEDS ORDERED: gabapentin capsule PO (12:07)
[2024-04-30] MEDS ORDERED: LORA-269 PO (12:07)
[2024-04-30] MEDS ORDERED: SUCR1TAB PO (12:07)
[2024-04-30] MEDS ORDERED: MAGN400T52 PO (15:21)
[2024-05-01] MEDS ORDERED: thiamine 100mg tablet PO SCH (08:00)
[2024-05-02] MEDS ORDERED: folic acid 1mg tablet PO SCH (08:00)
[2024-05-02 18:02] LABS: ETHANOL 420 MG/DL (<10)
== END 2024-04-30 14:00 | disposition home or self-care (01) | DRG 282 ==
LOC: ER 17:47 → ORTHO 4S 20:51
PROVIDERS: ADMIT Surgery; ATTEND Family Medicine
PROC: BW211ZZ Computerized Tomography (CT Scan) of Abdomen and Pelvis using Low Osmolar Contrast (ICD-10-PCS; principal; 2024-04-28)
DX: K85.20 Alcohol induced acute pancreatitis without necrosis or infection (principal); S09.90XA Unspecified injury of head, initial encounter; E11.42 Type 2 diabetes mellitus with diabetic polyneuropathy; E87.6 Hypokalemia; F20.9 Schizophrenia, unspecified; F31.9 Bipolar disorder, unspecified; I10 Essential (primary) hypertension; F60.9 Personality disorder, unspecified; J45.909 Unspecified asthma, uncomplicated; K86.1 Other chronic pancreatitis; F41.9 Anxiety disorder, unspecified; G89.29 Other chronic pain; K21.9 Gastro-esophageal reflux disease without esophagitis; F10.239 Alcohol dependence with withdrawal, unspecified; Y90.9 Presence of alcohol in blood, level not specified; E78.1 Pure hyperglyceridemia; F17.200 Nicotine dependence, unspecified, uncomplicated; W18.39XA Other fall on same level, initial encounter; F10.229 Alcohol dependence with intoxication, unspecified; Z85.07 Personal history of malignant neoplasm of pancreas; Z59.00 Homelessness unspecified; Z79.899 Other long term (current) drug therapy; Z56.0 Unemployment, unspecified; Z88.0 Allergy status to penicillin; Z88.8 Allergy status to other drugs, medicaments and biological substances; Y93.89 Activity, other specified; Y92.89 Other specified places as the place of occurrence of the external cause; Y99.8 Other external cause status; Z79.4 Long term (current) use of insulin
CPT/HCPCS: 36415; 70450; 74178; 80048; 80053; 80061; 80076; 80305; 80320; 81003; 82140; 82272; 82948; 83690; 83735; 84100; 84132; 84484; 85007; 85025; 85610; 85730; 86704; 86705; 87045; 87046; 87081; 87324; 87340; 87449; 89055; 93005; 99285; A6258; C9113; G0378; J0610; J1644; J2270; J2405; J3360; J3411; J3475; J3480; J3490; J7030; J7120; Q0167; Q9967

== ENCOUNTER 2024-05-07 17:04 | Emergency (ER) | payer MEDICAID ==
[~2024-05-07] VITALS: Ht 177.8 cm; Wt 100.9 kg
[~2024-05-07 17:04] MED LIST changes: +ACAM333T8 PO; -CHLO25CA10 PO; -CIPR750T14 PO; +FENO145T25 PO; -GABA-530 PO; -GABA300C PO; +LORA-269 PO; +MAGN400T52 PO; -OMEP20CA16 PO; +PANT-47 PO; +gabapentin capsule PO
[2024-05-07 17:51] LABS: BASOPHILS # (AUTO) 0.1 X10'3 (0-0.2); BASOPHILS % (AUTO) 0.6 % (0-1); EOSINOPHILS # (AUTO) 0.2 X10'3 (0-0.9); EOSINOPHILS % (AUTO) 2.5 % (0-6); HEMATOCRIT 40.4 % (42.0-52.0); HEMOGLOBIN 13.9 g/dl (14.0-17.9); LYMPHOCYTES # (AUTO) 2.2 X10'3 (1.1-4.8); LYMPHOCYTES % (AUTO) 22.2 % (21-51); MEAN CORPUSCULAR HEMOGLOBIN 33.2 PG (27.0-31.0); MEAN CORPUSCULAR HGB CONC 34.4 g/dL (33.0-36.5); MEAN CORPUSCULAR VOLUME 96.4 FL (78-98); MEAN PLATELET VOLUME 6.6 FL (7.4-10.4); MONOCYTES # (AUTO) 0.9 X10'3 (0-0.9); MONOCYTES % (AUTO) 9.5 % (2-12); NEUTROPHILS # (AUTO) 6.4 X10'3 (1.8-7.7); NEUTROPHILS % (AUTO) 65.2 % (42-75); PLATELET COUNT 437 X10'3 (140-440); RED BLOOD COUNT 4.19 X10'6 (4.70-6.10); RED CELL DISTRIBUTION WIDTH 14.8 % (11.5-14.5); WHITE BLOOD COUNT 9.8 X10'3 (4.5-11.0)
[2024-05-07 17:56] LABS: BILIRUBIN,URINE NEGATIVE (Neg); CLARITY,URINE CLEAR (Clear); COLOR,URINE YELLOW (Yellow); GLUCOSE, URINE NEGATIVE (Neg); KETONES,URINE TRACE mg/dl (Neg); LEUKOCYTE ESTERASE ,URINE NEGATIVE (Neg); NITRITES, URINE NEGATIVE (Neg); OCCULT BLOOD,URINE NEGATIVE (Neg); PH,URINE 7.5 (4.8-8.0); PROTEIN,URINE NEGATIVE (Neg); UROBILINOGEN,URINE 0.2 E.U/dL (0.2-1.0)
[2024-05-07 18:01] LABS: UA COLLECTION TYPE CLN CATCH MIDSTREAM
[2024-05-07 18:03] LABS: URINE AMPHETAMINE SCREEN NEGATIVE (Neg); URINE BARBITUATE SCREEN NEGATIVE (Neg); URINE BENZODIAZEPINES SCREEN NEGATIVE (Neg); URINE CANNABINOID SCREEN POSITIVE (Neg); URINE COCAINE SCREEN NEGATIVE (Neg); URINE METHADONE SCREEN NEGATIVE (Neg); URINE OPIATE SCREEN NEGATIVE (Neg); URINE PHENCYCLIDINE SCREEN NEGATIVE (Neg)
[2024-05-07 18:12] LABS: ALBUMIN 3.4 G/DL (3.4-5.0); ALBUMIN/GLOBULIN RATIO 0.9 (1.1-1.5); ALKALINE PHOSPHATASE 132 IU/L (46-116); ANION GAP 15 (8-16); BILIRUBIN,TOTAL 0.3 MG/DL (0.1-1.0); BLOOD UREA NITROGEN 6 MG/DL (7-18); CALCIUM 8.2 MG/DL (8.5-10.1); CHLORIDE 102 MMOL/L (99-107); CREATININE 0.86 MG/DL (0.60-1.10); ETHANOL 134 MG/DL (<10); SODIUM 138 MMOL/L (135-145); THYROID STIMULATING HORMONE 2.21 ulU/ml (0.34-4.50); TOTAL CARBON DIOXIDE 21.3 MMOL/L (24-32); TOTAL PROTEIN 7.2 G/DL (6.4-8.2); eCRCL 114 ML/MIN; eGFR > 90 ML/MIN
[2024-05-07 18:59] LABS: ALANINE AMINOTRANSFERASE 50 U/L (12-78); GLUCOSE 149 MG/DL (70-104); POTASSIUM 3.4 MMOL/L (3.5-5.1)
[2024-05-07 19:23] LABS: ASPARTATE AMINO TRANSFERASE 25 U/L (10-37)
[2024-05-07] MEDS: mag hydrox/Alum hydrox/simeth 30ml oral suspension PO ONE (20:05)
[2024-05-07] MEDS: ondansetron 4mg rapidly disintigrating tab PO ONE (20:06)
[2024-05-07] MEDS: potassium Cl 20 mEq SR tablet PO STA (21:54)
[2024-05-08] MEDS ORDERED: PANT40TA54 PO (01:01)
[2024-05-08] MEDS ORDERED: PANT-47 PO (02:09)
[2024-05-08] MEDS ORDERED: ONDA4TAB12 PO (02:09)
[2024-05-08] MEDS ORDERED: SUCR1TAB PO (02:10)
[2024-05-08] MEDS ORDERED: LORA-269 PO (02:11)
[2024-05-08] MEDS: sucralfate 1 gm tablet PO SCH (07:23)
[2024-05-08] MEDS: pantoprazole 40mg Tablet.DR PO SCH (07:23)
[2024-05-08] MEDS: LORazepam 1 MG tablet PO SCH (07:23)
[2024-05-08] MEDS: propranolol 10mg tablet PO SCH (10:16)
[2024-05-08] MEDS: LORazepam 1 MG tablet PO PRN (19:56)
[2024-05-08] MEDS: mag hydrox/Alum hydrox/simeth 30ml oral suspension PO ONE (19:56)
[2024-05-09 05:56] VITALS: BP 129/96; PULSE 86; RESP 18; O2SAT 97
[2024-05-09] MEDS: LORazepam 1 MG tablet PO PRN (08:21)
[2024-05-09] MEDS: ondansetron 4mg rapidly disintigrating tab PO PRN (08:21)
[2024-05-09 13:20] VITALS: TEMP 98.1
== END 2024-05-09 13:22 | disposition home or self-care (01) ==
LOC: ER 17:05
DX: F10.129 Alcohol abuse with intoxication, unspecified (principal); F15.90 Other stimulant use, unspecified, uncomplicated; F12.90 Cannabis use, unspecified, uncomplicated; F17.200 Nicotine dependence, unspecified, uncomplicated; I10 Essential (primary) hypertension; J45.909 Unspecified asthma, uncomplicated; K21.9 Gastro-esophageal reflux disease without esophagitis; G89.29 Other chronic pain; F41.9 Anxiety disorder, unspecified; F32.A Depression, unspecified; F28 Other psychotic disorder not due to a substance or known physiological condition; Z20.822 Contact with and (suspected) exposure to COVID-19; Z86.73 Personal history of transient ischemic attack (TIA), and cerebral infarction without residual deficits; Z79.899 Other long term (current) drug therapy; Z88.0 Allergy status to penicillin; Z88.8 Allergy status to other drugs, medicaments and biological substances; Z91.018 Allergy to other foods; Z98.890 Other specified postprocedural states; F20.9 Schizophrenia, unspecified; Z60.2 Problems related to living alone; Z56.0 Unemployment, unspecified; Z59.00 Homelessness unspecified
CPT/HCPCS: 36415; 80053; 80305; 80320; 81003; 84443; 85025; 87811; 99285

== ENCOUNTER 2024-05-14 10:01 | Emergency (ER) | payer MEDICAID ==
[~2024-05-14] VITALS: Ht 177.8 cm; Wt 74.0 kg
[~2024-05-14 10:01] MED LIST changes: -ACAM333T8 PO; -BISM262T46 PO; -CHLO25TA68 PO; -DICY20TA17 PO; -DOCU-262 PO; -FENO145T25 PO; -FOLI1TAB27 PO; -LISI10TA27 PO; -LOPE-144 PO; -MAGN400T52 PO; -MECO10005 PO; -MULT-1085 PO; +ONDA-243 PO; -ONDA4TAB12 PO; -THIA50TA10 PO; -gabapentin capsule PO
[2024-05-14 10:06] VITALS: BP 165/109; PULSE 98; RESP 18; TEMP 98.6; O2SAT 9
== END 2024-05-14 10:45 | disposition home or self-care (01) ==
LOC: ER 10:01
DX: F10.229 Alcohol dependence with intoxication, unspecified (principal); I10 Essential (primary) hypertension; J45.909 Unspecified asthma, uncomplicated; K21.9 Gastro-esophageal reflux disease without esophagitis; F41.9 Anxiety disorder, unspecified; F32.A Depression, unspecified; F20.9 Schizophrenia, unspecified; E11.9 Type 2 diabetes mellitus without complications; F12.90 Cannabis use, unspecified, uncomplicated; F15.90 Other stimulant use, unspecified, uncomplicated; Z59.00 Homelessness unspecified; Z56.0 Unemployment, unspecified; Z86.73 Personal history of transient ischemic attack (TIA), and cerebral infarction without residual deficits; Z88.0 Allergy status to penicillin; Z88.8 Allergy status to other drugs, medicaments and biological substances; Z79.899 Other long term (current) drug therapy; Z79.2 Long term (current) use of antibiotics; Y90.9 Presence of alcohol in blood, level not specified
CPT/HCPCS: 99281

== ENCOUNTER 2024-05-29 16:47 | Emergency (ER) | payer MEDICAID ==
[~2024-05-29] VITALS: Ht 177.8 cm; Wt 97.7 kg
[2024-05-29 17:47] LABS: BASOPHILS % (AUTO) 0.4 % (0-1); EOSINOPHILS # (AUTO) 0.1 X10'3 (0-0.9); HEMATOCRIT 43.2 % (42.0-52.0); HEMOGLOBIN 14.7 g/dl (14.0-17.9); LYMPHOCYTES # (AUTO) 1.9 X10'3 (1.1-4.8); LYMPHOCYTES % (AUTO) 18.1 % (21-51); MEAN CORPUSCULAR HEMOGLOBIN 32.5 PG (27.0-31.0); MEAN CORPUSCULAR HGB CONC 33.9 g/dL (33.0-36.5); MEAN CORPUSCULAR VOLUME 95.8 FL (78-98); MEAN PLATELET VOLUME 7.1 FL (7.4-10.4); MONOCYTES # (AUTO) 1.1 X10'3 (0-0.9); MONOCYTES % (AUTO) 10.4 % (2-12); NEUTROPHILS # (AUTO) 7.3 X10'3 (1.8-7.7); NEUTROPHILS % (AUTO) 70.1 % (42-75); PLATELET COUNT 448 X10'3 (140-440); RED BLOOD COUNT 4.51 X10'6 (4.70-6.10); WHITE BLOOD COUNT 10.4 X10'3 (4.5-11.0)
[2024-05-29 17:51] LABS: ALANINE AMINOTRANSFERASE 44 U/L (12-78); ALBUMIN 3.7 G/DL (3.4-5.0); ALBUMIN/GLOBULIN RATIO 0.9 (1.1-1.5); ALKALINE PHOSPHATASE 118 IU/L (46-116); ANION GAP 19 (8-16); ASPARTATE AMINO TRANSFERASE 21 U/L (10-37); BILIRUBIN,TOTAL 0.3 MG/DL (0.1-1.0); BLOOD UREA NITROGEN 10 MG/DL (7-18); BUN/CREATININE RATIO 10.9 (10.0-20.0); CHLORIDE 100 MMOL/L (99-107); CREATININE 0.92 MG/DL (0.60-1.10); GLUCOSE 156 MG/DL (70-104); LIPASE 42 U/L (16-77); SODIUM 138 MMOL/L (135-145); TOTAL CARBON DIOXIDE 18.8 MMOL/L (24-32); TOTAL PROTEIN 7.7 G/DL (6.4-8.2); eCRCL 107 ML/MIN; eGFR 90 ML/MIN
[2024-05-29 21:12] LABS: ETHANOL 142 MG/DL (<10)
[2024-05-29] MEDS: ondansetron/PF 4mg/2ml inj IV ONE (21:13)
[2024-05-29] MEDS: potassium Cl 20 mEq SR tablet PO STA (21:14)
[2024-05-29] MEDS: thiamine 100mg/ml 2ml inj. IV ONE (21:14)
[2024-05-29] MEDS: mag hydrox/Alum hydrox/simeth 30ml oral suspension PO ONE (21:14)
[2024-05-29] MEDS: normal saline 1000ML IV soln IVB ONE (21:15)
[2024-05-29] MEDS: LIDOcaine 2% Viscous 15ml cup MM ONE (21:15)
[2024-05-29 21:30] LABS: BILIRUBIN,URINE NEGATIVE (Neg); CLARITY,URINE CLEAR (Clear); COLOR,URINE STRAW (Yellow); GLUCOSE, URINE NEGATIVE (Neg); KETONES,URINE NEGATIVE (Neg); LEUKOCYTE ESTERASE ,URINE NEGATIVE (Neg); NITRITES, URINE NEGATIVE (Neg); OCCULT BLOOD,URINE NEGATIVE (Neg); PROTEIN,URINE NEGATIVE (Neg); UA COLLECTION TYPE CLN CATCH MIDSTREAM; UROBILINOGEN,URINE 0.2 E.U/dL (0.2-1.0)
[2024-05-29] MEDS ORDERED: POTA-207 PO (22:37)
[2024-05-29 23:09] VITALS: BP 168/100; PULSE 78; RESP 16; TEMP 98.6; O2SAT 98
== END 2024-05-29 23:11 | disposition home or self-care (01) ==
LOC: ER 16:48
DX: K29.20 Alcoholic gastritis without bleeding (principal); F10.10 Alcohol abuse, uncomplicated; E87.6 Hypokalemia; I10 Essential (primary) hypertension; J45.909 Unspecified asthma, uncomplicated; G89.29 Other chronic pain; F41.9 Anxiety disorder, unspecified; F32.A Depression, unspecified; E11.9 Type 2 diabetes mellitus without complications; F12.90 Cannabis use, unspecified, uncomplicated; F15.90 Other stimulant use, unspecified, uncomplicated; Z60.2 Problems related to living alone; Z98.890 Other specified postprocedural states; Z59.00 Homelessness unspecified; Z56.0 Unemployment, unspecified; Z88.0 Allergy status to penicillin; Z91.018 Allergy to other foods; Z91.048 Other nonmedicinal substance allergy status; Z79.899 Other long term (current) drug therapy; Z86.73 Personal history of transient ischemic attack (TIA), and cerebral infarction without residual deficits; Z88.8 Allergy status to other drugs, medicaments and biological substances
CPT/HCPCS: 36415; 80053; 80320; 81003; 83690; 84145; 85025; 96361; 96374; 96375; 99285; J2405; J3411; J7030

== ENCOUNTER 2024-05-31 16:19 | Emergency (ER) | payer MEDICAID ==
[~2024-05-31] VITALS: Ht 177.8 cm; Wt 101.2 kg
[~2024-05-31 16:19] MED LIST changes: +POTA-207 PO
[2024-05-31 17:14] LABS: RED CELL DISTRIBUTION WIDTH 14.2 % (11.5-14.5)
[2024-05-31 17:16] LABS: BASOPHILS % (AUTO) 0.6 % (0-1); EOSINOPHILS # (AUTO) 0.1 X10'3 (0-0.9); EOSINOPHILS % (AUTO) 1.6 % (0-6); HEMATOCRIT 39.9 % (42.0-52.0); HEMOGLOBIN 13.9 g/dl (14.0-17.9); LYMPHOCYTES # (AUTO) 2.4 X10'3 (1.1-4.8); LYMPHOCYTES % (AUTO) 30.8 % (21-51); MEAN CORPUSCULAR HEMOGLOBIN 33.3 PG (27.0-31.0); MEAN CORPUSCULAR HGB CONC 34.9 g/dL (33.0-36.5); MEAN CORPUSCULAR VOLUME 95.5 FL (78-98); MEAN PLATELET VOLUME 6.7 FL (7.4-10.4); MONOCYTES # (AUTO) 0.8 X10'3 (0-0.9); NEUTROPHILS # (AUTO) 4.4 X10'3 (1.8-7.7); PLATELET COUNT 460 X10'3 (140-440); RED BLOOD COUNT 4.18 X10'6 (4.70-6.10); WHITE BLOOD COUNT 7.8 X10'3 (4.5-11.0)
[2024-05-31 17:26] LABS: ALANINE AMINOTRANSFERASE 38 U/L (12-78); ALBUMIN 3.5 G/DL (3.4-5.0); ALBUMIN/GLOBULIN RATIO 1.1 (1.1-1.5); ALKALINE PHOSPHATASE 99 IU/L (46-116); ANION GAP 8 (8-16); ASPARTATE AMINO TRANSFERASE 21 U/L (10-37); BILIRUBIN,DIRECT 0.1 MG/DL (0-0.3); BILIRUBIN,TOTAL 0.3 MG/DL (0.1-1.0); BLOOD UREA NITROGEN 6 MG/DL (7-18); BUN/CREATININE RATIO 6.2 (10.0-20.0); CALCIUM 8.2 MG/DL (8.5-10.1); CHLORIDE 104 MMOL/L (99-107); CREATININE 0.97 MG/DL (0.60-1.10); GLUCOSE 116 MG/DL (70-104); LIPASE 43 U/L (16-77); POTASSIUM 3.3 MMOL/L (3.5-5.1); SODIUM 140 MMOL/L (135-145); TOTAL CARBON DIOXIDE 28.4 MMOL/L (24-32); TOTAL PROTEIN 6.8 G/DL (6.4-8.2); eCRCL 101 ML/MIN; eGFR 84 ML/MIN
[2024-05-31] MEDS: ondansetron/PF 4mg/2ml inj IV ONE (18:32)
[2024-05-31] MEDS: LIDOcaine 2% Viscous 15ml cup TP ONE (18:33)
[2024-05-31] MEDS: mag hydrox/Alum hydrox/simeth 30ml oral suspension PO ONE (18:33)
[2024-05-31] MEDS: morphine 4 MG/ML inj SYRINge IV ONE (18:33)
[2024-05-31] MEDS: normal saline 1000ML IV soln IVB ONE (18:38)
[2024-05-31 19:13] LABS: BILIRUBIN,URINE NEGATIVE (Neg); CLARITY,URINE CLEAR (Clear); COLOR,URINE YELLOW (Yellow); GLUCOSE, URINE NEGATIVE (Neg); KETONES,URINE NEGATIVE (Neg); LEUKOCYTE ESTERASE ,URINE NEGATIVE (Neg); NITRITES, URINE NEGATIVE (Neg); OCCULT BLOOD,URINE NEGATIVE (Neg); PROTEIN,URINE NEGATIVE (Neg); UROBILINOGEN,URINE 0.2 E.U/dL (0.2-1.0)
[2024-05-31 19:23] LABS: UA COLLECTION TYPE CLN CATCH MIDSTREAM
[2024-05-31 20:29] VITALS: TEMP 98.6
[2024-05-31] MEDS: potassium Cl 20 mEq SR tablet PO STA (21:35)
[2024-05-31 21:39] VITALS: BP 130/82; PULSE 99; RESP 18; O2SAT 98
== END 2024-05-31 21:41 | disposition home or self-care (01) ==
LOC: ER 16:20
DX: F10.10 Alcohol abuse, uncomplicated (principal); I10 Essential (primary) hypertension; J45.909 Unspecified asthma, uncomplicated; K21.9 Gastro-esophageal reflux disease without esophagitis; G89.29 Other chronic pain; F41.9 Anxiety disorder, unspecified; F32.A Depression, unspecified; F20.9 Schizophrenia, unspecified; E11.9 Type 2 diabetes mellitus without complications; F12.90 Cannabis use, unspecified, uncomplicated; F15.90 Other stimulant use, unspecified, uncomplicated; Z98.890 Other specified postprocedural states; Z86.73 Personal history of transient ischemic attack (TIA), and cerebral infarction without residual deficits; Z60.2 Problems related to living alone; Z56.0 Unemployment, unspecified; Z59.00 Homelessness unspecified; Z88.0 Allergy status to penicillin; Z88.8 Allergy status to other drugs, medicaments and biological substances; Z91.018 Allergy to other foods; Z79.899 Other long term (current) drug therapy
CPT/HCPCS: 36415; 80048; 80076; 81003; 83690; 85025; 96374; 96375; 99284; J2270; J2405; J7030; 96361

== ENCOUNTER 2024-06-06 19:31 | Emergency (ER) | payer MEDICAID ==
[~2024-06-06] VITALS: Ht 177.8 cm; Wt 97.7 kg
[2024-06-06 19:41] VITALS: BP 145/119; PULSE 107; RESP 18; TEMP 98.1; O2SAT 98
== END 2024-06-06 20:55 | disposition home or self-care (01) ==
LOC: ER 19:31
DX: F10.10 Alcohol abuse, uncomplicated (principal); R19.7 Diarrhea, unspecified; G45.9 Transient cerebral ischemic attack, unspecified; I10 Essential (primary) hypertension; J45.909 Unspecified asthma, uncomplicated; K21.9 Gastro-esophageal reflux disease without esophagitis; F41.9 Anxiety disorder, unspecified; F31.9 Bipolar disorder, unspecified; F12.90 Cannabis use, unspecified, uncomplicated; F15.90 Other stimulant use, unspecified, uncomplicated; Z88.0 Allergy status to penicillin; Z91.010 Allergy to peanuts; Z88.8 Allergy status to other drugs, medicaments and biological substances; Z79.899 Other long term (current) drug therapy; Y90.9 Presence of alcohol in blood, level not specified
CPT/HCPCS: 99281

== ENCOUNTER 2024-06-15 00:04 | Emergency (ER) | payer MEDICAID ==
[~2024-06-15] VITALS: Ht 177.8 cm; Wt 97.7 kg
[2024-06-15 01:12] LABS: BASOPHILS % (AUTO) 1.2 % (0-1); EOSINOPHILS # (AUTO) 0.1 X10'3 (0-0.9); EOSINOPHILS % (AUTO) 2.9 % (0-6); HEMATOCRIT 37.4 % (42.0-52.0); HEMOGLOBIN 12.7 g/dl (14.0-17.9); LYMPHOCYTES # (AUTO) 1.3 X10'3 (1.1-4.8); LYMPHOCYTES % (AUTO) 33.6 % (21-51); MEAN CORPUSCULAR HEMOGLOBIN 32.8 PG (27.0-31.0); MEAN CORPUSCULAR VOLUME 96.5 FL (78-98); MEAN PLATELET VOLUME 6.2 FL (7.4-10.4); MONOCYTES # (AUTO) 0.6 X10'3 (0-0.9); MONOCYTES % (AUTO) 16.1 % (2-12); NEUTROPHILS # (AUTO) 1.8 X10'3 (1.8-7.7); NEUTROPHILS % (AUTO) 46.2 % (42-75); PLATELET COUNT 268 X10'3 (140-440); RED BLOOD COUNT 3.88 X10'6 (4.70-6.10); RED CELL DISTRIBUTION WIDTH 15.5 % (11.5-14.5); WHITE BLOOD COUNT 3.9 X10'3 (4.5-11.0)
[2024-06-15 01:28] LABS: ALANINE AMINOTRANSFERASE 30 U/L (12-78); ALBUMIN 2.8 G/DL (3.4-5.0); ALBUMIN/GLOBULIN RATIO 0.8 (1.1-1.5); ALKALINE PHOSPHATASE 76 IU/L (46-116); ANION GAP 10 (8-16); ASPARTATE AMINO TRANSFERASE 17 U/L (10-37); BILIRUBIN,TOTAL 0.2 MG/DL (0.1-1.0); BLOOD UREA NITROGEN 8 MG/DL (7-18); BUN/CREATININE RATIO 10.3 (10.0-20.0); CALCIUM 8.1 MG/DL (8.5-10.1); CHLORIDE 108 MMOL/L (99-107); CREATININE 0.78 MG/DL (0.60-1.10); ETHANOL 66 MG/DL (<10); GLUCOSE 125 MG/DL (70-104); LIPASE 86 U/L (16-77); SODIUM 143 MMOL/L (135-145); TOTAL CARBON DIOXIDE 24.8 MMOL/L (24-32); TOTAL PROTEIN 6.2 G/DL (6.4-8.2); eCRCL 126 ML/MIN; eGFR > 90 ML/MIN
[2024-06-15] MEDS: normal saline 1000ML IV soln IVB ONE (01:28)
[2024-06-15 01:59] LABS: PLATELET ESTIMATE NORMAL; TOTAL CELLS COUNTED 100
[2024-06-15 02:00] LABS: ANISOCYTOSIS 1+
[2024-06-15] MEDS: pantoprazole 40 MG vial IV ONE (02:31)
[2024-06-15] MEDS ORDERED: LOPE2TAB25 PO (04:07)
[2024-06-15] MEDS: diphenoxylate/atropine tablet (Lomotil) PO ONE (05:07)
[2024-06-15 05:16] VITALS: BP 139/96; PULSE 82; RESP 18; TEMP 98.4; O2SAT 95
== END 2024-06-15 05:19 | disposition home or self-care (01) ==
LOC: ER 00:06
DX: K52.89 Other specified noninfective gastroenteritis and colitis (principal); K86.0 Alcohol-induced chronic pancreatitis; I10 Essential (primary) hypertension; J45.909 Unspecified asthma, uncomplicated; K21.9 Gastro-esophageal reflux disease without esophagitis; G89.29 Other chronic pain; F41.9 Anxiety disorder, unspecified; F32.A Depression, unspecified; F17.200 Nicotine dependence, unspecified, uncomplicated; F10.90 Alcohol use, unspecified, uncomplicated; F12.90 Cannabis use, unspecified, uncomplicated; Z60.2 Problems related to living alone; Z59.00 Homelessness unspecified; Z56.0 Unemployment, unspecified; Z88.0 Allergy status to penicillin; Z88.8 Allergy status to other drugs, medicaments and biological substances; Z91.018 Allergy to other foods; Z79.899 Other long term (current) drug therapy; Z86.73 Personal history of transient ischemic attack (TIA), and cerebral infarction without residual deficits; Z98.890 Other specified postprocedural states
CPT/HCPCS: 36415; 80053; 80320; 83690; 85007; 85025; 96361; 96374; 99283; J2470; J7030; 96365; 99284

== ENCOUNTER 2024-06-15 23:52 | Emergency (ER) | payer MEDICAID ==
[~2024-06-15 23:52] MED LIST changes: +LOPE2TAB25 PO
== END 2024-06-16 00:09 | disposition left against medical advice (07) ==
LOC: ER 23:53
DX: R10.84 Generalized abdominal pain (principal); I10 Essential (primary) hypertension; E11.9 Type 2 diabetes mellitus without complications; J45.909 Unspecified asthma, uncomplicated; K21.9 Gastro-esophageal reflux disease without esophagitis; G89.29 Other chronic pain; F41.9 Anxiety disorder, unspecified; F32.A Depression, unspecified; Z98.890 Other specified postprocedural states; Z88.0 Allergy status to penicillin; Z91.018 Allergy to other foods; Z88.8 Allergy status to other drugs, medicaments and biological substances; Z79.899 Other long term (current) drug therapy; Z86.73 Personal history of transient ischemic attack (TIA), and cerebral infarction without residual deficits

== ENCOUNTER 2024-06-18 14:12 | Emergency (ER) | payer MEDICAID ==
[~2024-06-18] VITALS: Ht 175.3 cm; Wt 109.1 kg
[2024-06-18 14:25] VITALS: BP 146/106; PULSE 92; RESP 18; O2SAT 98
[2024-06-18] MEDS ORDERED: MELA10TA2 PO (14:28)
[2024-06-18 14:55] VITALS: TEMP 98
[2024-06-19] MEDS ORDERED: OMEP40CA21 PO (09:02)
== END 2024-06-18 14:56 | disposition home or self-care (01) ==
LOC: ER 14:12
DX: G47.00 Insomnia, unspecified (principal); I10 Essential (primary) hypertension; J45.909 Unspecified asthma, uncomplicated; K21.9 Gastro-esophageal reflux disease without esophagitis; F41.9 Anxiety disorder, unspecified; F31.9 Bipolar disorder, unspecified; E11.9 Type 2 diabetes mellitus without complications; F12.90 Cannabis use, unspecified, uncomplicated; Z88.0 Allergy status to penicillin; Z91.018 Allergy to other foods; Z88.8 Allergy status to other drugs, medicaments and biological substances; Z79.899 Other long term (current) drug therapy
CPT/HCPCS: 99282

== ENCOUNTER 2024-06-19 08:05 | Emergency (ER) | payer MEDICAID ==
[~2024-06-19] VITALS: Ht 177.8 cm; Wt 98.7 kg
[~2024-06-19 08:05] MED LIST changes: +MELA10TA2 PO
[2024-06-19 08:34] VITALS: TEMP 98.6
[2024-06-19] MEDS ORDERED: OMEP40CA21 PO (09:02)
[2024-06-19 10:06] VITALS: BP 164/115; PULSE 108; RESP 16; O2SAT 97
== END 2024-06-19 10:09 | disposition home or self-care (01) ==
LOC: ER 08:06
DX: M79.672 Pain in left foot (principal); M79.671 Pain in right foot; F10.90 Alcohol use, unspecified, uncomplicated; F12.90 Cannabis use, unspecified, uncomplicated; I10 Essential (primary) hypertension; J45.909 Unspecified asthma, uncomplicated; K21.9 Gastro-esophageal reflux disease without esophagitis; G89.29 Other chronic pain; F41.9 Anxiety disorder, unspecified; F32.A Depression, unspecified; Z98.890 Other specified postprocedural states; Z59.00 Homelessness unspecified; Z56.0 Unemployment, unspecified; Z60.2 Problems related to living alone; Z88.0 Allergy status to penicillin; Z88.8 Allergy status to other drugs, medicaments and biological substances; Z91.018 Allergy to other foods; Z86.73 Personal history of transient ischemic attack (TIA), and cerebral infarction without residual deficits
CPT/HCPCS: 99284

== ENCOUNTER → 2024-06-21 | Emergency (ER) | payer MEDICAID ==
[~2024-06-21] MED LIST changes: -LORA-269 PO; -MELA10TA2 PO; +OMEP40CA21 PO; -ONDA-243 PO; -PANT-47 PO; -POTA-207 PO
== END | disposition left against medical advice (07) ==
LOC: ER 08:51
DX: M79.673 Pain in unspecified foot (principal); Z88.0 Allergy status to penicillin; Z88.8 Allergy status to other drugs, medicaments and biological substances; Z53.21 Procedure and treatment not carried out due to patient leaving prior to being seen by health care provider

== ENCOUNTER 2024-06-24 17:06 | Emergency (ER) | payer MEDICAID ==
[~2024-06-24] VITALS: Ht 177.8 cm; Wt 100.0 kg
[2024-06-24 21:25] VITALS: BP 119/81; PULSE 89; RESP 17; TEMP 98.7; O2SAT 97
== END 2024-06-24 21:27 | disposition home or self-care (01) ==
LOC: ER 17:07
DX: F10.129 Alcohol abuse with intoxication, unspecified (principal); I10 Essential (primary) hypertension; J45.909 Unspecified asthma, uncomplicated; K21.9 Gastro-esophageal reflux disease without esophagitis; F41.9 Anxiety disorder, unspecified; F32.A Depression, unspecified; E11.9 Type 2 diabetes mellitus without complications; F12.90 Cannabis use, unspecified, uncomplicated; Z88.0 Allergy status to penicillin; Z91.018 Allergy to other foods; Z79.899 Other long term (current) drug therapy; Y90.9 Presence of alcohol in blood, level not specified
CPT/HCPCS: 99284

== ENCOUNTER 2024-11-02 18:57 | Emergency (ER) | payer MEDICAID ==
[~2024-11-02] VITALS: Ht 177.8 cm; Wt 103.0 kg
[2024-11-02 19:04] VITALS: BP 183/98; PULSE 103; RESP 15; TEMP 97.2; O2SAT 99
== END 2024-11-02 20:21 | disposition home or self-care (01) ==
LOC: ER 18:59
DX: S70.921D Unspecified superficial injury of right thigh, subsequent encounter (principal); I10 Essential (primary) hypertension; J45.909 Unspecified asthma, uncomplicated; K21.9 Gastro-esophageal reflux disease without esophagitis; E11.9 Type 2 diabetes mellitus without complications; F20.9 Schizophrenia, unspecified; F41.9 Anxiety disorder, unspecified; F32.A Depression, unspecified; F29 Unspecified psychosis not due to a substance or known physiological condition; F12.90 Cannabis use, unspecified, uncomplicated; Z86.73 Personal history of transient ischemic attack (TIA), and cerebral infarction without residual deficits; Z88.0 Allergy status to penicillin; Z88.8 Allergy status to other drugs, medicaments and biological substances; Z91.018 Allergy to other foods; Z79.899 Other long term (current) drug therapy; Z98.890 Other specified postprocedural states; Z60.2 Problems related to living alone; Z59.00 Homelessness unspecified; Z56.0 Unemployment, unspecified; X58.XXXD Exposure to other specified factors, subsequent encounter
CPT/HCPCS: 99281; A6212

== ENCOUNTER 2024-12-02 13:20 | Emergency (ER) | payer MEDICAID ==
[~2024-12-02] VITALS: Ht 177.8 cm; Wt 100.0 kg
[2024-12-02 13:37] VITALS: BP 124/82; PULSE 102; RESP 16; TEMP 98; O2SAT 96
[2024-12-02 15:54] LABS: BASOPHILS % (AUTO) 0.3 % (0-1); EOSINOPHILS # (AUTO) 0.1 X10'3 (0-0.9); EOSINOPHILS % (AUTO) 1.2 % (0-6); HEMATOCRIT 43.5 % (42.0-52.0); HEMOGLOBIN 14.8 g/dl (14.0-17.9); LYMPHOCYTES # (AUTO) 2.4 X10'3 (1.1-4.8); LYMPHOCYTES % (AUTO) 33.9 % (21-51); MEAN CORPUSCULAR HEMOGLOBIN 32.9 PG (27.0-31.0); MEAN CORPUSCULAR VOLUME 96.6 FL (78-98); MEAN PLATELET VOLUME 6.4 FL (7.4-10.4); MONOCYTES # (AUTO) 0.6 X10'3 (0-0.9); MONOCYTES % (AUTO) 8.3 % (2-12); NEUTROPHILS # (AUTO) 4.1 X10'3 (1.8-7.7); NEUTROPHILS % (AUTO) 56.3 % (42-75); PLATELET COUNT 383 X10'3 (140-440); RED CELL DISTRIBUTION WIDTH 16.8 % (11.5-14.5); WHITE BLOOD COUNT 7.2 X10'3 (4.5-11.0)
[2024-12-02 16:15] LABS: ALANINE AMINOTRANSFERASE 104 U/L (12-78); ALBUMIN 3.1 G/DL (3.4-5.0); ALBUMIN/GLOBULIN RATIO 0.9 (1.1-1.5); ALKALINE PHOSPHATASE 137 IU/L (46-116); ANION GAP 10 (8-16); ASPARTATE AMINO TRANSFERASE 87 U/L (10-37); BILIRUBIN,TOTAL 0.2 MG/DL (0.1-1.0); BLOOD UREA NITROGEN 4 MG/DL (7-18); BUN/CREATININE RATIO 5.6 (10.0-20.0); CALCIUM 8.2 MG/DL (8.5-10.1); CHLORIDE 103 MMOL/L (99-107); CREATININE 0.72 MG/DL (0.60-1.10); GLUCOSE 108 MG/DL (70-104); LIPASE 86 U/L (16-77); POTASSIUM 3.5 MMOL/L (3.5-5.1); SODIUM 141 MMOL/L (135-145); TOTAL PROTEIN 6.5 G/DL (6.4-8.2); eCRCL 135 ML/MIN; eGFR > 90 ML/MIN
== END 2024-12-02 16:35 | disposition left against medical advice (07) ==
LOC: ER 13:21
DX: F10.129 Alcohol abuse with intoxication, unspecified (principal); I10 Essential (primary) hypertension; J45.909 Unspecified asthma, uncomplicated; K21.9 Gastro-esophageal reflux disease without esophagitis; E11.9 Type 2 diabetes mellitus without complications; F12.90 Cannabis use, unspecified, uncomplicated; F20.9 Schizophrenia, unspecified; F41.9 Anxiety disorder, unspecified; F32.A Depression, unspecified; F29 Unspecified psychosis not due to a substance or known physiological condition; Z86.73 Personal history of transient ischemic attack (TIA), and cerebral infarction without residual deficits; Z88.0 Allergy status to penicillin; Z88.8 Allergy status to other drugs, medicaments and biological substances; Z91.018 Allergy to other foods; Z79.899 Other long term (current) drug therapy; Z59.00 Homelessness unspecified; Z56.0 Unemployment, unspecified; Z60.2 Problems related to living alone; Z98.890 Other specified postprocedural states
CPT/HCPCS: 36415; 80053; 83690; 85025; 99283

== ENCOUNTER 2024-12-06 18:28 | Emergency (ER) | payer MEDICAID ==
[~2024-12-06] VITALS: Ht 177.8 cm; Wt 90.9 kg
[2024-12-06 18:37] VITALS: TEMP 97.9
[2024-12-06 19:00] VITALS: RESP 18
[2024-12-06 19:07] LABS: BASOPHILS % (AUTO) 0.4 % (0-1); EOSINOPHILS # (AUTO) 0.2 X10'3 (0-0.9); EOSINOPHILS % (AUTO) 2.6 % (0-6); HEMOGLOBIN 15.7 g/dl (14.0-17.9); LYMPHOCYTES # (AUTO) 2.6 X10'3 (1.1-4.8); LYMPHOCYTES % (AUTO) 38.9 % (21-51); MEAN CORPUSCULAR HEMOGLOBIN 32.2 PG (27.0-31.0); MEAN CORPUSCULAR HGB CONC 33.4 g/dL (33.0-36.5); MEAN CORPUSCULAR VOLUME 96.5 FL (78-98); MEAN PLATELET VOLUME 6.4 FL (7.4-10.4); MONOCYTES # (AUTO) 0.6 X10'3 (0-0.9); MONOCYTES % (AUTO) 9.4 % (2-12); NEUTROPHILS # (AUTO) 3.3 X10'3 (1.8-7.7); NEUTROPHILS % (AUTO) 48.7 % (42-75); PLATELET COUNT 370 X10'3 (140-440); RED BLOOD COUNT 4.87 X10'6 (4.70-6.10); RED CELL DISTRIBUTION WIDTH 16.7 % (11.5-14.5); WHITE BLOOD COUNT 6.7 X10'3 (4.5-11.0)
[2024-12-06 19:24] LABS: BILIRUBIN,URINE NEGATIVE (Neg); CLARITY,URINE CLEAR (Clear); COLOR,URINE YELLOW (Yellow); GLUCOSE, URINE NEGATIVE (Neg); KETONES,URINE NEGATIVE (Neg); LEUKOCYTE ESTERASE ,URINE NEGATIVE (Neg); NITRITES, URINE NEGATIVE (Neg); OCCULT BLOOD,URINE NEGATIVE (Neg); PROTEIN,URINE NEGATIVE (Neg); UROBILINOGEN,URINE 0.2 E.U/dL (0.2-1.0)
[2024-12-06 19:28] LABS: ALBUMIN 3.7 G/DL (3.4-5.0); ANION GAP 9 (8-16); BLOOD UREA NITROGEN 8 MG/DL (7-18); BUN/CREATININE RATIO 9.5 (10.0-20.0); CALCIUM 8.4 MG/DL (8.5-10.1); CHLORIDE 102 MMOL/L (99-107); CREATININE 0.84 MG/DL (0.60-1.10); ETHANOL 396 MG/DL (<10); GLUCOSE 101 MG/DL (70-104); POTASSIUM 4.2 MMOL/L (3.5-5.1); SODIUM 140 MMOL/L (135-145); TOTAL CARBON DIOXIDE 29.5 MMOL/L (24-32); eCRCL 116 ML/MIN; eGFR > 90 ML/MIN
[2024-12-06 19:30] VITALS: PULSE 85
[2024-12-06 19:34] LABS: URINE AMPHETAMINE SCREEN NEGATIVE (Neg); URINE BARBITUATE SCREEN NEGATIVE (Neg); URINE BENZODIAZEPINES SCREEN NEGATIVE (Neg); URINE CANNABINOID SCREEN NEGATIVE (Neg); URINE COCAINE SCREEN NEGATIVE (Neg); URINE METHADONE SCREEN NEGATIVE (Neg); URINE OPIATE SCREEN NEGATIVE (Neg); URINE PHENCYCLIDINE SCREEN NEGATIVE (Neg)
[2024-12-06 19:38] LABS: UA COLLECTION TYPE VOIDED
[2024-12-06] MEDS: metoclopramide 5 mg/ml inj IV ONE (19:50)
[2024-12-06] MEDS: normal saline 1000ML IV soln IVB ONE (19:50)
[2024-12-06 20:53] LABS: ALANINE AMINOTRANSFERASE 108 U/L (12-78); ALBUMIN/GLOBULIN RATIO 0.8 (1.1-1.5); ALKALINE PHOSPHATASE 139 IU/L (46-116); ASPARTATE AMINO TRANSFERASE 99 U/L (10-37); BILIRUBIN,DIRECT 0.1 MG/DL (0-0.3); BILIRUBIN,TOTAL 0.2 MG/DL (0.1-1.0); TOTAL PROTEIN 8.4 G/DL (6.4-8.2)
[2024-12-06 21:00] VITALS: BP 139/96; O2SAT 98
== END 2024-12-06 22:13 | disposition home or self-care (01) ==
LOC: ER 18:29
DX: F10.129 Alcohol abuse with intoxication, unspecified (principal); I10 Essential (primary) hypertension; J45.909 Unspecified asthma, uncomplicated; K21.9 Gastro-esophageal reflux disease without esophagitis; F41.9 Anxiety disorder, unspecified; F31.9 Bipolar disorder, unspecified; F20.9 Schizophrenia, unspecified; Z86.73 Personal history of transient ischemic attack (TIA), and cerebral infarction without residual deficits; F12.90 Cannabis use, unspecified, uncomplicated; Z88.0 Allergy status to penicillin; Z91.010 Allergy to peanuts; Z88.8 Allergy status to other drugs, medicaments and biological substances; Z98.890 Other specified postprocedural states; Y90.8 Blood alcohol level of 240 mg/100 ml or more
CPT/HCPCS: 36415; 70450; 80048; 80076; 80305; 80320; 81003; 85025; 96361; 96374; 99285; J2765; J7030; A6590

== ENCOUNTER 2025-02-17 04:06 | Emergency (ER) | payer MEDICAID ==
[~2025-02-17] VITALS: Ht 177.8 cm; Wt 81.8 kg
[2025-02-17 04:19] VITALS: TEMP 98
[2025-02-17] MEDS: pantoprazole 40mg Tablet.DR PO ONE (08:17)
[2025-02-17] MEDS: LIDOcaine 2% Viscous 15ml cup MM ONE (08:17)
[2025-02-17] MEDS: calcium carbonate 500mg chew tablet PO ONE (08:17)
[2025-02-17] MEDS: ketorolac trometh 15mg/ml vial 15 MG/ML ML IM ONE (08:17)
[2025-02-17] MEDS: mag hydrox/Alum hydrox/simeth 30ml oral suspension PO ONE (08:17)
[2025-02-17] MEDS ORDERED: OMEP40CA21 PO (10:27)
[2025-02-17 10:47] VITALS: BP 112/76; PULSE 75; RESP 16; O2SAT 98
== END 2025-02-17 10:49 | disposition home or self-care (01) ==
LOC: ER 04:07
DX: K21.9 Gastro-esophageal reflux disease without esophagitis (principal); E11.9 Type 2 diabetes mellitus without complications; F20.9 Schizophrenia, unspecified; F31.9 Bipolar disorder, unspecified; F41.9 Anxiety disorder, unspecified; F12.90 Cannabis use, unspecified, uncomplicated; F10.90 Alcohol use, unspecified, uncomplicated; I10 Essential (primary) hypertension; J45.909 Unspecified asthma, uncomplicated; Z86.73 Personal history of transient ischemic attack (TIA), and cerebral infarction without residual deficits; Z88.0 Allergy status to penicillin; Z88.8 Allergy status to other drugs, medicaments and biological substances; Y90.9 Presence of alcohol in blood, level not specified
CPT/HCPCS: 96372; 99284; J1885